=== PATIENT | male | born 1950 | race Caucasian/White ===

== ENCOUNTER → 2019-12-10 11:57 | Outpatient (CLI) | payer MEDICARE, SELFPAY ==
[2019-12-13 14:29] LABS: COVID19 Sendout Not Detected (Not Detected)
== END ==
PROVIDERS: Visit Provider Physician Assistant
DX: R05 Cough (principal)
CPT/HCPCS: 87635

== ENCOUNTER 2020-01-23 18:37 | Emergency (ER) | payer OTHER, MEDICARE, SELFPAY ==
[2020-01-23 19:00] VITALS: BP 135/66; PULSE 70; RESP 14; TEMP 36.8; O2SAT 97; BMI 27.9
--- NOTE | 2020-01-23 19:36 | ED.ANIMALBIT ---
HPI - Animal Bite <Morelia Martinez PA-C - Last Filed: 01/24/20 00:13> General Chief Complaint: Animal Bite Stated Complaint: Dog Bite Time Seen by Provider: 01/23/20 19:32 Source: patient Mode of arrival: Ambulatory Limitations: no limitations History of Present Illness HPI narrative: This is a 69-year-old gentleman with an extensive medical history who presents to the emergency department complaining of a dog bite sustained to his left forearm on Monday of this week, 4 days ago. He states that it was the neighbor's dog that was a [place] Quiles that he knows it was in an enclosure and he was visiting with the other dog that lives with the [place] when the [place] bit him on the arm. The dentist/owner of the dog saw this happen and called him off by spraying water on him. The patient reports he did not initially report this to the police, however he did file a report earlier today as he had not heard anything back from the owners of the dog specifically regarding their vaccinations status. The patient also notes that he recently finished a course of amoxicillin which he was taking because he was bitten by his own dog 2 weeks ago which he then had to put down. He presents to the emergency department today with a slight feeling of stiffness in his left hand and perceived color change in his left than hand with some increasing redness of the skin. He denies any systemic symptoms including fever, nausea, chills, vomiting, diarrhea, shortness of breath or any other symptoms. MD complaint: animal bite Onset (ago): day(s) (4) Animal: dog (cypriot quiles) Description of animal: household pet (belongs to neighbor) Mechanism: bite Location - Extremities: Left: forearm Pain description: intermittent Severity scale (1-10): 1 Context: unprovoked and playing with animal (interacting with dog in the same enclosure) Associated symptoms: erythema and other (joint stiffness in left hand) Treatments prior to arrival: irrigation and antibiotic ointment Related Data Patient tetanus UTD: Yes Previous Rx's Medication Instructions Recorded amoxicillin-pot clavulanate 1 tab PO BID #14 tab 01/23/20 [Augmentin] Allergies Allergy/AdvReac Type Severity Reaction Status Date / Time No Known Drug Allergies Allergy Verified 01/23/20 19:17 Review of Systems <Morelia Martinez PA-C - Last Filed: 01/24/20 00:13> Review of Systems Narrative: GENERAL: Denies chills, fatigue, malaise, fever, sweats. HEENT: Denies sinus pain, ear pain, sore throat, difficulty swallowing, dizziness. RESPIRATORY: Denies dyspnea, cough, wheezing, hemoptysis, sputum. CARDIOVASCULAR: Denies chest pain, palpitations, orthopnea, edema, GASTROINTESTINAL: Denies nausea, vomiting, abdominal pain, diarrhea, constipation, melena. : Denies dysuria, frequency, incontinence, hematuria, urinary retention. MUSCULOSKELETAL: For slight stiffness with making a fist on his left hand, denies weakness, joint pain, or bony pain SKIN: Positive for slight pink color change left and and forearm, Denies rash, skin lesions, or other NEUROLOGIC: Denies weakness, headache, numbness, change in speech, confusion, seizures, incoordination. PSYCHIATRIC: No concerning psychosocial issues. 12 point review of systems is negative except for those stated above Patient History <Morelia Martinez PA-C - Last Filed: 01/24/20 00:13> Social History Smoking Status: Unknown if ever smoked Smoking Status: Unknown if ever smoked alcohol intake frequency: 0-2 drinks per day Substance Use Type: does not use Exam <Morelia Martinez PA-C - Last Filed: 01/24/20 00:13> Narrative Exam Narrative: GENERAL: 69 year old patient appears stated age. Well-nourished, well-developed patient, in mild distress. HEAD: Atraumatic. Normocephalic. EYES: Pupils equal round and reactive. Extraocular motions intact. No scleral icterus. No injection or drainage. ENT: Nose without bleeding, purulent drainage. Throat without erythema, tonsillar hypertrophy or exudate. Airway patent. NECK: Trachea midline. Non tender CARDIOVASCULAR: Regular rate and rhythm without murmurs, gallops, or rubs. RESPIRATORY: Clear to auscultation. Breath sounds equal bilaterally. No wheezes, rales, or rhonchi. GASTROINTESTINAL: Abdomen soft, non-tender, nondistended. EXTREMITIES: The left forearm has multiple superficial bruises well-healing abrasions and 1 small superficial puncture wound, there is no appreciable erythema on the left as compared to the right, there is no appreciable swelling of the left hand or forearm as compared to the right. Range of motion and strength are intact. No edema or joint tenderness. The unaffected left lower extremity has historic deformity and evidence of multiple surgeries. BACK: Nontender without deformity or crepitance. No flank tenderness. NEURO: AOx3. SKIN: No rash or erythema of visible areas Initial Vital Signs Initial Vital Signs: Vital Signs Temperature 98.3 F 01/23/20 19:00 Pulse Rate 70 01/23/20 19:00 Respiratory Rate 14 01/23/20 19:00 Blood Pressure 135/66 01/23/20 19:00 Pulse Oximetry 97 01/23/20 19:00 <Lillian Carlisle DO - Last Filed: 01/28/20 08:15> Initial Vital Signs Initial Vital Signs: Vital Signs Temperature 98.3 F 01/23/20 19:00 Pulse Rate 70 01/23/20 19:00 Respiratory Rate 14 01/23/20 19:00 Blood Pressure 135/66 01/23/20 19:00 Pulse Oximetry 97 01/23/20 19:00 Scores <Morelia Martinez PA-C - Last Filed: 01/24/20 00:13> GCS Hilbert coma scale eye opening: Spontaneous Hilbert coma scale verbal response: Orientated Oh coma scale motor response: Obey commands Hilbert coma scale total score: 15 Course <ANDREA Bruce Last Filed: 01/24/20 00:13> Vital Signs Vital signs: Vital Signs - 8 hr 01/23/20 19:00 Temperature 98.3 F Pulse Rate 70 Respiratory Rate 14 Blood Pressure 135/66 Pulse Oximetry 97 <DO Binh Alejo Last Filed: 01/28/20 08:15> Vital Signs Vital signs: Vital Signs - 8 hr 01/23/20 19:00 Temperature 98.3 F Pulse Rate 70 Respiratory Rate 14 Blood Pressure 135/66 Pulse Oximetry 97 [facility] - Animal Bite <ANDREA Bruce Last Filed: 01/24/20 00:13> Differential Diagnosis Differential diagnosis: Likely bite by animal and dog bite Medical Records Attestation: I reviewed the patient's medical records. [facility] Narrative Medical decision making narrative: This is a well-appearing 69-year-old presents to the emergency department with complaint of a dog bite from his known neighbor's dog sustained 4 days ago from the neighbor's dog, police report filed today. He is concerned for a possible need for antibiotics, has no other complaints or concerns. Differential diagnoses considered include dog bite, tendon sheath infection, need for prophylactic antibiotics, cellulitis, muscle injury Signs of active infection are not appreciated on exam, patient has no systemic symptoms, he did recently finish a course of amoxicillin, and given that he had a 2nd bite sustained this week 4 days ago, prophylaxis against infection is advisable, he is prescribed a course of Augmentin, advised to have PCP follow-up closely, provided with emergency return precautions, all questions answered. Discharge Plan Departure Patient Disposition: Home Clinical Impression: Bite by animal Dog bite Qualifiers: Encounter type: initial encounter Qualified Code(s): W54.0XXA - Bitten by dog, initial encounter Discharge Date/Time: 01/23/20 20:13 Instructions: DI for Animal Bites, DI for Dog Bite Activity Restrictions/Additional Instructions: Thank you for letting us to be part of your care in the emergency department today. There is no evidence of an emergent or life threatening illness at this time, but follow up with your doctor in 1-2 days is recommended nonetheless to continue to rule out serious underlying causes of your symptoms. Please call the office for an appointment. Please return to the Emergency Department for any worsening or persistent symptoms. Please take medications as directed. I have prescribed antibiotics for you as a prophylaxis against infection from your dog bite. I recommend that you have a follow-up appointment with your primary care physician as needed please take the antibiotics as prescribed. If you have any worsening or changes of your symptoms please do not hesitate to seek medical care. If you do not have a PCP I have included a referral to [facility], they can help you to set up a primary care physician and a follow-up appointment as needed. Prescriptions: New amoxicillin-pot clavulanate [Augmentin] 875-125 mg tablet 1 tab PO BID Qty: 14 RF: 0 Referrals: [facility] [Outside] <Lillian Carlisle DO - Last Filed: 01/28/20 08:15> Cosign ED Attending Antioneature Attestation: I was immediately available in the department for consultation. Documentation has been reviewed. I agree with assessment and plan.
== END 2020-01-23 20:13 | disposition home or self-care (01) ==
PROVIDERS: Emergency Provider Student in an Organized Health Care Education/Training Program
DX: S51.852A Open bite of left forearm, initial encounter (principal); W54.0XXA Bitten by dog, initial encounter
CPT/HCPCS: 99281

== ENCOUNTER 2020-10-13 14:17 | Emergency (ER) | payer OTHER, MEDICARE, SELFPAY ==
[2020-10-13 14:28] VITALS: BP 183/119; PULSE 87; RESP 18; TEMP 36.8; O2SAT 97; BMI 28.4
--- NOTE | 2020-10-13 15:20 | DI.CT.S_ITS ---
PROCEDURE: CT HEAD/BRAIN WO CON INDICATIONS: falls multiple TECHNIQUE: Noncontrast 4.5 mm thick angled axial sections acquired from the foramen magnum to the vertex, with coronal and sagittal reformats. For radiation dose reduction, the following was used: automated exposure control, adjustment of mA and/or kV according to patient size. COMPARISON: None. FINDINGS: Image quality: Excellent. CSF spaces: Basal cisterns are patent. No extra-axial fluid collections. The ventricles are symmetric in size and shape. Brain: No intracranial bleeds or masses. There is cerebral volume loss for age, with resultant ventricular and sulcal prominence. There are periventricular and deep white matter chronic small vessel ischemic changes. There is intracranial internal carotid artery atherosclerosis. Skull and face: Calvarium and visualized facial bones appear intact, without suspicious lesions. Sinuses: Visualized sinuses and mastoids are clear. IMPRESSION: 1. No acute intracranial process. 2. Moderate atrophy and chronic microvascular ischemic changes. Dictated by: Janice Pedraza M.D. on 10/13/2020 at 15:43 Approved by: Janice Pedraza M.D. on 10/13/2020 at 16:01
--- NOTE | 2020-10-13 15:20 | DI.RAD.S_ITS ---
PROCEDURE: XR CHEST 1V INDICATIONS: falls multiple TECHNIQUE: One view of the chest was acquired. COMPARISON: None. FINDINGS: Surgical changes and devices: None. Lungs and pleura: Lungs are clear. No pleural effusions or pneumothorax. Mediastinum: Mediastinal contours appear normal. Heart size is normal. Bones and chest wall: No suspicious bony lesions. Overlying soft tissues appear unremarkable. IMPRESSION: No acute cardiopulmonary disease process. Dictated by: Hafsa Cunningham MD, PhD on 10/13/2020 at 15:43 Approved by: Hafsa Cunningham MD, PhD on 10/13/2020 at 15:46
--- NOTE | 2020-10-13 15:32 | ED_ITS ---
HPI - Head Injury <Lillian Carlisle DO - Last Filed: 10/19/20 07:47> General Chief complaint: Head Injury Stated complaint: had a fall Monday, nauseated Time Seen by Provider: 10/13/20 14:38 Source: patient Mode of arrival: Ambulatory Limitations: no limitations History of Present Illness HPI Narrative: Patient is a 70-year-old male who presents after ground level fall 4 days ago, he fell on left side rate near his eye he does have contusion over his periorbital area is. Since then he has been dizzy and off balance. No chest pain or palpitations. He thinks he stumbled and tripped initially causing him to fall. He actually says that his balance has not been great for about 6 weeks. 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 He thinks he is on a blood thinner but he is not sure what it is or why he is taking it. He has had multiple surgeries on his legs and other areas of his body and really does not like hospitals. Related Data Previous Rx's Medication Instructions Recorded amoxicillin-pot clavulanate 1 tab PO BID #14 tab 01/23/20 [Augmentin] Allergies Allergy/AdvReac Type Severity Reaction Status Date / Time No Known Drug Allergies Allergy Verified 10/13/20 14:28 Review of Systems <Lillian Carlisle DO - Last Filed: 10/19/20 07:47> Review of Systems ROS Unobtainable: All systems reviewed & are unremarkable except as noted in HPI and below Constitutional Constitutional: Denies chills, Denies fever(s), Reports frequent falls, Reports headache(s), Denies lethargy and Reports weakness Eyes Eyes: Denies change in vision, Denies eye discharge, Denies irritation and Denies loss of vision ENT Ears, Nose, Mouth, and Throat: Reports headache(s) Cardiovascular Cardiovascular: Denies chest pain, Denies syncope, Denies rapid heart rate, Denies irregular heart rhythm, Denies leg edema, Reports lightheadedness, Denies palpitations, Denies dyspnea, Denies dyspnea on exertion and Denies orthopnea Respiratory Respiratory: Denies cough, Denies dyspnea, Denies dyspnea on exertion and Denies wheezing Gastrointestinal Gastrointestinal: Denies abdominal pain, Denies change in bowel habits, Denies diarrhea, Denies nausea and Denies vomiting Musculoskeletal Musculoskeletal: Denies back pain Integumentary/Breasts Skin/Breast: Denies pruritus, Denies erythema, Denies rash and Denies wounds Neurologic Neurologic: Reports frequent falls, Reports headache(s), Denies loss of vision and Reports weakness Endocrine Endocrine: Denies palpitations Allergic/Immunologic Allergic/Immunologic: Denies wheezing Patient History <Lillian Carlisle DO - Last Filed: 10/19/20 07:47> Medical History (Updated 10/13/20 @ 19:05 by iLllian Carlisle DO) Cerebral aneurysm Social History Smoking Status: Never smoker Smoking Status: Never smoker alcohol intake frequency: 0-2 drinks per day Alcohol type: hard liquor Substance Use Type: does not use Exam <Lillian Carlisle DO - Last Filed: 10/19/20 07:47> Initial Vital Signs Initial Vital Signs: Vital Signs Temperature 98.3 F 10/13/20 14:28 Pulse Rate 87 10/13/20 14:28 Respiratory Rate 18 10/13/20 14:28 Blood Pressure 183/119 H 10/13/20 14:28 Pulse Oximetry 97 10/13/20 14:28 GENERAL: Alert pleasant 70-year-old male and in no acute distress. HEENT: Head atraumatic,EOMI, pupils reactive, face symmetric, moist mucous membranes CARDIOVASCULAR: Regular rate and rhythm without murmurs, rubs or gallops. RESPIRATORY: Breath sounds equal bilaterally, no wheezes rales or rhonchi. ABDOMEN: Soft, nontender. Normoactive bowel sounds all 4 quadrants. No guarding or rebound. EXTREMITIES: Normal range of motion, no clubbing or edema. Neurovascularly intact NEUROLOGICAL: Alert and oriented x4.Normal gait and speech. Cranial nerves II through XII grossly intact. Good oxuwzo-wv-fzca, good bmgd-wb-mzyd, strength equal bilaterally, no dysarthria or aphasia, sensation in tact to soft touch patrizia aterally, no visual changes, no facial droop SKIN: Warm, dry, no laceration, no petechiae, no rashes or lesions. <Amarjit Bucio DO - Last Filed: 10/13/20 22:48> Initial Vital Signs Initial Vital Signs: Vital Signs Temperature 98.3 F 10/13/20 14:28 Pulse Rate 87 10/13/20 14:28 Respiratory Rate 18 10/13/20 14:28 Blood Pressure 183/119 H 10/13/20 14:28 Pulse Oximetry 97 10/13/20 14:28 Scores <Lillian Carlisle DO - Last Filed: 10/19/20 07:47> NIH Stroke Scale Level of Conciousness: Alert, keenly responsive Ask month/age: Answers both questions correctly. Open/close eyes, close hand: Performs both tasks correctly Best gaze horizontal: Normal Visual marquis: No visual loss Facial palsy: Normal symetrical movement Left arm drift: No drift for full 10 sec Right arm drift: No drift for full 10 sec Left leg drift: No drift for full 5 sec Right leg drift: No drift for full 5 sec Limb ataxia: Absent Sensory on face/arms/legs: Normal, no sensory loss Best language: No aphasia, normal Dysarthria: Normal Extinction or inattention: No abnormality Total NIH Stroke scale score: 0 Course <Lillian Carlisle DO - Last Filed: 10/19/20 07:47> Orders Ordered: Discontinued Medications Acetaminophen (Acetaminophen 325 Mg Tablet) 650 mg PO NOW ONE Stop: 10/13/20 20:11 Last Admin: 10/13/20 20:16 Dose: 650 mg Documented by: AMIE Hydromorphone HCl (Hydromorphone 1 Mg Inj) 1 mg IV NOW ONE Stop: 10/13/20 16:01 Last Admin: 10/13/20 16:12 Dose: 1 mg Documented by: FORD Vital Signs Vital signs: Vital Signs - 8 hr 10/13/20 16:14 10/13/20 16:15 10/13/20 16:30 Temperature Pulse Rate 74 74 68 Respiratory Rate Blood Pressure 159/74 H 158/76 H Pulse Oximetry 95 96 96 10/13/20 17:00 10/13/20 21:07 Temperature 97.7 F Pulse Rate 76 72 Respiratory Rate 20 Blood Pressure 172/80 H Pulse Oximetry 97 99 <Amarjit Bucio DO - Last Filed: 10/13/20 22:48> Orders Ordered: Discontinued Medications Acetaminophen (Acetaminophen 325 Mg Tablet) 650 mg PO NOW ONE Stop: 10/13/20 20:11 Last Admin: 10/13/20 20:16 Dose: 650 mg Documented by: KBROTEM Hydromorphone HCl (Hydromorphone 1 Mg Inj) 1 mg IV NOW ONE Stop: 10/13/20 16:01 Last Admin: 10/13/20 16:12 Dose: 1 mg Documented by: FORD Vital Signs Vital signs: Vital Signs - 8 hr 10/13/20 16:14 10/13/20 16:15 10/13/20 16:30 Temperature Pulse Rate 74 74 68 Respiratory Rate Blood Pressure 159/74 H 158/76 H Pulse Oximetry 95 96 96 10/13/20 17:00 10/13/20 21:07 Temperature 97.7 F Pulse Rate 76 72 Respiratory Rate 20 Blood Pressure 172/80 H Pulse Oximetry 97 99 MDM - Head Injury <Lillian Carlisle DO - Last Filed: 10/19/20 07:47> Lab Data Attestation: I reviewed the patient's lab results. Result diagrams: 10/13/20 16:10 10/13/20 16:10 Labs: Lab Results 10/13/20 10/13/20 10/13/20 Range/Units 16:10 16:10 16:10 WBC 7.2 (4.5-11.0) X10^3/uL RBC 4.58 (4.5-5.9) X10^6/uL Hgb 15.8 (13.5-17.5) g/dL Hct 45.3 (41-53) % MCV 98.9 (80-100) fL MCH 34.6 H (26-34) PG MCHC 35.0 (30-36) % RDW 12.6 (11.6-14.8) % Plt Count 166 (150-400) X10^3/uL Neut % (Auto) 73.6 (50-75) % Lymph % (Auto) 14.4 L (25-40) % Posey % (Auto) 9.5 (3-14) % Eos % (Auto) 2.2 (2-4) % Baso % (Auto) 0.3 (0-2) % Neut # (Auto) 5300 (7218-0556) /uL Lymph # (Auto) 1000 L (2180-8151) /uL Posey # (Auto) 700 (0-900) /uL Eos # (Auto) 200 (0-450) /uL Baso # (Auto) 0 (0-100) /uL PT 12.0 (10.1-12.7) SECONDS INR 1.1 (0.9-1.3) APTT 33 (26.4-36.2) SECONDS Sodium 132 L (137-145) mmol/L Potassium 3.7 (3.4-5.1) mmol/L Chloride 96 L (98-107) mmol/L Carbon Dioxide 31 (22-32) mmol/L BUN 8 L (9-20) mg/dL Creatinine 0.59 L (0.66-1.25) mg/dL Estimated GFR > 60.0 (>60) mL/min BUN/Creatinine Ratio 13.6 (6-22) Glucose 118 H (80-110) mg/dL Calcium 9.4 (8.4-10.2) mg/dL Total Bilirubin 0.6 (0.2-1.3) mg/dL AST 31 (17-59) IU/L ALT 27 (<50) IU/L Alkaline Phosphatase 63 (38-126) U/L Total Creatine Kinase 39 L (55-170) U/L CK-MB (CK-2) TNP CK-MB (CK-2) Rel Index TNP Troponin I < 0.012 (0.01-0.034) ng/mL NT-Pro-B Natriuret Pep 140 H (<125) pg/mL Total Protein 6.8 (6.3-8.2) g/dL Albumin 4.1 (3.5-5.0) g/dL Globulin 2.7 (1.7-4.1) g/dL Albumin/Globulin Ratio 1.5 (1.0-2.8) Lipase 214 (23-300) U/L Imaging Data CT scan - head: Radiologist's Impression: PROCEDURE: CT HEAD/BRAIN WO CON INDICATIONS: falls multiple TECHNIQUE: Noncontrast 4.5 mm thick angled axial sections acquired from the foramen magnum to the vertex, with coronal and sagittal reformats. For radiation dose reduction, the following was used: automated exposure control, adjustment of mA and/or kV according to patient size. COMPARISON: None. FINDINGS: Image quality: Excellent. CSF spaces: Basal cisterns are patent. No extra-axial fluid collections. The ventricles are symmetric in size and shape. Brain: No intracranial bleeds or masses. There is cerebral volume loss for age, with resultant ventricular and sulcal prominence. There are periventricular and deep white matter chronic small vessel ischemic changes. There is intracranial internal carotid artery atherosclerosis. Skull and face: Calvarium and visualized facial bones appear intact, without s uspicious lesions. Sinuses: Visualized sinuses and mastoids are clear. IMPRESSION: 1. No acute intracranial process. 2. Moderate atrophy and chronic microvascular ischemic changes. Dictated by: Janice Pedraza M.D. on 10/13/2020 at 15:43 Chest x-ray: Radiologist's Impression: PROCEDURE: XR CHEST 1V INDICATIONS: falls multiple TECHNIQUE: One view of the chest was acquired. COMPARISON: None. FINDINGS: Surgical changes and devices: None. Lungs and pleura: Lungs are clear. No pleural effusions or pneumothorax. Mediastinum: Mediastinal contours appear normal. Heart size is normal. Bones and chest wall: No suspicious bony lesions. Overlying soft tissues appear unremarkable. IMPRESSION: No acute cardiopulmonary disease process. Dictated by: Hafsa Cunningham MD, PhD on 10/13/2020 at 15:43 CTA - brain/neck: Radiologist's Impression: PROCEDURE: CT ANGIO HEAD AND NECK INDICATIONS: headache falls hx of coils TECHNIQUE: Noncontrast images were performed earlier in the day and not repeated. After the administration of intravenous contrast, 1 mm thick sections acquired from the aortic arch through the [place] of Bhardwaj. Post-contrast 4.5 mm thick sections then re- acquired from the foramen magnum to the vertex. 3-dimensional ghuuczd-fonfukzxy-xliopdkftx (MIP) and/or volume rendering reformats were acquired of the central intracranial vasculature and neck separately. COMPARISON: [facility], CT, CT HEAD/BRAIN WO CON, 10/13/2020, 15:27. FINDINGS: Image quality: Excellent. BRAIN: CSF spaces: Ventricles demonstrates symmetric prominence. Basal cisterns are patent. No extra-axial fluid collections. Brain: No midline shift. No intracranial bleeds or masses. Mortensen-white matter interface appears intact. Brain parenchymal volume loss and chronic small vessel ischemic changes are seen. Skull and face: Calvarium and facial bones appear intact, without suspicious lesions. Orbits appear normal. Sinuses: Sinuses and mastoids are clear. HEAD CT ANGIOGRAPHY: Anterior circulation: Intracranial internal carotid arteries demonstrate generalized atherosclerotic calcification and irregularity. There is approximately 60% narrowing seen on each side. The flow within the paired anterior cerebral arteries is normal and symmetric. The flow within the middle cerebral arteries is normal and symmetric. The anterior communicating artery is seen. No aneurysms are seen. Posterior circulation: Vascular coils are seen along the course of the right V4 segment. There is poor flow seen within the right V4 segment. The distal left vertebral artery is unremarkable. There is a normal appearing basilar artery. Bilateral type origins of the posterior cerebral arteries can be seen. Flow within the posterior cerebral arteries is normal and symmetric. No aneurysms are seen. NECK CT ANGIOGRAPHY: Carotid system: The great vessels demonstrate a conventional anatomy as they arise from the aortic arch. The origins of the common carotid arteries appear patent. The common carotid arteries demonstrate normal caliber and courses. The bifurcation regions demonstrate atherosclerotic calcification and irregularity. There is approximately 30% narrowing seen involving the right proximal internal carotid artery and approximately 50% narrowing involving the left proximal internal carotid artery. Posterior circulation: The origins of the vertebral arteries both appear widely patent. The more superior extracranial portions of both vertebral arteries also demonstrate normal courses and calibers. They join to form a normal appearing basilar artery. Soft tissues: Visualized neck soft tissues demonstrate no suspicious abnormali ties. Bones: No suspicious bony lesions. Visualized cervical spine appears normally aligned. At least moderate cervical spine degenerative changes are seen. Moderate degenerative change can be seen the cervical spine. IMPRESSION: Coils are seen involving the right V4 segment, with poor flow seen within the right V4 segment. The flow that is seen within the distal right V4 segment is believed to be retrograde flow from the left. Generalized atherosclerotic irregularity of the intracranial internal carotid arteries, with approximately 60% narrowing on each side. Atherosclerotic calcification and irregularity seen involving the carotid bifurcations, with approximately 30% narrowing seen on right and approximately 50% narrowing seen on the left. Incidental note is made of: Bilateral type origins of the posterior cerebral arteries Moderate cervical spine degenerative change Any quantitative measurements of stenosis were performed using NASCET criteria. Dictated by: Neri Mars M.D. on 10/13/2020 at 16:10 Approved by: Neri Mars M.D. on 10/13/2020 at 16:17 ECG Data Attestation: I personally reviewed and interpreted this ECG as follows: Prior ECG tracings: not available for review Interpretation: Sinus rhythm rate 77 p.r. interval [address] changes no priors to compare MDM Narrative Medical decision making narrative: Patient has no focal deficit, feeling much better after he received Dilaudid. CT angio does show coils in place but there is some retrograde and decreased flow during the V4 segment where the coil is wrist. The images are placed to her review waiting neurosurgery consult. Patient signed out to Dr. Bucio for further management <Amarjit Bucio, - Last Filed: 10/13/20 22:48> Lab Data Labs: Lab Results 10/13/20 10/13/20 10/13/20 Range/Units 16:10 16:10 16:10 WBC 7.2 (4.5-11.0) X10^3/uL RBC 4.58 (4.5-5.9) X10^6/uL Hgb 15.8 (13.5-17.5) g/dL Hct 45.3 (41-53) % MCV 98.9 (80-100) fL MCH 34.6 H (26-34) PG MCHC 35.0 (30-36) % RDW 12.6 (11.6-14.8) % Plt Count 166 (150-400) X10^3/uL Neut % (Auto) 73.6 (50-75) % Lymph % (Auto) 14.4 L (25-40) % Posey % (Auto) 9.5 (3-14) % Eos % (Auto) 2.2 (2-4) % Baso % (Auto) 0.3 (0-2) % Neut # (Auto) 5300 (8341-0348) /uL Lymph # (Auto) 1000 L (9637-0470) /uL Posey # (Auto) 700 (0-900) /uL Eos # (Auto) 200 (0-450) /uL Baso # (Auto) 0 (0-100) /uL PT 12.0 (10.1-12.7) SECONDS INR 1.1 (0.9-1.3) APTT 33 (26.4-36.2) SECONDS Sodium 132 L (137-145) mmol/L Potassium 3.7 (3.4-5.1) mmol/L Chloride 96 L (98-107) mmol/L Carbon Dioxide 31 (22-32) mmol/L BUN 8 L (9-20) mg/dL Creatinine 0.59 L (0.66-1.25) mg/dL Estimated GFR > 60.0 (>60) mL/min BUN/Creatinine Ratio 13.6 (6-22) Glucose 118 H (80-110) mg/dL Calcium 9.4 (8.4-10.2) mg/dL Total Bilirubin 0.6 (0.2-1.3) mg/dL AST 31 (17-59) IU/L ALT 27 (<50) IU/L Alkaline Phosphatase 63 (38-126) U/L Total Creatine Kinase 39 L (55-170) U/L CK-MB (CK-2) TNP CK-MB (CK-2) Rel Index TNP Troponin I < 0.012 (0.01-0.034) ng/mL NT-Pro-B Natriuret Pep 140 H (<125) pg/mL Total Protein 6.8 (6.3-8.2) g/dL Albumin 4.1 (3.5-5.0) g/dL Globulin 2.7 (1.7-4.1) g/dL Albumin/Globulin Ratio 1.5 (1.0-2.8) Lipase 214 (23-300) U/L MDM Narrative Medical decision making narrative: Dr Bucio: Received turned over from Dr Carlisle. I did discuss the case with Neurosurgery at [facility] who stated that there did not appear to be any emergent condition however he did state that the findings on the CTA today could potentially be causing his unsteadiness. He recommended the patient follow-up with his neurosurgeon to discuss further workup. He did recommend that this should happen within the next couple days/weeks and not weeks/months. I did discuss this with the patient. He received his initial treatment down at [facility] and he will contact them tomorrow. He was given return precautions and follow-up instructions. He expressed understanding and agreement. Discharge Plan Departure Patient Disposition: Home Clinical Impression: Dizziness Closed head injury Qualifiers: Encounter type: initial encounter Qualified Code(s): S09.90XA - Unspecified injury of head, initial encounter Instructions: DI for Closed Head Injury Activity Restrictions/Additional Instructions: *You have been diagnosed with dizziness, closed head injury *What to do: At this time CT scans are overall reassuring. Coils seem to be intact and working *Continue to take medications as directed *Follow up with your primary care provider in 2-3 days *Return to ER if you should have [or] any new, worsening or concerning symptoms It was recommended by Neurosurgery that tomorrow you contact the Neurosurgery Department at [facility] for a follow-up. Also contact your primary provider for a follow-up. Prescriptions: No Action amoxicillin-pot clavulanate [Augmentin] 875-125 mg tablet 1 tab PO BID Qty: 14 RF: 0
[2020-10-13] MEDS: HYDROMORPHONE 1 MG INJ IV (16:12)
[2020-10-13 16:14] VITALS: PULSE 74; O2SAT 95
[2020-10-13 16:15] VITALS: BP 159/74; PULSE 74; O2SAT 96
[2020-10-13 16:17] LABS: Add Manual Diff / Slide Review NO; Basophils Absolute Auto 0 /uL (0-100); Basophils Percent Auto 0.3 % (0-2); Eosinophils Absolute Auto 200 /uL (0-450); Eosinophils Percent Auto 2.2 % (2-4); Hematocrit 45.3 % (41-53); Hemoglobin 15.8 g/dL (13.5-17.5); Lymphocytes Absolute Auto 1000 /uL (1100-4500); Lymphocytes Percent Auto 14.4 % (25-40); Mean Corpuscular Hemoglobin 34.6 PG (26-34); Mean Corpuscular Volume 98.9 fL (80-100); Monocytes Absolute Auto 700 /uL (0-900); Monocytes Percent Auto 9.5 % (3-14); Neutrophils Absolute Auto 5300 /uL (1500-7000); Neutrophils Percent Auto 73.6 % (50-75); Platelet Count 166 X10^3/uL (150-400); Red Blood Cell Count 4.58 X10^6/uL (4.5-5.9); Red Cell Distribution Width 12.6 % (11.6-14.8); White Blood Cell Count 7.2 X10^3/uL (4.5-11.0)
--- NOTE | 2020-10-13 16:23 | DI.CT.S_ITS ---
PROCEDURE: CT ANGIO HEAD AND NECK INDICATIONS: headache falls hx of coils TECHNIQUE: Noncontrast images were performed earlier in the day and not repeated. After the administration of intravenous contrast, 1 mm thick sections acquired from the aortic arch through the [place] of Bhardwaj. Post-contrast 4.5 mm thick sections then re-acquired from the foramen magnum to the vertex. 3-dimensional ndxqemc-ftgnhtyum-kdkihglmgv (MIP) and/or volume rendering reformats were acquired of the central intracranial vasculature and neck separately. COMPARISON: [facility], CT, CT HEAD/BRAIN WO CON, 10/13/2020, 15:27. FINDINGS: Image quality: Excellent. BRAIN: CSF spaces: Ventricles demonstrates symmetric prominence. Basal cisterns are patent. No extra-axial fluid collections. Brain: No midline shift. No intracranial bleeds or masses. Mortensen-white matter interface appears intact. Brain parenchymal volume loss and chronic small vessel ischemic changes are seen. Skull and face: Calvarium and facial bones appear intact, without suspicious lesions. Orbits appear normal. Sinuses: Sinuses and mastoids are clear. HEAD CT ANGIOGRAPHY: Anterior circulation: Intracranial internal carotid arteries demonstrate generalized atherosclerotic calcification and irregularity. There is approximately 60% narrowing seen on each side. The flow within the paired anterior cerebral arteries is normal and symmetric. The flow within the middle cerebral arteries is normal and symmetric. The anterior communicating artery is seen. No aneurysms are seen. Posterior circulation: Vascular coils are seen along the course of the right V4 segment. There is poor flow seen within the right V4 segment. The distal left vertebral artery is unremarkable. There is a normal appearing basilar artery. Bilateral type origins of the posterior cerebral arteries can be seen. Flow within the posterior cerebral arteries is normal and symmetric. No aneurysms are seen. NECK CT ANGIOGRAPHY: Carotid system: The great vessels demonstrate a conventional anatomy as they arise from the aortic arch. The origins of the common carotid arteries appear patent. The common carotid arteries demonstrate normal caliber and courses. The bifurcation regions demonstrate atherosclerotic calcification and irregularity. There is approximately 30% narrowing seen involving the right proximal internal carotid artery and approximately 50% narrowing involving the left proximal internal carotid artery. Posterior circulation: The origins of the vertebral arteries both appear widely patent. The more superior extracranial portions of both vertebral arteries also demonstrate normal courses and calibers. They join to form a normal appearing basilar artery. Soft tissues: Visualized neck soft tissues demonstrate no suspicious abnormalities. Bones: No suspicious bony lesions. Visualized cervical spine appears normally aligned. At least moderate cervical spine degenerative changes are seen. Moderate degenerative change can be seen the cervical spine. IMPRESSION: Coils are seen involving the right V4 segment, with poor flow seen within the right V4 segment. The flow that is seen within the distal right V4 segment is believed to be retrograde flow from the left. Generalized atherosclerotic irregularity of the intracranial internal carotid arteries, with approximately 60% narrowing on each side. Atherosclerotic calcification and irregularity seen involving the carotid bifurcations, with approximately 30% narrowing seen on right and approximately 50% narrowing seen on the left. Incidental note is made of: Bilateral type origins of the posterior cerebral arteries Moderate cervical spine degenerative change Any quantitative measurements of stenosis were performed using NASCET criteria. Dictated by: Neri Mars M.D. on 10/13/2020 at 16:10 Approved by: Neri Mars M.D. on 10/13/2020 at 16:17
[2020-10-13 16:25] LABS: INR 1.1 (0.9-1.3)
[2020-10-13 16:27] LABS: PTT Partial Thromboplastin Tim 33 SECONDS (26.4-36.2)
[2020-10-13 16:28] LABS: Alanine Aminotransferase 27 IU/L (<50); Albumin 4.1 g/dL (3.5-5.0); Albumin Globulin Ratio 1.5 (1.0-2.8); Alkaline Phosphatase 63 U/L (38-126); Aspartate Aminotransferase 31 IU/L (17-59); BUN Creatinine Ratio 13.6 (6-22); Bilirubin Total 0.6 mg/dL (0.2-1.3); Blood Urea Nitrogen 8 mg/dL (9-20); Calcium 9.4 mg/dL (8.4-10.2); Carbon Dioxide 31 mmol/L (22-32); Chloride 96 mmol/L (98-107); Creatine Kinase 39 U/L (55-170); Estimated Glomerular Filt Rate > 60.0 mL/min (>60); Globulin 2.7 g/dL (1.7-4.1); Glucose 118 mg/dL (80-110); HEMOLYSIS 18 (0-50); Lipase 214 U/L (23-300); Potassium 3.7 mmol/L (3.4-5.1); Sodium 132 mmol/L (137-145); Total Protein 6.8 g/dL (6.3-8.2)
[2020-10-13 16:30] VITALS: BP 158/76; PULSE 68; O2SAT 96
[2020-10-13 16:41] LABS: NT-proBNP (BNP-Adult 18+) 140 pg/mL (<125); Troponin I < 0.012 ng/mL (0.01-0.034)
[2020-10-13 17:00] VITALS: PULSE 76; O2SAT 97
[2020-10-13] MEDS: ACETAMINOPHEN 325 MG TABLET 650 MG PO (20:16)
[2020-10-13 21:07] VITALS: BP 172/80; PULSE 72; RESP 20; TEMP 36.5; O2SAT 99
== END 2020-10-13 21:31 | disposition home or self-care (01) ==
PROVIDERS: Emergency Medicine; Emergency Provider Emergency Medicine
DX: S09.90XA Unspecified injury of head, initial encounter (principal); R42 Dizziness and giddiness; W01.0XXA Fall on same level from slipping, tripping and stumbling without subsequent striking against object, initial encounter
CPT/HCPCS: 36415; 70450; 70496; 70498; 71045; 80053; 82550; 83690; 83880; 84484; 85025; 85610; 85730; 93005; 93010; 96374; 99284; J1170; Q9967

== ENCOUNTER → 2020-10-23 14:24 | Outpatient (CLI) | payer MEDICARE, SELFPAY ==
[2020-10-23] MEDS: COVID-19 VACC #1, MRNA(MOD) 100 MCG/0.5 ML VIAL IM (14:33)
== END ==
PROVIDERS: Visit Provider Internal Medicine
DX: Z23 Encounter for immunization (principal)
CPT/HCPCS: 0011A; 91301

== ENCOUNTER → 2020-11-20 14:22 | Outpatient (CLI) | payer MEDICARE, SELFPAY ==
[2020-11-20] MEDS: COVID-19 VACC #2, MRNA(MOD) 100 MCG/0.5 ML VIAL IM (14:27)
== END ==
PROVIDERS: Visit Provider Internal Medicine
DX: Z23 Encounter for immunization (principal)
CPT/HCPCS: 0012A; 91301

== ENCOUNTER 2021-04-04 18:29 | Emergency (ER) | payer OTHER, MEDICARE, SELFPAY ==
[2021-04-04] VITALS (9 sets, daily range): BP systolic 138–161; BP diastolic 71–79; PULSE 69–75; RESP 19–30; TEMP 37.7–37.9; O2SAT 97–100; BMI 27.2
--- NOTE | 2021-04-04 18:51 | DI.RAD.S_ITS ---
PROCEDURE: XR CHEST 1V INDICATIONS: short of breath TECHNIQUE: One view of the chest was acquired. COMPARISON: [facility], CR, XR CHEST 1V, 10/13/2020, 15:26. FINDINGS: Surgical changes and devices: None. Lungs and pleura: Lungs are clear. No pleural effusions or pneumothorax. Mediastinum: Mediastinal contours appear normal. Heart size is normal. Bones and chest wall: No suspicious bony lesions. Overlying soft tissues appear unremarkable. IMPRESSION: No acute process. Dictated by: Christiana Kidd M.D. on 04/04/2021 at 19:26 Approved by: Christiana Kidd M.D. on 04/04/2021 at 19:26
--- NOTE | 2021-04-04 18:58 | ED_ITS ---
HPI - SOB/Dyspnea General Chief Complaint: Upper Respiratory Symptoms Stated Complaint: BODY ACHES/COUGHING/TROUBLE BREATHING/NOT SLEEPING Time Seen by Provider: 04/04/21 18:44 Source: patient Mode of arrival: Ambulatory Limitations: no limitations History of Present Illness HPI Narrative: Patient is a 70-year-old male who has no past medical history stenting with increasing shortness of breath and body aches ongoing for the last 7-8 days. He is fully COVID vaccinated and was vaccinated in December. He is tachypneic but speaking in full sentences. He feels like he has a cough that he can not get up. He has difficulty sleeping because of breathing. He is a former smoker but quit many years ago. He has no chest pain. He he has low- grade fever here in the ER. He has not traveled anywhere. They have been staying at home for most of the time. He denies any nausea vomiting or abdominal pain Related Data Previous Rx's Medication Instructions Recorded amoxicillin 875 mg-potassium 1 tab PO BID #14 tab 01/23/20 clavulanate 125 mg tablet (Augmentin) Allergies Allergy/AdvReac Type Severity Reaction Status Date / Time No Known Drug Allergies Allergy Verified 10/13/20 14:28 Review of Systems Review of Systems ROS Unobtainable: All systems reviewed & are unremarkable except as noted in HPI and below Constitutional Constitutional: Reports body ache(s), Reports chills and Reports poor appetite ENT Ears, Nose, Mouth, and Throat: Denies vertigo and Denies dizziness Cardiovascular Cardiovascular: Denies chest pain, Reports dyspnea and Reports dyspnea on exertion Respiratory Respiratory: Reports cough, Reports dyspnea and Reports dyspnea on exertion Gastrointestinal Gastrointestinal: Denies abdominal pain, Denies nausea and Denies vomiting Genitourinary Genitourinary: Denies urinary frequency and Denies urinary hesitancy Musculoskeletal Musculoskeletal: Denies back pain and Reports myalgias Integumentary/Breasts Skin/Breast: Denies rash Neurologic Neurologic: Denies vertigo and Denies dizziness Patient History Medical History (Updated 04/04/21 @ 21:04 by Lillian Carlisle DO) Cerebral aneurysm Social History Smoking Status: Never smoker Smoking Status: Never smoker alcohol intake frequency: 0-2 drinks per day Alcohol type: hard liquor Substance Use Type: does not use Exam Initial Vital Signs Initial Vital Signs: Vital Signs Temperature 100.2 F H 04/04/21 18:47 Pulse Rate 72 04/04/21 18:47 Respiratory Rate 20 04/04/21 18:47 Blood Pressure 157/77 H 04/04/21 18:47 Pulse Oximetry 97 04/04/21 18:47 GENERAL: 70-year-old male in mild respiratory distress HEENT: Head atraumatic,EOMI, pupils reactive, face symmetric, moist mucous membranes CARDIOVASCULAR: Regular rate and rhythm without murmurs, rubs or gallops. RESPIRATORY: Tachypneic but no wheezing rales or rhonchi speaks in full sentences ABDOMEN: Soft, nontender. Normoactive bowel sounds all 4 quadrants. No guarding or rebound. : No CVA tenderness EXTREMITIES: Normal range of motion, no clubbing or edema. Neurovascularly intact NEUROLOGICAL: Alert and oriented x4.Normal gait and speech. Cranial nerves II through XII grossly intact. SKIN: Warm, dry, no laceration, no petechiae, no rashes or lesions. Scores PERC Score Age greater than or equal to 50 years: Yes Heart rate greater than or equal to 100 bpm: No Room Air O2 Sat less than 95%: No Unilateral leg swelling: No Recent trauma or surgery: No Hemoptysis: No Prior PE or DVT: No Hormone Use: No Total PERC Score: 1 Course Orders Ordered: ED Orders 04/04/21 20:40 Blood Culture Stat Discontinued Medications Acetaminophen (Acetaminophen 325 Mg Tablet) 650 mg PO NOW ONE Stop: 04/04/21 19:10 Last Admin: 04/04/21 19:21 Dose: 650 mg Documented by: JOSIE Albuterol (Albuterol Hfa Prepack) 1 box [facility] ONE Stop: 04/04/21 21:02 Last Admin: 04/04/21 21:12 Dose: 1 box Documented by: MIKAELA Albuterol/Ipratropium (Albuterol/Ipratropium 3 Ml Ampul) 3 ml INH NOW ONE Stop: 04/04/21 20:18 Last Admin: 04/04/21 20:40 Dose: 3 ml Documented by: MIKAELA Sodium Chloride (Normal Saline 0.9%) 1,000 mls @ 1,000 mls/hr IV BOLUS ONE Stop: 04/04/21 19:52 Last Infusion: 04/04/21 20:33 Dose: 0 mls/hr Documented by: Admin: 04/04/21 19:22 Dose: 1,000 mls/hr Documented by: JOSIE Vital Signs Vital signs: Vital Signs - 8 hr 04/04/21 21:12 Pulse Rate 71 Respiratory Rate 20 Pulse Oximetry 97 MDM - SOB/Dyspnea Lab Data Result diagrams: 04/04/21 19:02 04/04/21 19:02 Labs: Lab Results 04/04/21 04/04/21 04/04/21 Range/Units 18:45 19:02 19:02 WBC 7.0 (4.5-11.0) X10^3/uL RBC 4.62 (4.5-5.9) X10^6/uL Hgb 16.0 (13.5-17.5) g/dL Hct 45.3 (41-53) % MCV 98.2 (80-100) fL MCH 34.6 H (26-34) PG MCHC 35.3 (30-36) % RDW 12.1 (11.6-14.8) % Plt Count 141 L (150-400) X10^3/uL Neut % (Auto) 84.8 H (50-75) % Lymph % (Auto) 3.8 L (25-40) % Waldo % (Auto) 11.3 (3-14) % Eos % (Auto) 0.0 L (2-4) % Baso % (Auto) 0.1 (0-2) % Neut # (Auto) 6000 (7258-1558) /uL Lymph # (Auto) 300 L (2044-9058) /uL Waldo # (Auto) 800 (0-900) /uL Eos # (Auto) 0 (0-450) /uL Baso # (Auto) 0 (0-100) /uL D-Dimer (<230) ng/mL Sodium 124 L (137-145) mmol/L Potassium 3.7 (3.4-5.1) mmol/L Chloride 92 L (98-107) mmol/L Carbon Dioxide 25 (22-32) mmol/L BUN 8 L (9-20) mg/dL Creatinine 0.64 L (0.66-1.25) mg/dL Estimated GFR > 60.0 (>60) mL/min BUN/Creatinine Ratio 12.5 (6-22) Glucose 109 (80-110) mg/dL Lactate (0.7-2.1) mmol/L Calcium 9.4 (8.4-10.2) mg/dL Total Bilirubin 0.9 (0.2-1.3) mg/dL AST 33 (17-59) IU/L ALT 39 (<50) IU/L Alkaline Phosphatase 78 (38-126) U/L Total Creatine Kinase 36 L (55-170) U/L CK-MB (CK-2) TNP CK-MB (CK-2) Rel Index TNP Troponin I < 0.012 (0.01-0.034) ng/mL NT-Pro-B Natriuret Pep 215 H (<125) pg/mL Total Protein 7.0 (6.3-8.2) g/dL Albumin 4.3 (3.5-5.0) g/dL Globulin 2.7 (1.7-4.1) g/dL Albumin/Globulin Ratio 1.6 (1.0-2.8) Procalcitonin (<0.5) ng/mL SARS-CoV-2 (PCR) Negative (Negative) 04/04/21 04/04/21 04/04/21 Range/Units 19:02 19:02 19:02 WBC (4.5-11.0) X10^3/uL RBC (4.5-5.9) X10^6/uL Hgb (13.5-17.5) g/dL Hct (41-53) % MCV (80-100) fL MCH (26-34) PG MCHC (30-36) % RDW (11.6-14.8) % Plt Count (150-400) X10^3/uL Neut % (Auto) (50-75) % Lymph % (Auto) (25-40) % Waldo % (Auto) (3-14) % Eos % (Auto) (2-4) % Baso % (Auto) (0-2) % Neut # (Auto) (7834-0533) /uL Lymph # (Auto) (7836-3385) /uL Waldo # (Auto) (0-900) /uL Eos # (Auto) (0-450) /uL Baso # (Auto) (0-100) /uL D-Dimer < 200 (<230) ng/mL Sodium (137-145) mmol/L Potassium (3.4-5.1) mmol/L Chloride (98-107) mmol/L Carbon Dioxide (22-32) mmol/L BUN (9-20) mg/dL Creatinine (0.66-1.25) mg/dL Estimated GFR (>60) mL/min BUN/Creatinine Ratio (6-22) Glucose (80-110) mg/dL Lactate 1.5 (0.7-2.1) mmol/L Calcium (8.4-10.2) mg/dL Total Bilirubin (0.2-1.3) mg/dL AST (17-59) IU/L ALT (<50) IU/L Alkaline Phosphatase (38-126) U/L Total Creatine Kinase (55-170) U/L CK-MB (CK-2) CK-MB (CK-2) Rel Index Troponin I (0.01-0.034) ng/mL NT-Pro-B Natriuret Pep (<125) pg/mL Total Protein (6.3-8.2) g/dL Albumin (3.5-5.0) g/dL Globulin (1.7-4.1) g/dL Albumin/Globulin Ratio (1.0-2.8) Procalcitonin 0.09 (<0.5) ng/mL SARS-CoV-2 (PCR) (Negative) Imaging Data Chest x-ray: Radiologist's Impression: PROCEDURE:? XR CHEST 1V ? INDICATIONS:? short of breath ? TECHNIQUE:? One view of the chest was acquired.? ? COMPARISON:? [facility], , XR CHEST 1V, 10/13/2020, 15:26. ? FINDINGS:? ? Surgical changes and devices:? None.? ? Lungs and pleura:? Lungs are clear.? No pleural effusions or pneumothorax.? ? Mediastinum:? Mediastinal contours appear normal.? Heart size is normal.? ? Bones and chest wall:? No suspicious bony lesions.? Overlying soft tissues appear unremarkable.? ? IMPRESSION:? No acute process. ? ? Dictated by: Christiana Kidd M.D. on 04/04/2021 at 19:26 ? ? Approved by: Christiana Kidd M.D. on 04/04/2021 at 19:26 ECG Data Interpretation: Normal sinus rhythm rate 71 PA interval 200 QRS 90 QTC 441 1st degree AV block noted no ischemic changes MDM Narrative Medical decision making narrative: Patient is tachypneic. He is COVID negative blood work is overall reassuring. He is not hypoxic approved D-dimer is negative low risk for pulmonary embolism. No evidence of congestive heart failure. He is given albuterol treatment which does seem to help some. He is taught how to use albuterol inhaler and spacer by respiratory. He has low-grade fever and body aches ongoing for last 7 to 8 days suggestive more of infectious process. However at this time is is feeling better after albuterol no need for antibiotics. Possibly other virus besides COVID. Discussed with him conservative management and when to return to emergency department. Discharge Plan Departure Patient Disposition: Home Clinical Impression: Acute hyponatremia Upper respiratory infection Qualifiers: URI type: unspecified viral URI Qualified Code(s): J06.9 - Acute upper respiratory infection, unspecified Instructions: DI for Viral Upper Respiratory Infection -- Adult Activity Restrictions/Additional Instructions: *You have been diagnosed with upper respiratory infection *What to do: At this time blood work and x-ray were overall reassuring. No need for antibiotic. your COVID test is negative. Recommend fever control, increase fluids. Your sodium is noted to be slightly low this needs to be rechecked this week. Recommend drinking Gatorade or Gatorade like product. *Continue to take medications as directed Albuterol inhaler 1-2 puffs every 4 hours if needed for shortness of breath *Follow up with your primary care provider in 2-3 days *Return to ER if you should have increasing shortness of breath, chest pain, confusion or weakness or any new, worsening or concerning symptoms Prescriptions: No Action amoxicillin-pot clavulanate [Augmentin] 875-125 mg tablet 1 tab PO BID Qty: 14 RF: 0
[2021-04-04 19:09] LABS: COVID19 -Nasal RAPID Negative (Negative)
[2021-04-04 19:11] LABS: Add Manual Diff / Slide Review NO; Basophils Absolute Auto 0 /uL (0-100); Basophils Percent Auto 0.1 % (0-2); Eosinophils Absolute Auto 0 /uL (0-450); Hematocrit 45.3 % (41-53); Lymphocytes Absolute Auto 300 /uL (1100-4500); Lymphocytes Percent Auto 3.8 % (25-40); Mean Corpuscular HGB Conc 35.3 % (30-36); Mean Corpuscular Hemoglobin 34.6 PG (26-34); Mean Corpuscular Volume 98.2 fL (80-100); Monocytes Absolute Auto 800 /uL (0-900); Monocytes Percent Auto 11.3 % (3-14); Neutrophils Absolute Auto 6000 /uL (1500-7000); Neutrophils Percent Auto 84.8 % (50-75); Platelet Count 141 X10^3/uL (150-400); Red Blood Cell Count 4.62 X10^6/uL (4.5-5.9); Red Cell Distribution Width 12.1 % (11.6-14.8)
[2021-04-04] MEDS: ACETAMINOPHEN 325 MG TABLET 650 MG PO (19:21)
[2021-04-04] MEDS: SODIUM CHLORIDE 0.9% 1,000 ML 1000 ML IV (19:22)
[2021-04-04 19:26] LABS: Alanine Aminotransferase 39 IU/L (<50); Albumin 4.3 g/dL (3.5-5.0); Albumin Globulin Ratio 1.6 (1.0-2.8); Alkaline Phosphatase 78 U/L (38-126); Aspartate Aminotransferase 33 IU/L (17-59); BUN Creatinine Ratio 12.5 (6-22); Bilirubin Total 0.9 mg/dL (0.2-1.3); Blood Urea Nitrogen 8 mg/dL (9-20); Calcium 9.4 mg/dL (8.4-10.2); Carbon Dioxide 25 mmol/L (22-32); Chloride 92 mmol/L (98-107); Creatine Kinase 36 U/L (55-170); Estimated Glomerular Filt Rate > 60.0 mL/min (>60); Globulin 2.7 g/dL (1.7-4.1); Glucose 109 mg/dL (80-110); HEMOLYSIS < 15 (0-50); Lactate (Lactic Acid) 1.5 mmol/L (0.7-2.1); Potassium 3.7 mmol/L (3.4-5.1); Sodium 124 mmol/L (137-145)
[2021-04-04 19:38] LABS: NT-proBNP (BNP-Adult 18+) 215 pg/mL (<125); Troponin I < 0.012 ng/mL (0.01-0.034)
[2021-04-04 19:43] LABS: Procalcitonin 0.09 ng/mL (<0.5)
[2021-04-04 20:35] LABS: D Dimer < 200 ng/mL (<230)
[2021-04-04] MEDS: ALBUTEROL/IPRATROPIUM 3 ML AMPUL INH (20:40)
[2021-04-04] MEDS: ALBUTEROL HFA PREPACK 1 BOX MISC (21:12)
== END 2021-04-04 21:19 | disposition home or self-care (01) ==
PROVIDERS: Emergency Provider Emergency Medicine
DX: E87.1 Hypo-osmolality and hyponatremia (principal); J06.9 Acute upper respiratory infection, unspecified; R06.02 Shortness of breath; Z20.822 Contact with and (suspected) exposure to COVID-19
CPT/HCPCS: 36415; 71045; 80053; 82550; 83605; 83880; 84145; 84484; 85025; 85379; 87040; 87635; 93005; 93010; 94640; 96365; 99284; 99285; C9803

== ENCOUNTER 2021-06-17 02:32 | Emergency (ER) | payer OTHER, MEDICARE, SELFPAY ==
[2021-06-17] VITALS (36 sets, daily range): BP systolic 121–217; BP diastolic 56–136; PULSE 74–115; RESP 12–34; TEMP 36.6–37; O2SAT 85–98
--- NOTE | 2021-06-17 02:46 | ED_ITS ---
HPI - Overdose <Lillian Carlisle DO - Last Filed: 06/17/21 23:57> General Chief Complaint: Toxicology Problem Stated Complaint: OD Time Seen by Provider: 06/17/21 02:41 Source: patient and EMS Mode of arrival: EMS Limitations: no limitations History of Present Illness HPI Narrative: Patient is a 70-year-old male history of chronic pain taking morphine is and oxycodone history of cerebral aneurysm with coil presenting today is overdose and suicide attempt. He takes morphine 60 mg extended release up to 3 times daily he says he tries not to take it sometimes he patient to he also is taking oxycodone 5 mg, but says he did not take any extra of that. Around midnight he took possibly 20 tablets of morphine 60 mg. He was reaching out to crisis Line who reached out to 911. He is awake alert and oriented in the emergency department. The does not want to talk much about the stressors in his life but states that his whole life is not worth living. He is cooperative involuntary at this time. Related Data Home Medications Medication Instructions Recorded Confirmed aspirin 325 mg tablet 325 mg PO DAILY 06/17/21 06/17/21 atorvastatin 80 mg tablet 80 mg PO BEDTIME 06/17/21 06/17/21 hydrochlorothiazide 12.5 mg capsule 12.5 mg PO QAM 06/17/21 06/17/21 lisinopril 10 mg tablet 10 mg PO DAILY 06/17/21 06/17/21 morphine 60 mg tablet,extended 60 mg PO Q8H 06/17/21 06/17/21 release nortriptyline 10 mg capsule 10 mg PO BEDTIME 06/17/21 06/17/21 oxycodone 5 mg capsule 5 mg PO QID PRN 06/17/21 06/17/21 sertraline 100 mg tablet 100 mg PO QAM 06/17/21 06/17/21 trazodone 150 mg tablet 150 mg PO BEDTIME 06/17/21 06/17/21 Allergies Allergy/AdvReac Type Severity Reaction Status Date / Time No Known Drug Allergies Allergy Verified 06/17/21 16:03 Review of Systems <DO Binh Alejo Last Filed: 06/17/21 23:57> Review of Systems Narrative: GENERAL: Denies chills, fatigue, malaise, fever, sweats, travel HEENT: Denies sinus pain, ear pain, sore throat, difficulty swallowing, neck pain RESPIRATORY: Denies dyspnea, cough, wheezing, hemoptysis, sputum. CARDIOVASCULAR: Denies chest pain, palpitations, orthopnea, edema GASTROINTESTINAL: Denies nausea, vomiting, abdominal pain, diarrhea, constipation, melena. : Denies dysuria, frequency, incontinence, hematuria, urinary retention, flank pain. MUSCULOSKELETAL: Denies weakness, joint pain, or bony pain SKIN: No rash, no erythema, no pruritus NEUROLOGIC: Denies weakness, dizziness, headache, numbness, change in speech, confusion PSYCHIATRIC: See HPI 12 point review of systems is negative except for those stated above and HPI Patient History <Lillian Carlisle DO - Last Filed: 06/17/21 23:57> Medical History (Updated 06/19/21 @ 12:08 by Amarjit Bucio DO) Alcohol use disorder Cerebral aneurysm Chronic pain Depression Hepatitis C Hypertension Opioid dependence Osteomyelitis Social History Smoking Status: Never smoker Smoking Status: Never smoker alcohol intake frequency: 0-2 drinks per day Alcohol type: hard liquor Substance Use Type: does not use Exam <Lillian Carlisle DO - Last Filed: 06/17/21 23:57> Initial Vital Signs Initial Vital Signs: Vital Signs Temperature 97.9 F 06/17/21 02:33 Pulse Rate 91 H 06/17/21 02:33 Respiratory Rate 20 06/17/21 02:33 Blood Pressure 146/107 H 06/17/21 02:33 Pulse Oximetry 96 06/17/21 02:33 GENERAL: Alert 70-year-old maleand in no acute distress. HEENT: Head atraumatic,EOMI, pupils reactive, face symmetric, moist mucous membranes CARDIOVASCULAR: Regular rate and rhythm without murmurs, rubs or gallops. RESPIRATORY: Breath sounds equal bilaterally, no wheezes rales or rhonchi. EXTREMITIES: Normal range of motion, no clubbing or edema. Neurovascularly intact NEUROLOGICAL: Alert and oriented x4. SKIN: Warm, dry, no laceration, no petechiae, no rashes or lesions. <Medina Zamora MD - Last Filed: 06/27/21 18:35> Initial Vital Signs Initial Vital Signs: Vital Signs Temperature 97.9 F 06/17/21 02:33 Pulse Rate 91 H 06/17/21 02:33 Respiratory Rate 20 06/17/21 02:33 Blood Pressure 146/107 H 06/17/21 02:33 Pulse Oximetry 96 06/17/21 02:33 <Amarjit Bucio DO - Last Filed: 06/19/21 12:08> Initial Vital Signs Initial Vital Signs: Vital Signs Temperature 97.9 F 06/17/21 02:33 Pulse Rate 91 H 06/17/21 02:33 Respiratory Rate 20 06/17/21 02:33 Blood Pressure 146/107 H 06/17/21 02:33 Pulse Oximetry 96 06/17/21 02:33 Course <Lillian Carlisle, DO - Last Filed: 06/17/21 23:57> Orders Ordered: Discontinued Medications Al Hydrox/Mg Hydrox/Simethicone (Mag Hydrox/Alum/Simeth 30 Ml Udc) 30 ml PO NOW ONE Stop: 06/17/21 11:52 Last Admin: 06/17/21 11:58 Dose: 30 ml Documented by: MARLO Chlordiazepoxide HCl (Chlordiazepoxide 25 Mg Capsule) 25 mg PO NOW ONE Stop: 06/18/21 12:34 Last Admin: 06/18/21 12:45 Dose: 25 mg Documented by: JOSIE Thiamine HCl 200 mg/ Sodium (Chloride) 102 mls @ 408 mls/hr IV NOW ONE Stop: 06/18/21 18:53 Last Admin: 06/18/21 20:07 Dose: Not Given Documented by: CHELA Thiamine HCl 200 mg/ Sodium (Chloride) 102 mls @ 408 mls/hr IV NOW ONE Stop: 06/18/21 20:06 Last Infusion: 06/18/21 20:33 Dose: 0 mls/hr Documented by: Admin: 06/18/21 20:15 Dose: 408 mls/hr Documented by: CHELA Lisinopril (Lisinopril 10 Mg Tablet) 10 mg PO NOW ONE Stop: 06/17/21 16:05 Last Admin: 06/17/21 17:34 Dose: 10 mg Documented by: JASON Lorazepam (Lorazepam 0.5 Mg Tablet) 2 mg PO NOW ONE Stop: 06/17/21 13:00 Last Admin: 06/17/21 13:07 Dose: 2 mg Documented by: JASON Lorazepam (Lorazepam 0.5 Mg Tablet) 2 mg PO NOW ONE Stop: 06/17/21 13:19 Last Admin: 06/17/21 13:35 Dose: 2 mg Documented by: JASON Lorazepam (Lorazepam 0.5 Mg Tablet) 1 mg PO NOW ONE Stop: 06/18/21 11:17 Last Admin: 06/18/21 11:31 Dose: 1 mg Documented by: JOSIE Lorazepam (Lorazepam 2 Mg/Ml Inj) 1 mg IV Q4HR PRN PRN Reason: Anxiety Lorazepam (Lorazepam 0.5 Mg Tablet) 1 mg PO Q4HR PRN PRN Reason: Anxiety Last Admin: 06/18/21 16:28 Dose: 1 mg Documented by: JOSIE Magnesium Citrate (Magnesium Citrate 300 Ml Solution) 300 ml PO NOW ONE Stop: 06/19/21 12:06 Last Admin: 06/19/21 12:31 Dose: 300 ml Documented by: PARKER Ondansetron HCl (Ondansetron 4 Mg Odt) 4 mg SL NOW ONE Stop: 06/17/21 13:19 Last Admin: 06/17/21 13:21 Dose: 4 mg Documented by: JASON Ondansetron HCl (Ondansetron 4 Mg Odt) 4 mg SL NOW ONE Stop: 06/18/21 11:27 Last Admin: 06/18/21 11:31 Dose: 4 mg Documented by: JOSIE Vital Signs Vital signs: Vital Signs - 8 hr 06/19/21 04:30 06/19/21 05:00 06/19/21 05:01 Pulse Rate 77 76 78 Respiratory Rate Blood Pressure 147/65 H 127/62 Pulse Oximetry 100 100 100 06/19/21 05:30 06/19/21 05:31 06/19/21 06:00 Pulse Rate 72 72 82 Respiratory Rate Blood Pressure 151/66 H Pulse Oximetry 100 100 100 06/19/21 06:01 06/19/21 06:30 06/19/21 06:31 Pulse Rate 80 77 77 Respiratory Rate Blood Pressure 170/97 H 172/89 H Pulse Oximetry 100 100 100 06/19/21 07:00 06/19/21 07:30 06/19/21 07:31 Pulse Rate 70 71 72 Respiratory Rate 17 Blood Pressure 175/81 H 134/70 Pulse Oximetry 100 100 100 06/19/21 08:00 06/19/21 08:30 06/19/21 09:00 Pulse Rate 72 73 73 Respiratory Rate 18 Blood Pressure 142/64 H Pulse Oximetry 100 100 100 06/19/21 09:01 Pulse Rate 73 Respiratory Rate 18 Blood Pressure 177/88 H Pulse Oximetry 100 <Medina Zamora MD - Last Filed: 06/27/21 18:35> Orders Ordered: Discontinued Medications Al Hydrox/Mg Hydrox/Simethicone (Mag Hydrox/Alum/Simeth 30 Ml Udc) 30 ml PO NOW ONE Stop: 06/17/21 11:52 Last Admin: 06/17/21 11:58 Dose: 30 ml Documented by: MARLO Chlordiazepoxide HCl (Chlordiazepoxide 25 Mg Capsule) 25 mg PO NOW ONE Stop: 06/18/21 12:34 Last Admin: 06/18/21 12:45 Dose: 25 mg Documented by: JOSIE Thiamine HCl 200 mg/ Sodium (Chloride) 102 mls @ 408 mls/hr IV NOW ONE Stop: 06/18/21 18:53 Last Admin: 06/18/21 20:07 Dose: Not Given Documented by: CHELA Thiamine HCl 200 mg/ Sodium (Chloride) 102 mls @ 408 mls/hr IV NOW ONE Stop: 06/18/21 20:06 Last Infusion: 06/18/21 20:33 Dose: 0 mls/hr Documented by: Admin: 06/18/21 20:15 Dose: 408 mls/hr Documented by: CHELA Lisinopril (Lisinopril 10 Mg Tablet) 10 mg PO NOW ONE Stop: 06/17/21 16:05 Last Admin: 06/17/21 17:34 Dose: 10 mg Documented by: JASON Lorazepam (Lorazepam 0.5 Mg Tablet) 2 mg PO NOW ONE Stop: 06/17/21 13:00 Last Admin: 06/17/21 13:07 Dose: 2 mg Documented by: JASON Lorazepam (Lorazepam 0.5 Mg Tablet) 2 mg PO NOW ONE Stop: 06/17/21 13:19 Last Admin: 06/17/21 13:35 Dose: 2 mg Documented by: JASON Lorazepam (Lorazepam 0.5 Mg Tablet) 1 mg PO NOW ONE Stop: 06/18/21 11:17 Last Admin: 06/18/21 11:31 Dose: 1 mg Documented by: JOSIE Lorazepam (Lorazepam 2 Mg/Ml Inj) 1 mg IV Q4HR PRN PRN Reason: Anxiety Lorazepam (Lorazepam 0.5 Mg Tablet) 1 mg PO Q4HR PRN PRN Reason: Anxiety Last Admin: 06/18/21 16:28 Dose: 1 mg Documented by: JOSIE Magnesium Citrate (Magnesium Citrate 300 Ml Solution) 300 ml PO NOW ONE Stop: 06/19/21 12:06 Last Admin: 06/19/21 12:31 Dose: 300 ml Documented by: PARKER Ondansetron HCl (Ondansetron 4 Mg Odt) 4 mg SL NOW ONE Stop: 06/17/21 13:19 Last Admin: 06/17/21 13:21 Dose: 4 mg Documented by: JASON Ondansetron HCl (Ondansetron 4 Mg Odt) 4 mg SL NOW ONE Stop: 06/18/21 11:27 Last Admin: 06/18/21 11:31 Dose: 4 mg Documented by: JOSIE Vital Signs Vital signs: Vital Signs - 8 hr 06/19/21 04:30 06/19/21 05:00 06/19/21 05:01 Pulse Rate 77 76 78 Respiratory Rate Blood Pressure 147/65 H 127/62 Pulse Oximetry 100 100 100 06/19/21 05:30 06/19/21 05:31 06/19/21 06:00 Pulse Rate 72 72 82 Respiratory Rate Blood Pressure 151/66 H Pulse Oximetry 100 100 100 06/19/21 06:01 06/19/21 06:30 06/19/21 06:31 Pulse Rate 80 77 77 Respiratory Rate Blood Pressure 170/97 H 172/89 H Pulse Oximetry 100 100 100 06/19/21 07:00 06/19/21 07:30 06/19/21 07:31 Pulse Rate 70 71 72 Respiratory Rate 17 Blood Pressure 175/81 H 134/70 Pulse Oximetry 100 100 100 06/19/21 08:00 06/19/21 08:30 06/19/21 09:00 Pulse Rate 72 73 73 Respiratory Rate 18 Blood Pressure 142/64 H Pulse Oximetry 100 100 100 06/19/21 09:01 Pulse Rate 73 Respiratory Rate 18 Blood Pressure 177/88 H Pulse Oximetry 100 <Amarjit Bucio, DO - Last Filed: 06/19/21 12:08> Orders Ordered: Discontinued Medications Al Hydrox/Mg Hydrox/Simethicone (Mag Hydrox/Alum/Simeth 30 Ml Udc) 30 ml PO NOW ONE Stop: 06/17/21 11:52 Last Admin: 06/17/21 11:58 Dose: 30 ml Documented by: MARLO Chlordiazepoxide HCl (Chlordiazepoxide 25 Mg Capsule) 25 mg PO NOW ONE Stop: 06/18/21 12:34 Last Admin: 06/18/21 12:45 Dose: 25 mg Documented by: JOSIE Thiamine HCl 200 mg/ Sodium (Chloride) 102 mls @ 408 mls/hr IV NOW ONE Stop: 06/18/21 18:53 Last Admin: 06/18/21 20:07 Dose: Not Given Documented by: CHELA Thiamine HCl 200 mg/ Sodium (Chloride) 102 mls @ 408 mls/hr IV NOW ONE Stop: 06/18/21 20:06 Last Infusion: 06/18/21 20:33 Dose: 0 mls/hr Documented by: Admin: 06/18/21 20:15 Dose: 408 mls/hr Documented by: CHELA Lisinopril (Lisinopril 10 Mg Tablet) 10 mg PO NOW ONE Stop: 06/17/21 16:05 Last Admin: 06/17/21 17:34 Dose: 10 mg Documented by: JASON Lorazepam (Lorazepam 0.5 Mg Tablet) 2 mg PO NOW ONE Stop: 06/17/21 13:00 Last Admin: 06/17/21 13:07 Dose: 2 mg Documented by: JASON Lorazepam (Lorazepam 0.5 Mg Tablet) 2 mg PO NOW ONE Stop: 06/17/21 13:19 Last Admin: 06/17/21 13:35 Dose: 2 mg Documented by: JASON Lorazepam (Lorazepam 0.5 Mg Tablet) 1 mg PO NOW ONE Stop: 06/18/21 11:17 Last Admin: 06/18/21 11:31 Dose: 1 mg Documented by: JOSIE Lorazepam (Lorazepam 2 Mg/Ml Inj) 1 mg IV Q4HR PRN PRN Reason: Anxiety Lorazepam (Lorazepam 0.5 Mg Tablet) 1 mg PO Q4HR PRN PRN Reason: Anxiety Last Admin: 06/18/21 16:28 Dose: 1 mg Documented by: JOSIE Magnesium Citrate (Magnesium Citrate 300 Ml Solution) 300 ml PO NOW ONE Stop: 06/19/21 12:06 Last Admin: 06/19/21 12:31 Dose: 300 ml Documented by: PARKER Ondansetron HCl (Ondansetron 4 Mg Odt) 4 mg SL NOW ONE Stop: 06/17/21 13:19 Last Admin: 06/17/21 13:21 Dose: 4 mg Documented by: JASON Ondansetron HCl (Ondansetron 4 Mg Odt) 4 mg SL NOW ONE Stop: 06/18/21 11:27 Last Admin: 06/18/21 11:31 Dose: 4 mg Documented by: JOSIE Vital Signs Vital signs: Vital Signs - 8 hr 06/19/21 04:30 06/19/21 05:00 06/19/21 05:01 Pulse Rate 77 76 78 Respiratory Rate Blood Pressure 147/65 H 127/62 Pulse Oximetry 100 100 100 06/19/21 05:30 06/19/21 05:31 06/19/21 06:00 Pulse Rate 72 72 82 Respiratory Rate Blood Pressure 151/66 H Pulse Oximetry 100 100 100 06/19/21 06:01 06/19/21 06:30 06/19/21 06:31 Pulse Rate 80 77 77 Respiratory Rate Blood Pressure 170/97 H 172/89 H Pulse Oximetry 100 100 100 06/19/21 07:00 06/19/21 07:30 06/19/21 07:31 Pulse Rate 70 71 72 Respiratory Rate 17 Blood Pressure 175/81 H 134/70 Pulse Oximetry 100 100 100 06/19/21 08:00 06/19/21 08:30 06/19/21 09:00 Pulse Rate 72 73 73 Respiratory Rate 18 Blood Pressure 142/64 H Pulse Oximetry 100 100 100 06/19/21 09:01 Pulse Rate 73 Respiratory Rate 18 Blood Pressure 177/88 H Pulse Oximetry 100 MDM - Overdose <Lillian Carlisle DO - Last Filed: 06/17/21 23:57> Lab Data Result diagrams: 06/17/21 03:15 11/25/21 03:15 Labs: Lab Results 06/17/21 06/17/21 06/17/21 Range/Units 03:15 03:15 03:15 WBC 5.9 (4.5-11.0) X10^3/uL RBC 4.40 L (4.5-5.9) X10^6/uL Hgb 15.3 (13.5-17.5) g/dL Hct 43.2 (41-53) % MCV 98.1 (80-100) fL MCH 34.7 H (26-34) PG MCHC 35.3 (30-36) % RDW 13.4 (11.6-14.8) % Plt Count 177 (150-400) X10^3/uL Neut % (Auto) 60.6 (50-75) % Lymph % (Auto) 28.6 (25-40) % [place] % (Auto) 8.4 (3-14) % Eos % (Auto) 1.8 L (2-4) % Baso % (Auto) 0.6 (0-2) % Neut # (Auto) 3600 (6398-4313) /uL Lymph # (Auto) 1700 (1261-9067) /uL [place] # (Auto) 500 (0-900) /uL Eos # (Auto) 100 (0-450) /uL Baso # (Auto) 0 (0-100) /uL Sodium 139 (137-145) mmol/L Potassium 4.1 (3.4-5.1) mmol/L Chloride 100 (98-107) mmol/L Carbon Dioxide 27 (22-32) mmol/L BUN 16 (9-20) mg/dL Creatinine 0.81 (0.66-1.25) mg/dL Estimated GFR > 60.0 (>60) mL/min BUN/Creatinine Ratio 19.8 (6-22) Glucose 111 H (80-110) mg/dL Lactate 1.5 (0.7-2.1) mmol/L Calcium 9.4 (8.4-10.2) mg/dL Total Bilirubin 0.5 (0.2-1.3) mg/dL AST 87 H (17-59) IU/L ALT 160 H (<50) IU/L Alkaline Phosphatase 71 (38-126) U/L Total Protein 7.5 (6.3-8.2) g/dL Albumin 4.5 (3.5-5.0) g/dL Globulin 3.0 (1.7-4.1) g/dL Albumin/Globulin Ratio 1.5 (1.0-2.8) Salicylates < 1.0 (<20) mg/dL U Opiates 300ng/mL cut (Negative) Ur Oxycodone Screen (Negative) Urine Methadone Screen (Negative) Acetaminophen < 10 L (10-30) ug/mL Ur Barbiturates Screen (Negative) U Tricyclic Antidepress (Negative) Ur Phencyclidine Scrn (Negative) Ur Amphetamines Screen (Negative) U Methamphetamines Scrn (Negative) Ur MDMA Scrn (Ecstasy) (Negative) U Benzodiazepines Scrn (Negative) Urine Cocaine Screen (Negative) U Marijuana (THC) Screen (Negative) Ethyl Alcohol 185 H ( - 10) mg/dL SARS-CoV-2 (PCR) (Negative) 06/17/21 06/17/21 06/18/21 Range/Units 04:36 11:49 07:38 WBC (4.5-11.0) X10^3/uL RBC (4.5-5.9) X10^6/uL Hgb (13.5-17.5) g/dL Hct (41-53) % MCV (80-100) fL MCH (26-34) PG MCHC (30-36) % RDW (11.6-14.8) % Plt Count (150-400) X10^3/uL Neut % (Auto) (50-75) % Lymph % (Auto) (25-40) % [place] % (Auto) (3-14) % Eos % (Auto) (2-4) % Baso % (Auto) (0-2) % Neut # (Auto) (8524-0824) /uL Lymph # (Auto) (3121-2373) /uL [place] # (Auto) (0-900) /uL Eos # (Auto) (0-450) /uL Baso # (Auto) (0-100) /uL Sodium (137-145) mmol/L Potassium (3.4-5.1) mmol/L Chloride (98-107) mmol/L Carbon Dioxide (22-32) mmol/L BUN (9-20) mg/dL Creatinine (0.66-1.25) mg/dL Estimated GFR (>60) mL/min BUN/Creatinine Ratio (6-22) Glucose (80-110) mg/dL Lactate (0.7-2.1) mmol/L Calcium (8.4-10.2) mg/dL Total Bilirubin (0.2-1.3) mg/dL AST (17-59) IU/L ALT (<50) IU/L Alkaline Phosphatase (38-126) U/L Total Protein (6.3-8.2) g/dL Albumin (3.5-5.0) g/dL Globulin (1.7-4.1) g/dL Albumin/Globulin Ratio (1.0-2.8) Salicylates (<20) mg/dL U Opiates 300ng/mL cut Positive H (Negative) Ur Oxycodone Screen Positive H (Negative) Urine Methadone Screen Negative (Negative) Acetaminophen (10-30) ug/mL Ur Barbiturates Screen Negative (Negative) U Tricyclic Antidepress Positive H (Negative) Ur Phencyclidine Scrn Negative (Negative) Ur Amphetamines Screen Negative (Negative) U Methamphetamines Scrn Negative (Negative) Ur MDMA Scrn (Ecstasy) Negative (Negative) U Benzodiazepines Scrn Negative (Negative) Urine Cocaine Screen Negative (Negative) U Marijuana (THC) Screen Negative (Negative) Ethyl Alcohol < 10 ( - 10) mg/dL SARS-CoV-2 (PCR) Negative (Negative) 06/18/21 Range/Units 12:02 WBC (4.5-11.0) X10^3/uL RBC (4.5-5.9) X10^6/uL Hgb (13.5-17.5) g/dL Hct (41-53) % MCV (80-100) fL MCH (26-34) PG MCHC (30-36) % RDW (11.6-14.8) % Plt Count (150-400) X10^3/uL Neut % (Auto) (50-75) % Lymph % (Auto) (25-40) % [place] % (Auto) (3-14) % Eos % (Auto) (2-4) % Baso % (Auto) (0-2) % Neut # (Auto) (6884-5955) /uL Lymph # (Auto) (6210-4094) /uL [place] # (Auto) (0-900) /uL Eos # (Auto) (0-450) /uL Baso # (Auto) (0-100) /uL Sodium (137-145) mmol/L Potassium (3.4-5.1) mmol/L Chloride (98-107) mmol/L Carbon Dioxide (22-32) mmol/L BUN (9-20) mg/dL Creatinine (0.66-1.25) mg/dL Estimated GFR (>60) mL/min BUN/Creatinine Ratio (6-22) Glucose (80-110) mg/dL Lactate (0.7-2.1) mmol/L Calcium (8.4-10.2) mg/dL Total Bilirubin (0.2-1.3) mg/dL AST (17-59) IU/L ALT (<50) IU/L Alkaline Phosphatase (38-126) U/L Total Protein (6.3-8.2) g/dL Albumin (3.5-5.0) g/dL Globulin (1.7-4.1) g/dL Albumin/Globulin Ratio (1.0-2.8) Salicylates (<20) mg/dL U Opiates 300ng/mL cut Positive H (Negative) Ur Oxycodone Screen Positive H (Negative) Urine Methadone Screen Negative (Negative) Acetaminophen (10-30) ug/mL Ur Barbiturates Screen Negative (Negative) U Tricyclic Antidepress Positive H (Negative) Ur Phencyclidine Scrn Negative (Negative) Ur Amphetamines Screen Negative (Negative) U Methamphetamines Scrn Negative (Negative) Ur MDMA Scrn (Ecstasy) Negative (Negative) U Benzodiazepines Scrn Positive H (Negative) Urine Cocaine Screen Negative (Negative) U Marijuana (THC) Screen Negative (Negative) Ethyl Alcohol ( - 10) mg/dL SARS-CoV-2 (PCR) (Negative) ECG Data Interpretation: Normal sinus rhythm rate 82 GA interval 186 QRS [address] changes or T- wave inversions MDM Narrative Medical decision making narrative: Patient is awake alert talking he was not given any Narcan. Questionable how many tablets he actually took. I called to discuss with poison Control they state monitoring him for at least 12-16 hours. Patient remains weak in no somnolent. It is doubtful that he took any pills he said he did. Signed out to Dr. Zamora <Medina Zamora MD - Last Filed: 06/27/21 18:35> Lab Data Labs: Lab Results 06/17/21 06/17/21 06/17/21 Range/Units 03:15 03:15 03:15 WBC 5.9 (4.5-11.0) X10^3/uL RBC 4.40 L (4.5-5.9) X10^6/uL Hgb 15.3 (13.5-17.5) g/dL Hct 43.2 (41-53) % MCV 98.1 (80-100) fL MCH 34.7 H (26-34) PG MCHC 35.3 (30-36) % RDW 13.4 (11.6-14.8) % Plt Count 177 (150-400) X10^3/uL Neut % (Auto) 60.6 (50-75) % Lymph % (Auto) 28.6 (25-40) % [place] % (Auto) 8.4 (3-14) % Eos % (Auto) 1.8 L (2-4) % Baso % (Auto) 0.6 (0-2) % Neut # (Auto) 3600 (6172-5013) /uL Lymph # (Auto) 1700 (9073-3461) /uL [place] # (Auto) 500 (0-900) /uL Eos # (Auto) 100 (0-450) /uL Baso # (Auto) 0 (0-100) /uL Sodium 139 (137-145) mmol/L Potassium 4.1 (3.4-5.1) mmol/L Chloride 100 (98-107) mmol/L Carbon Dioxide 27 (22-32) mmol/L BUN 16 (9-20) mg/dL Creatinine 0.81 (0.66-1.25) mg/dL Estimated GFR > 60.0 (>60) mL/min BUN/Creatinine Ratio 19.8 (6-22) Glucose 111 H (80-110) mg/dL Lactate 1.5 (0.7-2.1) mmol/L Calcium 9.4 (8.4-10.2) mg/dL Total Bilirubin 0.5 (0.2-1.3) mg/dL AST 87 H (17-59) IU/L ALT 160 H (<50) IU/L Alkaline Phosphatase 71 (38-126) U/L Total Protein 7.5 (6.3-8.2) g/dL Albumin 4.5 (3.5-5.0) g/dL Globulin 3.0 (1.7-4.1) g/dL Albumin/Globulin Ratio 1.5 (1.0-2.8) Salicylates < 1.0 (<20) mg/dL U Opiates 300ng/mL cut (Negative) Ur Oxycodone Screen (Negative) Urine Methadone Screen (Negative) Acetaminophen < 10 L (10-30) ug/mL Ur Barbiturates Screen (Negative) U Tricyclic Antidepress (Negative) Ur Phencyclidine Scrn (Negative) Ur Amphetamines Screen (Negative) U Methamphetamines Scrn (Negative) Ur MDMA Scrn (Ecstasy) (Negative) U Benzodiazepines Scrn (Negative) Urine Cocaine Screen (Negative) U Marijuana (THC) Screen (Negative) Ethyl Alcohol 185 H ( - 10) mg/dL SARS-CoV-2 (PCR) (Negative) 06/17/21 06/17/21 06/18/21 Range/Units 04:36 11:49 07:38 WBC (4.5-11.0) X10^3/uL RBC (4.5-5.9) X10^6/uL Hgb (13.5-17.5) g/dL Hct (41-53) % MCV (80-100) fL MCH (26-34) PG MCHC (30-36) % RDW (11.6-14.8) % Plt Count (150-400) X10^3/uL Neut % (Auto) (50-75) % Lymph % (Auto) (25-40) % [place] % (Auto) (3-14) % Eos % (Auto) (2-4) % Baso % (Auto) (0-2) % Neut # (Auto) (5640-0606) /uL Lymph # (Auto) (8102-5674) /uL [place] # (Auto) (0-900) /uL Eos # (Auto) (0-450) /uL Baso # (Auto) (0-100) /uL Sodium (137-145) mmol/L Potassium (3.4-5.1) mmol/L Chloride (98-107) mmol/L Carbon Dioxide (22-32) mmol/L BUN (9-20) mg/dL Creatinine (0.66-1.25) mg/dL Estimated GFR (>60) mL/min BUN/Creatinine Ratio (6-22) Glucose (80-110) mg/dL Lactate (0.7-2.1) mmol/L Calcium (8.4-10.2) mg/dL Total Bilirubin (0.2-1.3) mg/dL AST (17-59) IU/L ALT (<50) IU/L Alkaline Phosphatase (38-126) U/L Total Protein (6.3-8.2) g/dL Albumin (3.5-5.0) g/dL Globulin (1.7-4.1) g/dL Albumin/Globulin Ratio (1.0-2.8) Salicylates (<20) mg/dL U Opiates 300ng/mL cut Positive H (Negative) Ur Oxycodone Screen Positive H (Negative) Urine Methadone Screen Negative (Negative) Acetaminophen (10-30) ug/mL Ur Barbiturates Screen Negative (Negative) U Tricyclic Antidepress Positive H (Negative) Ur Phencyclidine Scrn Negative (Negative) Ur Amphetamines Screen Negative (Negative) U Methamphetamines Scrn Negative (Negative) Ur MDMA Scrn (Ecstasy) Negative (Negative) U Benzodiazepines Scrn Negative (Negative) Urine Cocaine Screen Negative (Negative) U Marijuana (THC) Screen Negative (Negative) Ethyl Alcohol < 10 ( - 10) mg/dL SARS-CoV-2 (PCR) Negative (Negative) 06/18/21 Range/Units 12:02 WBC (4.5-11.0) X10^3/uL RBC (4.5-5.9) X10^6/uL Hgb (13.5-17.5) g/dL Hct (41-53) % MCV (80-100) fL MCH (26-34) PG MCHC (30-36) % RDW (11.6-14.8) % Plt Count (150-400) X10^3/uL Neut % (Auto) (50-75) % Lymph % (Auto) (25-40) % [place] % (Auto) (3-14) % Eos % (Auto) (2-4) % Baso % (Auto) (0-2) % Neut # (Auto) (2728-0056) /uL Lymph # (Auto) (9755-9231) /uL [place] # (Auto) (0-900) /uL Eos # (Auto) (0-450) /uL Baso # (Auto) (0-100) /uL Sodium (137-145) mmol/L Potassium (3.4-5.1) mmol/L Chloride (98-107) mmol/L Carbon Dioxide (22-32) mmol/L BUN (9-20) mg/dL Creatinine (0.66-1.25) mg/dL Estimated GFR (>60) mL/min BUN/Creatinine Ratio (6-22) Glucose (80-110) mg/dL Lactate (0.7-2.1) mmol/L Calcium (8.4-10.2) mg/dL Total Bilirubin (0.2-1.3) mg/dL AST (17-59) IU/L ALT (<50) IU/L Alkaline Phosphatase (38-126) U/L Total Protein (6.3-8.2) g/dL Albumin (3.5-5.0) g/dL Globulin (1.7-4.1) g/dL Albumin/Globulin Ratio (1.0-2.8) Salicylates (<20) mg/dL U Opiates 300ng/mL cut Positive H (Negative) Ur Oxycodone Screen Positive H (Negative) Urine Methadone Screen Negative (Negative) Acetaminophen (10-30) ug/mL Ur Barbiturates Screen Negative (Negative) U Tricyclic Antidepress Positive H (Negative) Ur Phencyclidine Scrn Negative (Negative) Ur Amphetamines Screen Negative (Negative) U Methamphetamines Scrn Negative (Negative) Ur MDMA Scrn (Ecstasy) Negative (Negative) U Benzodiazepines Scrn Positive H (Negative) Urine Cocaine Screen Negative (Negative) U Marijuana (THC) Screen Negative (Negative) Ethyl Alcohol ( - 10) mg/dL SARS-CoV-2 (PCR) (Negative) MDM Narrative Medical decision making narrative: Patient is awake alert talking he was not given any Narcan. Questionable how many tablets he actually took. I called to discuss with poison Control they state monitoring him for at least 12-16 hours. Patient remains weak in no somnolent. It is doubtful that he took any pills he said he did. Signed out to Dr. Zamora Care is assumed. 1pm Patient is currently increasingly agitated with a CIWA score in the 9 range she is not currently showing significant signs of narcotic withdrawal. He is given 2 mg of Ativan. Soak with the social media campaign manager who had requested COVID testing. COVID testing has been completed and is negative. At this point this gentleman is medically cleared from his self-reported opioid overdose. Gets his narcotic medications from the [facility] and when asked if he has gone through narcotic withdrawal previously his answer is ?all the time?. Apparently once the ?KADY got involved it was difficult refilling his prescriptions?. He states ?it's not a big deal?. When asked about his increasing agitation now that certainly does appear like it is alcohol withdrawal he states ?0h, I am always like this?. He was living with his girlfriend and believes that she will not be home and will not be coming back once he gets home after his current hospitalization. He states that he has ?already and does not hurt I am not afraid of dying. He says that he is in chronic pain and has been so since the age of 24 and that is worse than dying. He cannot contract for safety. He does not have an active plan. His affect is flat, he has poor eye contact, he continues to apologize for ?being annoying?. When asked if he would be interested in staying in the hospital to help with his mood he stated that ?0h, [facility] not [facility]. When pressed further on this he does indicate that he would be interested in staying in the hospital. When asked about help with his alcohol use disorder he also indicated that he would appreciate help with that. At this point, I am still concerned that he has a significant suicide risk with significant medical as well psychosocial factors contributing. Waiting for social media campaign manager evaluation but I believe he may be a good candidate for voluntary inpatient treatment and may need a dual diagnosis treatment bed for that. 2:50 seen and evaluated by social media campaign manager. [place] to be unsafe and poor good iglesia voluntary admission. DCR will be contacted. Concern is continued suicidal ideation with depression. 4:55 MICHEAL Hedrick called. Briefly discussed care. Needs all notes faxed to him and he will call back after reviewing. <Amarjit BucioDO - Last Filed: 06/19/21 12:08> Lab Data Labs: Lab Results 06/17/21 06/17/21 06/17/21 Range/Units 03:15 03:15 03:15 WBC 5.9 (4.5-11.0) X10^3/uL RBC 4.40 L (4.5-5.9) X10^6/uL Hgb 15.3 (13.5-17.5) g/dL Hct 43.2 (41-53) % MCV 98.1 (80-100) fL MCH 34.7 H (26-34) PG MCHC 35.3 (30-36) % RDW 13.4 (11.6-14.8) % Plt Count 177 (150-400) X10^3/uL Neut % (Auto) 60.6 (50-75) % Lymph % (Auto) 28.6 (25-40) % [place] % (Auto) 8.4 (3-14) % Eos % (Auto) 1.8 L (2-4) % Baso % (Auto) 0.6 (0-2) % Neut # (Auto) 3600 (2480-3710) /uL Lymph # (Auto) 1700 (6990-1916) /uL [place] # (Auto) 500 (0-900) /uL Eos # (Auto) 100 (0-450) /uL Baso # (Auto) 0 (0-100) /uL Sodium 139 (137-145) mmol/L Potassium 4.1 (3.4-5.1) mmol/L Chloride 100 (98-107) mmol/L Carbon Dioxide 27 (22-32) mmol/L BUN 16 (9-20) mg/dL Creatinine 0.81 (0.66-1.25) mg/dL Estimated GFR > 60.0 (>60) mL/min BUN/Creatinine Ratio 19.8 (6-22) Glucose 111 H (80-110) mg/dL Lactate 1.5 (0.7-2.1) mmol/L Calcium 9.4 (8.4-10.2) mg/dL Total Bilirubin 0.5 (0.2-1.3) mg/dL AST 87 H (17-59) IU/L ALT 160 H (<50) IU/L Alkaline Phosphatase 71 (38-126) U/L Total Protein 7.5 (6.3-8.2) g/dL Albumin 4.5 (3.5-5.0) g/dL Globulin 3.0 (1.7-4.1) g/dL Albumin/Globulin Ratio 1.5 (1.0-2.8) Salicylates < 1.0 (<20) mg/dL U Opiates 300ng/mL cut (Negative) Ur Oxycodone Screen (Negative) Urine Methadone Screen (Negative) Acetaminophen < 10 L (10-30) ug/mL Ur Barbiturates Screen (Negative) U Tricyclic Antidepress (Negative) Ur Phencyclidine Scrn (Negative) Ur Amphetamines Screen (Negative) U Methamphetamines Scrn (Negative) Ur MDMA Scrn (Ecstasy) (Negative) U Benzodiazepines Scrn (Negative) Urine Cocaine Screen (Negative) U Marijuana (THC) Screen (Negative) Ethyl Alcohol 185 H ( - 10) mg/dL SARS-CoV-2 (PCR) (Negative) 06/17/21 06/17/21 06/18/21 Range/Units 04:36 11:49 07:38 WBC (4.5-11.0) X10^3/uL RBC (4.5-5.9) X10^6/uL Hgb (13.5-17.5) g/dL Hct (41-53) % MCV (80-100) fL MCH (26-34) PG MCHC (30-36) % RDW (11.6-14.8) % Plt Count (150-400) X10^3/uL Neut % (Auto) (50-75) % Lymph % (Auto) (25-40) % [place] % (Auto) (3-14) % Eos % (Auto) (2-4) % Baso % (Auto) (0-2) % Neut # (Auto) (4075-9335) /uL Lymph # (Auto) (0296-5534) /uL [place] # (Auto) (0-900) /uL Eos # (Auto) (0-450) /uL Baso # (Auto) (0-100) /uL Sodium (137-145) mmol/L Potassium (3.4-5.1) mmol/L Chloride (98-107) mmol/L Carbon Dioxide (22-32) mmol/L BUN (9-20) mg/dL Creatinine (0.66-1.25) mg/dL Estimated GFR (>60) mL/min BUN/Creatinine Ratio (6-22) Glucose (80-110) mg/dL Lactate (0.7-2.1) mmol/L Calcium (8.4-10.2) mg/dL Total Bilirubin (0.2-1.3) mg/dL AST (17-59) IU/L ALT (<50) IU/L Alkaline Phosphatase (38-126) U/L Total Protein (6.3-8.2) g/dL Albumin (3.5-5.0) g/dL Globulin (1.7-4.1) g/dL Albumin/Globulin Ratio (1.0-2.8) Salicylates (<20) mg/dL U Opiates 300ng/mL cut Positive H (Negative) Ur Oxycodone Screen Positive H (Negative) Urine Methadone Screen Negative (Negative) Acetaminophen (10-30) ug/mL Ur Barbiturates Screen Negative (Negative) U Tricyclic Antidepress Positive H (Negative) Ur Phencyclidine Scrn Negative (Negative) Ur Amphetamines Screen Negative (Negative) U Methamphetamines Scrn Negative (Negative) Ur MDMA Scrn (Ecstasy) Negative (Negative) U Benzodiazepines Scrn Negative (Negative) Urine Cocaine Screen Negative (Negative) U Marijuana (THC) Screen Negative (Negative) Ethyl Alcohol < 10 ( - 10) mg/dL SARS-CoV-2 (PCR) Negative (Negative) 06/18/21 Range/Units 12:02 WBC (4.5-11.0) X10^3/uL RBC (4.5-5.9) X10^6/uL Hgb (13.5-17.5) g/dL Hct (41-53) % MCV (80-100) fL MCH (26-34) PG MCHC (30-36) % RDW (11.6-14.8) % Plt Count (150-400) X10^3/uL Neut % (Auto) (50-75) % Lymph % (Auto) (25-40) % [place] % (Auto) (3-14) % Eos % (Auto) (2-4) % Baso % (Auto) (0-2) % Neut # (Auto) (1332-8564) /uL Lymph # (Auto) (5149-4141) /uL [place] # (Auto) (0-900) /uL Eos # (Auto) (0-450) /uL Baso # (Auto) (0-100) /uL Sodium (137-145) mmol/L Potassium (3.4-5.1) mmol/L Chloride (98-107) mmol/L Carbon Dioxide (22-32) mmol/L BUN (9-20) mg/dL Creatinine (0.66-1.25) mg/dL Estimated GFR (>60) mL/min BUN/Creatinine Ratio (6-22) Glucose (80-110) mg/dL Lactate (0.7-2.1) mmol/L Calcium (8.4-10.2) mg/dL Total Bilirubin (0.2-1.3) mg/dL AST (17-59) IU/L ALT (<50) IU/L Alkaline Phosphatase (38-126) U/L Total Protein (6.3-8.2) g/dL Albumin (3.5-5.0) g/dL Globulin (1.7-4.1) g/dL Albumin/Globulin Ratio (1.0-2.8) Salicylates (<20) mg/dL U Opiates 300ng/mL cut Positive H (Negative) Ur Oxycodone Screen Positive H (Negative) Urine Methadone Screen Negative (Negative) Acetaminophen (10-30) ug/mL Ur Barbiturates Screen Negative (Negative) U Tricyclic Antidepress Positive H (Negative) Ur Phencyclidine Scrn Negative (Negative) Ur Amphetamines Screen Negative (Negative) U Methamphetamines Scrn Negative (Negative) Ur MDMA Scrn (Ecstasy) Negative (Negative) U Benzodiazepines Scrn Positive H (Negative) Urine Cocaine Screen Negative (Negative) U Marijuana (THC) Screen Negative (Negative) Ethyl Alcohol ( - 10) mg/dL SARS-CoV-2 (PCR) (Negative) MDM Narrative Medical decision making narrative: Patient is awake alert talking he was not given any Narcan. Questionable how many tablets he actually took. I called to discuss with poison Control they state monitoring him for at least 12-16 hours. Patient remains weak in no somnolent. It is doubtful that he took any pills he said he did. Signed out to Dr. Zamora Care is assumed. 1pm Patient is currently increasingly agitated with a CIWA score in the 9 range she is not currently showing significant signs of narcotic withdrawal. He is given 2 mg of Ativan. Soak with the social media campaign manager who had requested COVID testing. COVID testing has been completed and is negative. At this point this gentleman is medically cleared from his self-reported opioid overdose. Gets his narcotic medications from the [facility] and when asked if he has gone through narcotic withdrawal previously his answer is ?all the time?. Apparently once the ?KADY got involved it was difficult refilling his prescriptions?. He states ?it's not a big deal?. When asked about his increasing agitation now that certainly does appear like it is alcohol withdrawal he states ?0h, I am always like this?. He was living with his girlfriend and believes that she will not be home and will not be coming back once he gets home after his current hospitalization. He states that he has ?already and does not hurt I am not afraid of dying. He says that he is in chronic pain and has been so since the age of 24 and that is worse than dying. He cannot contract for safety. He does not have an active plan. His affect is flat, he has poor eye contact, he continues to apologize for ?being annoying?. When asked if he would be interested in staying in the hospital to help with his mood he stated that ?0h, [facility] not think [facility]. When pressed further on this he does indicate that he would be inter ested in staying in the hospital. When asked about help with his alcohol use disorder he also indicated that he would appreciate help with that. At this point, I am still concerned that he has a significant suicide risk with significant medical as well psychosocial factors contributing. Waiting for social media campaign manager evaluation but I believe he may be a good candidate for voluntary inpatient treatment and may need a dual diagnosis treatment bed for that. 2:50 seen and evaluated by social media campaign manager. [place] to be unsafe and poor good iglesia voluntary admission. DCR will be contacted. Concern is continued suicidal ideation with depression. 4:55 MICHEAL Hedrick called. Briefly discussed care. Needs all notes faxed to him and he will call back after reviewing. Dr bucio: On 06/18/21 I received turned over from Dr. Carlisle. Reviewed patient's history and physical exam. The DCR was a walkway due to lack of facility is willing to take the patient. Throughout the day patient did exhibit signs of alcohol withdrawal. He was confused. He did not know where he was. Did not know the year. Patient was not safe to go home and I did not feel that he had capacity to make decisions. Was given Librium and aliquots of Ativan. There was no seizure-like activity. Patient was seen by social work. I did discuss the case with hospitalist. The concern with admitting to the hospital was that there was no inpatient psychiatric consultation available at this facility. Care was turned over to Dr. Ames for continued evaluation Dr bucio 06/19/21 0800: Received turned over from Dr. Ames. Patient is been stable overnight. Evaluated the patient again this morning. He is much more coherent than yesterday. He is alert oriented x3. He states that he is here in the emergency department because ?I did something stupid ?he stated that he did take the pills in order to kill himself. When we discussed yesterday's events he stated that he did remember talking with me yesterday but did not realize how confused he was. He has tolerated oral intake. He continues to not want to be admitted to the hospital. Will contact DCR to re-evaluate. Dr bucio 1207: Patient has been seen by DCR. Patient is alert oriented this morning. Has a GCS of 15. My opinion does have capacity to make decisions. He is no longer suicidal. The DCR spent an extensive amount of time with the patient. Plan will be is to discharge home. Will have the crisis team contact the patient this evening. Patient is very apologetic and stated that he would return to the emergency department before he took any further medications to hurt himself. Discharge Plan Departure Patient Disposition: Home Clinical Impression: Alcoholic intoxication, Drug overdose, Suicidal ideation Instructions: DI for Alcohol Use Disorder Activity Restrictions/Additional Instructions: Take all of your medications as directed. I do recommend you contact your primary doctor for follow-up. Use the crisis line that you were given as needed. You should be receiving a call from the [facility] crisis team this evening. Like we discussed please return to the emergency department if you have thoughts of hurting yourself or others. Prescriptions: No Action atorvastatin 80 mg Tablet 80 mg PO BEDTIME 0RF aspirin 325 mg Tablet 325 mg PO DAILY 0RF sertraline 100 mg Tablet 100 mg PO QAM 0RF morphine 60 mg Tablet Extended Release 60 mg PO Q8H 0RF nortriptyline 10 mg Capsule 10 mg PO BEDTIME 0RF trazodone 150 mg Tablet 150 mg PO BEDTIME 0RF lisinopril 10 mg Tablet 10 mg PO DAILY 0RF Label Comments: pt unsure of frequency oxycodone 5 mg Capsule 5 mg PO QID PRN (Reason: Breakthrough Pain) 0RF hydrochlorothiazide 12.5 mg Capsule 12.5 mg PO QAM 0RF
[2021-06-17 03:27] LABS: Add Manual Diff / Slide Review NO; Basophils Absolute Auto 0 /uL (0-100); Basophils Percent Auto 0.6 % (0-2); Eosinophils Absolute Auto 100 /uL (0-450); Eosinophils Percent Auto 1.8 % (2-4); Hematocrit 43.2 % (41-53); Hemoglobin 15.3 g/dL (13.5-17.5); Lymphocytes Absolute Auto 1700 /uL (1100-4500); Lymphocytes Percent Auto 28.6 % (25-40); Mean Corpuscular HGB Conc 35.3 % (30-36); Mean Corpuscular Hemoglobin 34.7 PG (26-34); Mean Corpuscular Volume 98.1 fL (80-100); Monocytes Absolute Auto 500 /uL (0-900); Monocytes Percent Auto 8.4 % (3-14); Neutrophils Absolute Auto 3600 /uL (1500-7000); Neutrophils Percent Auto 60.6 % (50-75); Platelet Count 177 X10^3/uL (150-400); Red Cell Distribution Width 13.4 % (11.6-14.8); White Blood Cell Count 5.9 X10^3/uL (4.5-11.0)
[2021-06-17 03:50] LABS: Lactate (Lactic Acid) 1.5 mmol/L (0.7-2.1)
[2021-06-17 03:52] LABS: Acetaminophen < 10 ug/mL (10-30); Alanine Aminotransferase 160 IU/L (<50); Albumin 4.5 g/dL (3.5-5.0); Albumin Globulin Ratio 1.5 (1.0-2.8); Alkaline Phosphatase 71 U/L (38-126); Aspartate Aminotransferase 87 IU/L (17-59); BUN Creatinine Ratio 19.8 (6-22); Bilirubin Total 0.5 mg/dL (0.2-1.3); Blood Urea Nitrogen 16 mg/dL (9-20); Calcium 9.4 mg/dL (8.4-10.2); Carbon Dioxide 27 mmol/L (22-32); Chloride 100 mmol/L (98-107); Estimated Glomerular Filt Rate > 60.0 mL/min (>60); Ethanol (ETOH) 185 mg/dL; Glucose 111 mg/dL (80-110); HEMOLYSIS < 15 (0-50); Potassium 4.1 mmol/L (3.4-5.1); Salicylate < 1.0 mg/dL (<20); Sodium 139 mmol/L (137-145); Total Protein 7.5 g/dL (6.3-8.2)
[2021-06-17 04:56] LABS: UR Morphine/Opiate cutoff 300 Positive (Negative); Ur Creatinine 20 (Normal); Ur Specific Gravity 1.015 (Normal); Urine Amphetamines Negative (Negative); Urine Barbiturates Negative (Negative); Urine Benzodiazepines Negative (Negative); Urine Cocaine Negative (Negative); Urine MDMA Negative (Negative); Urine Methadone Negative (Negative); Urine Methamphetamines Negative (Negative); Urine Oxycodone Positive (Negative); Urine Phencyclidine Negative (Negative); Urine Tetrahydrocannabinol Negative (Negative); Urine Tricyclic Antidepressant Positive (Negative); Urine pH 7 (Normal)
--- NOTE | 2021-06-17 07:45 | PC.NURSE ---
starting watch. patient seems calm and relaxed. I have given patient something to drink, he also has asked someone to come visit him - waiting on the nurse to give the ok.
--- NOTE | 2021-06-17 07:57 | PC.NURSE ---
patient has been given breakfast and is very polite and pleasant to be around.
--- NOTE | 2021-06-17 09:30 | PC.NURSE ---
patient is very thankful for us being so nice to him.
--- NOTE | 2021-06-17 09:51 | PC.NURSE ---
Pt up walking around room, eating and drinking. Pt requesting a shower and will be provided one when additional staff is available. Poison control called for update and pt case will be closed out on their side.
--- NOTE | 2021-06-17 09:56 | PC.NURSE ---
RN has done vitals. Patient has warm blanket, juice, ice, water!
--- NOTE | 2021-06-17 11:43 | PC.NURSE ---
Patient is calm and understanding. Patient has used the bathroom and continued to drink juice and water.
[2021-06-17] MEDS: MAG HYDROX/ALUM/SIMETH 30 ML UDC PO (11:58)
--- NOTE | 2021-06-17 12:09 | PC.NURSE ---
Pt eating lunch. Given Malox for heart burn.
--- NOTE | 2021-06-17 12:15 | PC.NURSE ---
Patient is in a calm, peaceful mood. thankful for food. not super hungry. has been drinking lots of water and ice.
[2021-06-17 12:18] LABS: COVID19 -Nasal RAPID Negative (Negative)
--- NOTE | 2021-06-17 12:29 | PC.NURSE ---
Pt walking laps around ER with sitter. Pt is calm, cooperative and amiable.
--- NOTE | 2021-06-17 12:33 | PC.NURSE ---
patient and myself walked around the ER and did about 3-4 laps.
--- NOTE | 2021-06-17 12:58 | PC.NURSE ---
patient was given lunch but only took 2-3 bites out of the sandwich. and has through the rest of his food away. he has abmitted that the patient is getting anxious and would like to go home but doesn't want to go home. the patient has asked if he is a typical SI patient.
[2021-06-17] MEDS: LORazepam 0.5 MG TABLET 2 MG PO ×2 (13:07→13:35)
--- NOTE | 2021-06-17 13:16 | PC.NURSE ---
Pt vomited in restroom right after given the PO Ativan. notified.
--- NOTE | 2021-06-17 13:19 | PC.NURSE ---
patient got sick from meds. RN coming to check back in on patient
[2021-06-17] MEDS: ONDANSETRON 4 MG ODT SL (13:21)
--- NOTE | 2021-06-17 13:31 | PC.NURSE ---
patient is talking with his friend Lucio and admitting that he needs help and hes a mess. patient is worried about his stereo system but Lucio is saying to not worry about it and get the help he needs help first. Also the conversation, between Lucio and the patient, brought up a lady friend Vera. it sounds like Vera left. not sure the reason why. RN is giving patient meds.
--- NOTE | 2021-06-17 13:48 | PC.NURSE ---
patient and myself did a lap around the ER again to make him feel better. I did suggest that he should try to lay down for a bit, take a nap and relax. and I would wake him up when dinner came, and then we could go for another walk.
--- NOTE | 2021-06-17 13:59 | PC.NURSE ---
hot mill worker has shown up. Patient is calm, and drinking water.
--- NOTE | 2021-06-17 14:04 | PC.NURSE ---
PHYSIOLOGIST at bedside.
--- NOTE | 2021-06-17 14:30 | PC.NURSE ---
licensed clinical social worker just finished up with patient.
--- NOTE | 2021-06-17 16:04 | PC.NURSE ---
Medication reconciliation completed w/ Dr. Zamora. Will need to confirm w/ [facility] when open.
--- NOTE | 2021-06-17 16:26 | PC.NURSE ---
Pt has been sleeping. Will wait to given pt's BP medication until he wakes up
[2021-06-17] MEDS: lisinopriL 10 MG TABLET PO (17:34)
--- NOTE | 2021-06-17 17:38 | PC.NURSE ---
RN and myself woke the patient up to be able to get him some dinner. patient is very groggy.
--- NOTE | 2021-06-17 17:51 | PC.NURSE ---
EKG faxed to [facility]
--- NOTE | 2021-06-17 18:30 | PC.NURSE ---
patient is still very groggy. Every 15 minutes I was waking him up but now at this point he is waking himself up every few minutes to every five minutes. patient has snacks and water at [facility].
--- NOTE | 2021-06-17 19:55 | PC.NURSE ---
Pt placed on nasal canula when sleeping
--- NOTE | 2021-06-17 21:52 | PC.NURSE ---
resting with eyes closed.
--- NOTE | 2021-06-17 22:48 | PC.NURSE ---
Recieved call from MICHEAL Hedrick. Unable to find a bed at this time. States patient definitely needs placement and feels once he is off ciwa protocol, they may have better luck finding a place.
[2021-06-18] VITALS (56 sets, daily range): BP systolic 122–189; BP diastolic 54–99; PULSE 71–116; RESP 18–20; TEMP 36.6; O2SAT 81–100
--- NOTE | 2021-06-18 06:35 | PC.NURSE ---
pt has been trying to urinate for a few hours in the urinal/toilet he was unsuccessful. he began crying because of his situation, he feels like he is a burden to us. I reassured him and set him up for a shower to calm down. pt is all cleaned up and laying back in bed with many fluids at bedside I encouraged him to drink.
--- NOTE | 2021-06-18 07:16 | PC.NURSE ---
starting watch, checked in with patient. I did let him know if he was not wake and up right by 9am i would come and make sure he has breakfast. lab is in with the lab.
--- NOTE | 2021-06-18 07:37 | PC.NURSE ---
RN talking with patient about the plan for today.
--- NOTE | 2021-06-18 07:45 | PC.NURSE ---
Patient said he is seeing a shadow, unclear if its the light and people walking past his room or him seeing something.
[2021-06-18 07:51] LABS: Ethanol (ETOH) < 10 mg/dL
--- NOTE | 2021-06-18 08:34 | PC.NURSE ---
patient isn't making complete sense when talking.
--- NOTE | 2021-06-18 10:02 | PC.NURSE ---
patient is getting more anxious
--- NOTE | 2021-06-18 10:42 | PC.NURSE ---
patient is having a hard time following instruction. he also urinated on the floor and himself, unclean if that was because of use of urinal or patient.
--- NOTE | 2021-06-18 11:15 | PC.NURSE ---
SARIAH has gone into the room to change out the bed sheets for the patient. Also to clean him up. Also patient did ask for a nausea medication.
[2021-06-18] MEDS: LORazepam 0.5 MG TABLET 1 MG PO ×2 (11:31→16:28)
[2021-06-18] MEDS: ONDANSETRON 4 MG ODT SL (11:31)
--- NOTE | 2021-06-18 11:31 | PC.NURSE ---
RN is coming to give patient medication to help him relax. bring in water and crackers too. patient is becoming more needy since yesterday.
[2021-06-18 12:24] LABS: UR Morphine/Opiate cutoff 300 Positive (Negative); Ur Creatinine Normal (Normal); Ur Specific Gravity Normal (Normal); Urine Amphetamines Negative (Negative); Urine Barbiturates Negative (Negative); Urine Benzodiazepines Positive (Negative); Urine Cocaine Negative (Negative); Urine MDMA Negative (Negative); Urine Methadone Negative (Negative); Urine Methamphetamines Negative (Negative); Urine Oxycodone Positive (Negative); Urine Phencyclidine Negative (Negative); Urine Tetrahydrocannabinol Negative (Negative); Urine Tricyclic Antidepressant Positive (Negative); Urine pH Normal (Normal)
--- NOTE | 2021-06-18 12:31 | PC.NURSE ---
Patient is having a harder time making sure he gets urine into the urine jug. He is also having a harder time not spilling food on himself while in bed. His anxiety is also getting worse, more shaky.
[2021-06-18] MEDS: chlordiazePOXIDE 25 MG CAPSULE PO (12:45)
--- NOTE | 2021-06-18 12:49 | PC.NURSE ---
RN is speaking with the patient on how to help him get more relaxed and comfortable.
--- NOTE | 2021-06-18 12:57 | CM.SWNOTE ---
GEOSPATIAL IMAGERY INTELLIGENCE ANALYST Assessment Note GEOSPATIAL IMAGERY INTELLIGENCE ANALYST enters room to meet with patient. Patient was assessment by GEOSPATIAL IMAGERY INTELLIGENCE ANALYST and DCR yesterday. It was determined that patient is appropriate for DCR detainment due to concern for danger to self. DCR Ryley was unable to place patient for THELMA bed and patient is currently in need of THELMA placement. Patient presents as anxious, patient states he is tired and bored. Patient is slow to respond to questions. Patient endorses that he presents to the ED after taking 25-30 tablets of 80 mg morphine. Patient endorses that he took the medications with intent to kill self. Patient endorses that this is his first suicide attempt. Patient endorses that his girlfriend informed him that she is leaving him and that was a triggering incident for patient. Patient states his regrets with his relationship with his girlfriend and fixates on what he has done wrong in the relationship. Patient endorses he resides in an and [facility] every few weeks. Patient endorses that he has a history of depression and he sees Psychiatrist Dr. Rickie Hayes (Ph. # [phone]) Patient endorses that he wants to go home and does not agree to go to inpatient voluntarily at this time. Patient denies any hx of going to inpatient hospitals. Patient endorses visual hallucinations and states that he has saw a spider while in the ED. It is the opinion of this GEOSPATIAL IMAGERY INTELLIGENCE ANALYST that patient is not safe to d/c to home and in need of THELMA inpatient hospitalization for medication management, safety and crisis management. GEOSPATIAL IMAGERY INTELLIGENCE ANALYST receives call from patient's PCP Dr. Khan with [facility]. It is reported that patient called the [place] crisis line yesterday and paramedics were dispatched to patient for medical attention. It is reported that patient has regular telehealth visits with PCP and and Psychiatrist. It is reported, at baseline patient has had long standing depression and chnic passive SI with no previous attempts or plans to attempt suicide. It is reported that patient missed recent PCP appt and PCP is concerned for patient's current state. Dr. Khan recommends hospitalization for patient at this time. GEOSPATIAL IMAGERY INTELLIGENCE ANALYST receives call from a Psychiatrist at [facility] who is also in support of patient seeking inpatient hospitalization. If patient was voluntary the [facility] could review patient but at this time, patient is not voluntary. GEOSPATIAL IMAGERY INTELLIGENCE ANALYST to continue to seek THLEMA bed for patient. Hamida Mckenna MSW
--- NOTE | 2021-06-18 13:19 | PC.NURSE ---
patient needed to use the rest room, seemed very stressed around it. All his railings are up for his safety along with the knees up for his comfort. he is also hooked up to air, pulse ox, bp, which he has been on all morning. yet he is forgetting this and keeps sliding long sherman down the bed and tangling the cords. I went to get the patient sitting up in bed and help him and he seemed scared. I went to get the nurse for the patients safety.
--- NOTE | 2021-06-18 14:05 | PC.NURSE ---
patient is being depressed and tearing up.
--- NOTE | 2021-06-18 15:45 | PC.NURSE ---
Addendum entered by Theodora Cohen 06/18/21 15:49: nurse from a office called the patient. and was informed to call the patient sometime next week to try to reschedule a phone call. when the patient got off the phone with the office, patient felt sad that he couldn't make a informed decision on what is going on with himself right now. Original Note: nurse from a office called the patient. and was informed to call the patient sometime next week to try to reschedule a phone call. when the patient got off the phone with the office, patient felt sad that he couldnt make a
--- NOTE | 2021-06-18 16:46 | PC.NURSE ---
going in to talk with patient about the plan. Dinner also arrived.
--- NOTE | 2021-06-18 17:06 | CM.SWNOTE ---
Addendum entered by Hamida Mckenna 06/18/21 17:19: PATTERN SHOP SUPERVISOR calls [facility] for THELMA bed and it is reported that patient is declined due to his insurance and reports concern that patient may not be accepted anywhere but the [facility] due to his insurance. YOCASTA [facility]de Original Note: PATTERN SHOP SUPERVISOR Assessment Note PATTERN SHOP SUPERVISOR reviews hospitals that reviewed patient on 06/17 and patient was denied by hospitals due to various reasons such as: patient's first detainment, no affidavits, no beds or due to patient's current CIWA score and need to detox. PATTERN SHOP SUPERVISOR calls [facility], it is reported that patient was declined due to his medications and age. PATTERN SHOP SUPERVISOR calls [facility] for bed census today and calls the following hospitals for THELMA beds. It is reported that [facility] is at capacity. PATTERN SHOP SUPERVISOR calls [facility], it is reported that they are at capacity. PATTERN SHOP SUPERVISOR calls [facility], it is reported that they only accept THELMA patients that reside in [place] or [facility]. PATTERN SHOP SUPERVISOR calls [facility] and leaves requesting return call. PATTERN SHOP SUPERVISOR calls [facility] [place] and leaves requesting return call. PATTERN SHOP SUPERVISOR calls [facility] [place] and it is reported that they do not have beds. PATTERN SHOP SUPERVISOR calls [facility], it is reported that they do not have beds. PATTERN SHOP SUPERVISOR calls [facility] intake, it is reported that they are at capacity. PATTERN SHOP SUPERVISOR meets with patient to discuss voluntary inpatient as an option and patient is not A/Ox4 and states that he stayed in a tree last night and you were in the campo helping me. PATTERN SHOP SUPERVISOR reviews the above with ED provider. ED provider informs PATTERN SHOP SUPERVISOR that patient will be admitted due to his level of detox and altered mental state. PATTERN SHOP SUPERVISOR provides information to manager staffing supervisor feed mill PATTERN SHOP SUPERVISOR. Plan: patient to be admitted to acute care, DCP to f/u with POC, potential transfer to [facility] for voluntary inpatient if patient is voluntary when A/O YOCASTA Verde
--- NOTE | 2021-06-18 17:12 | PC.NURSE ---
Pt appears to be talking to something in the room that is not present. Pt alert to self and place but not oriented to situation. Stating he needs a pocket knife for carving, then switching thoughts to needing to record information. Attempted to reorient.
--- NOTE | 2021-06-18 17:31 | PC.NURSE ---
patient is sweating, brought ice pack
--- NOTE | 2021-06-18 18:46 | PC.NURSE ---
patient is having a very hard time trying to fall asleep. He would like to walk around the department, unfortunately we have alot of traffic coming and going through the ER. along with covid patients. and for the safety of the patient and also his balance we have tried to re direct the patient that maybe he can walk later tonight.
[2021-06-18] MEDS: THIAMINE 200 MG in SODIUM CHLORIDE 0.9% 100 ML 408 ML IV (20:15)
[2021-06-19] VITALS (30 sets, daily range): BP systolic 120–180; BP diastolic 57–97; PULSE 70–86; RESP 17–18; O2SAT 93–100
--- NOTE | 2021-06-19 00:30 | PC.NURSE ---
Pt lying on gurney, Eyes closed, Chest rising and falling
--- NOTE | 2021-06-19 06:39 | PC.NURSE ---
This OTHER SALES SUPPORT WORKER spent some time having conversations with Pt. Pt states I feel stupid about how I have been behaving and I feel really sad about ruining my relationship with my girlfriend. Pt is tearful but willing to share feelings with encouragement.
--- NOTE | 2021-06-19 09:27 | PC.NURSE ---
DCR here for evaluation, spoke with md and rn, dcr reviewing paperwork and to assess/eval patient
[2021-06-19] MEDS: MAGNESIUM CITRATE 300 ML SOLUTION PO (12:31)
== END 2021-06-19 12:41 | disposition home or self-care (01) ==
PROVIDERS: Emergency Medicine; Emergency Provider Emergency Medicine
DX: T40.2X2A Poisoning by other opioids, intentional self-harm, initial encounter (principal); F10.129 Alcohol abuse with intoxication, unspecified; Y90.6 Blood alcohol level of 120-199 mg/100 ml; Z20.822 Contact with and (suspected) exposure to COVID-19
CPT/HCPCS: 36415; 80053; 80305; 80320; 80329; 83605; 85025; 87635; 93005; 96365; 99284; 99285; C9803; G0480

== ENCOUNTER 2021-09-15 01:51 | Inpatient (IN) | payer OTHER, MEDICARE, SELFPAY ==
[2021-09-15] VITALS (19 sets, daily range): BP systolic 150–196; BP diastolic 64–91; PULSE 74–102; RESP 16–26; TEMP 36.3–37.1; O2SAT 95–99; BMI 27.2; BMI 29.7
--- NOTE | 2021-09-15 02:01 | DI.CT.S_ITS ---
PROCEDURE: CT ANGIO HEAD AND NECK INDICATIONS: stroke, dizzy, prior aneurysm TECHNIQUE: After the administration of intravenous contrast, 1 mm thick sections acquired from the aortic arch through the Marshall of Bhardwaj. Post-contrast 4.5 mm thick sections then re-acquired from the foramen magnum to the vertex. 3-dimensional bztajzg-[id number] (MIP) and/or volume rendering reformats were acquired of the central intracranial vasculature and neck separately. COMPARISON: [facility], CT, CT ANGIO HEAD AND NECK, 10/13/2020, 16:46. FINDINGS: Image quality: Excellent. BRAIN: CSF spaces: Ventricles are dilated but symmetrical in size and shape. Basal cisterns are patent. No extra-axial fluid collections. Brain: No midline shift. No intracranial bleeds or masses. Mortensen-white matter interface appears intact. Skull and face: Calvarium and facial bones appear intact, without suspicious lesions. Orbits appear normal. Sinuses: Sinuses and mastoids are clear. HEAD CT ANGIOGRAPHY: Anterior circulation: Intracranial internal carotid arteries are patent. Density calcified plaques at the cavernous segment of the internal carotid arteries bilaterally with approximately 50% stenosis. The flow within the paired anterior cerebral arteries is normal and symmetric. The flow within the middle cerebral arteries is normal and symmetric. The anterior communicating artery is seen. No aneurysms are seen. Posterior circulation: There are corpus in the distal right vertebral artery at the skull base. The left vertebral artery is patent. The basilar artery is patent. Flow within the posterior cerebral arteries is normal and symmetric. No aneurysms are seen. NECK CT ANGIOGRAPHY: Carotid system: The great vessels demonstrate a conventional anatomy as they arise from the aortic arch. The origins of the common carotid arteries appear patent. The common carotid arteries demonstrate normal caliber and courses. There are calcified plaques at the carotid bifurcations. There is moderate stenosis in the proximal internal carotid arteries bilaterally (approximately 40%). Posterior circulation: The origins of the vertebral arteries both appear widely patent. The more superior extracranial portions of both vertebral arteries also demonstrate normal courses and calibers. They join to form a normal appearing basilar artery. Soft tissues: Visualized neck soft tissues demonstrate no suspicious abnormalities. Bones: No suspicious bony lesions. Visualized cervical spine appears normally aligned. IMPRESSION: 1. No acute intracranial abnormalities. 2. Approximately 50% stenosis of the cavernous segment of the internal carotid arteries bilaterally. 3. Approximately 40% stenosis in proximal internal carotid arteries arteries bilaterally. 4. Coils in the distal right vertebral artery. Any quantitative measurements of stenosis were performed using NASCET criteria. No significant discrepancy with the warehouse shift supervisor radiology preliminary report. Dictated by: Mana Gleason M.D. on 09/15/2021 at 7:11 Approved by: Maan Gleason M.D. on 09/15/2021 at 8:43
--- NOTE | 2021-09-15 02:02 | DI.CT.S_ITS ---
PROCEDURE: CT HEAD/BRAIN WO CON INDICATIONS: dizzy, prior hemorrhagic stroke TECHNIQUE: Noncontrast 4.5 mm thick angled axial sections acquired from the foramen magnum to the vertex, with coronal and sagittal reformats. For radiation dose reduction, the following was used: automated exposure control, adjustment of mA and/or kV according to patient size. COMPARISON: [facility], CT, CT HEAD/BRAIN WO CON, 10/13/2020, 15:27. FINDINGS: Image quality: Excellent. CSF spaces: Basal cisterns are patent. No extra-axial fluid collections. The ventricles are symmetric in size and shape. Brain: No intracranial bleeds or masses. There is moderate cerebral volume loss for age, with resultant ventricular and sulcal prominence. There are periventricular and deep white matter chronic small vessel ischemic changes. There is intracranial internal carotid artery atherosclerosis. Skull and face: Calvarium and visualized facial bones appear intact, without suspicious lesions. Sinuses: Visualized sinuses and mastoids are clear. IMPRESSION: 1. No acute intracranial abnormalities. 2. Cerebral volume loss and chronic microvascular ischemic changes. No significant discrepancy with the production supervisor off shift radiology preliminary report. Dictated by: Mana Gleason M.D. on 09/15/2021 at 7:09 Approved by: Mana Gleason M.D. on 09/15/2021 at 7:10
[2021-09-15 02:26] LABS: Add Manual Diff / Slide Review NO; Basophils Absolute Auto 0 /uL (0-100); Basophils Percent Auto 0.4 % (0-2); Eosinophils Absolute Auto 100 /uL (0-450); Eosinophils Percent Auto 1.8 % (2-4); Hematocrit 42.1 % (41-53); Hemoglobin 14.2 g/dL (13.5-17.5); Lymphocytes Absolute Auto 1200 /uL (1100-4500); Mean Corpuscular HGB Conc 33.8 % (30-36); Mean Corpuscular Hemoglobin 34.9 PG (26-34); Mean Corpuscular Volume 103.2 fL (80-100); Monocytes Absolute Auto 700 /uL (0-900); Monocytes Percent Auto 11.5 % (3-14); Neutrophils Absolute Auto 4400 /uL (1500-7000); Neutrophils Percent Auto 67.3 % (50-75); Platelet Count 152 X10^3/uL (150-400); Prothrombin Time 11.2 SECONDS (10.1-12.7); Red Blood Cell Count 4.08 X10^6/uL (4.5-5.9); Red Cell Distribution Width 14.1 % (11.6-14.8); White Blood Cell Count 6.5 X10^3/uL (4.5-11.0)
[2021-09-15 02:32] LABS: Creatine Kinase 69 U/L (55-170); Magnesium 1.9 mg/dL (1.6-2.3)
[2021-09-15 02:34] LABS: Alanine Aminotransferase 40 IU/L (<50); Albumin 4.5 g/dL (3.5-5.0); Albumin Globulin Ratio 1.4 (1.0-2.8); Alkaline Phosphatase 88 U/L (38-126); Aspartate Aminotransferase 54 IU/L (17-59); BUN Creatinine Ratio 22.4 (6-22); Bilirubin Total 0.7 mg/dL (0.2-1.3); Blood Urea Nitrogen 17 mg/dL (9-20); Calcium 9.1 mg/dL (8.4-10.2); Carbon Dioxide 34 mmol/L (22-32); Chloride 96 mmol/L (98-107); Estimated Glomerular Filt Rate > 60.0 mL/min (>60); Ethanol (ETOH) < 10 mg/dL; Globulin 3.2 g/dL (1.7-4.1); Glucose 95 mg/dL (80-110); Sodium 135 mmol/L (137-145); Total Protein 7.7 g/dL (6.3-8.2)
[2021-09-15] MEDS: SODIUM CHLORIDE 0.9% 1,000 ML 1000 ML IV (02:38)
[2021-09-15 02:39] LABS: HEMOLYSIS 62 (0-50); Potassium 3.7 mmol/L (3.4-5.1)
[2021-09-15] MEDS: THIAMINE 500 MG in SODIUM CHLORIDE 0.9% 100 ML 420 ML IV (02:41)
--- NOTE | 2021-09-15 02:41 | ED.NECK ---
HPI - Neck Pain/Injury General Chief Complaint: Neuro Symptoms/Deficit Stated Complaint: LOSING BALANCE Time Seen by Provider: 09/15/21 02:00 Mode of arrival: Ambulatory History of Present Illness HPI Narrative: 71-year-old male nonsmoker with medical history significant for hypertension, hyperlipidemia, prior ruptured cerebral aneurysm with multiple coils and extensive daily alcohol abuse presents with family and the chief complaint of significant dizziness, multiple falls and trouble with ambulation over the past few days. He admits that he has been having some trouble over the past month if not longer but things have been significantly worse over the past few days and he has had multiple falls. Prior to a few days ago he could walk without any assistance such as cane or walker, now he is unsteady and falls frequently and can no longer ambulate safely. Additionally, he states that if he turns his head quickly 1 way or the other has body will collapse. He denies any fever or chills and states that he thinks he takes a blood thinner but is unsure. He denies any chest pain or shortness of breath. He has been slightly nauseated but denies any vomiting. He has no fever or chills. He denies any obvious change in medications or diet. He has no ringing in his ears, blurred vision or trouble with speech. Related Data Home Medications Medication Instructions Recorded Confirmed aspirin 325 mg tablet 325 mg PO DAILY 06/17/21 06/17/21 atorvastatin 80 mg tablet 80 mg PO BEDTIME 06/17/21 06/17/21 hydrochlorothiazide 12.5 mg capsule 12.5 mg PO QAM 06/17/21 06/17/21 lisinopril 10 mg tablet 10 mg PO DAILY 06/17/21 06/17/21 morphine 60 mg tablet,extended 60 mg PO Q8H 06/17/21 06/17/21 release nortriptyline 10 mg capsule 10 mg PO BEDTIME 06/17/21 06/17/21 oxycodone 5 mg capsule 5 mg PO QID PRN 06/17/21 06/17/21 sertraline 100 mg tablet 100 mg PO QAM 06/17/21 06/17/21 trazodone 150 mg tablet 150 mg PO BEDTIME 06/17/21 06/17/21 Allergies Allergy/AdvReac Type Severity Reaction Status Date / Time No Known Drug Allergies Allergy Verified 06/17/21 16:03 Review of Systems Review of Systems Narrative: GENERAL: Denies chills, fatigue, malaise, fever, sweats. HEENT: Denies sinus pain, ear pain, sore throat, difficulty swallowing, dizziness. RESPIRATORY: Denies dyspnea, cough, wheezing, hemoptysis, sputum. CARDIOVASCULAR: Denies chest pain, palpitations, orthopnea, edema, GASTROINTESTINAL: Denies nausea, vomiting, abdominal pain, diarrhea, constipation, melena. : Denies dysuria, frequency, incontinence, hematuria, urinary retention. MUSCULOSKELETAL: denies weakness, joint pain, or bony pain SKIN: Denies rash, skin lesions, or other NEUROLOGIC: See HPI PSYCHIATRIC: No concerning psychosocial issues. 12 point review of systems is negative except for those stated above Patient History Medical History Alcohol use disorder Cerebral aneurysm Chronic pain Depression Hepatitis C Hypertension Opioid dependence Osteomyelitis Social History Smoking Status: Never smoker Smoking Status: Never smoker alcohol intake frequency: 0-2 drinks per day Alcohol type: hard liquor Substance Use Type: does not use Exam Narrative Exam Narrative: GENERAL: [71] year old patient appears stated age. Well-developed patient, in mild distress. HEAD: Atraumatic. Normocephalic. EYES: Pupils equal round and reactive. Extraocular motions intact. No scleral icterus. No injection or drainage. ENT: Nose without bleeding, purulent drainage. Throat without erythema, tonsillar hypertrophy or exudate. Airway patent. NECK: Trachea midline. Non tender CARDIOVASCULAR: Regular rate and rhythm without murmurs, gallops, or rubs. RESPIRATORY: Clear to auscultation. Breath sounds equal bilaterally. No wheezes, rales, or rhonchi. GASTROINTESTINAL: Abdomen soft, non-tender, nondistended. EXTREMITIES: No edema or joint tenderness. BACK: Nontender without deformity or crepitance. No flank tenderness. NEURO: AOx3. SKIN: No rash or erythema of visible areas NIH Stroke Scale 1a. LOC: Patient is alert and keenly responsive (0) 1b. LOC Questions: Patient answers both LOC questions accurately (0) 1c. LOC Commands: Patient performs both tasks correctly (0) 2. Best Gaze: Normal (0) 3. Visual: No visual loss (0) 4. Facial palsy: Normal symmetrical movements (0) 5. Motor arm: No drift (0) 6. Motor leg: No drift (0) 7. Limb ataxia: Absent (0) 8. Sensory: Normal (0) 9. Best language: No aphasia; normal (0) 10. Dysarthria: Normal (0) 11. Extinction and inattention: No abnormality (0) NIHSS: 0 Initial Vital Signs Initial Vital Signs: Vital Signs Pulse Rate 95 H 09/15/21 01:59 Respiratory Rate 20 09/15/21 01:59 Blood Pressure 196/91 H 09/15/21 01:59 Course Orders Ordered: ED Orders 09/15/21 02:01 CT angio head and neck Stat Urine Drug Screen, Rapid Stat 09/15/21 02:02 CT head/brain wo con Stat 09/15/21 02:12 Complete Blood Count AUTO DIFF Stat Comprehensive Metabolic Panel Stat Ethanol (ETOH) Stat Magnesium Stat NT-proBNP (BNP-Adult 18+) Stat Prothrombin Time INR Stat Troponin & CK Cardiac Panel Stat 09/15/21 03:29 COVID19 -Nasal swab/Pre-Proc Stat Discontinued Medications Sodium Chloride (Normal Saline 0.9%) 1,000 mls @ 1,000 mls/hr IV BOLUS ONE Stop: 09/15/21 03:00 Last Admin: 09/15/21 02:38 Dose: 1,000 mls/hr Documented by: Thiamine HCl 500 mg/ Sodium (Chloride) 105 mls @ 420 mls/hr IV NOW ONE Stop: 09/15/21 02:22 Last Infusion: 09/15/21 03:17 Dose: Infused Documented by: Vital Signs Vital signs: Vital Signs - 8 hr 09/15/21 01:59 09/15/21 02:04 Pulse Rate 95 H 90 Respiratory Rate 20 Blood Pressure 196/91 H Pulse Oximetry 98 MDM - Neck Pain/Injury Lab Data Result diagrams: 09/15/21 02:12 09/15/21 02:12 Labs: Lab Results 09/15/21 09/15/21 09/15/21 Range/Units 02:12 02:12 02:12 WBC 6.5 (4.5-11.0) X10^3/uL RBC 4.08 L (4.5-5.9) X10^6/uL Hgb 14.2 (13.5-17.5) g/dL Hct 42.1 (41-53) % MCV 103.2 H (80-100) fL MCH 34.9 H (26-34) PG MCHC 33.8 (30-36) % RDW 14.1 (11.6-14.8) % Plt Count 152 (150-400) X10^3/uL Neut % (Auto) 67.3 (50-75) % Lymph % (Auto) 19.0 L (25-40) % [place] % (Auto) 11.5 (3-14) % Eos % (Auto) 1.8 L (2-4) % Baso % (Auto) 0.4 (0-2) % Neut # (Auto) 4400 (1986-0057) /uL Lymph # (Auto) 1200 (5472-4585) /uL [place] # (Auto) 700 (0-900) /uL Eos # (Auto) 100 (0-450) /uL Baso # (Auto) 0 (0-100) /uL PT 11.2 (10.1-12.7) SECONDS INR 1.0 (0.9-1.3) Sodium 135 L (137-145) mmol/L Potassium 3.7 (3.4-5.1) mmol/L Chloride 96 L (98-107) mmol/L Carbon Dioxide 34 H (22-32) mmol/L BUN 17 (9-20) mg/dL Creatinine 0.76 (0.66-1.25) mg/dL Estimated GFR > 60.0 (>60) mL/min BUN/Creatinine Ratio 22.4 H (6-22) Glucose 95 (80-110) mg/dL Calcium 9.1 (8.4-10.2) mg/dL Magnesium (1.6-2.3) mg/dL Total Bilirubin 0.7 (0.2-1.3) mg/dL AST 54 (17-59) IU/L ALT 40 (<50) IU/L Alkaline Phosphatase 88 (38-126) U/L Total Creatine Kinase (55-170) U/L CK-MB (CK-2) CK-MB (CK-2) Rel Index Troponin I (0.01-0.034) ng/mL NT-Pro-B Natriuret Pep (<125) pg/mL Total Protein 7.7 (6.3-8.2) g/dL Albumin 4.5 (3.5-5.0) g/dL Globulin 3.2 (1.7-4.1) g/dL Albumin/Globulin Ratio 1.4 (1.0-2.8) Ethyl Alcohol < 10 ( - 10) mg/dL 09/15/21 Range/Units 02:12 WBC (4.5-11.0) X10^3/uL RBC (4.5-5.9) X10^6/uL Hgb (13.5-17.5) g/dL Hct (41-53) % MCV (80-100) fL MCH (26-34) PG MCHC (30-36) % RDW (11.6-14.8) % Plt Count (150-400) X10^3/uL Neut % (Auto) (50-75) % Lymph % (Auto) (25-40) % [place] % (Auto) (3-14) % Eos % (Auto) (2-4) % Baso % (Auto) (0-2) % Neut # (Auto) (1978-7492) /uL Lymph # (Auto) (6916-1985) /uL [place] # (Auto) (0-900) /uL Eos # (Auto) (0-450) /uL Baso # (Auto) (0-100) /uL PT (10.1-12.7) SECONDS INR (0.9-1.3) Sodium (137-145) mmol/L Potassium (3.4-5.1) mmol/L Chloride (98-107) mmol/L Carbon Dioxide (22-32) mmol/L BUN (9-20) mg/dL Creatinine (0.66-1.25) mg/dL Estimated GFR (>60) mL/min BUN/Creatinine Ratio (6-22) Glucose (80-110) mg/dL Calcium (8.4-10.2) mg/dL Magnesium 1.9 (1.6-2.3) mg/dL Total Bilirubin (0.2-1.3) mg/dL AST (17-59) IU/L ALT (<50) IU/L Alkaline Phosphatase (38-126) U/L Total Creatine Kinase 69 (55-170) U/L CK-MB (CK-2) TNP CK-MB (CK-2) Rel Index TNP Troponin I 0.019 (0.01-0.034) ng/mL NT-Pro-B Natriuret Pep 219 H (<125) pg/mL Total Protein (6.3-8.2) g/dL Albumin (3.5-5.0) g/dL Globulin (1.7-4.1) g/dL Albumin/Globulin Ratio (1.0-2.8) Ethyl Alcohol ( - 10) mg/dL Imaging Data CT scan - head: Radiologist's Impression: NAP CTA Head/Neck: Radiologist's Impression: Patent CT of head MDM Narrative Medical decision making narrative: Patient requires hospitalization for further characterization, evaluation and potential treatment of an underlying diagnosis which is preventing his ability to safely ambulate over the past few days. He has had a rapid change in those past few days and there certainly question regarding post circulation stroke versus early, atypical alcohol withdrawal, versus work he has encephalopathy which has thus far been resistant to thiamine versus other. Discharge Plan Departure Patient Disposition: Admitted as Observation Clinical Impression: Ataxia, Weakness Admit Date/Time: 09/15/21 03:36 Admit Provider: Stacy Padilla
[2021-09-15 02:45] LABS: NT-proBNP (BNP-Adult 18+) 219 pg/mL (<125); Troponin I 0.019 ng/mL (0.01-0.034)
[2021-09-15 03:47] LABS: COVID19 -Nasal RAPID Negative (Negative)
--- NOTE | 2021-09-15 04:02 | DI.MRI.S_ITS ---
PROCEDURE: MR HEAD/BRAIN WO CON INDICATIONS: Hx aneurysm s/p coils RV4 seg, balance/falls TECHNIQUE: The patient terminated the examination before it could be completed. The patient was pre-medicated, yet could not complete the exam. Program Proposals Coordinator images were obtained as well as axial diffusion-weighted images with associated ADC maps. COMPARISON: [facility], CT, CT ANGIO HEAD AND NECK, 09/15/2021, 2:16. [facility], CT, CT HEAD/BRAIN WO CON, 09/15/2021, 2:16. [facility], CT, CT ANGIO HEAD AND NECK, 10/13/2020, 16:46. FINDINGS: Image quality: Limited by early termination by the patient. On these images, no findings of abnormal diffusion-weighted abnormality can be seen. Generalized brain parenchymal volume loss can be seen. Prominent ventricles are seen, which are more prominent than would be expected for the degree of sulcal atrophy. IMPRESSION: Highly limited examination, which was terminated early by the patient. No findings of acute or subacute infarction can be seen. Abnormally enlarged lateral ventricles. Please consider normal pressure hydrocephalus. Dictated by: Neri Mars M.D. on 09/15/2021 at 8:54 Approved by: Neri Mars M.D. on 09/15/2021 at 8:58
[2021-09-15 04:32] LABS: Hemoglobin A1C% w Est Avg Glu 4.6 % (4.0-6.0)
--- NOTE | 2021-09-15 04:35 | P.HP_ITS ---
History of Present Illness History of Present Illness Date Patient Seen: 09/15/21 Time Patient Seen: 04:08 Chief complaint: LOSING BALANCE Narrative: Ayan Ball is a 71-year-old male with a medical history of ETOH abuse, cerebral aneurysm S/P coils ([id number]), essential tremor, chronic pain, depression, hep C, opiate dependence, osteomyelitis, prior Suicide overdose with oral morphine, hypertension, and hyperlipidemia who presents to the ED today with a chief complaint of significant dizziness, multiple falls and trouble with ambulation over the past few days.? Patient is a very poor historian. He admits that he has been having some trouble over the past month if not longer but things have been significantly worse over the past few days and he has had multiple falls.? Patient reports feeling jittery, frequent loss of balance, shaky, and increased nausea. Prior to a few days ago the patient reports that he ambulated without assistive devices. He now reports that he is unsteady and falls frequently and can no longer ambulate safely. Patient reports that approximately 3 days ago he had a ground level fall on carpeting and hit his head on the oil heater in his home, no loss of consciousness, no bruising or injury to his head. He reports that if he turns his head quickly 1 way or the other has body will?collapse, as he feels like he is spinning.? Patient denies chest pain, shortness of breath, abdominal pain, vomiting, fever, body aches, chills, diarrhea, no other recent illness injury or trauma. He is unasure if he takes a blood thinner. He complains of slight nausea, chronic gross diaphoresis. He denies any obvious change in medications or diet.? He has no ringing in his ears, recent ear aches, URI, travel to altitude, flying, changes in vision, SLATER, trouble with speech, swallowing. He reports an ongoing progressive loss of me chan. The patient endorses drinking regularly daily vodka, orange juice, monster drinks and perhaps 1-2 shots (1-2oz). ED Visit 10/13/2020 Per /Dr. Carlisle:Patient is a 70-year-old male who presents after ground level fall 4 days ago, he fell on left side rate near his eye he does have contusion over his periorbital area is.? Since then he has been dizzy and off balance. He thinks he stumbled and tripped initially causing him to fall.? He actually says that his balance has not been great for about 6 weeks. ED Visit 05/[address] Carlisle:Hx of chronic pain taking morphine is and oxycodone, presenting today is overdose and suicide attempt.? He takes morphine 60 mg extended release up to 3 times daily he says he tries not to take it sometimes he patient to he also is taking oxycodone 5 mg, but says he did not take any extra of that.? Around midnight he took possibly 20 tablets of morphine 60 mg. The does not want to talk much about the stressors in his life but states that his whole life is not worth living.? Today on admit patient presents with noticeable shaking, upper extremity tremor, poor historian, anxious, extremities appear taunt, flexed, almost spastic he st ates he states with hypertensive urgency BP 196/91, HR 90, R 20, O2 saturation 98% on room air. Patient's CBC is normal, CMP is sodium 135, chloride 96, bicarb 34, BNP is 219, ETOH <10. Patient's head CT, and head neck CTA, reported per ED as unremarkable. NIH:0, Troponin 0.019 WNL. No EKG done in ED. Patient's previous imaging noted retrograde decreased flow in the RV4 segment where the coils were placed, intracranial internal carotid artery 60% bilateral narrowing, atherosclerotic calcification and irregularity seen in the carotid bifurcation 30% on the right 50% on the left. Patient admitted for neurological deficit, ataxia, falls, hypertensive urgency, and possible alcholol withdrawl. Patient History Medical History (Updated 09/15/21 @ 05:25 by CAREY Lowery-HUSSEIN) Alcohol abuse Alcohol use disorder Cerebral aneurysm Chronic pain Depression Essential tremor Hepatitis C Hyperlipidemia Hypertension Opioid dependence Osteomyelitis Suicide attempt by drug overdose Surgical History (Updated 09/15/21 @ 05:25 by ANNMARIE Lowery) History of surgery for cerebral aneurysm History of surgery on extremity Family & Social History Family History Father Alcoholism Mother Alcoholism Social History: household members significant other Prior Living Arrangements Mobile home Safety & Behavioral: Feels Safe in Current No Environment Been Physically Hurt or No Threatened By a Person Suicidal Ideation Description None Suicide Plan Description No Plan Tobacco & Substance use: Tobacco type cigarettes Smoking Status Former smoker alcohol intake current alcohol intake frequency 0-2 drinks per day Substance Use Type does not use Meds Home Medications and Allergies Home Medications Medication Instructions Recorded Confirmed Type atorvastatin 80 mg tablet 80 mg PO BEDTIME 06/17/21 09/15/21 History hydrochlorothiazide 12.5 mg capsule 12.5 mg PO QAM 06/17/21 09/15/21 History lisinopril 10 mg tablet 10 mg PO DAILY 06/17/21 09/15/21 History nortriptyline 10 mg capsule 10 mg PO BEDTIME 06/17/21 09/15/21 History sertraline 100 mg tablet 100 mg PO QAM 06/17/21 09/15/21 History trazodone 150 mg tablet 450 mg PO BEDTIME 06/17/21 09/15/21 History Adult One Daily Multivitamin 1 tab PO BID 09/15/21 09/15/21 History buprenorphine 2 mg-naloxone 0.5 mg 0.5 tab SUBLINGUAL DAILY 09/15/21 09/15/21 History sublingual tablet cholecalciferol (vitamin D3) 50 50 mcg PO DAILY 09/15/21 09/15/21 History mcg (2,000 unit) capsule Allergies Allergy/AdvReac Type Severity Reaction Status Date / Time No Known Drug Allergies Allergy Verified 06/17/21 16:03 Review of Systems Review of Systems Narrative: All 12 point systems reviewed with the patient and are negative except otherwise documented. Please note that ROS and HPI including family history may not be accurate due to patient's impaired cognitive function due-unknown etiology. Exam Vital Signs (past 8 hours): - 09/15/21 01:59 09/15/21 02:04 09/15/21 02:23 Pulse Rate 95 H 90 100 H Respiratory Rate 20 26 H Blood Pressure 196/91 H 180/79 H Pulse Oximetry 98 97 09/15/21 02:30 09/15/21 03:00 09/15/21 03:30 Pulse Rate 96 H 100 H 100 H Respiratory Rate 24 20 Blood Pressure Pulse Oximetry 97 97 98 09/15/21 04:00 09/15/21 04:05 Pulse Rate 97 H Respiratory Rate Blood Pressure Pulse Oximetry 98 99 Oxygen Delivery Method Room Air Oxygen Flow Rate 0 Narrative Exam Narrative: GENERAL: Patient is a pleasant elderly male, appears stated age. Well-developed patient, in no distress at this time. HEAD: Atraumatic. Normocephalic. EYES: Pupils equal round and reactive. Extraocular motions intact. No scleral icterus. No injection or drainage. No ocular motor dysfunction. ENT: Nose without bleeding, purulent drainage. Throat without erythema, tonsillar hypertrophy or exudate. Airway patent. NECK: Trachea midline. Non tender CARDIOVASCULAR: Regular rate and rhythm without murmurs, gallops, or rubs. RESPIRATORY: Lung sounds in all lobes were decreased coarse, poor air exchange, moderate expiratory wheezing but equal. GASTROINTESTINAL: Abdomen soft, non-tender, nondistended. EXTREMITIES: No edema or joint tenderness. Observable generalized shaking, upper extremity tremor, extremities have a flexed/ spastic type movement to them. BACK: Nontender without deformity or crepitance. No flank tenderness. NEURO: AOx3. SKIN: No rash or erythema of visible areas Objective Labs Result Diagrams: 09/15/21 02:12 09/15/21 02:12 Labs: Laboratory Results - last 24 hr 09/15/21 09/15/21 09/15/21 02:12 02:12 02:12 WBC 6.5 RBC 4.08 L Hgb 14.2 Hct 42.1 MCV 103.2 H MCH 34.9 H MCHC 33.8 RDW 14.1 Plt Count 152 Neut % (Auto) 67.3 Lymph % (Auto) 19.0 L [place] % (Auto) 11.5 Eos % (Auto) 1.8 L Baso % (Auto) 0.4 Neut # (Auto) 4400 Lymph # (Auto) 1200 [place] # (Auto) 700 Eos # (Auto) 100 Baso # (Auto) 0 PT 11.2 INR 1.0 Sodium 135 L Potassium 3.7 Chloride 96 L Carbon Dioxide 34 H BUN 17 Creatinine 0.76 Estimated GFR > 60.0 BUN/Creatinine Ratio 22.4 H Glucose 95 Hemoglobin A1c Calcium 9.1 Magnesium Total Bilirubin 0.7 AST 54 ALT 40 Alkaline Phosphatase 88 Total Creatine Kinase CK-MB (CK-2) CK-MB (CK-2) Rel Index Troponin I NT-Pro-B Natriuret Pep Total Protein 7.7 Albumin 4.5 Globulin 3.2 Albumin/Globulin Ratio 1.4 Ethyl Alcohol < 10 SARS-CoV-2 (PCR) 09/15/21 09/15/21 09/15/21 02:12 02:12 03:29 WBC RBC Hgb Hct MCV MCH MCHC RDW Plt Count Neut % (Auto) Lymph % (Auto) [place] % (Auto) Eos % (Auto) Baso % (Auto) Neut # (Auto) Lymph # (Auto) [place] # (Auto) Eos # (Auto) Baso # (Auto) PT INR Sodium Potassium Chloride Carbon Dioxide BUN Creatinine Estimated GFR BUN/Creatinine Ratio Glucose Hemoglobin A1c 4.6 Calcium Magnesium 1.9 Total Bilirubin AST ALT Alkaline Phosphatase Total Creatine Kinase 69 CK-MB (CK-2) TNP CK-MB (CK-2) Rel Index TNP Troponin I 0.019 NT-Pro-B Natriuret Pep 219 H Total Protein Albumin Globulin Albumin/Globulin Ratio Ethyl Alcohol SARS-CoV-2 (PCR) Negative Assessment & Plan Assessment & Plan narrative: Ayan Ball is a 71-year-old male with a medical history of ETOH abuse, cerebral aneurysm S/P coils ([id number]), essential tremor, chronic pain, depression, hep C, opiate dependence, osteomyelitis, prior Suicide overdose with oral morphine, hypertension, and hyperlipidemia who presents to the ED today with a chief complaint of significant dizziness, multiple falls and trouble with ambulation over the past few days.?As revied the patients chart I found that he had been seen in 09/2020 for the very same complaints. Patient admitted for neurological deficit, ataxia, falls, hypertensive urgency, and possible alcholol withdrawl. 1. Neurological deficit (gait ataxia, Falls, tremors), acute on chronic, likely secondary to chronic alcohol abuse, acute on chronic, present on admission -patient is at high risk for Wernicke-Korsakoff syndrome, TIA, CVA, intracranial bleed, hemorrhage -I suspect that these are not new changes but part of a gradual progression over years, although it should be noted patient is at high risk for falls, head injury, CVA, and bleeds. -Rule out benign proximal positional vertigo, vestibular neuritis, vertebral migraine,TIA, Cerebellar infarction and hemorrhage, central vestibular abnormality, -monitor for Wernicke encephalopathy/Wernicke-Korsakoff syndrome -patient admitted under stroke protocol and alcohol withdrawal protocol -bedside swallow performed, aspiration precautions, seizure precautions all ongoing -patient placed on CIWA scale -MR ordered for today-patient is extremely anxious regarding MR have ordered Ativan p.o. to be given prior to MRI scan. -DISTRICT ADMINISTRATOR consult regarding alcohol use, patient education provided regarding risks of alcohol withdrawal. Please provide patient with patient education handout. -if MRI is negative have ordered PT for evaluation with [place] Hallpike maneuvers/ and mobility safety. -ammonia ordered, trend troponins, lipid panel, TSH, A1c, mag -NS at 60 cc HR -Lipitor, ASA-Holding Plavix still bleed can be rule out. -consider outpatient referral for physical therapy and strengthening on discharge 2. Hypertensive urgency in the setting of essential hypertension, acute on chronic, with a history of cerebral aneurysm, chronic, present on admission -patient's blood pressure is 196/91, 180/71, 187/87-patient is asymptomatic and stable allowing for mild permissive hypertension until stroke or hemorrhage can not be ruled out. Continue lisinopril-likely need to increase dosage, continue HCTZ. 3. Hyperlipidemia, chronic, present on admission -continue Lipitor 4. Depression, chronic, present on admission -continue nortriptyline, sertraline, trazodone 5. Chronic pain syndrome, chronic, present on admission -continue Suboxone, patient to use home medication, as we do not carry his dosage in our pharmacy. 6. Overweight as evidence by BMI of 29.8, acute on chronic, present on admission -dietary consult ordered Code status:DNR-per patient Surrogate decision maker: Vera Wiley -partner COVID PCR:Negative COVID vaccination: Unknown DVT/VTE prophylaxis:Lovenox & SCD's Disposition: Patient admitted for observation, expected length of stay less than 2 midnights. I have utilized all available immediate resources to obtain, update, or review the patient's current medications. I confirmed that the patient's advanced care plan is present, Code status is documented and/or surrogate decision maker is listed in the patient's medical record. Time Spent With Patient Critical Care time: I spent a total of [] minutes of critical care time on this patient's care today; this time is exclusive of procedural time.
[2021-09-15 05:03] LABS: Thyroid Stimulating Hormone 2.22 uIU/mL (0.47-4.68)
[2021-09-15] MEDS: SODIUM CHLORIDE 0.9% 1,000 ML 60 ML IV ×2 (05:07→21:34)
[2021-09-15 05:38] LABS: Cholesterol 137 mg/dL (140-199); HDL Cholesterol 63 mg/dL (40-60); LDL Cholesterol Calculated 62 mg/dL (<100); Triglycerides 61 mg/dL (35-150)
[2021-09-15 05:45] LABS: Ammonia (NH3) < 9 umol/L (9-30)
[2021-09-15 05:51] LABS: Troponin I 0.018 ng/mL (0.01-0.034)
--- NOTE | 2021-09-15 06:21 | PC.ADMIT ---
Admitted to room 218 from ER at 0405. Patient is alert and oriented except did not know day of month. NIH = 1 due to numbness/tingling of left extremities which he states is normal. Is particularly sensitive to touch on left foot. CIWA is 6 for tremors and headache but states I'm not going through withdrawal. States he has 1 2oz vodka drink every night and last had one last evening around 2300. Breath sounds CTA with RA sat of 99%. HRR but tachy at 102. BP elevated at 187/87. Admitted related to dizziness when making sudden movements with head and feeling as though he was going to fall out of his chair but denies any dizziness upon admission. conveyor monitor on and telemetry reading was SR w/BBB. Denies nausea. BT present and abdomen is soft. Has not yet been able to void; provided urinal. Is able to move himself in bed. Gait not assessed at this time but reports he does not use an assistive device at home but has been falling frequently. Seizure pads placed on bed. Bilateral calf SCD's applied. Complained of headache, back and left leg pain but states Tylenol does not help and only takes Suboxone for pain control. Swallow eval done and passed. Oriented to bed controls and call light. Fall risk score is high and bed alarm is activated. [address] Admission Note: The patient,Luis Ball,71 y/o, was given written information regarding hospital policies, unit procedures and contact persons. Patient's smoking status: Former smoker. Vital Signs - 8 hr 09/15/21 01:59 09/15/21 02:04 09/15/21 02:23 Temperature Pulse Rate 95 H 90 100 H Respiratory Rate 20 26 H Blood Pressure 196/91 H 180/79 H Pulse Oximetry 98 97 09/15/21 02:30 09/15/21 03:00 09/15/21 03:30 Temperature Pulse Rate 96 H 100 H 100 H Respiratory Rate 24 20 Blood Pressure Pulse Oximetry 97 97 98 09/15/21 04:00 09/15/21 04:05 Temperature 98.8 F Pulse Rate 97 H 102 H Respiratory Rate 18 Blood Pressure 187/87 H Pulse Oximetry 98 99
[2021-09-15 06:34] LABS: UR Morphine/Opiate cutoff 300 Negative (Negative); Ur Creatinine Normal (Normal); Ur Specific Gravity Normal (Normal); Urine Amphetamines Negative (Negative); Urine Barbiturates Negative (Negative); Urine Benzodiazepines Negative (Negative); Urine Cocaine Negative (Negative); Urine MDMA Negative (Negative); Urine Methadone Negative (Negative); Urine Methamphetamines Negative (Negative); Urine Oxycodone Negative (Negative); Urine Phencyclidine Negative (Negative); Urine Tetrahydrocannabinol Negative (Negative); Urine Tricyclic Antidepressant Positive (Negative); Urine pH Normal (Normal)
[2021-09-15] MEDS: LORazepam 1 MG TABLET PO (09:25)
[2021-09-15] MEDS: BUPRENORPHINE NALOXONE 0.5 EACH SL (09:25)
--- NOTE | 2021-09-15 09:27 | PC.NURSE ---
Gave Pt ativan per order for MRI, Pt off unit @ 0983 will give morning meds when he comes back.
[2021-09-15] MEDS: ASPIRIN EC 81 MG TABLET PO (09:59)
[2021-09-15] MEDS: SERTRALINE 50 MG TABLET 100 MG PO (09:59)
[2021-09-15] MEDS: ENOXAPARIN 40 MG/0.4 ML SYRINGE SUBCUT (09:59)
[2021-09-15] MEDS: hydroCHLOROthiazide 25 MG TABLET 12.5 MG PO (09:59)
[2021-09-15] MEDS: MULTIVITAMIN 1 TABLET 1 TAB PO (10:00)
[2021-09-15] MEDS: lisinopriL 10 MG TABLET PO (10:00)
[2021-09-15] MEDS: THIAMINE 100 MG TABLET PO (10:00)
[2021-09-15] MEDS: FOLIC ACID 1 MG TABLET PO (10:00)
--- NOTE | 2021-09-15 10:16 | PT.IIE ---
Medical History (Last Updated 09/15/21 @ 05:25 by Stacy Padilla [facility]) Alcohol abuse Alcohol use disorder Cerebral aneurysm Chronic pain Depression Essential tremor Hepatitis C Hyperlipidemia Hypertension Opioid dependence Osteomyelitis Suicide attempt by drug overdose Physical Therapy Inpatient Evaluation/Re-Eval M1 PT/OT-IP Prior Functional Status Start: 09/15/21 12:42 Freq: NEEDED Status: Active Protocol: Document 09/15/21 10:16 AB (Rec: 09/15/21 13:02 AB [id number]) Medical Review Prior Functional Status Medical History Reviewed Yes Communication able to make needs known Mobility and Gait pt stated that he is modified independent with all mobilities and ambulation without AD; has h/o falls Social History Household Members significant other Living Arrangements RV Number of Floors (Floors) One Floor Number of Stairs To Enter/Railing? 3 steps R rail to enter + 2 steps L rail from the inside to get to the living area Home Environment Standard Height Toilet,Walk in Shower Home Equipment Four Wheel Walker,Shower Seat with Backrest,Hand Held Shower Additional Social History Comment Walker will not fit in the house M2 PT-IP Current Condition Start: 09/15/21 12:42 Freq: NEEDED Status: Active Protocol: Document 09/15/21 10:16 AB (Rec: 09/15/21 13:02 AB [email or web address]) Physical Therapy Current Condition Current Condition Evaluation Date 09/15/21 Treatment Diagnosis weakness; ETOH abuse; difficulty in walking Onset Date 09/15/21 M3 PT-IP Subjective Start: 09/15/21 12:42 Freq: NEEDED Status: Active Protocol: Document 09/15/21 10:16 AB (Rec: 09/15/21 13:02 AB [email or web address]) Subjective Physical Therapy Visit Type Type Initial Evaluation Visit Start Time 10:16 Visit Stop Time 10:51 Total Visit Minutes 35 Notes PT eval orders received. One doctor's order indicated [place]- Halpike maneauver for pt if MRI is negative. PT eval completed and pt has c/o frontal aread headache but not vertigo and no change with head position and not nystagmus noted. therefore, triston-halpike is not indicated at this time. Number of RETAIL SALES SPECIALIST Visits 0 Physical Therapy Visit Comments Patient Comments agreed to do PT Therapy Pain Assessment Pain When Pain Assessed At Rest Pain Present Pain Present Pain Reported Location Head Intensity 7 Scale Used frontal head area headache M4 PT-IP Mobility and Gait Start: 09/15/21 12:42 Freq: NEEDED Status: Active Protocol: Document 09/15/21 10:16 AB (Rec: 09/15/21 13:02 AB [id number]) PT-Bed Mobility Assessment Supine to Sit Supine to Sit Standby Assistance PT-Transfer Assessment Sit to and From Stand Sit to and from Stand Minimal Assistance,1 Person Assistance,Use of Upper Extremities Equipment Transfer Assistive Device Gait Belt,Front Wheeled Walker Orthotic/Prosthetic Devices or Brace: No Comments Mobility Comments pt supine in bed and does not c/o dizzines/spinning sensation. stated that he has a frontal area headache. not worse with change in head position and no nystagmus. MD order triston-halpike manuever if MRI is negative but manuever is not indicated for pt since pt is not experiencing BPPV. pt completed supine to sit SBA . able to sit on EOB SBA. BP : 179/78. no c/o worsening of symptoms. completed sit to stand min A and ambulated in room using FWW ~ 45 ft min A and cues to slow down and for safety. pt went back to bed. positioned in bed. call light and table placed within reach. Seizure pad positioned . Gait Assessment Gait Gait Assistance Required: Minimum Assistance Distance (Feet) 45 Able to Maintain Weight Bearing Status Yes During Gait Assistive Devices Assistive Device Gait Belt,Front Wheeled Walker Orthotic/Prosthetic Devices or Brace: No Gait Deviations General Gait Pattern Decreased Stride Length, Decreased Feet Clearance Factors Limiting Gait Function Factors Limiting Gait Function Decreased Activity Tolerance, Decreased Strength,Pain,Poor Balance,Poor Safety Awareness PT-Balance Assessment Sitting Balance and Reactions Static Sitting Balance Ability Good Dynamic Sitting Balance Ability Good Standing Balance and Reactions Static Standing Balance Ability Fair Dynamic Standing Balance Ability Fair Device Used FWW M5 PT-IP Objective Assessments Start: 09/15/21 12:42 Freq: NEEDED Status: Active Protocol: Document 09/15/21 10:16 AB (Rec: 09/15/21 13:02 AB [id number]) Orientation Orientation/Cognition Level of Alertness Alert Orientation Name,Place,Situation Language Function Ability No Deficits Noted Safety Awareness Decreased Safety Awareness Gross Range of Motion Lower Extremity ROM Assessment Within Functional Limits Strength Lower Extremity Strength Assessment Left Impaired Hip 4-/5 Knee 4-/5 Muscle Tone Muscle Tone WNL Yes M6 PT-IP Treatment Start: 09/15/21 12:42 Freq: NEEDED Status: Active Protocol: Document 09/15/21 10:16 AB (Rec: 09/15/21 13:02 AB [email or web address]) Physical Therapy Treatment Education Education Provided Safety M7 PT-IP Assessment and Plan Start: 09/15/21 12:42 Freq: NEEDED Status: Active Protocol: Document 09/15/21 10:16 AB (Rec: 09/15/21 13:02 AB [email or web address]) PT Summary Assessment and Plan Potential Rehabilitation Potential Fair Status of Condition at Evaluation Evolving Summary Impairments Pain,ROM,Strength,Balance, Coordination,Sensation,Tone, Cognition,Bed Mobility, Transfers,Gait,Activity Tolerance Assessment Summary pt requiring min A with mobility. presents with unsteady gait using FWW. pt stated that FWW will not fit inside the house. will continue PT to improve functional mobility independence. pt stated that spouse will be able to assist him. will continue to assess progress. will conduct caregiver training and stair climbing training when appropriate. Goals Bed Mobility Goal Independent Transfer Goal Independent,Front Wheeled Walker,Four Wheeled Walker Gait Goal Independent,Front Wheel Walker ,Four Wheel Walker Gait Distance 200 Other Goals improve ambulation using SPC SBA 250 ft up/down 3 steps R rail + 2 steps L rail SBA Days to Meet Goals 10 Frequency of Treatment Frequency Of Treatment Once a Day Treatment Plan Physical Therapy Treatment Plan Bed Mobility Training,Transfer Training,Gait Training, Therapeutic Exercise,Balance Retraining,Discharge Planning, Hot or Cold Pack,Neuromuscular Re-ed,Coordination Retraining Precautions Other Precautions falls, seizure pads Recommendations To Nursing Amount of Assist Needed 1 Person Assist Discharge Recommendations PT Discharge Recommendations Home with 13/02 Assist Available,Home Health,SNF Rehab,Home vs SNF Equipment Needed for Home Before FWW if not safe with 4WW Discharge Transportation Needs at Discharge Private Vehicle,Wheelchair/ Cabulance
[2021-09-15] MEDS: ACETAMINOPHEN 325 MG TABLET 650 MG PO ×2 (11:56→18:41)
--- NOTE | 2021-09-15 13:32 | CM.IDA ---
Initial DCP Assessment Note Pt is a 71 yo male, currently his RV is parked at [facility] in [place], arrives w/weakness and unstable gait, admitted observation H+P: Patient admitted for neurological deficit, ataxia, falls, hypertensive urgency, and possible alcholol withdrawl. PMH significant for: Intentional OD in May 2021, DC home after COLLECTION CORRESPONDENT consult and DCR eval/Walk away. ETOH use w/ hx of cerebral aneurysm COLLECTION CORRESPONDENT consult requested to discuss alcohol use. PCP: None listed Payer: [facility] MCR Reviewed chart; met w/patient briefly this morning, introduced role. Patient lives w/partner Vera in their RV and patient states they have been looking for alt. housing for a few years. Patient plans on going back home to RV w/spouse to assist, states Vera is catching up on sleep and she should be visiting this afternoon. Patient is pleasant, tends to wander off topic often. Will plan to review DCP w/patient and partner Vera. Will review alcohol use at that time, patient does not appear to be a good historian. Unsure of patient's outpatient supports. PT eval indicates patient is requiring Min assist today, also that a FWW will not fit into patient's RV. Plan: likely return home w/assist from partner, unsure if HH PT would be of benefit (?) Will plan to offer outpatient ROXY supports if patient interested YOCASTA Kirby Discharge Planning/Care Management CM Discharge Assessment Start: 09/15/21 13:28 Freq: Status: Active Protocol: Document 09/15/21 13:28 ALEJANDRA (Rec: 09/15/21 13:32 [email or web address] [id number]) Discharge Planning Assessment Assigned Bacteriologist Pharmaceutical YOCASTA Alvarez DPOA/Assigned Designee Name Vera Tejeda, partner Contact Information [phone] Advance Directives? Yes: DNR Advance Directives on File No History Provided By Patient Prior Living Arrangements RV Household Members significant other Type of transportation used prior to Relies on Others admit Independent with ADL's No Is patient alert and oriented? No: Waxes and wanes Needs Assistance With Bathing,Grooming,Meal Prep, Managing Medications,Home Chores / Shopping Patient/Family Preference Home with Home Health Discharge Plan Home Transportation Arrangement Partner Additional Comment Likely will need HH, will review w/patient and partner Vera
--- NOTE | 2021-09-15 14:22 | ST.IPIE ---
Visit Care Team Role Provider Type Aron Ames DO Emergency Provider Physician Specialty: Emergency Medicine Address: [address] [place] [address], [id number] Email: [email or web address] Admit Provider Physician Attending Provider Specialty: Hospitalist Internal Medicine Address: [address] [place] [address], [id number] Email: Past Medical History (Last Updated 09/15/21 @ 05:25 by CAREY LoweryHUSSEIN) Alcohol abuse (Medical) Alcohol use disorder (Medical) Cerebral aneurysm (Medical) Chronic pain (Medical) Depression (Medical) With suicidal ideation Essential tremor (Medical) Hepatitis C (Medical) History of surgery for cerebral aneurysm (Medical) History of surgery on extremity (Medical) Hyperlipidemia (Medical) Hypertension (Medical) Opioid dependence (Medical) Osteomyelitis (Medical) 2018, left lower extremity, multiple surgeries Suicide attempt by drug overdose (Medical) ST IP Initial Evaluation Report TRANSPORTATION ENGINEERING TECHNICIAN Adult Cognitive Linguistic Eval Start: 09/15/21 12:58 Freq: Status: Active Protocol: Document 09/15/21 12:59 LNK (Rec: 09/15/21 13:31 LNK [id number]) Adult Cognitive Linguistic Evaluation Session Time Visit Start Time 09:45 Visit Stop Time 10:15 Total Visit Minutes 30 Setting Assessment Location Acute Care Visit Type Note Type Initial evaluation Patient Information Identification Type Name,Wristband Medical History Ayan Ball is a 71-year-old male with a medical history of ETOH abuse, cerebral aneurysm S/P coils ([id number] ), essential tremor, chronic pain, depression, hep C, opiate dependence, osteomyelitis, prior Suicide overdose with oral morphine, hypertension, and hyperlipidemia who presents to the ED today with a chief complaint of significant dizziness, multiple falls and trouble with ambulation over the past few days.?As review the patients chart I found that he had been seen in 2020 for the very same complaints. Patient admitted for neurological deficit, ataxia, falls, hypertensive urgency, and possible alcohol withdrawal. Hearing Auditory History slightly [place] Subjective Patient Report Pt was in bed resting. Introduced self and purpose. Pt was agreeable to proceed. Assessment Oral Motor Examination Completed No: Inform al observation indicated oral structures and ROM was WNL. Formal Assessment Standardized Test/Screener Type [facility] Mental Status ([facility]) Administration Complete Results Pt scored 15/30 on the SLUMS indicating moderate cognitive dysfunction. Pt was able to state the day, year and state as [place] correctly. He was able to remember 4/5 words after ~1 -2 minutes. His ability to list names of animals was impaired with 6 listed in 1 minute. He correctly answered 2 of 4 questions following a short story. His clock was accurate for the time, but the numbers were poorly spaced. Finally,he could not transverse digits (as in 24 -> 42) or compute addition and subtraction tasks, indicating difficulty with mental math. The pt was very talkative. He was inconsistent in how he came to the hospital and some of his personal and medical histories. Findings/Results Cognitive Function Mild-moderately impaired Cognitive Communication Deficits Self-awareness of Cognitive- Limited awareness (minimal Communication Deficits appreciation without specificity) Concomitant Factors Comment History of ETOH and opiate abuse Impact on Functioning Activity Limits/Particip.Rest. Sev: General Tasks and Demands Household Tasks Interpersonal Interactions Employment Community Safety Risks Sev: Being Left Alone at Home Reacting to Emergency Managing Medication Traveling Alone in Community Other (comment) Prognosis Prognosis Fair Based on Cognitive status,Comorbidities Plan of Care Speech-Language Treatment Yes Duration while inpatient Patient/Caregiver Education Patient expressed understanding of evaluation, Patient expressed agreement with goals and treatment plans Short Term Goals Short term memory strategies will able to list strategies to improve pt's recall of ADLs at 70%. Discharge Recommendations [facility] facility,care home care facility
[2021-09-15] MEDS: LORazepam 2 MG/ML INJ IV (14:38)
--- NOTE | 2021-09-15 15:02 | OT.IP.EVAL ---
Past Medical History (Last Updated 09/15/21 @ 05:25 by Stacy Padilla [facility]) Alcohol abuse Alcohol use disorder Cerebral aneurysm Chronic pain Depression Essential tremor Hepatitis C History of surgery for cerebral aneurysm History of surgery on extremity Hyperlipidemia Hypertension Opioid dependence Osteomyelitis Suicide attempt by drug overdose Surgical History (Last Updated 09/15/21 @ 05:25 [facility] History of surgery for cerebral aneurysm History of surgery on extremity Occupational Therapy Inpatient Evaluation/Re-Eval M1 PT/OT-IP Prior Functional Status Start: 09/15/21 12:42 Freq: NEEDED Status: Active Protocol: Document 09/15/21 14:30 [facility] (Rec: 09/15/21 15:51 [facility] [id number]) Medical Review Prior Functional Status Medical History Reviewed Yes Communication able to make needs known Mobility and Gait pt stated that he is modified independent with all mobilities and ambulation without AD; has h/o falls Pt states furniture cruised in the RV mostly due to his bad shoulders. Activities of Daily Living and IADL's Pt states was able to do most of his ADL needs however her significant other assist him with his left sock. Pt assist with dishes at home. Social History Household Members significant other Living Arrangements RV Number of Floors (Floors) One Floor Number of Stairs To Enter/Railing? 3 steps R rail to enter + 2 steps L rail from the inside to get to the living area Home Environment Standard Height Toilet,Walk in Shower Home Equipment Four Wheel Walker,Shower Seat with Backrest,Hand Held Shower Additional Social History Comment Pt states has a built in shower seat at home that he can sit on if needed. M2 OT-IP Current Condition Start: 09/15/21 15:29 Freq: Status: Active Protocol: Document 09/15/21 14:30 [facility] (Rec: 09/15/21 15:51 [facility] [id number]) Occupational Therapy Current Condition Current Condition Evaluation Date 09/15/21 Treatment Diagnosis Weakness, ETOH abuse, decreased mobility Diagnosis Onset Date 09/15/21 M3 OT- IP Subjective and Pain Start: 09/15/21 15:29 Freq: Status: Active Protocol: Document 09/15/21 14:30 [facility] (Rec: 09/15/21 15:51 [facility] [id number]) OT- Subjective Occupational Therapy Visit Type Type Initial Evaluation Visit Start Time 14:30 Visit Stop Time 15:02 Total Visit Minutes 32 Occupational Therapy Visit Comments Patient Comments Pt willing to get up to brush his teeth at the sink. Patient/Caregiver Goals Pt states will do whatever is best for him. OT Pain Assessment Pain When Pain Assessed At Rest Pain Present Pain Present Denied Pain M4 OT- IP ADL's Start: 09/15/21 15:29 Freq: Status: Active Protocol: Document 09/15/21 14:30 [facility] (Rec: 09/15/21 15:51 [facility] [id number]) OT [id number] Comments OT Self-Feeding Comments NOt at meal time. OT ADL-Grooming General Evaluation Grooming Ability Standby Assistance Areas Needing Assistance Retrieving/Set-up of Grooming Items Comments OT Grooming Comments Set-up while standing at the sink with FWW. OT ADL-Oral Care General Eval Oral Care Ability Standby Assistance Areas of Assistance Retrieving/Set-Up of Items Comments Oral Care Comments Assist for set-up. OT ADL-Dressing General Eval Lower Body Dressing Ability Maximum Assistance Comments OT Dressing Comments Pt needing assist to elda/doff his left sock and assist to elda right sock at this time due to decreased dynamic balance. Pt insists his significant other assist with his socks. OT ADL-Toileting Comments OT Toileting Comments Pt not having to go at this time. OT ADL-Bathing Comments OT Bathing Comments Not performed. M5 OT- IP IADL's Start: 09/15/21 15:29 Freq: Status: Active Protocol: Document 09/15/21 14:30 [facility] (Rec: 09/15/21 15:51 [facility] [id number]) OT-Instrumental Activities of Daily Living Home Safety Awareness Home Safety Comments Pt a bit groggy from just having Ativan and would be best to have assist for needs at this time from his significant other if going home. M6 OT- IP Functional Cognition Start: 09/15/21 15:29 Freq: Status: Active Protocol: Document 09/15/21 14:30 [facility] (Rec: 09/15/21 15:51 [facility] [id number]) Cognitive Factors Limiting Selfcare Function Cognitive Ability Level of Alertness Alert,Drowsy Patient Orientation Name,Place,Situation Attention Span Ability Capable of Focused Attention, Unable to Sustain Attention Ability to Follow Commands Able to Follow One Step Commands with Increased Time, Able to Follow One Step Commands with Repetition Cognitive Comments Cognitive Assessment Comments Initially pt able to follow commands well and then getting groggy and not thinking well as nursing just gave pt Ativan. To continue to assess pt's cognitive needs tomorrow when pt more appropriate. OT- Vision and Hearing OT- Hearing Assessment OT- Hearing Assessment WFL M7 OT- IP Mobility and Balance Start: 09/15/21 15:29 Freq: Status: Active Protocol: Document 09/15/21 14:30 [facility] (Rec: 09/15/21 15:51 [facility] [id number]) OT- Bed Mobility Assessment Rolling Type of Rolling Roll to Right Level of Assistance Moderate Assistance Supine to Sit Supine to Sit Assist Moderate Assistance Sit to Supine Sit to Supine Assist Minimal Assistance OT-Transfer Assessment Sit to and From Stand Sit to and from Stand Minimal Assistance,Moderate Assistance Transfers Transfer Ability Minimal Assistance,Moderate Assistance Technique Transfer Destination Bed Transfer Technique Stand Step Pivot Devices Transfer Assistive Devices Gait Belt,Front Wheeled Walker Comments Mobility Comments MODA to get pt's trunk upright and JANEEN to help get his legs back into bed. Pt unsteady on his feet and needing MODA for his balance and leaning to the left. Pt also needing assist to help guide the FWW. OT- Balance Assessment Sitting Balance and Reactions Static Sitting Balance Ability Good Dynamic Sitting Balance Ability Fair Standing Balance and Reactions Static Standing Balance Ability Poor Dynamic Standing Balance Ability Poor M8 OT- IP Objective Assessments Start: 09/15/21 15:29 Freq: Status: Active Protocol: Document 09/15/21 14:30 [facility] (Rec: 09/15/21 15:51 [facility] [id number]) OT Gross Range of Motion Upper Extremity Range of Motion Assessment Bilaterally Impaired OT Strength Comments Strength Comments BUE from elbow to distal 4/5 OT- Coordination Assessment Comments Coordination Comments Pt needing assist to help open items for oral care needs. M9 OT- IP Assessment and Plan Start: 09/15/21 15:29 Freq: Status: Active Protocol: Document 09/15/21 14:30 [facility] (Rec: 09/15/21 15:51 [facility] [id number]) OT Summary Assessment and Plan Potential Rehabilitation Potential Good Analytic Complexity at Evaluation Moderate Summary OT Impairments Range of Motion,Strength, Balance,Functional Cognition, Functional Mobility,Self- Feeding,Grooming,Dressing, Toileting,Bathing,Toilet Transfers,Shower Transfers, Activity Tolerance Progress Towards Goals Slow Progress due to Medical Issues,Slow Progress due to Activity Tolerance,Slow Progress due to Cognition Assessment Summary Pt MOD complexity and now needing more assist for all ADl and mobility needs as prior pt was LEEANNA except from his socks at home per pt. Pt would benefit from SNF versus home with 24/7 available assist and home health pending how pt progresses and whether his significant other is able to assist pt enough at home. Goals Self-Feeding Goal Independent Grooming Goal Independent Dressing Goal Minimal Assistance Toileting Goal Independent Bathing Goal Independent Toilet Transfer Goal Independent Shower Transfer Goal Independent Patient/Caregiver Education Goal Caregiver Independent Assisting Patient Days to Meet Goals 20 Frequency of Treatment Frequency Of Treatment Once a Day Treatment Plan OT Treatment Plan ADL Training,Functional Cognition Training,Functional Mobility,Patient/Family Education,Discharge Planning Discharge Recommendations OT Discharge Recommendations Home with 24/7 Assist Available,Home Health,SNF Rehab,Home vs SNF Transportation Needs at Discharge Private Vehicle,Wheelchair/ Cabulance
[2021-09-15] MEDS: ATORVASTATIN 20 MG TABLET 80 MG PO (21:19)
[2021-09-15] MEDS: NORTRIPTYLINE 10 MG CAPSULE PO (21:19)
[2021-09-15] MEDS: TRAZODONE 50 MG TABLET 450 MG PO (21:20)
--- NOTE | 2021-09-15 22:32 | PC.NURSE ---
Patient is alert and oriented. Breath sounds CTA with RA sat of 98%. HRR w/telemetry reading of SR w/1st degree AVB. BP elevated at 163/87. Denies nausea. BT present and is passing flatus. Denies dysuria, frequency or urgency with urination. Is able to move himself in bed but out of bed with 1 assist + walker and is unsteady. CIWA score is 3 for mild headache and anxiety. Does have bilateral UE tremors. Chronic numbness/tingling in left extremities; LE > UE. Refusing SCD's so reminded to ankle wave when awake. Seizure pads in place on bed. Fall risk score is high and bed alarm is activated.
[2021-09-16] VITALS (11 sets, daily range): BP systolic 150–175; BP diastolic 69–82; PULSE 73–92; RESP 16–20; TEMP 36.7–37.7; O2SAT 95–99
[2021-09-16 05:37] LABS: Alanine Aminotransferase 30 IU/L (<50); Albumin 3.6 g/dL (3.5-5.0); Albumin Globulin Ratio 1.4 (1.0-2.8); Alkaline Phosphatase 63 U/L (38-126); Aspartate Aminotransferase 35 IU/L (17-59); BUN Creatinine Ratio 15.6 (6-22); Bilirubin Total 0.7 mg/dL (0.2-1.3); Blood Urea Nitrogen 10 mg/dL (9-20); Calcium 8.6 mg/dL (8.4-10.2); Carbon Dioxide 31 mmol/L (22-32); Chloride 102 mmol/L (98-107); Estimated Glomerular Filt Rate > 60.0 mL/min (>60); Globulin 2.6 g/dL (1.7-4.1); Glucose 100 mg/dL (80-110); HEMOLYSIS < 15 (0-50); Potassium 3.3 mmol/L (3.4-5.1); Sodium 136 mmol/L (137-145); Total Protein 6.2 g/dL (6.3-8.2)
[2021-09-16] MEDS: POTASSIUM CHLORIDE 20 MEQ TAB 40 MEQ PO (09:42)
[2021-09-16] MEDS: FOLIC ACID 1 MG TABLET PO (09:43)
[2021-09-16] MEDS: MULTIVITAMIN 1 TABLET 1 TAB PO (09:43)
[2021-09-16] MEDS: hydroCHLOROthiazide 25 MG TABLET 12.5 MG PO (09:43)
[2021-09-16] MEDS: THIAMINE 100 MG TABLET PO (09:43)
[2021-09-16] MEDS: ASPIRIN EC 81 MG TABLET PO (09:43)
[2021-09-16] MEDS: ENOXAPARIN 40 MG/0.4 ML SYRINGE SUBCUT (09:43)
[2021-09-16] MEDS: SERTRALINE 50 MG TABLET 100 MG PO (09:44)
[2021-09-16] MEDS: ACETAMINOPHEN 325 MG TABLET 650 MG PO ×2 (09:44→21:20)
[2021-09-16] MEDS: lisinopriL 10 MG TABLET PO (09:44)
--- NOTE | 2021-09-16 11:06 | PT.IPTN ---
Physical Therapy Treatment Note M2 PT-IP Current Condition Start: 09/15/21 12:42 Freq: NEEDED Status: Active Protocol: Document 09/15/21 10:16 AB (Rec: 09/15/21 13:02 AB [id number]) Physical Therapy Current Condition Current Condition Evaluation Date 09/15/21 Treatment Diagnosis weakness; ETOH abuse; difficulty in walking Onset Date 09/15/21 M3 PT-IP Subjective Start: 09/15/21 12:42 Freq: NEEDED Status: Active Protocol: Document 09/16/21 10:43 KS (Rec: 09/16/21 12:29 KS [id number]) Subjective Physical Therapy Visit Type Type Treatment Note Visit Start Time 10:43 Visit Stop Time 11:06 Total Visit Minutes 23 Number of MOBILE PET GROOMER Visits 1 Physical Therapy Visit Comments Patient Comments agreed to do PT Therapy Pain Assessment Pain When Pain Assessed At Rest Pain Present Pain Present Pain Reported M4 PT-IP Mobility and Gait Start: 09/15/21 12:42 Freq: NEEDED Status: Active Protocol: Document 09/16/21 10:43 KS (Rec: 09/16/21 12:29 [place] [id number]) PT-Bed Mobility Assessment Supine to Sit Supine to Sit Standby Assistance Sit to Supine Sit to Supine Standby Assistance Scooting Scooting to Edge of Bed Standby Assistance Scooting Up and Down in Bed Standby Assistance PT-Transfer Assessment Sit to and From Stand Sit to and from Stand Contact Guard Assistance,1 Person Assistance,Use of Upper Extremities Equipment Transfer Assistive Device Gait Belt,Front Wheeled Walker Orthotic/Prosthetic Devices or Brace: No Transfers Transfer Destination Bed Transfer Technique Pt ambulated w/ FWW Transfer Ability Level of Assist Contact Guard Assistance,1 Person Assistance,Use of Upper Extremities Comments Mobility Comments Pt in bed upon arrival and eager to ambulate. SBA for sup <>sit and scooting EOB. CGA for sit<>stand w/ FWW. Pt denied lightheadedness but continues to report headache. Pt ambulated ~40 ft w/ FWW and after ~20 ft requested to turn around due to feeling off. Pt did require 1x standing rest break w/ wall rail support for ~10 seconds. Pt returned to room and bed and was able to reposition himself SBA. BP: 159/80. Pt left in bed w/ all needs in reach. Gait Assessment Gait Gait Assistance Required: Minimum Assistance Distance (Feet) 40 Able to Maintain Weight Bearing Status Yes During Gait Assistive Devices Assistive Device Gait Belt,Front Wheeled Walker Orthotic/Prosthetic Devices or Brace: No Gait Deviations General Gait Pattern Decreased Stride Length, Decreased Feet Clearance Factors Limiting Gait Function Factors Limiting Gait Function Decreased Activity Tolerance, Decreased Strength,Pain,Poor Balance,Poor Safety Awareness Comments Gait Comments Please refer to mobility section for details. PT-Balance Assessment Sitting Balance and Reactions Static Sitting Balance Ability Good Dynamic Sitting Balance Ability Good Standing Balance and Reactions Static Standing Balance Ability Fair Dynamic Standing Balance Ability Fair Device Used FWW M5 PT-IP Objective Assessments Start: 09/15/21 12:42 Freq: NEEDED Status: Active Protocol: Document 09/15/21 10:16 AB (Rec: 09/15/21 13:02 AB [id number]) Orientation Orientation/Cognition Level of Alertness Alert Orientation Name,Place,Situation Language Function Ability No Deficits Noted Safety Awareness Decreased Safety Awareness Gross Range of Motion Lower Extremity ROM Assessment Within Functional Limits Strength Lower Extremity Strength Assessment Left Impaired Hip 4-/5 Knee 4-/5 Muscle Tone Muscle Tone WNL Yes M6 PT-IP Treatment Start: 09/15/21 12:42 Freq: NEEDED Status: Active Protocol: Document 09/16/21 10:43 [place] (Rec: 09/16/21 12:29 [facility] [id number]) Physical Therapy Treatment Exercises Exercises Ankle Pumps,Gluteal Sets Education Education Provided Safety M7 PT-IP Assessment and Plan Start: 09/15/21 12:42 Freq: NEEDED Status: Active Protocol: Document 09/16/21 10:43 KS (Rec: 09/16/21 12:29 KS [id number]) PT Summary Assessment and Plan Potential Rehabilitation Potential Fair Status of Condition at Evaluation Evolving Summary Impairments Pain,ROM,Strength,Balance, Coordination,Sensation,Tone, Cognition,Bed Mobility, Transfers,Gait,Activity Tolerance Assessment Summary Pt SBA for bed mobility, CGA for sit<>Stand and Min A for ambulation w/ FWW. Pt feeling off during ambulation and only able to tolerate ~40 ft w / FWW w/ 1x standing rest break against wall but not able to describe what feeling he was having. Will continue to progress as appropriate and tolerated. If going home, pt will need to complete stair training and caregiver training. Goals Bed Mobility Goal Independent Transfer Goal Independent,Front Wheeled Walker,Four Wheeled Walker Gait Goal Independent,Front Wheel Walker ,Four Wheel Walker Gait Distance 200 Other Goals improve ambulation using SPC SBA 250 ft up/down 3 steps R rail + 2 steps L rail SBA Days to Meet Goals 10 Frequency of Treatment Frequency Of Treatment Once a Day Treatment Plan Physical Therapy Treatment Plan Bed Mobility Training,Transfer Training,Gait Training, Therapeutic Exercise,Balance Retraining,Discharge Planning, Hot or Cold Pack,Neuromuscular Re-ed,Coordination Retraining Precautions Other Precautions falls, seizure pads Recommendations To Nursing Amount of Assist Needed 1 Person Assist Discharge Recommendations PT Discharge Recommendations Home with 13/02 Assist Available,Home Health,SNF Rehab,Home vs SNF Equipment Needed for Home Before FWW if not safe with 4WW Discharge Transportation Needs at Discharge Private Vehicle,Wheelchair/ Cabulance
[2021-09-16] MEDS: TRAMADOL 50 MG TABLET PO (11:34)
--- NOTE | 2021-09-16 12:30 | ST.IPIE ---
Visit Care Team Role Provider Type Aron Ames DO Emergency Provider Physician Specialty: Emergency Medicine Address: [address] [place] [address], [id number] Email: [email or web address] Admit Provider Physician Attending Provider Specialty: Hospitalist Internal Medicine Address: [address] [place] [address], [id number] Email: Past Medical History (Last Updated 09/15/21 @ 05:25 by CAREY LoweryHUSSEIN) Alcohol abuse (Medical) Alcohol use disorder (Medical) Cerebral aneurysm (Medical) Chronic pain (Medical) Depression (Medical) With suicidal ideation Essential tremor (Medical) Hepatitis C (Medical) History of surgery for cerebral aneurysm (Medical) History of surgery on extremity (Medical) Hyperlipidemia (Medical) Hypertension (Medical) Opioid dependence (Medical) Osteomyelitis (Medical) 2018, left lower extremity, multiple surgeries Suicide attempt by drug overdose (Medical) ST IP 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 Start: 09/15/21 12:58 Freq: Status: Active Protocol: Document 09/16/21 12:13 LNK (Rec: 09/16/21 12:29 LNK [id number]) Adult Cognitive Linguistic Evaluation Session Time Visit Start Time 09:00 Visit Stop Time 09:35 Total Visit Minutes 35 Setting Assessment Location Acute Care Visit Type Note Type Re-evaluation Patient Information Identification Type Name,Wristband Medical History Ayan Ball is a 71-year-old male with a medical history of ETOH abuse, cerebral aneurysm S/P coils ([id number] ), essential tremor, chronic pain, depression, hep C, opiate dependence, osteomyelitis, prior Suicide overdose with oral morphine, hypertension, and hyperlipidemia who presents to the ED today with a chief complaint of significant dizziness, multiple falls and trouble with ambulation over the past few days.?As revied the patients chart I found that he had been seen in 2020 for the very same complaints. Patient admitted for neurological deficit, ataxia, falls, hypertensive urgency, and possible alcohol withdrawl. Subjective Patient Report Pt reported that he was doing better. His significant other was in the room with him. Formal Assessment Standardized Test/Screener Type [facility] Mental Status ([facility]) Administration Complete Results Cognition reassessment with the [facility] was completed. Pt's responses were quicker and more accurate than those yesterday. Pt scored 25/30 today compared with yesterday' s score of 15/30. Pt demonstrated improvement with mental math, divergent naming, and memory for single words( 4/5) and details of a short paragraph (4/4). His overall responding was noticeably quicker, less vague and he was more conversant, improved from yesterday. Pt appears to be functioning WFL. ST not needed, Will discharge from services. Findings/Results Cognitive Function Within functional limits Cognitive Communication Deficits Self-awareness of Cognitive- Predictive awareness (able to Communication Deficits predict problem; impact of impairments) Impact on Functioning Activity Limits/Particip.Rest. Mild: General Tasks and Demands Household Tasks Interpersonal Interactions Safety Risks Mild: Being Left Alone at Home Reacting to Emergency Mod: Managing Medication Traveling Alone in Community Prognosis Prognosis Good Based on Cognitive status,Duration of symptoms/severity,Time since onset Plan of Care Speech-Language Treatment No Patient/Caregiver Education Described results of evaluation,Patient expressed agreement with goals and treatment plans Discharge Recommendations Home,Home with Home Health
--- NOTE | 2021-09-16 13:21 | OT.IP.TRT ---
Occupational Therapy Treatment Note M2 OT-IP Current Condition Start: 09/15/21 15:29 Freq: Status: Active Protocol: Document 09/15/21 14:30 [facility] (Rec: 09/15/21 15:51 [facility] [id number]) Occupational Therapy Current Condition Current Condition Evaluation Date 09/15/21 Treatment Diagnosis Weakness, ETOH abuse, decreased mobility Diagnosis Onset Date 09/15/21 M3 OT- IP Subjective and Pain Start: 09/15/21 15:29 Freq: Status: Active Protocol: Document 09/16/21 13:34 [facility] (Rec: 09/16/21 13:45 [facility] [id number]) OT- Subjective Occupational Therapy Visit Type Type Treatment Note Visit Start Time 13:00 Visit Stop Time 13:32 Total Visit Minutes 32 Occupational Therapy Visit Comments Patient Comments Pt agreed to shower. Patient/Caregiver Goals Pt wanting to go home as not wanting to go to skilled rehab due to his PTSD, but states would be open to trying home health. OT Pain Assessment Pain When Pain Assessed At Rest Pain Present Pain Present Denied Pain M4 OT- IP ADL's Start: 09/15/21 15:29 Freq: Status: Active Protocol: Document 09/16/21 13:34 [facility] (Rec: 09/16/21 13:45 [facility] [id number]) OT ADL-Dressing General Eval Lower Body Dressing Ability Moderate Assistance Comments OT Dressing Comments Assist for socks as his feet were a bit wet but able to elda brief over his feet and up over his hips. OT ADL-Toileting Comments OT Toileting Comments Pt not having to go at this time. OT ADL-Bathing Bathing Type Bathing Type Shower General Evaluation Bathing Ability Minimal Assistance Comments OT Bathing Comments Assist for his back and cga for balance and heavy use of grab bar for balance while standing at times during his shower. Pt agrees that he will sit at home for showers and that his significant other can assist him for his shower as needed. M6 OT- IP Functional Cognition Start: 09/15/21 15:29 Freq: Status: Active Protocol: Document 09/16/21 13:34 [facility] (Rec: 09/16/21 13:45 [facility] [id number]) Cognitive Factors Limiting Selfcare Function Cognitive Ability Level of Alertness Alert Patient Orientation Name,Place,Situation Attention Span Ability Capable of Focused Attention, Capable of Sustained Attention Ability to Follow Commands Able to Follow One Step Commands Cognitive Comments Cognitive Assessment Comments Pt thinking better today and able to follow commands however still needing vc for completeness for safety with FWW, and sequence throughout the task at hand. M7 OT- IP Mobility and Balance Start: 09/15/21 15:29 Freq: Status: Active Protocol: Document 09/16/21 13:34 [facility] (Rec: 09/16/21 13:45 [facility] [id number]) OT- Bed Mobility Assessment Supine to Sit Supine to Sit Assist Standby Assistance Sit to Supine Sit to Supine Assist Standby Assistance OT-Transfer Assessment Sit to and From Stand Sit to and from Stand Minimal Assistance Transfers Transfer Ability Contact Guard Assistance, Minimal Assistance,Moderate Assistance Technique Transfer Destination Bed,Shower Stall Transfer Technique Stand Step Pivot Devices Transfer Assistive Devices Gait Belt,Front Wheeled Walker Comments Mobility Comments Pt various from CGA with FWW to MODA to step over threshold of surfaces and as tiring needing more assist. OT- Balance Assessment Sitting Balance and Reactions Static Sitting Balance Ability Good Dynamic Sitting Balance Ability Fair Standing Balance and Reactions Static Standing Balance Ability Poor Dynamic Standing Balance Ability Poor Comments Other Balance Tests/Deviations/Treatment Pt able to international account representative the shower : from and having to use grab bar for assist. Pt having loss of balance and needing therapist to help guide him to sit down to the shower chair. M8 OT- IP Objective Assessments Start: 09/15/21 15:29 Freq: Status: Active Protocol: Document 09/15/21 14:30 [facility] (Rec: 09/15/21 15:51 [facility] [id number]) OT Gross Range of Motion Upper Extremity Range of Motion Assessment Bilaterally Impaired OT Strength Comments Strength Comments BUE from elbow to distal 4/5 OT- Coordination Assessment Comments Coordination Comments Pt needing assist to help open items for oral care needs. M9 OT- IP Assessment and Plan Start: 09/15/21 15:29 Freq: Status: Active Protocol: Document 09/16/21 13:34 [facility] (Rec: 09/16/21 13:45 [facility] [id number]) OT Summary Assessment and Plan Potential Rehabilitation Potential Good Analytic Complexity at Evaluation Moderate Summary OT Impairments Range of Motion,Strength, Balance,Functional Cognition, Functional Mobility,Self- Feeding,Grooming,Dressing, Toileting,Bathing,Toilet Transfers,Shower Transfers, Activity Tolerance Progress Towards Goals Slow Progress due to Medical Issues,Slow Progress due to Activity Tolerance,Slow Progress due to Cognition Assessment Summary Pt able to tolerate showering and getting dressing. Pt is a high fall risk as unsteady on his feet but not wanting to go to skilled rehab due to his PTSD and more open to going home with home health. Goals Self-Feeding Goal Independent Grooming Goal Independent Dressing Goal Minimal Assistance Toileting Goal Independent Bathing Goal Standby Assistance Toilet Transfer Goal Independent Shower Transfer Goal Independent Patient/Caregiver Education Goal Caregiver Independent Assisting Patient Days to Meet Goals 19 Frequency of Treatment Frequency Of Treatment Once a Day Treatment Plan OT Treatment Plan ADL Training,Functional Cognition Training,Functional Mobility,Patient/Family Education,Discharge Planning Other Treatment Recommendations and Next caregiver training Treatment Focus Discharge Recommendations OT Discharge Recommendations Home with 13/02 Assist Available,Home Health,SNF Rehab,Home vs SNF Transportation Needs at Discharge Private Vehicle,Wheelchair/ Cabulance
--- NOTE | 2021-09-16 17:20 | P.PN_ITS ---
Subjective Subjective Date Patient Seen: 09/16/21 Time Patient Seen: 17:20 Interval history: Feels much improved today, minimal shaking and withdrawal symptoms. Has more chronic pain today after holding suboxone. However balance and steadiness he reported much improvement. No fever, chills, nausea, vomiting, or chest pain. Exam Vital Signs (past 8 hours): - 09/16/21 09:44 09/16/21 10:00 09/16/21 14:00 Pulse Rate 92 H Blood Pressure 150/69 H Pulse Oximetry 95 99 Oxygen Delivery Method Room Air Oxygen Flow Rate 0 Narrative Exam Narrative: GENERAL:? Patient is a pleasant elderly male, appears stated age. Well-developed patient, in no distress at this time. HEAD: Atraumatic. Normocephalic. EYES: Pupils equal round and reactive. Extraocular motions intact. No scleral icterus. No injection or drainage. No ocular motor dysfunction. ENT: Nose without bleeding, purulent drainage. Throat without erythema, tonsillar hypertrophy or exudate. Airway patent. NECK: Trachea midline. Non tender CARDIOVASCULAR: Regular rate and rhythm without murmurs, gallops, or rubs. RESPIRATORY:?CTA b/l no wheezes rhonchi or rales. GASTROINTESTINAL: Abdomen soft, non-tender, nondistended. EXTREMITIES: No edema or joint tenderness. BACK: Nontender without deformity or crepitance. No flank tenderness. NEURO: AOx3. strength is +5/5 and equal in all extremities. No focal deficits to light touch. SKIN: No rash or erythema of visible areas Objective Labs Result Diagrams: 09/15/21 02:12 09/16/21 04:35 Labs: Laboratory Results - last 24 hr 09/16/21 04:35 Sodium 136 L Potassium 3.3 L Chloride 102 Carbon Dioxide 31 BUN 10 Creatinine 0.64 L Estimated GFR > 60.0 BUN/Creatinine Ratio 15.6 Glucose 100 Calcium 8.6 Magnesium 2.0 Total Bilirubin 0.7 AST 35 ALT 30 Alkaline Phosphatase 63 Total Protein 6.2 L Albumin 3.6 Globulin 2.6 Albumin/Globulin Ratio 1.4 [facility] Medical History (Updated 09/15/21 @ 05:25 [facility] Alcohol abuse Alcohol use disorder Cerebral aneurysm Chronic pain Depression Essential tremor Hepatitis C Hyperlipidemia Hypertension Opioid dependence Osteomyelitis Suicide attempt by drug overdose Surgical History (Updated 09/15/21 @ 05:[address] [facility]) History of surgery for cerebral aneurysm History of surgery on extremity Family History Father Alcoholism Mother Alcoholism Social History household members: significant other Smoking Status: Former smoker alcohol intake: current Assessment & Plan Assessment & Plan narrative: Ayan Ball is a 71-year-old male with a medical history of ETOH abuse, cerebral aneurysm S/P coils ([id number]), essential tremor, chronic pain, depression, hep C, opiate dependence, osteomyelitis, prior Suicide overdose with oral morphine, hypertension, and hyperlipidemia who presents to the ED with a chief complaint of significant dizziness, multiple falls and trouble with ambulation over the past few days.?Possibly related to suboxone, polypharmacy, or alcohol intoxication / withdrawal. 1. Neurological deficit (gait ataxia, Falls, tremors), acute on chronic, -may be medication reaction from suboxone, will work on other ways to control his pain. He is improving today. -MRI negative for ischemic infarcts. CT/CTA without acute findings. -continue PT/OT 2. Alcohol withdrawal - patient developed confusion, CIWA score 15 yesterday improved with ativan. - continue to monitor with CIWA protocol though is improved today. 3. Hypertensive urgency in the setting of essential hypertension, acute on chronic, with a history of cerebral aneurysm, chronic, present on admission -continue home medications 4. Hyperlipidemia, chronic, present on admission -continue Lipitor 5. Depression, chronic, present on admission -continue nortriptyline, sertraline, trazodone 6. Chronic pain syndrome, chronic, present on admission -as above suspect may have reaction to suboxone, in combination with EtOH -will trial pain relief with tramadol to see if improvement. 7. Overweight as evidence by BMI of 29.8, acute on chronic, present on admission -dietary consult ordered 8. Possible cognitive impairment - may be decreased slums in setting of EtOH withdrawal, but score was 15/30. - recommend repeat evaluation as an outpatient. Code status:DNR-per patient Surrogate decision maker: Vera Wiley -partner COVID PCR:Negative DVT/VTE prophylaxis:Lovenox & SCD's Disposition:? inpatient, possible discharge hopefully home tomorrow. Time Spent With Patient Critical Care time: I spent a total of [] minutes of critical care time on this patient's care today; this time is exclusive of procedural time.
[2021-09-16] MEDS: ALBUTEROL/IPRATROPIUM 3 ML AMPUL INH (20:03)
[2021-09-16] MEDS: NORTRIPTYLINE 10 MG CAPSULE PO (21:20)
[2021-09-16] MEDS: ATORVASTATIN 20 MG TABLET 80 MG PO (21:20)
[2021-09-16] MEDS: TRAZODONE 50 MG TABLET 450 MG PO (21:21)
[2021-09-16] MEDS: LORazepam 1 MG TABLET PO (22:33)
[2021-09-17] VITALS (18 sets, daily range): BP systolic 154–163; BP diastolic 57–83; PULSE 75–80; RESP 16–20; TEMP 35.8–37.1; O2SAT 95–99
[2021-09-17 05:06] LABS: Alanine Aminotransferase 31 IU/L (<50); Albumin 3.5 g/dL (3.5-5.0); Albumin Globulin Ratio 1.3 (1.0-2.8); Alkaline Phosphatase 58 U/L (38-126); Aspartate Aminotransferase 35 IU/L (17-59); BUN Creatinine Ratio 19.7 (6-22); Bilirubin Total 0.6 mg/dL (0.2-1.3); Blood Urea Nitrogen 12 mg/dL (9-20); Calcium 8.9 mg/dL (8.4-10.2); Carbon Dioxide 29 mmol/L (22-32); Chloride 106 mmol/L (98-107); Estimated Glomerular Filt Rate > 60.0 mL/min (>60); Globulin 2.7 g/dL (1.7-4.1); Glucose 102 mg/dL (80-110); HEMOLYSIS 18 (0-50); Potassium 3.6 mmol/L (3.4-5.1); Sodium 135 mmol/L (137-145); Total Protein 6.2 g/dL (6.3-8.2)
[2021-09-17] MEDS: SERTRALINE 50 MG TABLET 100 MG PO (09:08)
[2021-09-17] MEDS: ASPIRIN EC 81 MG TABLET PO (09:09)
[2021-09-17] MEDS: FOLIC ACID 1 MG TABLET PO (09:09)
[2021-09-17] MEDS: MULTIVITAMIN 1 TABLET 1 TAB PO (09:09)
[2021-09-17] MEDS: hydroCHLOROthiazide 25 MG TABLET 12.5 MG PO (09:09)
[2021-09-17] MEDS: THIAMINE 100 MG TABLET PO (09:10)
[2021-09-17] MEDS: lisinopriL 10 MG TABLET PO (09:10)
[2021-09-17] MEDS: ENOXAPARIN 40 MG/0.4 ML SYRINGE SUBCUT (09:10)
[2021-09-17] MEDS: ALBUTEROL 2.5 MG/3 ML NEB (ADULT) INH ×3 (10:12→20:08)
--- NOTE | 2021-09-17 11:15 | PT.IPTN ---
Physical Therapy Treatment Note M2 PT-IP Current Condition Start: 09/15/21 12:42 Freq: NEEDED Status: Active Protocol: Document 09/15/21 10:16 [facility] (Rec: 09/15/21 13:02 [facility] [id number]) Physical Therapy Current Condition Current Condition Evaluation Date 09/15/21 Treatment Diagnosis weakness; ETOH abuse; difficulty in walking Onset Date 09/15/21 M3 PT-IP Subjective Start: 09/15/21 12:42 Freq: NEEDED Status: Active Protocol: Document 09/17/21 10:51 [facility] (Rec: 09/17/21 14:10 [facility] [id number]) Subjective Physical Therapy Visit Type Type Treatment Note Visit Start Time 10:51 Visit Stop Time 11:15 Total Visit Minutes 24 Number of RN HOME CARE Visits 2 Physical Therapy Visit Comments Patient Comments agreed to do PT Therapy Pain Assessment Pain When Pain Assessed At Rest Pain Present Pain Present Pain Reported M4 PT-IP Mobility and Gait Start: 09/15/21 12:42 Freq: NEEDED Status: Active Protocol: Document 09/17/21 10:51 [facility] (Rec: 09/17/21 14:10 [facility] [id number]) PT-Bed Mobility Assessment Supine to Sit Supine to Sit Standby Assistance Sit to Supine Sit to Supine Standby Assistance Scooting Scooting to Edge of Bed Standby Assistance Scooting Up and Down in Bed Standby Assistance PT-Transfer Assessment Sit to and From Stand Sit to and from Stand Contact Guard Assistance,1 Person Assistance,Use of Upper Extremities Equipment Transfer Assistive Device Gait Belt,Front Wheeled Walker Orthotic/Prosthetic Devices or Brace: No Transfers Transfer Destination Bed Transfer Technique Pt ambulated w/ 4WW Transfer Ability Level of Assist Contact Guard Assistance,1 Person Assistance,Use of Upper Extremities Comments Mobility Comments Pt in bed and again eager to participate and ambulate. Slightly impulsive getting out of bed and needing cues to wait for AD and gait belt, but SBA to CGA. Pt then ambulated ~40 ft w/ 4WW and then requested seated rest break which he used 4WW for. After two min seated rest break pt ambulated additional 40 ft back to room and bed and reported inreased fatigue. SBA for sit<>sup. Pt left in bed w/ all needs in reach. Gait Assessment Gait Gait Assistance Required: Contact Guard Assist,1 Person Assist Distance (Feet) 80 Able to Maintain Weight Bearing Status Yes During Gait Assistive Devices Assistive Device Gait Belt,4 Wheeled Walker Orthotic/Prosthetic Devices or Brace: No Gait Deviations General Gait Pattern Decreased Stride Length, Decreased Feet Clearance Factors Limiting Gait Function Factors Limiting Gait Function Decreased Activity Tolerance, Decreased Strength,Pain,Poor Balance,Poor Safety Awareness Comments Gait Comments Pt low tolerance for ambulation w/ 4WW needing seated rest break following 40 ft. Stair Climbing Assessment Comments Stair Climbing Comments Not assessed, pt will need to complete 5 steps prior to d/c. PT-Balance Assessment Sitting Balance and Reactions Static Sitting Balance Ability Good Dynamic Sitting Balance Ability Good Standing Balance and Reactions Static Standing Balance Ability Fair Dynamic Standing Balance Ability Fair Device Used FWW M5 PT-IP Objective Assessments Start: 09/15/21 12:42 Freq: NEEDED Status: Active Protocol: Document 09/15/21 10:16 [facility] (Rec: 09/15/21 13:02 [facility] [id number]) Orientation Orientation/Cognition Level of Alertness Alert Orientation Name,Place,Situation Language Function Ability No Deficits Noted Safety Awareness Decreased Safety Awareness Gross Range of Motion Lower Extremity ROM Assessment Within Functional Limits Strength Lower Extremity Strength Assessment Left Impaired Hip 4-/5 Knee 4-/5 Muscle Tone Muscle Tone WNL Yes M6 PT-IP Treatment Start: 09/15/21 12:42 Freq: NEEDED Status: Active Protocol: Document 09/17/21 10:51 [facility] (Rec: 09/17/21 14:10 [facility] [id number]) Physical Therapy Treatment Education Education Provided Safety M7 PT-IP Assessment and Plan Start: 09/15/21 12:42 Freq: NEEDED Status: Active Protocol: Document 09/17/21 10:51 [facility] (Rec: 09/17/21 14:10 [facility] [id number]) PT Summary Assessment and Plan Potential Rehabilitation Potential Fair Status of Condition at Evaluation Evolving Summary Impairments Pain,ROM,Strength,Balance, Coordination,Sensation,Tone, Cognition,Bed Mobility, Transfers,Gait,Activity Tolerance Assessment Summary Pt continues to require SBA for bed mobility and CGA for transfers and ambulation. Able to increase ambulation distance w/ 4WW today but required 2 min seated rest break due to fatigue and weakness. Will continue to progress as appropriate and tolerated. If going home, pt will need to complete stair training and caregiver training. Goals Bed Mobility Goal Independent Transfer Goal Independent,Front Wheeled Walker,Four Wheeled Walker Gait Goal Independent,Front Wheel Walker ,Four Wheel Walker Gait Distance 200 Other Goals improve ambulation using SPC SBA 250 ft up/down 3 steps R rail + 2 steps L rail SBA Days to Meet Goals 10 Frequency of Treatment Frequency Of Treatment Once a Day Treatment Plan Physical Therapy Treatment Plan Bed Mobility Training,Transfer Training,Gait Training, Therapeutic Exercise,Balance Retraining,Discharge Planning, Hot or Cold Pack,Neuromuscular Re-ed,Coordination Retraining Precautions Other Precautions falls, seizure pads Recommendations To Nursing Amount of Assist Needed 1 Person Assist Discharge Recommendations PT Discharge Recommendations Home with 24 Assist Available,Home Health,SNF Rehab,Home vs SNF Equipment Needed for Home Before FWW if not safe with 4WW Discharge Transportation Needs at Discharge Private Vehicle,Wheelchair/ Cabulance
--- NOTE | 2021-09-17 11:58 | OT.IP.TRT ---
Occupational Therapy Treatment Note M2 OT-IP Current Condition Start: 09/15/21 15:29 Freq: Status: Active Protocol: Document 09/15/21 14:30 [facility] (Rec: 09/15/21 15:51 [facility] [id number]) Occupational Therapy Current Condition Current Condition Evaluation Date 09/15/21 Treatment Diagnosis Weakness, ETOH abuse, decreased mobility Diagnosis Onset Date 09/15/21 M3 OT- IP Subjective and Pain Start: 09/15/21 15:29 Freq: Status: Active Protocol: Document 09/17/21 11:32 [facility] (Rec: 09/17/21 13:30 [facility] [id number]) OT- Subjective Occupational Therapy Visit Type Type Treatment Note Visit Start Time 11:32 Visit Stop Time 11:58 Total Visit Minutes 26 Occupational Therapy Visit Comments Patient Comments Pt wanting to get up to use the bathroom. Attempted to try caregiver training with pt' s significant other, however she uses a cane and at this time will not be able to provide any physical assist for the pt. Patient/Caregiver Goals Pt adamant of going home. OT Pain Assessment Pain When Pain Assessed At Rest Pain Present Pain Present Pain Reported M4 OT- IP ADL's Start: 09/15/21 15:29 Freq: Status: Active Protocol: Document 09/17/21 11:32 [facility] (Rec: 09/17/21 13:30 [facility] [id number]) OT [id number] Comments OT Self-Feeding Comments NOt at meal time. OT ADL-Toileting General Evaluation Toileting Ability Standby Assistance Comments OT Toileting Comments Pt able to do his brief and hygiene needs on his own after set-up. M6 OT- IP Functional Cognition Start: 09/15/21 15:29 Freq: Status: Active Protocol: Document 09/17/21 11:32 [facility] (Rec: 09/17/21 13:30 [facility] [id number]) Cognitive Factors Limiting Selfcare Function Cognitive Ability Level of Alertness Alert Patient Orientation Name,Place,Situation Attention Span Ability Capable of Focused Attention, Capable of Sustained Attention Ability to Follow Commands Able to Follow One Step Commands Cognitive Comments Cognitive Assessment Comments Pt insistent on not going to rehab and would rather go home , but also not wanting to go home too soon if he is not medically stable. Pt still feeling unsteady on his feet, BP and O2 no issues when checked. Pt needing safety cues to keep the 4ww close to himself especially when backing up. M7 OT- IP Mobility and Balance Start: 09/15/21 15:29 Freq: Status: Active Protocol: Document 09/17/21 11:32 [facility] (Rec: 09/17/21 13:30 [facility] [id number]) OT- Bed Mobility Assessment Supine to Sit Supine to Sit Assist Standby Assistance,Bedrails Sit to Supine Sit to Supine Assist Standby Assistance OT-Transfer Assessment Sit to and From Stand Sit to and from Stand Standby Assistance,Contact Guard Assistance Transfers Transfer Ability Contact Guard Assistance Technique Transfer Destination Bed,Toilet Transfer Technique Stand Step Pivot Devices Transfer Assistive Devices Gait Belt,Front Wheeled Walker Comments Mobility Comments CGA with FWW as pt at times unsteady and shakey on his feet and needing CGA for safety. OT- Balance Assessment Sitting Balance and Reactions Static Sitting Balance Ability Normal Dynamic Sitting Balance Ability Good Standing Balance and Reactions Static Standing Balance Ability Fair M8 OT- IP Objective Assessments Start: 09/15/21 15:29 Freq: Status: Active Protocol: Document 09/15/21 14:30 [facility] (Rec: 09/15/21 15:51 [facility] [id number]) OT Gross Range of Motion Upper Extremity Range of Motion Assessment Bilaterally Impaired OT Strength Comments Strength Comments BUE from elbow to distal 4/5 OT- Coordination Assessment Comments Coordination Comments Pt needing assist to help open items for oral care needs. M9 OT- IP Assessment and Plan Start: 09/15/21 15:29 Freq: Status: Active Protocol: Document 09/17/21 11:32 [facility] (Rec: 09/17/21 13:30 [facility] [id number]) OT Summary Assessment and Plan Potential Rehabilitation Potential Good Analytic Complexity at Evaluation Moderate Summary OT Impairments Range of Motion,Strength, Balance,Functional Cognition, Functional Mobility,Self- Feeding,Grooming,Dressing, Toileting,Bathing,Toilet Transfers,Shower Transfers, Activity Tolerance Progress Towards Goals Progressing Toward Goals Assessment Summary Pt still at times unsteady on his feet and feeling shaky. Pt insistent on going home and that his significant other will not be able to provide him any physical assist as she uses a cane. Pt refusing SNF but open to home with home health. Goals Self-Feeding Goal Independent Grooming Goal Independent Dressing Goal Independent Toileting Goal Independent Bathing Goal Standby Assistance Toilet Transfer Goal Independent Shower Transfer Goal Independent Days to Meet Goals 15 Frequency of Treatment Frequency Of Treatment Once a Day Treatment Plan OT Treatment Plan ADL Training,Functional Cognition Training,Functional Mobility,Patient/Family Education,Discharge Planning Discharge Recommendations OT Discharge Recommendations Home with Assistance,Home with 24/7 Assist Available,Home Health,SNF Rehab,Home vs SNF Transportation Needs at Discharge Private Vehicle,Wheelchair/ Cabulance
[2021-09-17] MEDS: LORazepam 1 MG TABLET PO ×2 (12:15→18:51)
--- NOTE | 2021-09-17 14:58 | PM.PN.1 ---
Subjective Subjective Date Patient Seen: 09/17/21 Time Patient Seen: 13:50 Interval history: Feels much improved today, minimal shaking and withdrawal symptoms. Has more chronic pain today after holding suboxone. However balance and steadiness he reported much improvement. No fever, chills, nausea, vomiting, or chest pain. Therapy still states he is quite weak, want to do stairs with him tomorrow. Exam Vital Signs (past 8 hours): - 09/17/21 09:10 09/17/21 09:20 09/17/21 10:12 Temperature Pulse Rate 79 78 Respiratory Rate 16 Blood Pressure 155/79 H Pulse Oximetry 99 99 09/17/21 12:51 09/17/21 13:03 09/17/21 13:06 Temperature 98.7 F Pulse Rate 77 77 Respiratory Rate 19 18 Blood Pressure 161/72 H 154/83 H Pulse Oximetry 95 95 09/17/21 13:56 09/17/21 14:00 Temperature Pulse Rate 78 Respiratory Rate 16 Blood Pressure Pulse Oximetry 96 98 Oxygen Delivery Method Room Air Oxygen Flow Rate 0 Narrative Exam Narrative: General:? Patient is well developed and well nourished, in no distress at this time. HEENT:? Normocephalic, atraumatic, extraocular muscles intact, oral pharynx is clear and mucous membranes are moist. Neck: supple and symmetric, trachea is midline, no cervical adenopathy. Negative for JVD Chest:? Normal AP diameter and contour without kyphoscoliosis, no tachypnea, equal chest rise bilaterally. Lungs:? CTA b/l no wheezing rhonchi or rales. Cardio:?RRR no m/r/g. Abdomen: S NT ND. No CVA tenderness. Musculoskeletal:? Muscle strength and tone are equal within normal limits, no deformity. Extremities: No edema or joint effusions. No cyanosis or clubbing. Skin:? Pale,? Warm to touch,dry and intact without rashes, ulcerations or petechiae.? Neuro:? Alert and orientated x3,? sensation to touch intact in all extremities, no gross deficits noted of cranial nerves. Mild tremor Psych:? Patient has a well-kept appearance, appropriate affect, mental status attitude thought context and judgment are appropriate for age. Objective Labs Result Diagrams: 09/15/21 02:12 09/17/21 04:34 Labs: Laboratory Results - last 24 hr 09/17/21 04:34 Sodium 135 L Potassium 3.6 Chloride 106 Carbon Dioxide 29 BUN 12 Creatinine 0.61 L Estimated GFR > 60.0 BUN/Creatinine Ratio 19.7 Glucose 102 Calcium 8.9 Magnesium 2.0 Total Bilirubin 0.6 AST 35 ALT 31 Alkaline Phosphatase 58 Total Protein 6.2 L Albumin 3.5 Globulin 2.7 Albumin/Globulin Ratio 1.3 PFS Medical History (Updated 09/15/21 @ 05:25 by ANNMARIE Lowery) Alcohol abuse Alcohol use disorder Cerebral aneurysm Chronic pain Depression Essential tremor Hepatitis C Hyperlipidemia Hypertension Opioid dependence Osteomyelitis Suicide attempt by drug overdose Surgical History (Updated 09/15/21 @ 05:25 by ANNMARIE Lowery) History of surgery for cerebral aneurysm History of surgery on extremity Family History Father Alcoholism Mother Alcoholism Social History household members: significant other Smoking Status: Former smoker alcohol intake: current Assessment & Plan Assessment & Plan narrative: Ayan Ball is a 71-year-old male with a medical history of ETOH abuse, cerebral aneurysm S/P coils ([id number]), essential tremor, chronic pain, depression, hep C, opiate dependence, osteomyelitis, prior Suicide overdose with oral morphine, hypertension, and hyperlipidemia who presents to the ED with a chief complaint of significant dizziness, multiple falls and trouble with ambulation over the past few days.?Possibly related to suboxone, polypharmacy, or alcohol intoxication / withdrawal. 1. Neurological deficit (gait ataxia, Falls, tremors), acute on chronic, probably due to polypharmacy -may be medication reaction from suboxone, will work on other ways to control his pain. He continues to slowly improve. -MRI negative for ischemic infarcts with a limited study. CT/CTA without acute findings. -continue PT/OT, plan for stairs tomorrow. 2. Alcohol withdrawal ?- patient developed confusion, CIWA score 15 on HD#1 improved with ativan. ?- continue to monitor with CIWA protocol though is improved today. 3. Hypertensive urgency in the setting of essential hypertension, acute on chronic, with a history of cerebral aneurysm, chronic, present on admission -continue home medications, will increase home lisinopril to 20 mg tomorrow. 4. Hyperlipidemia, chronic, present on admission -continue Lipitor 5. Depression, chronic, present on admission -continue nortriptyline, sertraline, trazodone 6. Chronic pain syndrome, chronic, present on admission -as above suspect may have reaction to suboxone, in combination with EtOH -continue pain relief with tramadol, patient not interested in opiate therapy. 7. Overweight as evidence by BMI of 29.8, acute on chronic, present on admission -dietary consult ordered 8. Possible cognitive impairment ?- may be decreased slums in setting of EtOH withdrawal, but score was 15/30. ?- recommend repeat evaluation as an outpatient. Code status:DNR-per patient Surrogate decision maker: Vera Wiley -partner COVID PCR:Negative DVT/VTE prophylaxis:Lovenox & SCD's Disposition:? inpatient, possible discharge home hopefully tomorrow pending progress with PT/OT. Time Spent With Patient Critical Care time: I spent a total of [] minutes of critical care time on this patient's care today; this time is exclusive of procedural time.
--- NOTE | 2021-09-17 17:16 | DIET.CONS ---
Dietary Consultation Note Admission Date: 09/15/2021 03:36 Assessment: Attempted visit today to discuss sobriety mnt prn. Pt was asleep. Will try again. OP mnt for bmi recommended. Ht: 179.07 cm Wt: 95.5 kg BMI: 29.7 UBW: Last BM: 09/17/21 (09/17/21 12:51) MNA: 14 Frederic Score: 20 Diet: 09/15/21 Breakfast Heart Healthy Diet Diet Modifications: Sodium Level: 2 gm Sodium Nutrition Percent Meal Consumed 100% 09/17/21 14:29 Percent Meal Consumed 75% 09/17/21 09:28 Percent Meal Consumed 75% 09/17/21 09:24 Electronically Signed by: Pretty Mcclendon 09/17/21 17:16 Clinical Dietitian [address] [id number]
[2021-09-17] MEDS: LORazepam 2 MG/ML INJ IV (19:51)
[2021-09-17] MEDS: NORTRIPTYLINE 10 MG CAPSULE PO (20:24)
[2021-09-17] MEDS: ATORVASTATIN 20 MG TABLET 80 MG PO (20:24)
[2021-09-17] MEDS: TRAZODONE 50 MG TABLET 450 MG PO (20:26)
[2021-09-18] VITALS (7 sets, daily range): BP systolic 119–160; BP diastolic 55–77; PULSE 74–98; RESP 16–17; TEMP 36–36.2; O2SAT 95–99
--- NOTE | 2021-09-18 06:43 | PC.NURSE ---
Addendum entered by Nellie Sanchez 09/18/21 06:51: 0645 Pt reports feeling dizzy when he sits at the bedside and mildly nauseous. Pt is A&Ox4. He denies SLATER and CP. Pt helped back into bed and requests to rest for a bit. Original Note: At beginning of this shift pt reported a SLATER with tremors felt in fingers. He scored a CIWA 8 and given 1mg ativan by this RN. For the rest of the shift pt slept and occasionally stood at the bedside to use the urinal.
--- NOTE | 2021-09-18 07:36 | P.DS_ITS ---
History of Present Illness History of Present Illness Date Patient Seen: 09/18/21 Chief complaint: LOSING BALANCE Narrative: Ayan Ball is a 71-year-old male with a medical history of ETOH abuse, cerebral aneurysm S/P coils ([id number]), essential tremor, chronic pain, depression, hep C, opiate dependence, osteomyelitis, prior Suicide overdose with oral morphine, hypertension, and hyperlipidemia who presents to the ED today with a chief complaint of significant dizziness, multiple falls and trouble with ambulation over the past few days.? Patient is a very poor historian.? He admits that he has been having some trouble over the past month if not longer but things have been significantly worse over the past few days and he has had multiple falls.? Patient reports feeling jittery, frequent loss of balance, shaky, and increased nausea.? Prior to a few days ago the patient reports that he ambulated without assistive devices.? He now reports that he is unsteady and falls frequently and can no longer ambulate safely.? Patient reports that approximately 3 days ago he had a ground level fall on carpeting and hit his head on the oil heater in his home, no loss of consciousness, no bruising or injury to his head.? He reports that if he turns his head quickly 1 way or the other has body will?collapse, as he feels like he is spinning.? Patient denies chest pain, shortness of breath, abdominal pain, vomiting, fever, body aches, chills, diarrhea, no other recent illness injury or trauma. He is unasure if he takes a blood thinner. He complains of slight nausea, chronic gross diaphoresis. He denies any obvious change in medications or diet.? He has no ringing in his ears, recent ear aches, URI, travel to altitude, flying, changes in vision, SLATER, trouble with speech, swallowing.? He reports an ongoing progressive loss of memory. The patient endorses drinking regularly daily vodka, orange juice, monster drinks and perhaps 1-2 shots (1-2oz). ED Visit 10/13/2020 Per /Dr. Carlisle:Patient is a 70-year-old male who presents after ground level fall 4 days ago, he fell on left side rate near his eye he does have contusion over his periorbital area is.? Since then he has been dizzy and off balance. He thinks he stumbled and tripped initially causing him to fall.? He actually says that his balance has not been great for about 6 weeks.? ED Visit 05/[address] Carlisle:Hx of chronic pain taking morphine is and oxycodone, presenting today is overdose and suicide attempt.? He takes morphine 60 mg extended release up to 3 times daily he says he tries not to take it sometimes he patient to he also is taking oxycodone 5 mg, but says he did not take any extra of that.? Around midnight he took possibly 20 tablets of morphine 60 mg. The does not want to talk much about the stressors in his life but states that his whole life is not worth living.? Today on admit patient presents with noticeable shaking, upper extremity tremor, poor historian, anxious, extremities appear taunt, flexed, almost spastic? he states he states with hypertensive urgency BP 196/91, HR 90, R 20, O2 saturation 98% on room air.? Patient's CBC is normal, CMP is sodium 135, chloride 96, bicarb 34, BNP is 219, ETOH <10.? Patient's head CT, and head neck CTA, reported per ED as unremarkable.? NIH:0, Troponin 0.019 WNL. No EKG done in ED. Patient's previous imaging noted retrograde decreased flow in the RV4 segment where the coils were placed, intracranial internal carotid artery 60% bilateral narrowing, atherosclerotic calcification and irregularity seen in the carotid bifurcation 30% on the right 50% on the left.? Patient admitted for neurological deficit, ataxia, falls, hypertensive urgency, and possible alcholol withdrawl. Discharge Providers Provider Date of admission: 09/15/21 03:36 Discharge Date: 09/18/21 Consults: 09/15/21 03:54 Consult to Dietitian, Adult Routine Comment: Reason For Exam: ETOH abuse, BMI 27.3 09/15/21 04:01 Consult to Occupational Therapy Evaluate & Treat Comment: frequent falls Physician Instructions: Evaluate and treat Consult to Physical Therapy Evaluate & Treat Comment: frequent Falls Physician Instructions: Evaluate and Treat 09/15/21 04:02 Consult to Discharge Planning Routine Comment: Consult to Speech Therapy Evaluate & Treat Comment: Physician Instructions: Evaluate and treat 09/15/21 05:14 Consult to HYDROELECTRIC MACHINERY MECHANIC HELPER - Groundskeeper Porter Routine Comment: Hx SI-overdose, ETOH abuse, Fall HYDROELECTRIC MACHINERY MECHANIC HELPER Consult needed for:: Behavioral Health Assess Substance Abuse Assess 09/15/21 05:16 Consult to Physical Therapy Evaluate & Treat Comment: If MRI Neg, Stas adames Physician Instructions: Evaluate and Treat Discharge provider: Tracy Myers MD Summary Hospital Course Hospital Course: Ayan Ball is a 71-year-old male with a medical history of ETOH abuse, cerebral aneurysm S/P coils ([id number]), essential tremor, chronic pain, de pression, hep C, opiate dependence, osteomyelitis, prior Suicide overdose with oral morphine, hypertension, and hyperlipidemia who presents to the ED with a chief complaint of significant dizziness, multiple falls and trouble with ambulation over the past few days.?Possibly related to suboxone, polypharmacy, or alcohol intoxication / withdrawal. 1. Neurological deficit (gait ataxia, Falls, tremors), acute on chronic, due to combination of Alcohol and Suboxone -MRI negative for ischemic infarcts with a limited study. CT/CTA without acute findings. -PT confirmed that he could safely handle stairs so he will be going home today. He lives in an with his . 2. Alcohol withdrawal ?- patient developed confusion, CIWA score 15 on HD#1 improved with ativan. ?-resolved. Advised to stop drinking alcohol. 3. Hypertensive urgency in the setting of essential hypertension, acute on chronic, with a history of cerebral aneurysm, chronic, present on admission -continue home medications 4. Hyperlipidemia, chronic, present on admission -continue Lipitor 5. Depression, chronic, present on admission -continue nortriptyline, sertraline, trazodone 6. Chronic pain syndrome, chronic, present on admission -advised to stop using Suboxone. -continue pain relief with tramadol, patient not interested in opiate therapy. 7. Overweight as evidence by BMI of 29.8, acute on chronic, present on admission -dietary consult ordered 8. Possible cognitive impairment ?- may be decreased slums in setting of EtOH withdrawal, but score was 15/30. ?- recommend repeat evaluation as an outpatient. Code status:DNR-per patient Surrogate decision maker: Vera Wiley -partner Status at Discharge Cognitive/behavioral status at discharge: oriented Functional status at discharge: uses cane/walker Overall status at discharge: patient is progressing back to baseline Time Spent with Patient Time spent: Greater than 30 minutes Exam Vital Signs (past 8 hours): - 09/17/21 23:38 09/18/21 02:00 09/18/21 04:10 Temperature 96.8 F L Pulse Rate 74 Respiratory Rate 17 Blood Pressure 119/55 L Pulse Oximetry 99 99 98 Oxygen Delivery Method Room Air Oxygen Flow Rate 0 Narrative Exam Narrative: He is alert and oriented x3. He is in no apparent distress. Heart is regular rate and rhythm without murmur Lungs are clear to auscultation bilaterally Extremities have no ankle edema There are seizure pads on his bed rails. He tells me that he lives in a motor home at [facility]. Physical therapy worked with him today and confirmed that he could safely manage stairs. Objective Labs Result Diagrams: 09/15/21 02:12 09/17/21 04:34 [facility] Medical History (Updated 09/15/21 @ 05:25 by ANNMARIE Lowery) Alcohol abuse Alcohol use disorder Cerebral aneurysm Chronic pain Depression Essential tremor Hepatitis C Hyperlipidemia Hypertension Opioid dependence Osteomyelitis Suicide attempt by drug overdose Surgical History (Updated 09/15/21 @ 05:25 by CAREY Lowery-HUSSEIN) History of surgery for cerebral aneurysm History of surgery on extremity Family History Father Alcoholism Mother Alcoholism Social History household members: significant other Smoking Status: Former smoker alcohol intake: current Discharge Plan Discharge Plan Patient Disposition: Home Provider Discharge Comment: Follow-up with Dr. Hawthorne at [facility] in the next 1-2 weeks. Discharge orders & Medications Prescriptions: New tramadol 50 mg Tablet 100 mg PO QID PRN (Reason: Pain, Moderate (4-6)) Qty: 30 0RF multivitamin with folic acid [Tab-A-Essie] 400 mcg Tablet 1 tab PO DAILY Qty: 100 0RF Continued atorvastatin 80 mg Tablet 80 mg PO BEDTIME 0RF sertraline 100 mg Tablet 100 mg PO QAM 0RF nortriptyline 10 mg Capsule 10 mg PO BEDTIME 0RF trazodone 150 mg Tablet 450 mg PO BEDTIME 0RF lisinopril 10 mg Tablet 10 mg PO DAILY 0RF Label Comments: pt unsure of frequency hydrochlorothiazide 12.5 mg Capsule 12.5 mg PO QAM 0RF cholecalciferol (vitamin D3) 50 mcg (2,000 unit) Capsule 50 mcg PO DAILY 0RF Adult One Daily Multivitamin 1 tab PO BID 0RF carvedilol 6.25 mg Tablet 6.25 mg PO BID 0RF Rx Instructions: must administer with a meal/food buspirone 15 mg Tablet 15 mg PO BID 0RF Discontinued buprenorphine-naloxone 2-0.5 mg Tablet, Sublingual 0.5 tab SUBLINGUAL DAILY 0RF Diet/Activity/Treatments Diet: Diet as Tolerated Diet comment: Stop drinking Alcohol
[2021-09-18] MEDS: ENOXAPARIN 40 MG/0.4 ML SYRINGE SUBCUT (08:37)
[2021-09-18] MEDS: ASPIRIN EC 81 MG TABLET PO (08:38)
[2021-09-18] MEDS: THIAMINE 100 MG TABLET PO (08:38)
[2021-09-18] MEDS: lisinopriL 10 MG TABLET 20 MG PO (08:38)
[2021-09-18] MEDS: FOLIC ACID 1 MG TABLET PO (08:38)
[2021-09-18] MEDS: hydroCHLOROthiazide 25 MG TABLET 12.5 MG PO (08:38)
[2021-09-18] MEDS: MULTIVITAMIN 1 TABLET 1 TAB PO (08:38)
[2021-09-18] MEDS: SERTRALINE 50 MG TABLET 100 MG PO (08:38)
[2021-09-18] MEDS: SODIUM CHLORIDE 0.9% FLUSH 10 ML IV (08:39)
[2021-09-18] MEDS: ALBUTEROL 2.5 MG/3 ML NEB (ADULT) INH ×2 (08:49→13:36)
--- NOTE | 2021-09-18 10:53 | OT.IPNOTE ---
Pt states going home today and has no further needs for OT. Pt agrees and realizes that he has to take it slow at home and to be careful. Pt states also would rather focus his energy on doing the step with PT later.
--- NOTE | 2021-09-18 11:33 | PT.IPTN ---
Current Diagnoses Alcohol abuse with withdrawal, unspecified (09/15/21) Physical Therapy Treatment Note M2 PT-IP Current Condition Start: 09/15/21 12:42 Freq: NEEDED Status: Active Protocol: Document 09/15/21 10:16 AB (Rec: 09/15/21 13:02 AB [id number]) Physical Therapy Current Condition Current Condition Evaluation Date 09/15/21 Treatment Diagnosis weakness; ETOH abuse; difficulty in walking Onset Date 09/15/21 M3 PT-IP Subjective Start: 09/15/21 12:42 Freq: NEEDED Status: Active Protocol: Document 09/18/21 11:09 KS (Rec: 09/18/21 12:53 KS [id number]) Subjective Physical Therapy Visit Type Type Treatment Note Visit Start Time 11:09 Visit Stop Time 11:33 Total Visit Minutes 24 Notes Partner present Number of RIPENING ROOM ATTENDANT Visits 3 Physical Therapy Visit Comments Patient Comments agreed to do PT Therapy Pain Assessment Pain When Pain Assessed At Rest Pain Present Pain Present Pain Reported M4 PT-IP Mobility and Gait Start: 09/15/21 12:42 Freq: NEEDED Status: Active Protocol: Document 09/18/21 11:09 KS (Rec: 09/18/21 12:53 KS [id number]) PT-Bed Mobility Assessment Supine to Sit Supine to Sit Standby Assistance Sit to Supine Sit to Supine Standby Assistance Scooting Scooting to Edge of Bed Standby Assistance Scooting Up and Down in Bed Standby Assistance PT-Transfer Assessment Sit to and From Stand Sit to and from Stand Standby Assistance,1 Person Assistance,Use of Upper Extremities Equipment Transfer Assistive Device Gait Belt,Front Wheeled Walker Orthotic/Prosthetic Devices or Brace: No Transfers Transfer Destination Bed,Wheelchair Transfer Technique Pt ambulated w/ FWW Transfer Ability Level of Assist Contact Guard Assistance,1 Person Assistance,Use of Upper Extremities Comments Mobility Comments Pt in bed upon arrival and agreeable to complete stair training. SBA for sup<>Sit and sit<>Stand and 20 ft ambulation to w/c w/ FWW. Pt transported to stairs in w/c for energy conservation. Pt ascended/descended 3 steps x2 w/ bilateral hand rails and step over step ascending and step to pattern descending w/ SBA to CGA. Pt states he has bilateral hand rails at home, pt and pts partner state they feel pt will be able to complete 5 steps to enter home . Pt fatigued and slightly SOB following stairs and w/c back to room but ambulated last 20 ft to bed and left in bed w/ DIESEL POWERPLANT MECHANIC HELPER in room. Pt and partner state they have no other questions. Pts partner confirms she can acquire 4WW and they have a chair set up next to door for pt to rest after completing stairs. Pt would like HHPT. Gait Assessment Gait Gait Assistance Required: Contact Guard Assist,1 Person Assist Distance (Feet) 40 Able to Maintain Weight Bearing Status Yes During Gait Assistive Devices Assistive Device Gait Belt,Front Wheeled Walker Orthotic/Prosthetic Devices or Brace: No Gait Deviations General Gait Pattern Decreased Stride Length, Decreased Feet Clearance Stair Climbing Assessment Evaluation Level of Assist On Stairs Standby Assistance,Contact Guard Assistance,1 Person Assistance Devices Stair Climbing Assistive Devices Left Railing,Right Railing Technique/Endurance Stair Climbing Direction Ascend and Descend Stair Climbing Technique Step Over Step,Step to Step Number of Steps Climbed 3 Stair Climbing Set # Repetitions (reps) 2 Comments Stair Climbing Comments Pt ascended/descended 6 total steps w/ bilateral hand rails and step over step ascending, step to pattern descending w/ SBA to CGA. No LOB or tom needed. PT-Balance Assessment Sitting Balance and Reactions Static Sitting Balance Ability Good Dynamic Sitting Balance Ability Good Standing Balance and Reactions Static Standing Balance Ability Fair Dynamic Standing Balance Ability Fair Device Used FWW M5 PT-IP Objective Assessments Start: 09/15/21 12:42 Freq: NEEDED Status: Active Protocol: Document 09/15/21 10:16 AB (Rec: 09/15/21 13:02 AB [id number]) Orientation Orientation/Cognition Level of Alertness Alert Orientation Name,Place,Situation Language Function Ability No Deficits Noted Safety Awareness Decreased Safety Awareness Gross Range of Motion Lower Extremity ROM Assessment Within Functional Limits Strength Lower Extremity Strength Assessment Left Impaired Hip 4-/5 Knee 4-/5 Muscle Tone Muscle Tone WNL Yes M6 PT-IP Treatment Start: 09/15/21 12:42 Freq: NEEDED Status: Active Protocol: Document 09/18/21 11:09 KS (Rec: 09/18/21 12:53 KS [id number]) Physical Therapy Treatment Education Education Provided Safety M7 PT-IP Assessment and Plan Start: 09/15/21 12:42 Freq: NEEDED Status: Active Protocol: Document 09/18/21 11:09 KS (Rec: 09/18/21 12:53 KS [id number]) PT Summary Assessment and Plan Potential Rehabilitation Potential Fair Status of Condition at Evaluation Evolving Summary Impairments Pain,ROM,Strength,Balance, Coordination,Sensation,Tone, Cognition,Bed Mobility, Transfers,Gait,Activity Tolerance Assessment Summary Pt SBA to CGA throughout treatment. Able to complete 6 total steps w/ bilateral hand rail w/o LOB and no cues needed. Pt w/ low activity tolerance and quick approahc to fatigue and would benefit from either HHPt or outpatient rehab. States he feels ready to go home but slightly apprehensive due to pain. Pts partner confirms she will acquire 4WW for pt and they do not want FWW dispensed. Goals Bed Mobility Goal Independent Transfer Goal Independent,Front Wheeled Walker,Four Wheeled Walker Gait Goal Independent,Front Wheel Walker ,Four Wheel Walker Gait Distance 200 Other Goals improve ambulation using SPC SBA 250 ft up/down 3 steps R rail + 2 steps L rail SBA Days to Meet Goals 10 Frequency of Treatment Frequency Of Treatment Once a Day Treatment Plan Physical Therapy Treatment Plan Bed Mobility Training,Transfer Training,Gait Training, Therapeutic Exercise,Balance Retraining,Discharge Planning, Hot or Cold Pack,Neuromuscular Re-ed,Coordination Retraining Precautions Other Precautions falls, seizure pads Recommendations To Nursing Amount of Assist Needed 1 Person Assist Discharge Recommendations PT Discharge Recommendations Home with 13/02 Assist Available,Home Health,SNF Rehab,Home vs SNF Equipment Needed for Home Before FWW if not safe with 4WW Discharge Transportation Needs at Discharge Private Vehicle,Wheelchair/ Cabulance
[2021-09-18] MEDS: TRAMADOL 50 MG TABLET 100 MG PO (11:39)
--- NOTE | 2021-09-18 13:56 | CM.DPNOTE ---
DC Note Home w/partner Vera today; cleared by therapies for return to RV w/partner. No needs indicated from this PERSONNEL SUPERVISOR, patient denies needs or treatment resources at this time JW
--- NOTE | 2021-09-18 14:10 | PC.NURSE ---
Went over dc instructions and medications with patient, questions answered. Patient given back his own Buprenorphine-naloxone that was stored in the pharmacy and patient verbalized understanding that MD discontinued this medication. Patient taken via wc to vehicle driven by spouse, patient had all belongings.
== END 2021-09-18 14:12 | disposition home or self-care (01) | DRG 897 ==
LOC: ED 02:41 → AC 03:42
PROVIDERS: Admitting Provider Nurse Practitioner Family; Emergency Provider Emergency Medicine; Visit Provider Nurse Practitioner Family
DX: F10.139 Alcohol abuse with withdrawal, unspecified (principal); F11.20 Opioid dependence, uncomplicated; G89.4 Chronic pain syndrome; I16.0 Hypertensive urgency; G31.84 Mild cognitive impairment of uncertain or unknown etiology; R27.0 Ataxia, unspecified; R25.1 Tremor, unspecified; I10 Essential (primary) hypertension; E78.5 Hyperlipidemia, unspecified; F32.A Depression, unspecified; Y90.0 Blood alcohol level of less than 20 mg/100 ml; Z66 Do not resuscitate; Z87.891 Personal history of nicotine dependence; Z91.81 History of falling; Z20.822 Contact with and (suspected) exposure to COVID-19
CPT/HCPCS: 36415; 70450; 70496; 70498; 70551; 80053; 80061; 80305; 80320; 82140; 82550; 83036; 83735; 83880; 84443; 84484; 85025; 85610; 87635; 92523; 94640; 94760; 96365; 97116; 97162; 97166; 97530; 97535; 99284; C9803; J1650; J2060; J7613; Q9967

== ENCOUNTER 2022-02-27 18:52 | Inpatient (IN) | payer OTHER, MEDICARE, SELFPAY ==
[2021-09-15 04:05] VITALS: BMI 29.7
--- NOTE | 2022-02-27 18:57 | DI.RAD.S_ITS ---
PROCEDURE: XR ANKLE RT MIN 3V INDICATIONS: r/o fx TECHNIQUE: 3 views of the ankle were acquired. COMPARISON: None. FINDINGS: Bones: Transverse fracture of the medial malleolus is seen with medial displacement by up to 1.1 cm. There is associated lateral subluxation of the talus. No oblique fracture is seen involving the distal fibula with mild lateral displacement. No definite posterior malleolar fracture is seen. Soft tissues: Soft tissue edema is seen surrounding the ankle. IMPRESSION: Displaced bimalleolar fracture of the distal tibia and fibula with lateral talar subluxation. Dictated by: Hans Estrada M.D. on 02/27/2022 at 19:43 Approved by: Hans Estrada M.D. on 02/27/2022 at 19:44
--- NOTE | 2022-02-27 18:58 | DI.RAD.S_ITS ---
PROCEDURE: XR TIBIA FUBULA RT 2V INDICATIONS: r/o fx TECHNIQUE: 2 views of the tibia and fibula were acquired. COMPARISON: None. FINDINGS: Bones: Medial and lateral malleolar fractures are partially imaged. No proximal fibular or proximal tibial fracture. Medial femorotibial compartment joint space narrowing is noted. Soft tissues: No suspicious soft tissue calcifications or masses. Soft tissue edema is seen in the ankle and lower leg. Atherosclerotic calcifications are present. IMPRESSION: Displaced bimalleolar fracture of the distal tibia and fibula is seen with lateral subluxation of the talus. Dictated by: Hans Estrada M.D. on 02/27/2022 at 19:45 Approved by: Hans Estrada M.D. on 02/27/2022 at 19:47
--- NOTE | 2022-02-27 18:59 | DI.RAD.S_ITS ---
PROCEDURE: XR FOOT RT MIN 3V INDICATIONS: r/o fx TECHNIQUE: 3 views of the foot were acquired. COMPARISON: None. FINDINGS: Bones: Bimalleolar ankle fracture is partially imaged. No acute osseous fracture is seen in the forefoot. Soft tissues: Soft tissue edema is seen in the ankle extending into the dorsum of the foot. IMPRESSION: Displaced bimalleolar fracture of the distal tibia and fibula. Dictated by: Hans Estrada M.D. on 02/27/2022 at 19:44 Approved by: Hans Estrada M.D. on 02/27/2022 at 19:45
[2022-02-27 19:00] VITALS: BP 208/99; PULSE 101; RESP 18; TEMP 36.6; O2SAT 98; BMI 30.1
[2022-02-27] MEDS: HYDROMORPHONE 1 MG INJ IV ×2 (19:59→21:08)
[2022-02-27 20:10] VITALS: BP 207/98; PULSE 92; RESP 21; O2SAT 96
--- NOTE | 2022-02-27 20:38 | ED_ITS ---
HPI - Extremity Injury (Lower) General Chief Complaint: Extremity Injury, Lower Stated Complaint: Ankle PX Time Seen by Provider: 02/27/22 19:48 Source: patient Mode of arrival: EMS History of Present Illness HPI Narrative: Patient is a 71 year year old male history of hypertension hyperlipidemia alcohol abuse and withdrawal cerebral aneurysm s/p coil tremor chronic pain depression opiate dependence, presents today with right ankle pain. He says he rolled his ankle unable to bear weight. He did not hit his head or lose consciousness. He denies any other injury. He has no numbness. Related Data Home Medications Medication Instructions Recorded Confirmed atorvastatin 80 mg tablet 80 mg PO BEDTIME 06/17/21 02/28/22 hydrochlorothiazide 12.5 mg capsule 12.5 mg PO QAM 06/17/21 02/28/22 lisinopril 10 mg tablet 10 mg PO DAILY 06/17/21 02/28/22 nortriptyline 10 mg capsule 10 mg PO BEDTIME 06/17/21 02/28/22 sertraline 100 mg tablet 100 mg PO QAM 06/17/21 02/28/22 trazodone 150 mg tablet 300 mg PO BEDTIME 06/17/21 02/28/22 Adult One Daily Multivitamin 1 tab PO BID 09/15/21 02/28/22 buspirone 15 mg tablet 15 mg PO BID 09/15/21 02/28/22 carvedilol 6.25 mg tablet 6.25 mg PO BID 09/15/21 02/28/22 cholecalciferol (vitamin D3) 50 50 mcg PO DAILY 09/15/21 02/28/22 mcg (2,000 unit) capsule Previous Rx's Medication Instructions Recorded multivitamin with folic acid 400 1 tab PO DAILY #100 tabs 09/18/21 mcg tablet (Tab-A-Essie) Allergies Allergy/AdvReac Type Severity Reaction Status Date / Time No Known Drug Allergies Allergy Verified 06/17/21 16:03 Review of Systems Review of Systems Narrative: GENERAL: Denies chills, fatigue, malaise, fever, sweats, travel HEENT: Denies sinus pain, ear pain, sore throat, difficulty swallowing, neck pain RESPIRATORY: Denies dyspnea, cough, wheezing, hemoptysis, sputum. CARDIOVASCULAR: Denies chest pain, palpitations, orthopnea, edema GASTROINTESTINAL: Denies nausea, vomiting, abdominal pain, diarrhea, constipation, melena. : Denies dysuria, frequency, incontinence, hematuria, urinary retention, flank pain. MUSCULOSKELETAL: See HPI SKIN: No rash, no erythema, no pruritus NEUROLOGIC: Denies weakness, dizziness, headache, numbness, change in speech, confusion PSYCHIATRIC: No concerning psychosocial issues. 12 point review of systems is negative except for those stated above and HPI Patient History Medical History Alcohol abuse Alcohol use disorder Cerebral aneurysm Chronic pain Depression Essential tremor Hepatitis C Hyperlipidemia Hypertension Opioid dependence Osteomyelitis Suicide attempt by drug overdose Surgical History History of surgery for cerebral aneurysm History of surgery on extremity Family History Father Alcoholism Mother Alcoholism Social History household members: significant other Smoking Status: Former smoker alcohol intake: current Smoking Status: Former smoker alcohol intake frequency: 0-2 drinks per day Alcohol type: hard liquor Substance Use Type: does not use Exam Initial Vital Signs Initial Vital Signs: Vital Signs Temperature 97.9 F 02/27/22 19:00 Pulse Rate 101 H 02/27/22 19:00 Respiratory Rate 18 02/27/22 19:00 Blood Pressure 208/99 H 02/27/22 19:00 Pulse Oximetry 98 02/27/22 19:00 Oxygen Delivery Method 02/27/22 19:00 GENERAL: Alert 71-year-old male, shaking uncomfortable HEENT: Head atraumatic,EOMI, pupils reactive, face symmetric, [moist] mucous membranes CARDIOVASCULAR: Regular rate and rhythm without murmurs, rubs or gallops. RESPIRATORY: Breath sounds equal bilaterally, no wheezes rales or rhonchi. ABDOMEN: Soft, nontender. Normoactive bowel sounds all 4 quadrants. No guarding or rebound. EXTREMITIES: Normal range of motion, no clubbing or edema. Neurovascularly intact Right lower extremity significant contusion medially. His he does have a p alpable distal pedal pulse. No knee pain. Left lower extremity significant muscle atrophy scars but at baseline per pain NEUROLOGICAL: Alert and oriented x4. SKIN: Warm, dry, no laceration, no petechiae, no rashes or lesions. Procedures Orthopedic Splinting/Casting Injury #1: Lower Extremity Injury Location: ankle Lower Extremity Immobilizer: posterior splint and stirrup splint Post splinting neuro exam: intact Post splinting vascular exam: intact (doppler pulse is strong, intially faint palpable pulse) Placed by: Provider Course Orders Ordered: ED Orders 02/27/22 21:46 COVID19 -Nasal RAPID/Pre-Proc Stat Atorvastatin Calcium (Atorvastatin 20 Mg Tablet) 80 mg PO BEDTIME [facility] Last Admin: 02/27/22 23:55 Dose: 80 mg Documented By: Buspirone HCl (Buspirone 5 Mg Tablet) 15 mg PO BID [facility] Calcium Carbonate (Calcium Carbonate 500 Mg Tab) 500 mg PO Q4HR PRN PRN Reason: Dyspepsia Last Admin: 02/28/22 01:12 Dose: 500 mg Documented By: MADAN Carvedilol (Carvedilol 3.125 Mg Tablet) 6.25 mg PO BID [facility] Last Admin: 02/27/22 23:55 Dose: 6.25 mg Documented By: Docusate Sodium (Docusate 100 Mg Capsule) 100 mg PO BID [facility] Hydralazine HCl (Hydralazine 20 Mg/Ml Vial) 10 mg IV Q6HR PRN PRN Reason: Hypertension SBP >180 Hydrochlorothiazide (Hydrochlorothiazide 25 Mg Tablet) 12.5 mg PO DAILY [facility] Last Admin: 02/27/22 23:56 Dose: 12.5 mg Documented By: MADAN Hydromorphone HCl (Hydromorphone 2 Mg Inj) 1 mg IV Q2H PRN PRN Reason: Pain, Severe (7-10) Last Admin: 02/28/22 03:56 Dose: 1 mg Documented By: Labetalol HCl (Labetalol 20 Mg/4 Ml Syringe) 10 mg IV Q4HR PRN PRN Reason: Heart Rate- High Last Admin: 02/27/22 23:54 Dose: 10 mg Documented By: Lisinopril (Lisinopril 10 Mg Tablet) 10 mg PO DAILY [facility] Morphine Sulfate (Morphine 4 Mg/Ml Inj) 4 mg IV Q4HR PRN PRN Reason: Pain, Severe (7-10) Last Admin: 02/28/22 03:09 Dose: 4 mg Documented By: Nortriptyline HCl (Nortriptyline 10 Mg Capsule) 10 mg PO BEDTIME [facility] Last Admin: 02/27/22 23:55 Dose: 10 mg Documented By: MADAN Ondansetron HCl (Ondansetron 4 Mg Odt) 4 mg PO Q8HR PRN PRN Reason: Nausea And Vomiting Ondansetron HCl (Ondansetron 4 Mg/2 Ml Inj) 4 mg IV Q8HR PRN PRN Reason: Nausea And Vomiting Last Admin: 02/27/22 23:54 Dose: 4 mg Documented By: MADAN Oxycodone HCl (Oxycodone Ir 5 Mg Tablet) 5 mg PO Q4HR PRN PRN Reason: Pain, Moderate (4-6) Last Admin: 02/27/22 23:56 Dose: 5 mg Documented By: MADAN Sertraline HCl (Sertraline 50 Mg Tablet) 100 mg PO DAILY [facility] Last Admin: 02/27/22 23:56 Dose: 100 mg Documented By: MADAN Trazodone HCl (Trazodone 50 Mg Tablet) 300 mg PO BEDTIME [facility] Last Admin: 02/27/22 23:55 Dose: 300 mg Documented By: MADAN Discontinued Medications Calcium Carbonate (Calcium Carbonate 500 Mg Tab) 500 mg PO Q4HR [facility] Diazepam (Diazepam 10 Mg/2 Ml Syringe) 2 mg IV NOW ONE Stop: 02/27/22 21:12 Last Admin: 02/27/22 21:15 Dose: 2 mg Documented By: ALYSE Diphenhydramine HCl (Diphenhydramine 50 Mg/Ml Vial) 25 mg IV NOW ONE Stop: 02/27/22 21:42 Last Admin: 02/27/22 21:44 Dose: 25 mg Documented By: ALYSE Hydromorphone HCl (Hydromorphone 1 Mg Inj) 1 mg IV NOW ONE Stop: 02/27/22 19:49 Last Admin: 02/27/22 19:59 Dose: 1 mg Documented By: TORI Hydromorphone HCl (Hydromorphone 1 Mg Inj) 1 mg IV NOW ONE Stop: 02/27/22 20:45 Last Admin: 02/27/22 21:08 Dose: 1 mg Documented By: ALYSE Hydromorphone HCl (Hydromorphone 0.5 Mg Inj) 0.5 mg IV Q4H PRN PRN Reason: Breakthrough pain only (8-10) Last Admin: 02/28/22 01:42 Dose: 0.5 mg Documented By: MADAN Morphine Sulfate (Morphine 2 Mg/Ml Inj) 2 mg IV Q4H PRN PRN Reason: Breakthrough pain only (8-10) Phenobarbital Sodium (Phenobarbital 130 Mg/Ml Vial) 130 mg IV NOW ONE Stop: 02/27/22 22:39 Last Admin: 02/27/22 23:54 Dose: 130 mg Documented By: MADAN Vital Signs Vital signs: Vital Signs - 8 hr 02/27/22 20:10 Pulse Rate 92 H Respiratory Rate 21 Blood Pressure 207/98 H Pulse Oximetry 96 Oxygen Delivery Method Room Air MDM - Extremity Injury (Lower) Lab Data Labs: Lab Results 02/27/22 Range/Units 21:46 SARS-CoV-2 (PCR) Negative (Negative) Imaging Data Extremity x-ray #1: Radiologist's Impression: XRay Report Signed Patient: Luis Ball MR#: [id number] : 1950 Acct:[id number] Age/Sex: 71 / M Date of Service: 02/27/22 Loc: ED Accession Number: [id number] ?? Procedure: XR ankle RT min 3V Ordering Provider: Lillian Carlisle D.O. PROCEDURE:? XR ANKLE RT MIN 3V ? INDICATIONS:? r/o fx ? TECHNIQUE:? 3 views of the ankle were acquired.? ? COMPARISON:? None. ? FINDINGS:? ? Bones:? Transverse fracture of the medial malleolus is seen with medial displacement by up to 1.1 cm.? There is associated lateral subluxation of the talus.? No oblique fracture is seen involving the distal fibula with mild lateral displacement.? No definite posterior malleolar fracture is seen. ? Soft tissues:? Soft tissue edema is seen surrounding the ankle. ? ? IMPRESSION:? Displaced bimalleolar fracture of the distal tibia and fibula with lateral talar subluxation. ? ? ? Dictated by: Hans Estrada M.D. on 02/27/2022 at 19:43 ? ? Approved by: Hans Estrada M.D. on 02/27/2022 at 19:44 ? Extremity x-ray #2: Radiologist's Impression: [address] [address] XRay Report Signed Patient: Luis Ball MR#: [id number] : 1950 Acct:[id number] Age/Sex: 71 / M Date of Service: 02/27/22 Loc: ED Accession Number: [id number] ?? Procedure: XR tibia fibula RT 2V Ordering Provider: Lillian Carlisle D.O. PROCEDURE:? XR TIBIA FUBULA RT 2V ? INDICATIONS:? r/o fx ? TECHNIQUE:? 2 views of the tibia and fibula were acquired.? ? COMPARISON:? None. ? FINDINGS:? ? Bones:? Medial and lateral malleolar fractures are partially imaged.? No proximal fibular or proximal tibial fracture.? Medial femorotibial compartment joint space narrowing is noted. ? Soft tissues:? No suspicious soft tissue calcifications or masses.? Soft tissue edema is seen in the ankle and lower leg.? Atherosclerotic calcifications are present. ? IMPRESSION:? Displaced bimalleolar fracture of the distal tibia and fibula is seen with lateral subluxation of the talus. ? ? Dictated by: Hans Estrada M.D. on 02/27/2022 at 19:45 ? ? Approved by: Hans Estrada M.D. on 02/27/2022 at 19:47 ? Extremity x-ray #3: Radiologist's Impression: XRay Report Signed Patient: Luis Ball MR#: [id number] : 1950 Acct:[id number] Age/Sex: 71 / M Date of Service: 02/27/22 Loc: ED Accession Number: [id number] ?? Procedure: XR foot RT min 3V Ordering Provider: Lillian Carlisle D.O. PROCEDURE:? XR FOOT RT MIN 3V ? INDICATIONS:? r/o fx ? TECHNIQUE:? 3 views of the foot were acquired.? ? COMPARISON:? None. ? FINDINGS:? ? Bones:? Bimalleolar ankle fracture is partially imaged.? No acute osseous fracture is seen in the forefoot. ? Soft tissues:? Soft tissue edema is seen in the ankle extending into the dorsum of the foot. ? ? IMPRESSION:? Displaced bimalleolar fracture of the distal tibia and fibula. ? ? Dictated by: Hans Estrada M.D. on 02/27/2022 at 19:44 ? ? Approved by: Hans Estrada M.D. on 02/27/2022 at 19:45 ? MDM Narrative Medical decision making narrative: Patient is found to have a by malleolar fracture. He is neurovascularly intact. Discussion with Orthopedics Dr. Freitas who states that she will likely be able to take him to the OR tomorrow to fix it. Initially we thought patient could go home however patient lives in an RV. His good leg is his right leg which is now broken. He is unable to fully bear weight on his left leg is so crutches are not an option. They live in an RV walker is extremely difficult. At this time the patient cannot be safely discharged home. His patient will need to be admitted for OR and possibly rehab afterwards. Dr. Bowden accepts patient. Fortino aware of admission Discharge Plan Departure Patient Disposition: Admitted as Observation Clinical Impression: Ankle fracture Admit Date/Time: 02/27/22 21:57 Admit Provider: David Bowden
[2022-02-27] MEDS: diazePAM 10 MG/2 ML SYRINGE 2 MG IV (21:15)
[2022-02-27] MEDS: diphenhydrAMINE 50 MG/ML VIAL 25 MG IV (21:44)
--- NOTE | 2022-02-27 22:04 | PM.HP.1 ---
History of Present Illness History of Present Illness Date Patient Seen: 02/27/22 Time Patient Seen: 22:05 Date of Onset of Symptoms: 02/27/22 Chief complaint: Ankle PX Narrative: PT fell and rolled R ankle and broke it per imaging. Doesn't think he hit his head but he is generally a mediocre historian consistent with previous presentations. Living in - where he fell - has hx of multiple surgeries on L arm and leg 2/2 bad crush injury. His mobility is impaired at baseline - Dr. Win Freitas plans to address the ankle surgically in the morning. Takes 1.5 suboxone strips SL tid at baseline but did not have any today. Reports pain in R ankle is currently at 7.9 out of 10 he is shaky and sweaty. Endorses drinking 1-2 shots of liquor but no beer. Patient History Medical History Alcohol abuse Alcohol use disorder Cerebral aneurysm Chronic pain Depression Essential tremor Hepatitis C Hyperlipidemia Hypertension Opioid dependence Osteomyelitis Suicide attempt by drug overdose Surgical History History of surgery for cerebral aneurysm History of surgery on extremity Family & Social History Family History Father Alcoholism Mother Alcoholism Social History: household members significant other Safety & Behavioral: Feels Safe in Current Yes Environment Been Physically Hurt or No Threatened By a Person Tobacco & Substance use: Tobacco type cigarettes Smoking Status Former smoker alcohol intake current alcohol intake frequency 0-2 drinks per day Substance Use Type does not use Meds Home Medications and Allergies Home Medications Medication Instructions Recorded Confirmed Type atorvastatin 80 mg tablet 80 mg PO BEDTIME 06/17/21 09/15/21 History hydrochlorothiazide 12.5 mg capsule 12.5 mg PO QAM 06/17/21 09/15/21 History lisinopril 10 mg tablet 10 mg PO DAILY 06/17/21 09/15/21 History nortriptyline 10 mg capsule 10 mg PO BEDTIME 06/17/21 09/15/21 History sertraline 100 mg tablet 100 mg PO QAM 06/17/21 09/15/21 History trazodone 150 mg tablet 450 mg PO BEDTIME 06/17/21 09/15/21 History Adult One Daily Multivitamin 1 tab PO BID 09/15/21 09/15/21 History buspirone 15 mg tablet 15 mg PO BID 09/15/21 09/15/21 History carvedilol 6.25 mg tablet 6.25 mg PO BID 09/15/21 09/15/21 History cholecalciferol (vitamin D3) 50 50 mcg PO DAILY 09/15/21 09/15/21 History mcg (2,000 unit) capsule multivitamin with folic acid 400 1 tab PO DAILY #100 tabs 09/18/21 Rx mcg tablet (Tab-A-Essie) tramadol 50 mg tablet 100 mg PO QID PRN Pain, Moderate 09/18/21 Rx (4-6) #30 tabs Allergies Allergy/AdvReac Type Severity Reaction Status Date / Time No Known Drug Allergies Allergy Verified 06/17/21 16:03 Review of Systems Review of Systems Narrative: all systems reviewed and negative except as otherwise documented in HPI Exam Vital Signs (past 8 hours): - 02/27/22 19:00 02/27/22 20:10 Temperature 97.9 F Pulse Rate 101 H 92 H Respiratory Rate 18 21 Blood Pressure 208/99 H 207/98 H Pulse Oximetry 98 96 Oxygen Delivery Method Room Air Room Air Oxygen Delivery Method Room Air Narrative Exam Narrative: laying on ED gurney with R leg in splint HENTX Head: normal to inspection, normocephalic and atraumatic Eyes General: appearance normal, both eyes and all related structures Resp Auscultation: clear to auscultation bilaterally Cardio Rate: tachycardic GI Palpation: soft Auscultation: hypoactive bowel sounds Skin Other: some bruising on R ankle, extensive scarring on L leg and arm, no lesions on head Neuro General: patient alert and patient awake Other: tremulous and hyperactive Extrem General: other (extensive scarring and healed injury of L arm and leg. R ankle in splint.) Right lower extremity: normal capillary refill (good DP pulse by doppler and palpation) Psych Appearance: grossly normal Speech and Movement: agitated Assessment & Plan Assessment & Plan narrative: #R distal tibia/fibula bimalleolar fracture NPO after midnight Dr. Freitas planning surgery in AM #chronic opiate dependence pt has not taken any suboxone today endorses one or two liquor shots per day very shaky and anxious on exam this evening prn dilaudid morphine got phenytoin in ED will need to resume home regimen after surgery #htn continue home meds prn hydralazine #hld continue home lipitor 80 #insomnia continue home amitriptyline and trazodone 300 #hx of prior cerebral aneurysm s/p multiple coils stable some mild cognitive processing issues noted Dispo : Admit to hospitalist service, orthopedics consulted DVT ppx: SCDs then lovenox postop code: DNR MDM: Vera [phone] Time Spent With Patient Critical Care time: I spent a total of [] minutes of critical care time on this patient's care today; this time is exclusive of procedural time.
[2022-02-27 22:08] LABS: COVID19 -Nasal RAPID Negative (Negative)
[2022-02-27 23:03] VITALS: TEMP 37.1
[2022-02-27 23:04] VITALS: BP 185/93; PULSE 120; RESP 26; O2SAT 96
[2022-02-27 23:18] VITALS: BMI 30.1
[2022-02-27 23:54] VITALS: BP 187/84; PULSE 117
[2022-02-27] MEDS: LABETALOL 20 MG/4 ML SYRINGE 10 MG IV (23:54)
[2022-02-27] MEDS: PHENobarbital 130 MG/ML VIAL IV (23:54)
[2022-02-27] MEDS: ONDANSETRON 4 MG/2 ML INJ IV (23:54)
[2022-02-27 23:55] VITALS: BP 187/84; PULSE 117
[2022-02-27] MEDS: carvediloL 3.125 MG TABLET 6.25 MG PO (23:55)
[2022-02-27] MEDS: ATORVASTATIN 20 MG TABLET 80 MG PO (23:55)
[2022-02-27] MEDS: NORTRIPTYLINE 10 MG CAPSULE PO (23:55)
[2022-02-27] MEDS: TRAZODONE 50 MG TABLET 300 MG PO (23:55)
[2022-02-27] MEDS: hydroCHLOROthiazide 25 MG TABLET 12.5 MG PO (23:56)
[2022-02-27] MEDS: SERTRALINE 50 MG TABLET 100 MG PO (23:56)
[2022-02-27] MEDS: OXYCODONE IR 5 MG TABLET PO (23:56)
[2022-02-28] VITALS (17 sets, daily range): BP systolic 135–180; BP diastolic 58–89; PULSE 75–98; RESP 16–20; TEMP 36.4–37.6; O2SAT 92–100; BMI 30.1
[2022-02-28] MEDS: CALCIUM CARBONATE 500 MG TAB PO (01:12)
--- NOTE | 2022-02-28 01:29 | PC.NURSE ---
Addendum entered by Lisa Delgadillo R.N. 02/28/22 02:03: Patient reassessed after labetolol administration, BP 166/75, HR 91. Patient reports he stopped sweating about an hour ago. Original Note: Patient admitted to from ED at 2300, transferred via slideboard. A/O x 4, able to make needs known. Patient sweating profusely upon arrival, also presenting with tremors. Hypertensive 187/84, tachycardic 117. Patient on CIWA precautions. NPO @ midnight. Medications reviewed with patient upon admit. Patient on tele, ICU nurse notified. Labetolol administered per order. Bed in low position, breaks locked and call light within reach.
[2022-02-28] MEDS: HYDROMORPHONE 0.5 MG INJ IV (01:42)
[2022-02-28] MEDS: MORPHINE 4 MG/ML INJ IV ×3 (03:09→12:37)
[2022-02-28] MEDS: HYDROMORPHONE 2 MG INJ 1 MG IV ×2 (03:56→11:36)
[2022-02-28 06:31] LABS: Add Manual Diff / Slide Review NO; Basophils Absolute Auto 0 /uL (0-100); Basophils Percent Auto 0.1 % (0-2); Eosinophils Absolute Auto 0 /uL (0-450); Eosinophils Percent Auto 0.3 % (2-4); Hematocrit 41.2 % (41-53); Hemoglobin 14.5 g/dL (13.5-17.5); Lymphocytes Absolute Auto 800 /uL (1100-4500); Mean Corpuscular HGB Conc 35.1 % (30-36); Mean Corpuscular Hemoglobin 35.5 PG (26-34); Mean Corpuscular Volume 101.1 fL (80-100); Monocytes Absolute Auto 1100 /uL (0-900); Monocytes Percent Auto 12.1 % (3-14); Neutrophils Absolute Auto 7200 /uL (1500-7000); Neutrophils Percent Auto 78.5 % (50-75); Platelet Count 143 X10^3/uL (150-400); Red Blood Cell Count 4.07 X10^6/uL (4.5-5.9); Red Cell Distribution Width 15.1 % (11.6-14.8); White Blood Cell Count 9.2 X10^3/uL (4.5-11.0)
[2022-02-28 06:46] LABS: BUN Creatinine Ratio 16.3 (6-22); Blood Urea Nitrogen 13 mg/dL (9-20); Calcium 9.1 mg/dL (8.4-10.2); Carbon Dioxide 37 mmol/L (22-32); Chloride 90 mmol/L (98-107); Estimated Glomerular Filt Rate > 60 mL/min (>60); Glucose 125 mg/dL (80-110); HEMOLYSIS < 15 (0-50); Potassium 3.6 mmol/L (3.4-5.1); Sodium 131 mmol/L (137-145)
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
[2022-02-28] MEDS: lisinopriL 10 MG TABLET PO (08:23)
[2022-02-28] MEDS: carvediloL 3.125 MG TABLET 6.25 MG PO ×2 (08:23→21:09)
[2022-02-28] MEDS: DOCUSATE 100 MG CAPSULE PO ×3 (08:23→21:09)
[2022-02-28] MEDS: hydroCHLOROthiazide 25 MG TABLET 12.5 MG PO (08:23)
[2022-02-28] MEDS: BUSPIRONE 5 MG TABLET 15 MG PO ×2 (08:23→21:09)
[2022-02-28] MEDS: SERTRALINE 50 MG TABLET 100 MG PO (08:24)
--- NOTE | 2022-02-28 11:18 | CM.DANOTE ---
[facility] Assessment: Payor: AK Haile PCP: Provider @ [facility] Pt is a 71 y.o. M who presented to the ED via ambulance with right ankle pain. Pt stated to the ED MD that pt rolled his ankle and unable to bear any weight. Pt has a PMH of hypertenstion, hyperlipidemia, and alcohol abuse and withdrawal. It was found on X-ray that pt has a fracture. MD discussed with ortho and Dr. Freitas would be able to take him to OR on 02/28. Pt was sent to the floor for further management and evaluation of diagnosis. DCP met bedside this morning with pt and pt significant other. Pt laying in bed watching TV. DCP introduced herself and role. Pt states that he lives with his significant other, Vera, in a Motor home in [place]. Pt states that it is getting more and more difficult to move around in the motor home. Pt states that he is fairly independent at baseline but has been unsteady for some time. Pt states that he does not use any DME's and Vera is primary source of transportation. Vera states that she has been looking for more affordable housing but cannot find any that is within their budget. They stated that they are aware they need to find a better home. Pt states that he was previously in the hospital around the beginning of the year and they sent him home with Home Health. Vera states that it might have been [facility] but could not be for sure. Vera states that she would be able to transport pt back home upon discharge. Pt states that he has 5 steps to get into his motor home and if he gets up them and into the mobile home following surgery, that he would most likely not come out for any outpatient rehab. Pt states that he has used crutches before and he does not feel like he will be in too bad of shape when he is ready for discharge. Pt does not want to go to rehab but after discussing with pt, he is open to it. DCP updated the white board and instructed to call. Pt and Vera thankful for the information. DCP to continue to follow to determine post surgical needs. DCP went back into the pt room around 1125 and dropped off some resources for pt and Vera to help with assistance in finding more affordable housing. Vera had already left but left the brochure in pt room. Pt thankful. P: Pt to have surgery today on his R ankle fracture with Dr. Freitas. Karla Kerns RN/MEJIAP Discharge Planning/Care Management CM Discharge Assessment Start: 02/28/22 11:12 Freq: Status: Active Protocol: Document 02/28/22 11:12 SIVA (Rec: 02/28/22 11:17 SIVA [id number]) Discharge Planning Assessment Assigned Aligner Karla Kerns RN/ADARSH Advance Directives? Yes: DNR Advance Directives on File No History Provided By Patient,Family Member Prior Living Arrangements Mobile home Household Members significant other Type of transporation used prior to Relies on Others admit Comment Spouse POV Independent with ADL's Yes Is patient alert and oriented? Yes Caregiver for Another No Patient/Family Preference Home with Home Health Barriers to Discharge No Discharge Plan Home Transportation Arrangement Spouse POV Referrals Initiated None needed,Home Health Additional Comment At this time. Might need Home Health depending on recovery from surgery. Whiteboard Updated in Patient Room with Yes name and ext. # of Aligner Comment Instructed to call Review Status In Process Please Provide Date Initial DC 02/28/22 Assessment Was Performed Next Review Type Continued Stay Review
--- NOTE | 2022-02-28 12:10 | P.PN_ITS ---
Subjective Subjective Date Patient Seen: 02/28/22 Interval history: Ayan Ball is a 71-year-old male with a medical history of ETOH abuse, cerebral aneurysm S/P coils ([id number]), essential tremor, chronic pain, depression, hep C, opiate dependence, osteomyelitis, prior Suicide overdose with oral morphine, hypertension, and hyperlipidemia admitted with a R ankle fracture pending surgical interventions. He is in quite a bit of pain today, some relief with opiates. He denies shakiness or diaphoresis today. Exam Vital Signs (past 8 hours): - 02/28/22 04:45 02/28/22 07:54 02/28/22 08:23 Temperature 98.6 F 99.7 F H Pulse Rate 88 88 88 Respiratory Rate 18 16 Blood Pressure 142/60 H 154/65 H 154/65 H Pulse Oximetry 97 92 Oxygen Flow Rate 0 02/28/22 08:23 02/28/22 11:00 Temperature 99.6 F Pulse Rate 88 82 Respiratory Rate 16 Blood Pressure 154/75 H 156/79 H Pulse Oximetry 93 Oxygen Flow Rate Oxygen Delivery Method Room Air Oxygen Flow Rate 0 Narrative Exam Narrative: General:? Patient is well developed and well nourished, uncomfortable due to pain. HEENT:? Normocephalic, atraumatic, extraocular muscles intact, oral pharynx is clear and mucous membranes are moist. Neck: supple and symmetric, trachea is midline, no cervical adenopathy. Negative for JVD Chest:? Normal AP diameter and contour without kyphoscoliosis, no tachypnea, equal chest rise bilaterally. Lungs:? CTA b/l no wheezing rhonchi or rales. Cardio:?RRR no m/r/g. Abdomen: S NT ND. No CVA tenderness. Musculoskeletal:? Muscle strength and tone are equal within normal limits, no deformity. Extremities: No edema or joint effusions. No cyanosis or clubbing. Skin:? Pale,? Warm to touch,dry and intact without rashes, ulcerations or petechiae.? Neuro:? Alert and orientated x3,? sensation to touch intact in all extremities Psych:? Patient has a well-kept appearance, appropriate affect, mental status attitude thought context and judgment are appropriate for age. Objective Labs Result Diagrams: 02/28/22 05:53 02/28/22 05:53 Labs: Laboratory Results - last 24 hr 02/27/22 02/28/22 02/28/22 21:46 05:53 05:53 WBC 9.2 RBC 4.07 L Hgb 14.5 Hct 41.2 MCV 101.1 H MCH 35.5 H MCHC 35.1 RDW 15.1 H Plt Count 143 L Neut % (Auto) 78.5 H Lymph % (Auto) 9.0 L [place] % (Auto) 12.1 Eos % (Auto) 0.3 L Baso % (Auto) 0.1 Neut # (Auto) 7200 H Lymph # (Auto) 800 L [place] # (Auto) 1100 H Eos # (Auto) 0 Baso # (Auto) 0 Sodium 131 L Potassium 3.6 Chloride 90 L Carbon Dioxide 37 H BUN 13 Creatinine 0.80 Estimated GFR > 60 BUN/Creatinine Ratio 16.3 Glucose 125 H Calcium 9.1 SARS-CoV-2 (PCR) Negative [facility] Medical History Alcohol abuse Alcohol use disorder Cerebral aneurysm Chronic pain Depression Essential tremor Hepatitis C Hyperlipidemia Hypertension Opioid dependence Osteomyelitis Suicide attempt by drug overdose Surgical History History of surgery for cerebral aneurysm History of surgery on extremity Family History Father Alcoholism Mother Alcoholism Social History household members: significant other Smoking Status: Former smoker alcohol intake: current Assessment & Plan Assessment & Plan narrative: #R distal tibia/fibula bimalleolar fracture plan for orthopedic interventions today. PT/OT after surgery continue pain control for now restart suboxone after surgery #chronic opiate dependence, alcohol abuse - history of withdrawal admissions here, no signs of withdrawal at this time - resume suboxone after surgery - pain control with opiates for now #htn continue home meds prn hydralazine #hld continue home lipitor 80 #insomnia continue home amitriptyline and trazodone 300 #hx of prior cerebral aneurysm s/p multiple coils stable some mild cognitive processing issues noted in the past but may have been in setting of EtOH withdrawal. Dispo : Admitted to hospitalist service, orthopedics consulted DVT ppx: SCDs code: DNR MDM: Vera [phone] Time Spent With Patient Critical Care time: I spent a total of [] minutes of critical care time on this patient's care today; this time is exclusive of procedural time. Quality VTE Deep Vein Thrombosis/Pulmonary Embolism Present on Admission: No
[2022-02-28 13:00] LABS: Alanine Aminotransferase 93 IU/L (<50); Albumin Globulin Ratio 1.6 (1.0-2.8); Alkaline Phosphatase 64 U/L (38-126); Aspartate Aminotransferase 60 IU/L (17-59); Bilirubin Total 1.2 mg/dL (0.2-1.3); Globulin 2.5 g/dL (1.7-4.1); HEMOLYSIS < 15 (0-50); Total Protein 6.5 g/dL (6.3-8.2)
[2022-02-28] MEDS: HYDROMORPHONE 2 MG INJ IV (13:28)
[2022-02-28 13:35] LABS: INR 1.1 (0.9-1.3); Prothrombin Time 12.1 SECONDS (10.1-12.7)
[2022-02-28 13:38] LABS: PTT Partial Thromboplastin Tim 31 SECONDS (26.4-36.2)
[2022-02-28] MEDS: diazePAM 10 MG/2 ML SYRINGE 5 MG IV (14:05)
[2022-02-28] MEDS: LACTATED RINGERS 1,000 ML 42 ML IV (15:28)
[2022-02-28] MEDS: CEFAZOLIN 2 GM IN 0.9 % NACL 100 ML IV (16:35)
[2022-02-28] MEDS: BUPIVACAINE 0.5% (PF) VIAL 30 ML INJ (16:42)
--- NOTE | 2022-02-28 16:49 | SUR.OPER ---
Supine on padded OR bed, head on pillow, arms secured on padded arm boards at <90 degrees abduction, legs uncrossed, safety belt at thigh, tape over blanket over lower legs. POSITION APPROVED BY ANESTHESIA AND SURGEON
--- NOTE | 2022-02-28 18:22 | SUR.PHASEI ---
Block start time [1821] . Monitoring initiated and maintained throughout procedure. Oxygen and medications given per anesthesiologist instructions. Patient remained stable throughout procedure, no adverse reactions noted. Block end [id number] ].
--- NOTE | 2022-02-28 18:33 | SUR.PHASEI ---
Report given to Sherry KHAN.
--- NOTE | 2022-02-28 18:38 | PM.PROC.1 ---
Procedures Date/Time Date of procedure: 02/28/22 Time of procedure: 18:10 General Procedure description: Ultrasound guided popliteal sciatic and adductor canal nerve blocks for post op pain control after right bimalleolar ankle ORIF by Dr. Freitas. Risk and benefits of procedure discussed with patient pre-op. ASA monitoring applied to patient. Oxygen given via nasal cannula. Procedure was performed post-op in PACU with moderate anesthesia still wearing off. Skin site was prepped with chlorhexidine and allowed to fully dry. Sterile gloves, mask, hat and probe cover were used to maintain sterility. 2% lidocaine and 30ga needle was used to make a small skin wheal at needle insertion site. Under ultrasound guidance, a 21ga 100mm Pajunk needle was directed near the division of the sciatic nerve into tibial and peroneal nerve in the popliteal fossa (lateral approach). Patient reported no parasthesias. After negative aspiration, 20 mL 0.5% ropivicaine and 5mg dexamethasone were injected around sciatic nerve. Patient tolerated procedure well. In similar sterile fashion, The adductor canal was anesthetized using same 100mm Pajunk under US guidance. 20ml ropivacaine with 5mg dexamethasone injected without parasthesia and negative prior aspiration. Tolerated well.
--- NOTE | 2022-02-28 18:41 | P.OP_ITS ---
Operative Date/Time/Diagnoses Date of procedure: 02/28/22 Time of procedure: 16:00 Pre-op diagnosis: Right ankle bimalleolar fracture Post-op diagnosis: same Procedure & Clinicians Procedure: ORIF right ankle bimalleolar fracture Same procedure as scheduled: Yes Indications: This is a 71-year-old who fell and sustained a displaced right of bimalleolar ankle fracture. He is brought the operating room for open reduction internal fixation. He also sustained a contusion to his right knee. He notes ongoing significant right ankle pain. He was admitted as he was unable to ambulate or weight bear. He has somewhat complicated past medical history. Surgeon: Jimena Freitas Electric Meter Inspector: Nick Metcalf Anesthesia Type: General and Peripheral nerve block Operative Notes Findings: Comminuted right ankle fracture, acceptable alignment, stable fixation Closure Type: primary Specimen(s): none sent Prosthetic devices, grafts, tissues, transplants, or devices: Freitas and nephew lateral plate and 2 medial screws Estimated Blood Loss (mL): 50 Tourniquet time (min): 75 Procedure in detail: Patient is brought to the operating room. He underwent induction of a general anesthesia. His right lower extremity was prepped draped standard sterile fashion. A time-out was performed. He was give IV antibiotics Ancef 2 g. High-thigh tourniquet was applied. Was elevated to 250 mmHg for about 75 minutes. His leg was exsanguinated. Lateral skin incision was made dissection was carried out through skin and subcutaneous tissues. Had a comminuted and displaced lateral malleolus fracture. It was meticulously reduced and held with 2 reduction clamps and then fixed with a lag screw and a lateral fibular plate. Multiple distal locking screws were placed and several screws were placed in the shaft. Good anatomic reduction of the fibula was achieved. X-ray confirmed anatomic reduction of the fibula. The screws were checked tightened and noted to be appropriately positioned. The mortise was noted to be reduced. Next a medial incision was made dissection was carried out through skin and subcutaneous tissues. A gelpi retractor was placed. Skin incision was made dissection was carried out through skin and subcutaneous tissues. The joint was meticulously irrigated with normal saline. The medial malleolus was meticulously reduced. It was held with 2 bone reduction clamps. Two screws were placed in the medial malleolus. Anatomic reduction and stable fixation was achieved. X-rays confirmed reduction of the mortise medial malleolus lateral malleolus and acceptable screw and plate position. The wound was meticulously irrigated with normal saline. Marcaine was carefully injected. The wound was closed with interrupted Vicryl and skin trisha. The wound was dressed sterilely. The patient is placed in a bulky Jacome dressing. Postoperative plan return to clinic in 10 days x-rays out of splint AP lateral mortise of the ankle. Complications: none Post-operative Condition: stable Disposition: Acute Care Plan for aftercare: Elevate right ankle on multiple pillows. Okay to be partial weight-bearing on the right lower extremity for transfers. May need rehab due to multiple medical problems and prior history of severe left lower extremity injury. Follow-up with me or PA in 10-14 days.
--- NOTE | 2022-02-28 18:53 | SUR.PHASEI ---
Late entry: 183: This RN to assume care of pt. Block complete, pt tolerated well. Denies any distress. 184: Pt A&Ox4, VSS, dressing C/D\I, pt denies pain, able to move toes on right foot, but reporting notice some numbness, denies metallic taste, cap refill <2. Report called to receiving RN using SBAR with time allowed for questions. Pt transported to room, personal belongings remain in room, bedside handoff to receiving RN, left pt in room 209 in stable condition and in the care of receiving RN.
[2022-02-28] MEDS: LACTATED RINGERS 1,000 ML 125 ML IV (19:44)
[2022-02-28] MEDS: NORTRIPTYLINE 10 MG CAPSULE PO (21:09)
[2022-02-28] MEDS: ASPIRIN EC 81 MG TABLET PO (21:09)
[2022-02-28] MEDS: TRAZODONE 50 MG TABLET 300 MG PO (21:09)
[2022-02-28] MEDS: ATORVASTATIN 20 MG TABLET 80 MG PO (21:10)
[2022-03-01] VITALS (7 sets, daily range): BP systolic 123–165; BP diastolic 43–77; PULSE 71–93; RESP 16–18; TEMP 36.9–37.2; O2SAT 95–100
[2022-03-01] MEDS: CEFAZOLIN 2 GM IN 0.9 % NACL 100 ML IV ×2 (00:38→09:32)
[2022-03-01 07:01] LABS: Add Manual Diff / Slide Review NO; Basophils Absolute Auto 100 /uL (0-100); Basophils Percent Auto 0.6 % (0-2); Eosinophils Absolute Auto 0 /uL (0-450); Eosinophils Percent Auto 0.1 % (2-4); Hematocrit 38.5 % (41-53); Hemoglobin 13.7 g/dL (13.5-17.5); Lymphocytes Absolute Auto 500 /uL (1100-4500); Lymphocytes Percent Auto 5.6 % (25-40); Mean Corpuscular HGB Conc 35.6 % (30-36); Mean Corpuscular Hemoglobin 36.2 PG (26-34); Mean Corpuscular Volume 101.8 fL (80-100); Monocytes Absolute Auto 1000 /uL (0-900); Monocytes Percent Auto 10.9 % (3-14); Neutrophils Absolute Auto 7900 /uL (1500-7000); Neutrophils Percent Auto 82.8 % (50-75); Platelet Count 116 X10^3/uL (150-400); Red Blood Cell Count 3.79 X10^6/uL (4.5-5.9); Red Cell Distribution Width 14.8 % (11.6-14.8); White Blood Cell Count 9.6 X10^3/uL (4.5-11.0)
[2022-03-01 07:17] LABS: BUN Creatinine Ratio 19.8 (6-22); Blood Urea Nitrogen 16 mg/dL (9-20); Calcium 8.5 mg/dL (8.4-10.2); Carbon Dioxide 35 mmol/L (22-32); Chloride 97 mmol/L (98-107); Estimated Glomerular Filt Rate > 60 mL/min (>60); Glucose 202 mg/dL (80-110); HEMOLYSIS 24 (0-50); Potassium 3.8 mmol/L (3.4-5.1); Sodium 133 mmol/L (137-145)
--- NOTE | 2022-03-01 07:28 | P.PN_ITS ---
Subjective Subjective Date Patient Seen: 03/01/22 Time Patient Seen: 07:28 Interval history: Right foot and ankle pain is mild. Denies fever or chills. No nausea vomiting. States his right foot still feels a little numb. Exam Vital Signs (past 8 hours): - 03/01/22 04:37 Temperature 98.5 F Pulse Rate 82 Respiratory Rate 18 Blood Pressure 123/57 L Pulse Oximetry 98 Oxygen Flow Rate 2 Oxygen Delivery Method Nasal Cannula Oxygen Flow Rate 2 Narrative Exam Narrative: 71-year-old male resting comfortably in bed in no apparent distress. Splint is in place. Sensation grossly intact to light touch right lower extremity. Patient unable to wiggle his toes on the right. Good capillary refill. Toes are warm and dry. Const General: cooperative and comfortable Orientation: alert Objective Labs Result Diagrams: 03/01/22 06:40 03/01/22 06:40 Labs: Laboratory Results - last 24 hr 02/28/22 02/28/22 03/01/22 05:53 12:55 06:40 WBC 9.6 RBC 3.79 L Hgb 13.7 Hct 38.5 L MCV 101.8 H MCH 36.2 H MCHC 35.6 RDW 14.8 Plt Count 116 L Neut % (Auto) 82.8 H Lymph % (Auto) 5.6 L [place] % (Auto) 10.9 Eos % (Auto) 0.1 L Baso % (Auto) 0.6 Neut # (Auto) 7900 H Lymph # (Auto) 500 L [place] # (Auto) 1000 H Eos # (Auto) 0 Baso # (Auto) 100 PT 12.1 INR 1.1 APTT 31 Sodium Potassium Chloride Carbon Dioxide BUN Creatinine Estimated GFR BUN/Creatinine Ratio Glucose Calcium Total Bilirubin 1.2 Conjugated Bilirubin 0.0 Unconjugated Bilirubin 1.0 AST 60 H ALT 93 H Alkaline Phosphatase 64 Total Protein 6.5 Albumin 4.0 Globulin 2.5 Albumin/Globulin Ratio 1.6 03/01/22 06:40 WBC RBC Hgb Hct MCV MCH MCHC RDW Plt Count Neut % (Auto) Lymph % (Auto) [place] % (Auto) Eos % (Auto) Baso % (Auto) Neut # (Auto) Lymph # (Auto) [place] # (Auto) Eos # (Auto) Baso # (Auto) PT INR APTT Sodium 133 L Potassium 3.8 Chloride 97 L Carbon Dioxide 35 H BUN 16 Creatinine 0.81 Estimated GFR > 60 BUN/Creatinine Ratio 19.8 Glucose 202 H Calcium 8.5 Total Bilirubin Conjugated Bilirubin Unconjugated Bilirubin AST ALT Alkaline Phosphatase Total Protein Albumin Globulin Albumin/Globulin Ratio [facility] Medical History Alcohol abuse Alcohol use disorder Cerebral aneurysm Chronic pain Depression Essential tremor Hepatitis C Hyperlipidemia Hypertension Opioid dependence Osteomyelitis Suicide attempt by drug overdose Surgical History History of surgery for cerebral aneurysm History of surgery on extremity Family History Father Alcoholism Mother Alcoholism Social History household members: significant other Smoking Status: Former smoker alcohol intake: current Assessment & Plan Post-op Postoperative Procedures: Procedures Operation Date: 02/28/22 14:45 Actual Procedure Side Surgeon p ORIF Ankle Fracture Right Jimena Freitas MD Postoperative day: 1 Postoperative status: doing well Postoperative status narrative: Status post open reduction internal fixation right ankle bimalleolar fracture Postoperative plan narrative: Mobilize with physical therapy, partial weight-bearing on right lower extremity for transfers Elevate right ankle on multiple pillows Multimodal pain management Disposition to be determined due to multiple medical problems and prior history of severe left lower extremity injury Quality VTE Deep Vein Thrombosis/Pulmonary Embolism Present on Admission: No
--- NOTE | 2022-03-01 08:04 | DI.RAD.S_ITS ---
PROCEDURE: XR KNEE RT 1TO2V INDICATIONS: knee effusion TECHNIQUE: 3 views of the knee were acquired. COMPARISON: None. FINDINGS: Bones: No fractures or dislocations. Severe joint space narrowing at the medial compartment. Small osteophytes. No suspicious bony lesions. Soft tissues: Large suprapatellar joint effusion. No lipohemarthrosis appreciated. Chondrocalcinosis. No suspicious soft tissue calcifications. Arterial vascular calcifications. IMPRESSION: Large suprapatellar joint effusion. 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 Chondrocalcinosis. Dictated by: Lorenzo Nuñez M.D. on 03/01/2022 at 8:56 Approved by: Lorenzo Nuñez M.D. on 03/01/2022 at 8:58
[2022-03-01] MEDS: polyethylene glycoL 3350 17 GM POWD.PACK PO (09:26)
[2022-03-01] MEDS: hydroCHLOROthiazide 25 MG TABLET 12.5 MG PO (09:27)
[2022-03-01] MEDS: SERTRALINE 50 MG TABLET 100 MG PO (09:27)
[2022-03-01] MEDS: CHOLECALCIFEROL (VITAMIN D3) 1,000 UNIT TABLET 2000 UNIT PO (09:29)
[2022-03-01] MEDS: BUSPIRONE 5 MG TABLET 15 MG PO ×2 (09:29→22:06)
[2022-03-01] MEDS: ASPIRIN EC 81 MG TABLET PO ×2 (09:31→22:07)
[2022-03-01] MEDS: DOCUSATE 100 MG CAPSULE PO ×3 (09:31→22:08)
[2022-03-01] MEDS: carvediloL 3.125 MG TABLET 6.25 MG PO ×2 (09:31→22:08)
[2022-03-01] MEDS: MULTIVITAMIN 1 TABLET 1 TAB PO (09:31)
[2022-03-01] MEDS: lisinopriL 10 MG TABLET PO (09:31)
--- NOTE | 2022-03-01 10:09 | PT.IIE ---
Current Diagnoses Unspecified viral hepatitis C without hepatic coma (02/27/22) Alcohol abuse, uncomplicated (02/27/22) Opioid dependence, uncomplicated (02/27/22) Other chronic pain (02/27/22) Essential (primary) hypertension (02/27/22) Ataxia, unspecified (02/27/22) Other fracture of unspecified lower leg, initial encounter for closed fracture (02/27/22) Surgery Performed Operation Date: 02/28/22 14:45 Actual Procedures p ORIF Ankle Fracture(Right) - Jimena Freitas MD Surgical History (Last Reviewed 03/01/22 @ 07:30 by Nick Metcalf PA-C) History of surgery for cerebral aneurysm History of surgery on extremity Medical History (Last Reviewed 03/01/22 @ 07:30 by Nick Metcalf PA-C) Alcohol abuse Alcohol use disorder Cerebral aneurysm Chronic pain Depression Essential tremor Hepatitis C Hyperlipidemia Hypertension Opioid dependence Osteomyelitis Suicide attempt by drug overdose Physical Therapy Inpatient Evaluation/Re-Eval M1 PT/OT-IP Prior Functional Status Start: 03/01/22 12:39 Freq: NEEDED Status: Active Protocol: Document 03/01/22 10:09 AB (Rec: 03/01/22 13:18 AB [id number]) Medical Review Prior Functional Status Medical History Reviewed Yes Communication able to make needs known Mobility and Gait pt stated that he is modified independent with all mobilities and ambulation without AD indoors but uses SPC for outdoor mobility but occasionally without AD Social History Household Members significant other Living Arrangements Mobile home Number of Stairs To Enter/Railing? lives on an RV with 3 steps to enter R rail to enter; has 2 steps L rail to get to living area Home Environment Standard Height Toilet,Walk in Shower,Built-In Shower Seat Home Equipment Four Wheel Walker,Straight Cane,Hand Held Shower Additional Social History Comment pt stated that a walke will not fit inside the RV M2 PT-IP Current Condition Start: 03/01/22 12:39 Freq: NEEDED Status: Active Protocol: Document 03/01/22 10:09 AB (Rec: 03/01/22 13:18 AB [id number]) Physical Therapy Current Condition Current Condition Evaluation Date 03/01/22 Treatment Diagnosis L ankle fx; difficulty in walking Onset Date 02/27/22 M3 PT-IP Subjective Start: 03/01/22 12:39 Freq: NEEDED Status: Active Protocol: Document 03/01/22 10:09 AB (Rec: 03/01/22 13:18 AB [id number]) Subjective Physical Therapy Visit Type Type Initial Evaluation Visit Start Time 10:09 Visit Stop Time 10:59 Total Visit Minutes 50 Number of LAST REMODELER REPAIRER Visits 0 Physical Therapy Visit Comments Patient Comments agreeable to do PT M4 PT-IP Mobility and Gait Start: 03/01/22 12:39 Freq: NEEDED Status: Active Protocol: Document 03/01/22 10:09 AB (Rec: 03/01/22 13:18 AB [id number]) PT-Bed Mobility Assessment Supine to Sit Supine to Sit Minimal Assistance PT-Transfer Assessment Sit to and From Stand Sit to and from Stand Maximum Assistance,Total Assistance,2 Person Assistance ,Use of Upper Extremities Equipment Transfer Assistive Device Gait Belt,Front Wheeled Walker Orthotic/Prosthetic Devices or Brace: Yes Transfers Transfer Destination Chair Transfer Technique Stand Step Pivot Transfer Ability Level of Assist Maximum Assistance,2 Person Assistance,Use of Upper Extremities Comments Mobility Comments pt educated on weight bearing restriction on RLE. Talked with Dr. Freitas and clarified weight bearing on R ankle to be 10# max. pt completed supine to sit min A and max cues. able to sit on EOB SBA. completed sit to stand max A x 2 and max cues. required assist to maintain weight bearing restriction. unable to transfer. pt sat back on EOB. attempted to transfer again. sit to stand x 2 attempts max A x 2 and max cues. stand pivot transfer max A x 2 and max cues. pt reached for chair midway with transfer and let go of FWW and requiring total A x 2 for safety to complete transfer. pt agreed to sit up on the chair and positioned. call light and table placed within reach. Gait Assessment Comments Gait Comments unable PT-Balance Assessment Sitting Balance and Reactions Static Sitting Balance Ability Good Dynamic Sitting Balance Ability Fair Standing Balance and Reactions Static Standing Balance Ability Poor Dynamic Standing Balance Ability Poor Device Used FWW M5 PT-IP Objective Assessments Start: 03/01/22 12:39 Freq: NEEDED Status: Active Protocol: Document 03/01/22 10:09 AB (Rec: 03/01/22 13:18 AB [id number]) Orientation Orientation/Cognition Level of Alertness Alert Orientation Name,Place,Situation Language Function Ability No Deficits Noted Safety Awareness Decreased Safety Awareness Memory Description Short Term Impaired Gross Range of Motion Lower Extremity ROM Impairments R ankle on soft cast: NT Strength Lower Extremity Strength Assessment Bilaterally Impaired Comments Strength Comments LLE: 3+/5 RLE: 3+/5 Coordination Assessment Gross Coordination Gross Coordination WNL Sensation Assessment Sensation Gross Sensation Right LE Impaired Sensation Description Numbness Comments Sensation Comments R foot numbness Muscle Tone Muscle Tone WNL Yes M6 PT-IP Treatment Start: 03/01/22 12:39 Freq: NEEDED Status: Active Protocol: Document 03/01/22 10:09 AB (Rec: 03/01/22 13:18 AB [id number]) Physical Therapy Treatment Education Education Provided Weight Bearing Status,Safety M7 PT-IP Assessment and Plan Start: 03/01/22 12:39 Freq: NEEDED Status: Active Protocol: Document 03/01/22 10:09 AB (Rec: 03/01/22 13:18 AB [id number]) PT Summary Assessment and Plan Potential Rehabilitation Potential Fair Status of Condition at Evaluation Evolving Summary Impairments Pain,ROM,Strength,Balance, Coordination,Sensation,Tone, Cognition,Bed Mobility, Transfers,Gait,Activity Tolerance Assessment Summary pt requiring max A x 2 to total A x 2 with transfers using FWW and unable to ambulate. pt will require SNF rehab to improve mobility independence. Goals Bed Mobility Goal Standby Assistance Transfer Goal Standby Assistance Gait Goal Minimal Assistance Gait Distance 25 Days to Meet Goals 10 Frequency of Treatment Frequency Of Treatment Twice a Day Treatment Plan Physical Therapy Treatment Plan Bed Mobility Training,Transfer Training,Gait Training, Therapeutic Exercise,Balance Retraining,Post Op Education, Discharge Planning,Hot or Cold Pack,Neuromuscular Re-ed, Coordination Retraining,Manual Therapy Weight Bearing Status Weight Bearing Status Touch Down Weight Bearing Allowed Weight Bearing Amount (enter % RLE: per Dr. Freitas: 10# PWB or #) (%) RLE Recommendations To Nursing Amount of Assist Needed Mechanical Lift Discharge Recommendations PT Discharge Recommendations SNF Rehab Transportation Needs at Discharge Wheelchair/Cabulance
--- NOTE | 2022-03-01 13:10 | P.PN_ITS ---
Subjective Subjective Date Patient Seen: 03/01/22 Interval history: Ayan Ball is a 71-year-old male with a medical history of ETOH abuse, cerebral aneurysm S/P coils ([id number]), essential tremor, chronic pain, depression, hep C, opiate dependence, osteomyelitis, prior Suicide overdose with oral morphine, hypertension, and hyperlipidemia admitted with a R ankle fracture now s/p surgical intervention. Pain is mild today, feels well without chest pain, nausea, vomiting. Exam Vital Signs (past 8 hours): - 03/01/22 08:00 03/01/22 10:47 03/01/22 11:53 Temperature 98.4 F 99.0 F Pulse Rate 93 H 85 Respiratory Rate 18 16 Blood Pressure 165/77 H Pulse Oximetry 100 97 98 Oxygen Delivery Method Room Air Oxygen Flow Rate 2 Oxygen Delivery Method Room Air Oxygen Flow Rate 2 Narrative Exam Narrative: General:? Patient is well developed and well nourished, uncomfortable due to pain. HEENT:? Normocephalic, atraumatic, extraocular muscles intact, oral pharynx is clear and mucous membranes are moist. Neck: supple and symmetric, trachea is midline, no cervical adenopathy. Negative for JVD Chest:? Normal AP diameter and contour without kyphoscoliosis, no tachypnea, equal chest rise bilaterally. Lungs:? CTA b/l no wheezing rhonchi or rales. Cardio:?RRR no m/r/g. Abdomen: S NT ND. No CVA tenderness. Musculoskeletal:? Muscle strength and tone are equal within normal limits, no deformity. Extremities: No edema or joint effusions. No cyanosis or clubbing. Skin:? Pale,? Warm to touch,dry and intact without rashes, ulcerations or petechiae.? Neuro:? Alert and orientated x3,? sensation to touch intact in all extremities Psych:? Patient has a well-kept appearance, appropriate affect, mental status attitude thought context and judgment are appropriate for age. Objective Labs Result Diagrams: 03/01/22 06:40 03/01/22 06:40 Labs: Laboratory Results - last 24 hr 02/28/22 03/01/22 03/01/22 12:55 06:40 06:40 WBC 9.6 RBC 3.79 L Hgb 13.7 Hct 38.5 L MCV 101.8 H MCH 36.2 H MCHC 35.6 RDW 14.8 Plt Count 116 L Neut % (Auto) 82.8 H Lymph % (Auto) 5.6 L [place] % (Auto) 10.9 Eos % (Auto) 0.1 L Baso % (Auto) 0.6 Neut # (Auto) 7900 H Lymph # (Auto) 500 L [place] # (Auto) 1000 H Eos # (Auto) 0 Baso # (Auto) 100 PT 12.1 INR 1.1 APTT 31 Sodium 133 L Potassium 3.8 Chloride 97 L Carbon Dioxide 35 H BUN 16 Creatinine 0.81 Estimated GFR > 60 BUN/Creatinine Ratio 19.8 Glucose 202 H Calcium 8.5 PFSH Medical History Alcohol abuse Alcohol use disorder Cerebral aneurysm Chronic pain Depression Essential tremor Hepatitis C Hyperlipidemia Hypertension Opioid dependence Osteomyelitis Suicide attempt by drug overdose Surgical History History of surgery for cerebral aneurysm History of surgery on extremity Family History Father Alcoholism Mother Alcoholism Social History household members: significant other Smoking Status: Former smoker alcohol intake: current Assessment & Plan Assessment & Plan narrative: #R distal tibia/fibula bimalleolar fracture POD#1 open reduction internal fixation right ankle bimalleolar fracture continue PT/OT continue pain control for now restart suboxone #chronic opiate dependence, alcohol abuse - history of withdrawal admissions here, no signs of withdrawal at this time - pain control with opiates for now - resume suboxone once off opiates. #htn continue home meds prn hydralazine #hld continue home lipitor 80 #insomnia continue home amitriptyline and trazodone 300 #hx of prior cerebral aneurysm s/p multiple coils stable, some mild cognitive processing issues noted in the past but may have been in setting of EtOH withdrawal. Dispo : Admitted to hospitalist service, orthopedics consulted DVT ppx: SCDs code: DNR MDM: Vera [phone] Time Spent With Patient Critical Care time: I spent a total of [] minutes of critical care time on this patient's care today; this time is exclusive of procedural time. Quality VTE Deep Vein Thrombosis/Pulmonary Embolism Present on Admission: No
--- NOTE | 2022-03-01 14:32 | PT.IPTN ---
Current Diagnoses Unspecified viral hepatitis C without hepatic coma (02/27/22) Alcohol abuse, uncomplicated (02/27/22) Opioid dependence, uncomplicated (02/27/22) Other chronic pain (02/27/22) Essential (primary) hypertension (02/27/22) Ataxia, unspecified (02/27/22) Other fracture of unspecified lower leg, initial encounter for closed fracture (02/27/22) Surgery Performed Operation Date: 02/28/22 14:45 Actual Procedures p ORIF Ankle Fracture(Right) - Jimena Freitas MD Physical Therapy Treatment Note M2 PT-IP Current Condition Start: 03/01/22 12:39 Freq: NEEDED Status: Active Protocol: Document 03/01/22 10:09 AB (Rec: 03/01/22 13:18 AB [id number]) Physical Therapy Current Condition Current Condition Evaluation Date 03/01/22 Treatment Diagnosis L ankle fx; difficulty in walking Onset Date 02/27/22 M3 PT-IP Subjective Start: 03/01/22 12:39 Freq: NEEDED Status: Active Protocol: Document 03/01/22 14:09 KS (Rec: 03/01/22 15:17 KS [id number]) Subjective Physical Therapy Visit Type Type Treatment Note Visit Start Time 14:09 Visit Stop Time 14:32 Total Visit Minutes 23 Number of BOTTLE ASSEMBLER Visits 1 Physical Therapy Visit Comments Patient Comments agreeable to do PT, wants to get back into bed. M4 PT-IP Mobility and Gait Start: 03/01/22 12:39 Freq: NEEDED Status: Active Protocol: Document 03/01/22 14:09 KS (Rec: 03/01/22 15:17 KS [id number]) PT-Bed Mobility Assessment Sit to Supine Sit to Supine Maximum Assistance,1 Person Assistance PT-Transfer Assessment Sit to and From Stand Sit to and from Stand Maximum Assistance,Total Assistance,2 Person Assistance ,Use of Upper Extremities Equipment Transfer Assistive Device Gait Belt,Front Wheeled Walker Orthotic/Prosthetic Devices or Brace: Yes Transfers Transfer Destination Bed Transfer Technique Stand Step Pivot Transfer Ability Level of Assist Maximum Assistance,2 Person Assistance,Use of Upper Extremities Comments Mobility Comments Pt in chair upon arrival and wanting to get back to bed. Aware of WB restrictions. Pt able to complete sit<>stand w/ Max A and FWW w/ my foot behind his heel to prevent WB, however became very tremulous and could not maintain standing balance. Attempted second time and pt unable to transfer RUE from arm rest of chair to FWW and pt sat back down. RN arrived for assistance, pt able to sit<> Stand w/ FWW Max A x2 and perform stand step pivot from chair to bed w/ FWW max A x2 w / max cues and FWW management. Pt mostly maintained NWB until end of transfer when sitting. Max Afor LE elevation into bed. Pt verbalized fatigue and left in bed w/ all needs in reach. Due to WB status, high level of assist, and high fall risk pt will need tristan lift w/ nursing staff. Gait Assessment Comments Gait Comments unable PT-Balance Assessment Sitting Balance and Reactions Static Sitting Balance Ability Good Dynamic Sitting Balance Ability Fair Standing Balance and Reactions Static Standing Balance Ability Poor Dynamic Standing Balance Ability Poor Device Used FWW M5 PT-IP Objective Assessments Start: 03/01/22 12:39 Freq: NEEDED Status: Active Protocol: Document 03/01/22 10:09 AB (Rec: 03/01/22 13:18 AB [id number]) Orientation Orientation/Cognition Level of Alertness Alert Orientation Name,Place,Situation Language Function Ability No Deficits Noted Safety Awareness Decreased Safety Awareness Memory Description Short Term Impaired Gross Range of Motion Lower Extremity ROM Impairments R ankle on soft cast: NT Strength Lower Extremity Strength Assessment Bilaterally Impaired Comments Strength Comments LLE: 3+/5 RLE: 3+/5 Coordination Assessment Gross Coordination Gross Coordination WNL Sensation Assessment Sensation Gross Sensation Right LE Impaired Sensation Description Numbness Comments Sensation Comments R foot numbness Muscle Tone Muscle Tone WNL Yes M6 PT-IP Treatment Start: 03/01/22 12:39 Freq: NEEDED Status: Active Protocol: Document 03/01/22 14:09 KS (Rec: 03/01/22 15:17 KS [id number]) Physical Therapy Treatment Education Education Provided Weight Bearing Status,Safety M7 PT-IP Assessment and Plan Start: 03/01/22 12:39 Freq: NEEDED Status: Active Protocol: Document 03/01/22 14:09 KS (Rec: 03/01/22 15:17 KS [id number]) PT Summary Assessment and Plan Potential Rehabilitation Potential Fair Summary Impairments Pain,ROM,Strength,Balance, Coordination,Sensation,Tone, Cognition,Bed Mobility, Transfers,Gait,Activity Tolerance Progress Towards Goals Slow Progress due to Pain,Slow Progress due to Medical Issues,Slow Progress due to Activity Tolerance Assessment Summary Pt continues to require Max A x2 for sit<>stand and stand step pivot transfers w/ FWW. He is very weak in LLE and BUE and needs max A for FWW mgmt also. His RLE was stronger at baseline and now is 10# max for WB which he has difficulty maintaining. He will require SNF to improve strength and functional mobility. Goals Bed Mobility Goal Standby Assistance Transfer Goal Standby Assistance Gait Goal Minimal Assistance Gait Distance 25 Days to Meet Goals 10 Frequency of Treatment Frequency Of Treatment Twice a Day Treatment Plan Physical Therapy Treatment Plan Bed Mobility Training,Transfer Training,Gait Training, Therapeutic Exercise,Balance Retraining,Post Op Education, Discharge Planning,Hot or Cold Pack,Neuromuscular Re-ed, Coordination Retraining,Manual Therapy Weight Bearing Status Weight Bearing Status Touch Down Weight Bearing Allowed Weight Bearing Amount (enter % RLE: per Dr. Freitas: 10# PWB or #) (%) RLE Recommendations To Nursing Amount of Assist Needed Mechanical Lift Discharge Recommendations PT Discharge Recommendations SNF Rehab Transportation Needs at Discharge Wheelchair/Cabulance
--- NOTE | 2022-03-01 14:44 | CM.DPC ---
DCP SNF Planning: Per PT, recommending SNF rehab as pt 1-2 person assist and a tristan for nursing staff. SW met bedside with pt and explained role and pt confirms he worked with PT today and realizing how much assist he needs and in agreement with SNF. SW provided the SNF Choice list to review and currently preference is [facility] to stay in [place] but SW discussed that might be based on his insurance. Pt showing as [facility] but pt states he has Medicare, maybe a managed Medicare and Sig Other can bring in his insurance card tomorrow if needed. Pt acknowledges understanding and agreeable for multiple SNF referrals in [facility]. SW requested AD Counselors to confirm pt's Medicare insurance and AD Counselor kindly confirmed [facility] Medicare #[id number]. DARCI confirmed on [facility] website that pt fully COVID vaccinated with 2 boosters. DARCI called [facility] admissions and left msg requesting review of pt to determine if they can accept. DARCI also faxed new referral to [facility] and Gissell Mansfield for review. PASRR done. Plan: DARCI to follow closely for SNF reviews to determine who can accept and start on [employer] MCR auth for SNF. Tameka López, COMMUNITY EDUCATION SPECIALIST
[2022-03-01] MEDS: HYDROMORPHONE 2 MG INJ IV ×3 (18:16→22:06)
--- NOTE | 2022-03-01 19:55 | PC.NURSE ---
RLE splinted, sreedhar wrapped. elevated on pillow, ice pack on top of it. patient states he has no pain this AM, + CSM checks, agreeable to get OOB this afternoon w/ PT assistance. tolerated OOB to chair for several hours, and RN and PT assisted patient back to bed w/ mod/max assist
[2022-03-01] MEDS: TRAZODONE 50 MG TABLET 300 MG PO (22:07)
[2022-03-01] MEDS: NORTRIPTYLINE 10 MG CAPSULE PO (22:08)
[2022-03-01] MEDS: ATORVASTATIN 20 MG TABLET 80 MG PO (22:08)
[2022-03-02] VITALS: BP 139/62; PULSE 96; RESP 18; TEMP 37.5; O2SAT 94
[2022-03-02] MEDS: HYDROMORPHONE 2 MG INJ IV ×5 (00:21→19:33)
[2022-03-02] MEDS: MORPHINE 4 MG/ML INJ IV (02:24)
[2022-03-02 06:25] LABS: Add Manual Diff / Slide Review NO; Basophils Absolute Auto 0 /uL (0-100); Basophils Percent Auto 0.2 % (0-2); Eosinophils Absolute Auto 0 /uL (0-450); Eosinophils Percent Auto 0.6 % (2-4); Hematocrit 34.5 % (41-53); Hemoglobin 12.2 g/dL (13.5-17.5); Lymphocytes Absolute Auto 1100 /uL (1100-4500); Lymphocytes Percent Auto 14.7 % (25-40); Mean Corpuscular HGB Conc 35.5 % (30-36); Mean Corpuscular Hemoglobin 36.2 PG (26-34); Mean Corpuscular Volume 102.1 fL (80-100); Monocytes Absolute Auto 1200 /uL (0-900); Neutrophils Absolute Auto 5100 /uL (1500-7000); Neutrophils Percent Auto 68.5 % (50-75); Platelet Count 143 X10^3/uL (150-400); Red Blood Cell Count 3.38 X10^6/uL (4.5-5.9); Red Cell Distribution Width 14.7 % (11.6-14.8); White Blood Cell Count 7.4 X10^3/uL (4.5-11.0)
--- NOTE | 2022-03-02 07:52 | PM.PNPO.1 ---
Subjective Subjective Date Patient Seen: 03/02/22 Time Patient Seen: 07:52 Interval history: Pain is [id number]. Denies fever or chills. No nausea/ vomiting. Exam Vital Signs (past 8 hours): - 03/02/22 00:00 Temperature 99.5 F Pulse Rate 96 H Respiratory Rate 18 Blood Pressure 139/62 Pulse Oximetry 94 Oxygen Flow Rate 0 Oxygen Delivery Method Room Air Oxygen Flow Rate 0 Narrative Exam Narrative: [age] year male resting comfortably in bed in no apparent distress. Right lower extremity splint is in place. Clean dry and intact. Motor functions intact distal right lower extremity. Sensation grossly intact to light touch. Toes are warm and dry. Const General: cooperative and comfortable Orientation: alert Objective Labs Result Diagrams: 03/02/22 05:44 03/01/22 06:40 Labs: Laboratory Results - last 24 hr 03/02/22 05:44 WBC 7.4 RBC 3.38 L Hgb 12.2 L Hct 34.5 L MCV 102.1 H MCH 36.2 H MCHC 35.5 RDW 14.7 Plt Count 143 L Neut % (Auto) 68.5 Lymph % (Auto) 14.7 L [place] % (Auto) 16.0 H Eos % (Auto) 0.6 L Baso % (Auto) 0.2 Neut # (Auto) 5100 Lymph # (Auto) 1100 [place] # (Auto) 1200 H Eos # (Auto) 0 Baso # (Auto) 0 PFSH Medical History Alcohol abuse Alcohol use disorder Cerebral aneurysm Chronic pain Depression Essential tremor Hepatitis C Hyperlipidemia Hypertension Opioid dependence Osteomyelitis Suicide attempt by drug overdose Surgical History History of surgery for cerebral aneurysm History of surgery on extremity Family History Father Alcoholism Mother Alcoholism Social History household members: significant other Smoking Status: Former smoker alcohol intake: current Assessment & Plan Post-op Postoperative Procedures: Procedures Operation Date: 02/28/22 14:45 Actual Procedure Side Surgeon p ORIF Ankle Fracture Right Jimena Freitas MD Postoperative day: 2 Postoperative status narrative: Stable status post ORIF right ankle t Postoperative plan narrative: Status post open reduction internal fixation right ankle bimalleolar fracture Postoperative plan narrative: Mobilize with physical therapy, partial weight-bearing on right lower extremity for transfers Elevate right ankle on multiple pillows Multimodal pain management Disposition to be determined due to multiple medical problems and prior history of severe left lower extremity injury Quality VTE Deep Vein Thrombosis/Pulmonary Embolism Present on Admission: No
[2022-03-02] MEDS: MULTIVITAMIN 1 TABLET 1 TAB PO (07:59)
[2022-03-02] MEDS: polyethylene glycoL 3350 17 GM POWD.PACK PO (07:59)
[2022-03-02] MEDS: ASPIRIN EC 81 MG TABLET PO ×2 (07:59→20:56)
[2022-03-02] MEDS: hydroCHLOROthiazide 25 MG TABLET 12.5 MG PO (08:00)
[2022-03-02] MEDS: DOCUSATE 100 MG CAPSULE PO ×2 (08:00→20:56)
[2022-03-02] MEDS: OXYCODONE IR 5 MG TABLET PO (08:00)
[2022-03-02] MEDS: CHOLECALCIFEROL (VITAMIN D3) 1,000 UNIT TABLET 2000 UNIT PO (08:01)
[2022-03-02] MEDS: lisinopriL 10 MG TABLET PO (08:01)
[2022-03-02] MEDS: SERTRALINE 50 MG TABLET 100 MG PO (08:01)
[2022-03-02] MEDS: BUSPIRONE 5 MG TABLET 15 MG PO ×2 (08:01→20:55)
[2022-03-02] MEDS: carvediloL 3.125 MG TABLET 6.25 MG PO ×2 (08:01→20:55)
[2022-03-02 11:01] VITALS: BP 138/66; PULSE 72; RESP 14; TEMP 36.7; O2SAT 95
--- NOTE | 2022-03-02 11:26 | PT.IPTN ---
Current Diagnoses Unspecified viral hepatitis C without hepatic coma (02/27/22) Alcohol abuse, uncomplicated (02/27/22) Opioid dependence, uncomplicated (02/27/22) Other chronic pain (02/27/22) Essential (primary) hypertension (02/27/22) Ataxia, unspecified (02/27/22) Other fracture of unspecified lower leg, initial encounter for closed fracture (02/27/22) Surgery Performed Operation Date: 02/28/22 14:45 Actual Procedures p ORIF Ankle Fracture(Right) - Jimena Freitas MD Physical Therapy Treatment Note M2 PT-IP Current Condition Start: 03/01/22 12:39 Freq: NEEDED Status: Active Protocol: Document 03/01/22 10:09 AB (Rec: 03/01/22 13:18 AB [id number]) Physical Therapy Current Condition Current Condition Evaluation Date 03/01/22 Treatment Diagnosis L ankle fx; difficulty in walking Onset Date 02/27/22 M3 PT-IP Subjective Start: 03/01/22 12:39 Freq: NEEDED Status: Active Protocol: Document 03/02/22 11:02 KS (Rec: 03/02/22 12:39 KS [id number]) Subjective Physical Therapy Visit Type Type Treatment Note Visit Start Time 11:02 Visit Stop Time 11:26 Total Visit Minutes 24 Number of EDUCATION SITE MANAGER Visits 2 Physical Therapy Visit Comments Patient Comments Agreeable to transfer to chair . PT aide present for assistance. M4 PT-IP Mobility and Gait Start: 03/01/22 12:39 Freq: NEEDED Status: Active Protocol: Document 03/02/22 11:02 KS (Rec: 03/02/22 12:39 KS [id number]) PT-Bed Mobility Assessment Supine to Sit Supine to Sit Contact Guard Assistance, Minimal Assistance,1 Person Assistance,Head of Bed Elevated,Bedrails Scooting Scooting to Edge of Bed Contact Guard Assistance PT-Transfer Assessment Sit to and From Stand Sit to and from Stand Maximum Assistance,2 Person Assistance,Use of Upper Extremities Equipment Transfer Assistive Device Gait Belt,Front Wheeled Walker Orthotic/Prosthetic Devices or Brace: Yes Transfers Transfer Destination Chair Transfer Technique Stand Step Pivot Transfer Ability Level of Assist Maximum Assistance,2 Person Assistance,Use of Upper Extremities Comments Mobility Comments Pt in bed upon arrival, able to sup<>sit and scoot EOB mostly CGA but w/ increased time. PT aide provided 2nd person assist. Max A x2 and cues for sit<>Stand. Pt able to maintain standing balance w / TTWB on RLE. Pt began stand step pivot to chair and hair LOB grasping for bed rail/ letting go of FWW but was able to recover w/ Max A x2 and cues and complete transfer to chair. Pt refused further mobility and left in chair w/ all needs in reach. Gait Assessment Comments Gait Comments unable PT-Balance Assessment Sitting Balance and Reactions Static Sitting Balance Ability Good Dynamic Sitting Balance Ability Fair Standing Balance and Reactions Static Standing Balance Ability Poor Dynamic Standing Balance Ability Poor Device Used FWW M5 PT-IP Objective Assessments Start: 03/01/22 12:39 Freq: NEEDED Status: Active Protocol: Document 03/01/22 10:09 AB (Rec: 03/01/22 13:18 AB [id number]) Orientation Orientation/Cognition Level of Alertness Alert Orientation Name,Place,Situation Language Function Ability No Deficits Noted Safety Awareness Decreased Safety Awareness Memory Description Short Term Impaired Gross Range of Motion Lower Extremity ROM Impairments R ankle on soft cast: NT Strength Lower Extremity Strength Assessment Bilaterally Impaired Comments Strength Comments LLE: 3+/5 RLE: 3+/5 Coordination Assessment Gross Coordination Gross Coordination WNL Sensation Assessment Sensation Gross Sensation Right LE Impaired Sensation Description Numbness Comments Sensation Comments R foot numbness Muscle Tone Muscle Tone WNL Yes M6 PT-IP Treatment Start: 03/01/22 12:39 Freq: NEEDED Status: Active Protocol: Document 03/02/22 11:02 KS (Rec: 03/02/22 12:39 KS [id number]) Physical Therapy Treatment Exercises Exercises Straight Leg Raises Education Education Provided Weight Bearing Status,Safety M7 PT-IP Assessment and Plan Start: 03/01/22 12:39 Freq: NEEDED Status: Active Protocol: Document 03/02/22 11:02 KS (Rec: 03/02/22 12:39 KS [id number]) PT Summary Assessment and Plan Potential Rehabilitation Potential Fair Summary Impairments Pain,ROM,Strength,Balance, Coordination,Sensation,Tone, Cognition,Bed Mobility, Transfers,Gait,Activity Tolerance Progress Towards Goals Slow Progress due to Pain,Slow Progress due to Medical Issues,Slow Progress due to Activity Tolerance Assessment Summary Pt showed some improvement w/ bed mobility, but still required Max A x2 for stand step pivot to chair. He had LOB requiring Max A x2 to recover and needs FWW mgmt as well. Pt very fearful of falling and shaky w/ standing. He is high fall risk and will require SNF to improve functional mobility and strength. Goals Bed Mobility Goal Standby Assistance Transfer Goal Standby Assistance Gait Goal Minimal Assistance Gait Distance 25 Days to Meet Goals 10 Frequency of Treatment Frequency Of Treatment Twice a Day Treatment Plan Physical Therapy Treatment Plan Bed Mobility Training,Transfer Training,Gait Training, Therapeutic Exercise,Balance Retraining,Post Op Education, Discharge Planning,Hot or Cold Pack,Neuromuscular Re-ed, Coordination Retraining,Manual Therapy Weight Bearing Status Weight Bearing Status Touch Down Weight Bearing Allowed Weight Bearing Amount (enter % RLE: per Dr. Freitas: 10# PWB or #) (%) RLE Recommendations To Nursing Amount of Assist Needed Mechanical Lift Discharge Recommendations PT Discharge Recommendations SNF Rehab Transportation Needs at Discharge Wheelchair/Cabulance
[2022-03-02] MEDS: SODIUM CHLORIDE 0.9% FLUSH 10 ML IV ×3 (12:55→20:56)
--- NOTE | 2022-03-02 13:31 | CM.DPC ---
Addendum entered by YOCASTA Apodaca 03/02/22 15:41: ADD: SW called following [facility] SNF's inquiring about referral faxed: Maye: left msg [facility]- will review pt, not contracted with [employer] but would be willing to do one time auth if they accept [facility]- left msg [facility]- left msg [facility]- no beds until next 03/08/22. BF Addendum entered by YOCASTA Apodaca 03/02/22 14:51: ADD: [facility] full. [facility] may have openings on Monday but have not faxed yet. Rebeca kindly faxing referral to all [facility] SNFs today. [facility] called and left msg on admissions phone. Plan: SW to follow up with [facility] and all [place] SNF's tomorrow. BF Original Note: DCP Ongoing SNF planning: Per MD, pt is medically stable to d/c once SNF secured. SW received a call from [facility] and they decline pt at this time. Per admissions at [facility], confirmed they received the fax and will review today to determine if they can accept and start auth. SW left msg for [facility] inquiring about their review. SW called [facility] and no beds for a few days. [facility] only accepting their halfway care patients right now at SNF. SW left additional msgs with [facility] and [facility] to determine if either can accept. Plan: SW to follow closely for [facility] and [facility] return call towards hopeful SNF placement and [employer] [facility] auth. YOCASTA Apodaca
--- NOTE | 2022-03-02 13:46 | P.PN_ITS ---
Subjective Subjective Date Patient Seen: 03/02/22 Interval history: Ayan Ball is a 71-year-old male with a medical history of ETOH abuse, cerebral aneurysm S/P coils ([id number]), essential tremor, chronic pain, depression, hep C, opiate dependence, osteomyelitis, prior Suicide overdose with oral morphine, hypertension, and hyperlipidemia admitted with a R ankle fracture now s/p surgical intervention. Pain is mild today, feels well without chest pain, nausea, vomiting. He is requiring a lot of assistance after surgery, pending possible SNF. Exam Vital Signs (past 8 hours): - 03/02/22 11:01 Temperature 98.1 F Pulse Rate 72 Respiratory Rate 14 Blood Pressure 138/66 Pulse Oximetry 95 Oxygen Flow Rate 0 Oxygen Delivery Method Room Air Oxygen Flow Rate 0 Narrative Exam Narrative: General:? Patient is well developed and well nourished, uncomfortable due to pain. Lungs:? CTA b/l no wheezing rhonchi or rales. Cardio:?RRR no m/r/g. Abdomen: S NT ND. No CVA tenderness. Neuro:? Alert and orientated x3,? sensation to touch intact in all extremities Psych:? Patient has a well-kept appearance, appropriate affect, mental status attitude thought context and judgment are appropriate for age. Objective Labs Result Diagrams: 03/02/22 05:44 03/01/22 06:40 Labs: Laboratory Results - last 24 hr 03/02/22 05:44 WBC 7.4 RBC 3.38 L Hgb 12.2 L Hct 34.5 L MCV 102.1 H MCH 36.2 H MCHC 35.5 RDW 14.7 Plt Count 143 L Neut % (Auto) 68.5 Lymph % (Auto) 14.7 L [place] % (Auto) 16.0 H Eos % (Auto) 0.6 L Baso % (Auto) 0.2 Neut # (Auto) 5100 Lymph # (Auto) 1100 [place] # (Auto) 1200 H Eos # (Auto) 0 Baso # (Auto) 0 PFSH Medical History Alcohol abuse Alcohol use disorder Cerebral aneurysm Chronic pain Depression Essential tremor Hepatitis C Hyperlipidemia Hypertension Opioid dependence Osteomyelitis Suicide attempt by drug overdose Surgical History History of surgery for cerebral aneurysm History of surgery on extremity Family History Father Alcoholism Mother Alcoholism Social History household members: significant other Smoking Status: Former smoker alcohol intake: current Assessment & Plan Assessment & Plan narrative: #R distal tibia/fibula bimalleolar fracture POD#2 open reduction internal fixation right ankle bimalleolar fracture continue PT/OT continue pain control for now restart suboxone -probable SNF #chronic opiate dependence, alcohol abuse with alcohol withdrawal - history of withdrawal admissions here, no signs of withdrawal at this time but prior to going to the OR on 02/28 he had elevated CIWA scores and required benzodiazepines. The morning after the OR his symptoms had improved. - pain control with opiates for now - resume suboxone once off opiates. #htn continue home meds prn hydralazine #hld continue home lipitor 80 #insomnia continue home amitriptyline and trazodone 300 #hx of prior cerebral aneurysm s/p multiple coils stable, some mild cognitive processing issues noted in the past but may have been in setting of EtOH withdrawal. Dispo : Admitted to hospitalist service, orthopedics consulted DVT ppx: SCDs code: DNR MDM: Vera [phone] Time Spent With Patient Critical Care time: I spent a total of [] minutes of critical care time on this patient's care today; this time is exclusive of procedural time. Quality VTE Deep Vein Thrombosis/Pulmonary Embolism Present on Admission: No MIPS - Admit I confirm the patient?s Advance Care Plan is present, Code status is documented, Surrogate decision maker is in patient?s record [If Yes, STOP here]: Yes
--- NOTE | 2022-03-02 15:49 | PT.IPTN ---
Current Diagnoses Unspecified viral hepatitis C without hepatic coma (02/27/22) Alcohol abuse, uncomplicated (02/27/22) Opioid dependence, uncomplicated (02/27/22) Other chronic pain (02/27/22) Essential (primary) hypertension (02/27/22) Ataxia, unspecified (02/27/22) Other fracture of unspecified lower leg, initial encounter for closed fracture (02/27/22) Surgery Performed Operation Date: 02/28/22 14:45 Actual Procedures p ORIF Ankle Fracture(Right) - Jimena Freitas MD Physical Therapy Treatment Note M2 PT-IP Current Condition Start: 03/01/22 12:39 Freq: NEEDED Status: Active Protocol: Document 03/01/22 10:09 AB (Rec: 03/01/22 13:18 AB [id number]) Physical Therapy Current Condition Current Condition Evaluation Date 03/01/22 Treatment Diagnosis L ankle fx; difficulty in walking Onset Date 02/27/22 M3 PT-IP Subjective Start: 03/01/22 12:39 Freq: NEEDED Status: Active Protocol: Document 03/02/22 15:30 KS (Rec: 03/02/22 15:58 KS [id number]) Subjective Physical Therapy Visit Type Type Treatment Note Visit Start Time 15:30 Visit Stop Time 15:49 Total Visit Minutes 19 Number of PAPER BAGS SEWING MACHINE OPERATOR Visits 3 Physical Therapy Visit Comments Patient Comments Pt requesting to go back to bed. COMMERCIAL CENTER MANAGER present for assistance. M4 PT-IP Mobility and Gait Start: 03/01/22 12:39 Freq: NEEDED Status: Active Protocol: Document 03/02/22 15:30 KS (Rec: 03/02/22 15:58 KS [id number]) PT-Bed Mobility Assessment Sit to Supine Sit to Supine Moderate Assistance,2 Person Assistance,Bedrails Scooting Scooting to Edge of Bed Contact Guard Assistance PT-Transfer Assessment Sit to and From Stand Sit to and from Stand Maximum Assistance,2 Person Assistance,Use of Upper Extremities Equipment Transfer Assistive Device Gait Belt,Front Wheeled Walker Orthotic/Prosthetic Devices or Brace: Yes Transfers Transfer Destination Bed Transfer Technique Stand Step Pivot Transfer Ability Level of Assist Maximum Assistance,2 Person Assistance,Use of Upper Extremities Comments Mobility Comments Pt in chair upon arrival and requesting to get back into bed. COMMERCIAL CENTER MANAGER arrived for second person assist. Pt able to scoot EOC CGA. Required Max A x2 for sit<>Stand w/ FWW. Pt has difficulty maintaining balance and TTWB of RLE and needs reminder cues for upright posture, knee extension. Pt performed stand step pivot from chair to bed Max A x2 nd max cues w/ FWW mgmt. Pt continues to become very fearful when transferring and fatigues quickly. Refused further PT. Left in bed w/ alarm on and all needs in reach. Pt reports 7/10 pain following treatment, COMMERCIAL CENTER MANAGER states he will notify RN. Gait Assessment Comments Gait Comments unable PT-Balance Assessment Sitting Balance and Reactions Static Sitting Balance Ability Good Dynamic Sitting Balance Ability Fair Standing Balance and Reactions Static Standing Balance Ability Poor Dynamic Standing Balance Ability Poor Device Used FWW M5 PT-IP Objective Assessments Start: 03/01/22 12:39 Freq: NEEDED Status: Active Protocol: Document 03/01/22 10:09 AB (Rec: 03/01/22 13:18 AB [id number]) Orientation Orientation/Cognition Level of Alertness Alert Orientation Name,Place,Situation Language Function Ability No Deficits Noted Safety Awareness Decreased Safety Awareness Memory Description Short Term Impaired Gross Range of Motion Lower Extremity ROM Impairments R ankle on soft cast: NT Strength Lower Extremity Strength Assessment Bilaterally Impaired Comments Strength Comments LLE: 3+/5 RLE: 3+/5 Coordination Assessment Gross Coordination Gross Coordination WNL Sensation Assessment Sensation Gross Sensation Right LE Impaired Sensation Description Numbness Comments Sensation Comments R foot numbness Muscle Tone Muscle Tone WNL Yes M6 PT-IP Treatment Start: 03/01/22 12:39 Freq: NEEDED Status: Active Protocol: Document 03/02/22 15:30 KS (Rec: 03/02/22 15:58 KS [id number]) Physical Therapy Treatment Education Education Provided Weight Bearing Status,Safety M7 PT-IP Assessment and Plan Start: 03/01/22 12:39 Freq: NEEDED Status: Active Protocol: Document 03/02/22 15:30 KS (Rec: 03/02/22 15:58 KS [id number]) PT Summary Assessment and Plan Potential Rehabilitation Potential Fair Summary Impairments Pain,ROM,Strength,Balance, Coordination,Sensation,Tone, Cognition,Bed Mobility, Transfers,Gait,Activity Tolerance Progress Towards Goals Slow Progress due to Pain,Slow Progress due to Medical Issues,Slow Progress due to Activity Tolerance Assessment Summary Pt still only tolerated transfers and continues to require Max A x2 w/ max cues and FWW mgmt. Pt is very weak in LLE, BUE, and has trouble maintaining TTWB on RLE when transferring. He is limited by low activity tolerance, weakness, WB status, and fear. He is a high fall risk and due to high level of assist and cues will still be tristan transfer for nursing staff until more consistency/better balance is demonstrated w/ transfers. He will require SNF to improve strength, activity tolerance, and functional mobility independence. Goals Bed Mobility Goal Standby Assistance Transfer Goal Standby Assistance Gait Goal Minimal Assistance Gait Distance 25 Days to Meet Goals 10 Frequency of Treatment Frequency Of Treatment Twice a Day Treatment Plan Physical Therapy Treatment Plan Bed Mobility Training,Transfer Training,Gait Training, Therapeutic Exercise,Balance Retraining,Post Op Education, Discharge Planning,Hot or Cold Pack,Neuromuscular Re-ed, Coordination Retraining,Manual Therapy Weight Bearing Status Weight Bearing Status Touch Down Weight Bearing Allowed Weight Bearing Amount (enter % RLE: per Dr. Freitas: 10# PWB or #) (%) RLE Recommendations To Nursing Amount of Assist Needed Mechanical Lift Discharge Recommendations PT Discharge Recommendations SNF Rehab Transportation Needs at Discharge Wheelchair/Cabulance
[2022-03-02] MEDS: ATORVASTATIN 20 MG TABLET 80 MG PO (20:55)
[2022-03-02] MEDS: TRAZODONE 50 MG TABLET 300 MG PO (20:55)
[2022-03-02] MEDS: NORTRIPTYLINE 10 MG CAPSULE PO (20:56)
[2022-03-02 21:00] VITALS: BP 160/71; PULSE 80; RESP 18; TEMP 36.9; O2SAT 98
[2022-03-03] VITALS (9 sets, daily range): BP systolic 140–185; BP diastolic 64–79; PULSE 78–85; RESP 14–16; TEMP 36.3–37; O2SAT 94–97
[2022-03-03] MEDS: HYDROMORPHONE 2 MG INJ IV ×5 (01:03→16:33)
[2022-03-03] MEDS: hydroCHLOROthiazide 25 MG TABLET 12.5 MG PO (08:07)
[2022-03-03] MEDS: carvediloL 3.125 MG TABLET 6.25 MG PO ×2 (08:08→20:51)
[2022-03-03] MEDS: polyethylene glycoL 3350 17 GM POWD.PACK PO (08:09)
[2022-03-03] MEDS: SERTRALINE 50 MG TABLET 100 MG PO (08:09)
[2022-03-03] MEDS: CHOLECALCIFEROL (VITAMIN D3) 1,000 UNIT TABLET 2000 UNIT PO (08:10)
[2022-03-03] MEDS: BUSPIRONE 5 MG TABLET 15 MG PO ×2 (08:10→20:50)
[2022-03-03] MEDS: MULTIVITAMIN 1 TABLET 1 TAB PO (08:10)
[2022-03-03] MEDS: DOCUSATE 100 MG CAPSULE PO ×3 (08:10→20:53)
[2022-03-03] MEDS: lisinopriL 10 MG TABLET PO (08:10)
[2022-03-03] MEDS: ASPIRIN EC 81 MG TABLET PO ×2 (08:10→20:50)
--- NOTE | 2022-03-03 11:11 | PT.IPTN ---
Current Diagnoses Unspecified viral hepatitis C without hepatic coma (02/27/22) Alcohol abuse, uncomplicated (02/27/22) Opioid dependence, uncomplicated (02/27/22) Other chronic pain (02/27/22) Essential (primary) hypertension (02/27/22) Ataxia, unspecified (02/27/22) Other fracture of unspecified lower leg, initial encounter for closed fracture (02/27/22) Surgery Performed Operation Date: 02/28/22 14:45 Actual Procedures p ORIF Ankle Fracture(Right) - Jimena Freitas MD Physical Therapy Treatment Note M2 PT-IP Current Condition Start: 03/01/22 12:39 Freq: NEEDED Status: Active Protocol: Document 03/01/22 10:09 AB (Rec: 03/01/22 13:18 AB [id number]) Physical Therapy Current Condition Current Condition Evaluation Date 03/01/22 Treatment Diagnosis L ankle fx; difficulty in walking Onset Date 02/27/22 M3 PT-IP Subjective Start: 03/01/22 12:39 Freq: NEEDED Status: Active Protocol: Document 03/03/22 10:52 KS (Rec: 03/03/22 12:53 KS [id number]) Subjective Physical Therapy Visit Type Type Treatment Note Visit Start Time 10:52 Visit Stop Time 11:11 Total Visit Minutes 19 Number of CELL TUBER MACHINE Visits 4 Physical Therapy Visit Comments Patient Comments Pt agreeable to transfer to chair. M4 PT-IP Mobility and Gait Start: 03/01/22 12:39 Freq: NEEDED Status: Active Protocol: Document 03/03/22 10:52 KS (Rec: 03/03/22 12:53 KS [id number]) PT-Bed Mobility Assessment Supine to Sit Supine to Sit Contact Guard Assistance,1 Person Assistance,Head of Bed Elevated,Bedrails Scooting Scooting to Edge of Bed Contact Guard Assistance PT-Transfer Assessment Sit to and From Stand Sit to and from Stand Maximum Assistance,2 Person Assistance,Use of Upper Extremities Equipment Transfer Assistive Device Gait Belt,Front Wheeled Walker Orthotic/Prosthetic Devices or Brace: Yes Transfers Transfer Destination Chair Transfer Technique Stand Step Pivot Transfer Ability Level of Assist Moderate Assistance,Maximum Assistance,2 Person Assistance ,Use of Upper Extremities Comments Mobility Comments Pt in bed reporting 7/10 pain upon arrival. RN arrived and provided pain medication. Pt sup<>sit CGA w/ HOB highly inclined and CGA w/ increased time to scoot EOB. Pt reluctant to perform transfer to chair due to pain and fear of falling. EMERGENCY ROOM RN arrived for second person assist. Pt required Max A x2 and max cues for sit<>Stand w/ FWW. Once stable, pt performed stand step pivot from bed to chair w / Mod/Max Ax2. He continues to need step by step commands and FWW mgmt for transfers and fatigues very quickly. Pt continues to refuse further practice w/ sit<>Stands or transfers due to fatigue and pain. Left in chair w/ EMERGENCY ROOM RN in room. Gait Assessment Comments Gait Comments Still unable to progress gait d/t pts high level fo weakness , quick approach to fatigue, fear, and WB status. PT-Balance Assessment Sitting Balance and Reactions Static Sitting Balance Ability Good Dynamic Sitting Balance Ability Fair Standing Balance and Reactions Static Standing Balance Ability Poor Dynamic Standing Balance Ability Poor Device Used FWW M5 PT-IP Objective Assessments Start: 03/01/22 12:39 Freq: NEEDED Status: Active Protocol: Document 03/01/22 10:09 AB (Rec: 03/01/22 13:18 AB [id number]) Orientation Orientation/Cognition Level of Alertness Alert Orientation Name,Place,Situation Language Function Ability No Deficits Noted Safety Awareness Decreased Safety Awareness Memory Description Short Term Impaired Gross Range of Motion Lower Extremity ROM Impairments R ankle on soft cast: NT Strength Lower Extremity Strength Assessment Bilaterally Impaired Comments Strength Comments LLE: 3+/5 RLE: 3+/5 Coordination Assessment Gross Coordination Gross Coordination WNL Sensation Assessment Sensation Gross Sensation Right LE Impaired Sensation Description Numbness Comments Sensation Comments R foot numbness Muscle Tone Muscle Tone WNL Yes M6 PT-IP Treatment Start: 03/01/22 12:39 Freq: NEEDED Status: Active Protocol: Document 03/03/22 10:52 KS (Rec: 03/03/22 12:53 KS [id number]) Physical Therapy Treatment Education Education Provided Weight Bearing Status,Safety M7 PT-IP Assessment and Plan Start: 03/01/22 12:39 Freq: NEEDED Status: Active Protocol: Document 03/03/22 10:52 KS (Rec: 03/03/22 12:53 KS [id number]) PT Summary Assessment and Plan Potential Rehabilitation Potential Fair Summary Impairments Pain,ROM,Strength,Balance, Coordination,Sensation,Tone, Cognition,Bed Mobility, Transfers,Gait,Activity Tolerance Progress Towards Goals Slow Progress due to Pain,Slow Progress due to Medical Issues,Slow Progress due to Activity Tolerance Assessment Summary Pt showing some progress w/ bed mobility, but very little progress w/ transfers. He is very weak and w/ low tolerance for activity. He continues to require Max A x2 for sit<> stand and stand step pivot w/ FWW w/ max cues. He is far from his baseline and will require SNF to improve functional mobility independence. Goals Bed Mobility Goal Standby Assistance Transfer Goal Standby Assistance Gait Goal Minimal Assistance Gait Distance 25 Days to Meet Goals 10 Frequency of Treatment Frequency Of Treatment Twice a Day Treatment Plan Physical Therapy Treatment Plan Bed Mobility Training,Transfer Training,Gait Training, Therapeutic Exercise,Balance Retraining,Post Op Education, Discharge Planning,Hot or Cold Pack,Neuromuscular Re-ed, Coordination Retraining,Manual Therapy Weight Bearing Status Weight Bearing Status Touch Down Weight Bearing Allowed Weight Bearing Amount (enter % RLE: per Dr. Freitas: 10# PWB or #) (%) RLE Recommendations To Nursing Amount of Assist Needed Mechanical Lift Discharge Recommendations PT Discharge Recommendations SNF Rehab Transportation Needs at Discharge Wheelchair/Cabulance
--- NOTE | 2022-03-03 13:35 | PT.IPTN ---
Current Diagnoses Unspecified viral hepatitis C without hepatic coma (02/27/22) Alcohol abuse, uncomplicated (02/27/22) Opioid dependence, uncomplicated (02/27/22) Other chronic pain (02/27/22) Essential (primary) hypertension (02/27/22) Ataxia, unspecified (02/27/22) Other fracture of unspecified lower leg, initial encounter for closed fracture (02/27/22) Surgery Performed Operation Date: 02/28/22 14:45 Actual Procedures p ORIF Ankle Fracture(Right) - Jimena Freitas MD Physical Therapy Treatment Note M2 PT-IP Current Condition Start: 03/01/22 12:39 Freq: NEEDED Status: Active Protocol: Document 03/01/22 10:09 AB (Rec: 03/01/22 13:18 AB [id number]) Physical Therapy Current Condition Current Condition Evaluation Date 03/01/22 Treatment Diagnosis L ankle fx; difficulty in walking Onset Date 02/27/22 M3 PT-IP Subjective Start: 03/01/22 12:39 Freq: NEEDED Status: Active Protocol: Document 03/03/22 13:17 KS (Rec: 03/03/22 13:55 KS [id number]) Subjective Physical Therapy Visit Type Type Treatment Note Visit Start Time 13:17 Visit Stop Time 13:35 Total Visit Minutes 18 Notes ARMORED MACHINE OPERATOR present for second person assist. Number of MOTOR DRIVER Visits 5 Physical Therapy Visit Comments Patient Comments Pt requesting to get back in bed. M4 PT-IP Mobility and Gait Start: 03/01/22 12:39 Freq: NEEDED Status: Active Protocol: Document 03/03/22 13:17 KS (Rec: 03/03/22 13:55 KS [id number]) PT-Bed Mobility Assessment Sit to Supine Sit to Supine Moderate Assistance,1 Person Assistance Scooting Scooting to Edge of Bed Contact Guard Assistance PT-Transfer Assessment Sit to and From Stand Sit to and from Stand Moderate Assistance,Maximum Assistance,2 Person Assistance ,Use of Upper Extremities Equipment Transfer Assistive Device Gait Belt,Front Wheeled Walker Orthotic/Prosthetic Devices or Brace: Yes Transfers Transfer Destination Bed Transfer Technique Stand Step Pivot Transfer Ability Level of Assist Moderate Assistance,Maximum Assistance,2 Person Assistance ,Use of Upper Extremities Comments Mobility Comments Pt in chair upon arrival and requesting to get back into bed. ARMORED MACHINE OPERATOR arrived for additional assistance. Pt able to scoot EOC CGA, required Max A x2 and 2 attempts for sit<>stand w/ FWW. Pt unable to complete on first attempt. On second attempt, pt very fearful and shaky and w/ rapid breathing. Once stable, pt performed stand step pivot from chair to bed w/ FWW Mod/ Max A x2 and max step by step commands and FWW mgmt. After sitting, pt performed 2 additonal sit<>Stands w/ FWW Mod A x2 from bed. Pt reports he is unable to tolerate further treatment. Required Mod A for LE elevation back into bed. Performed 1x10 SLR and glute sets. Pt left in bed w/ alarm on and all needs in reach. Gait Assessment Comments Gait Comments Still unable to progress gait d/t pts high level of weakness , quick approach to fatigue, fear, and WB status. PT-Balance Assessment Sitting Balance and Reactions Static Sitting Balance Ability Good Dynamic Sitting Balance Ability Fair Standing Balance and Reactions Static Standing Balance Ability Poor Dynamic Standing Balance Ability Poor Device Used FWW M5 PT-IP Objective Assessments Start: 03/01/22 12:39 Freq: NEEDED Status: Active Protocol: Document 03/01/22 10:09 AB (Rec: 03/01/22 13:18 AB [id number]) Orientation Orientation/Cognition Level of Alertness Alert Orientation Name,Place,Situation Language Function Ability No Deficits Noted Safety Awareness Decreased Safety Awareness Memory Description Short Term Impaired Gross Range of Motion Lower Extremity ROM Impairments R ankle on soft cast: NT Strength Lower Extremity Strength Assessment Bilaterally Impaired Comments Strength Comments LLE: 3+/5 RLE: 3+/5 Coordination Assessment Gross Coordination Gross Coordination WNL Sensation Assessment Sensation Gross Sensation Right LE Impaired Sensation Description Numbness Comments Sensation Comments R foot numbness Muscle Tone Muscle Tone WNL Yes M6 PT-IP Treatment Start: 03/01/22 12:39 Freq: NEEDED Status: Active Protocol: Document 03/03/22 13:17 KS (Rec: 03/03/22 13:55 KS [id number]) Physical Therapy Treatment Exercises Exercises Gluteal Sets,Straight Leg Raises Education Education Provided Weight Bearing Status,Safety M7 PT-IP Assessment and Plan Start: 03/01/22 12:39 Freq: NEEDED Status: Active Protocol: Document 03/03/22 13:17 KS (Rec: 03/03/22 13:55 KS [id number]) PT Summary Assessment and Plan Potential Rehabilitation Potential Fair Summary Impairments Pain,ROM,Strength,Balance, Coordination,Sensation,Tone, Cognition,Bed Mobility, Transfers,Gait,Activity Tolerance Progress Towards Goals Slow Progress due to Pain,Slow Progress due to Medical Issues,Slow Progress due to Activity Tolerance Assessment Summary Pt continues to require 2 person assist w/ sit<>stands and transfers w/ FWW. Ranging from Mod Ax2 from bed to Max A x2 from chair. Pt limited by weakness, low activity tolerance, pain, poor balance, difficulty following instructions, and fear. He is far from his baseline and will require SNF to improve functional mobility independence. Goals Bed Mobility Goal Standby Assistance Transfer Goal Standby Assistance Gait Goal Minimal Assistance Gait Distance 25 Days to Meet Goals 10 Frequency of Treatment Frequency Of Treatment Twice a Day Treatment Plan Physical Therapy Treatment Plan Bed Mobility Training,Transfer Training,Gait Training, Therapeutic Exercise,Balance Retraining,Post Op Education, Discharge Planning,Hot or Cold Pack,Neuromuscular Re-ed, Coordination Retraining,Manual Therapy Weight Bearing Status Weight Bearing Status Touch Down Weight Bearing Allowed Weight Bearing Amount (enter % RLE: per Dr. Freitas: 10# PWB or #) (%) RLE Recommendations To Nursing Amount of Assist Needed Mechanical Lift Discharge Recommendations PT Discharge Recommendations SNF Rehab Transportation Needs at Discharge Wheelchair/Cabulance
--- NOTE | 2022-03-03 14:06 | CM.DPC ---
Addendum entered by Karla Kerns R.N. 03/03/22 14:55: Spoke with [facility], and they are unable to accept pt at this time due to no male bed availability. [facility] will keep referral and reach out if anything opens up. Original Note: DCP spoke with [facility] and they are unable to accept pt. DCP spoke with [facility] and they do not have any open beds at this time. DCP left message with [facility]. DCP spoke with [facility] and they have received the referral and are reviewing. ADARSH was instructed to call back tomorrow. Will continue to follow. Karla Kerns RN/ADAR[facility]
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
[2022-03-03] MEDS: ATORVASTATIN 20 MG TABLET 80 MG PO (20:51)
[2022-03-03] MEDS: HYDROMORPHONE 4 MG TABLET PO (20:52)
[2022-03-03] MEDS: TRAZODONE 50 MG TABLET 300 MG PO (20:53)
[2022-03-03] MEDS: NORTRIPTYLINE 10 MG CAPSULE PO (20:53)
[2022-03-03] MEDS: SODIUM CHLORIDE 0.9% FLUSH 10 ML IV (20:56)
--- NOTE | 2022-03-03 20:56 | P.PN_ITS ---
Subjective Subjective Date Patient Seen: 03/03/22 Time Patient Seen: 08:00 Interval history: His pain is well controlled, but he is receiving significant IV dilaudid due to his opiate tolerance. He feels he improves each day in terms of strength. Exam Vital Signs (past 8 hours): - 03/03/22 16:43 03/03/22 20:51 03/03/22 20:52 Temperature 97.8 F 98.2 F Pulse Rate 78 81 Respiratory Rate 16 Blood Pressure 164/70 H 182/79 H Pulse Oximetry 96 Oxygen Flow Rate 0 03/03/22 20:00 Temperature 98.1 F Pulse Rate 85 Respiratory Rate 14 Blood Pressure 185/76 H Pulse Oximetry 97 Oxygen Flow Rate 0 Oxygen Delivery Method Room Air Oxygen Flow Rate 0 Narrative Exam Narrative: General:? no acute distress Lungs:? clear bilaterally Cardio:?regular rate and rhythm EXT: right lower leg bandaged Objective Labs Result Diagrams: 03/02/22 05:44 03/01/22 06:40 [facility] Medical History Alcohol abuse Alcohol use disorder Cerebral aneurysm Chronic pain Depression Essential tremor Hepatitis C Hyperlipidemia Hypertension Opioid dependence Osteomyelitis Suicide attempt by drug overdose Surgical History History of surgery for cerebral aneurysm History of surgery on extremity Family History Father Alcoholism Mother Alcoholism Social History household members: significant other Smoking Status: Former smoker alcohol intake: current Assessment & Plan Assessment & Plan narrative: #R distal tibia/fibula bimalleolar fracture s/p open reduction internal fixation right ankle bimalleolar fracture continue PT/OT continue pain control for now, but wean down IV opiates and start oral dilaudid restart suboxone pending SNF placement #chronic opiate dependence, alcohol abuse with alcohol withdrawal that is now resolved - prior to going to the OR on 02/28 he had elevated CIWA scores and required benzodiazepines which resolved - pain control with opiates for now - resume suboxone once off opiates. #htn continue home meds #hld continue home lipitor 80 #insomnia continue home amitriptyline and trazodone 300 #hx of prior cerebral aneurysm s/p multiple coils stable Time Spent With Patient Critical Care time: I spent a total of [] minutes of critical care time on this patient's care today; this time is exclusive of procedural time. Quality VTE Deep Vein Thrombosis/Pulmonary Embolism Present on Admission: No
[2022-03-04] VITALS (8 sets, daily range): BP systolic 136–168; BP diastolic 61–86; PULSE 78–85; RESP 14–16; TEMP 36.7–37.6; O2SAT 95–100
[2022-03-04] MEDS: HYDROMORPHONE 4 MG TABLET PO ×3 (02:42→14:00)
--- NOTE | 2022-03-04 08:34 | CM.DPNOTE ---
Faxed referral to [facility] per Karla. Rebeca Mayberry CM Assist.
[2022-03-04] MEDS: SERTRALINE 50 MG TABLET 100 MG PO (08:39)
[2022-03-04] MEDS: DOCUSATE 100 MG CAPSULE PO ×2 (08:39→21:18)
[2022-03-04] MEDS: BUSPIRONE 5 MG TABLET 15 MG PO ×2 (08:39→21:14)
[2022-03-04] MEDS: polyethylene glycoL 3350 17 GM POWD.PACK PO (08:39)
[2022-03-04] MEDS: MULTIVITAMIN 1 TABLET 1 TAB PO (08:40)
[2022-03-04] MEDS: CHOLECALCIFEROL (VITAMIN D3) 1,000 UNIT TABLET 2000 UNIT PO (08:40)
[2022-03-04] MEDS: hydroCHLOROthiazide 25 MG TABLET 12.5 MG PO (08:40)
[2022-03-04] MEDS: carvediloL 3.125 MG TABLET 6.25 MG PO ×2 (08:40→21:15)
[2022-03-04] MEDS: ASPIRIN EC 81 MG TABLET PO ×2 (08:40→21:14)
[2022-03-04] MEDS: lisinopriL 10 MG TABLET PO (08:41)
[2022-03-04] MEDS: SODIUM CHLORIDE 0.9% FLUSH 10 ML IV ×2 (08:41→21:33)
--- NOTE | 2022-03-04 09:14 | P.PN_ITS ---
Subjective Subjective Date Patient Seen: 03/04/22 Interval history: 71-year-old gentleman with chronic opiate dependence on Suboxone, hypertension, remote cerebral aneurysm status post coiling, and alcohol dependence was admitted with a distal tib-fib/bimalleolar fracture status post repair 4 days ago. Patient reports she has not a bowel movement since admission. He describes his appetite as being fair. Sleeping well. He complains of some pain to that right mid-shaft jesus today. Exam Vital Signs (past 8 hours): - 03/04/22 02:30 03/04/22 06:15 03/04/22 08:40 Temperature 99.2 F 98.1 F Pulse Rate 81 80 85 Respiratory Rate 14 16 Blood Pressure 158/79 H 146/86 H 168/61 H Pulse Oximetry 95 97 Oxygen Flow Rate 0 0 03/04/22 08:41 03/04/22 08:45 Temperature 99.6 F Pulse Rate 85 85 Respiratory Rate Blood Pressure 168/61 H 168/61 H Pulse Oximetry 97 Oxygen Flow Rate 0 Oxygen Delivery Method Room Air Oxygen Flow Rate 0 Narrative Exam Narrative: GEN: Pleasant middle-aged male, Alert and oriented x 3, NAD HEENT:NC, Face symmetric CHEST: Respiratory excursions symmetric, CTAB CV: RRR, no M/R/G ABD: Soft, NT/ND, BT present in all 4 quadrants, no organomegaly or masses EXTR: warm, well perfused, orthopedic PA who came to bedside and removed his splint, right lower extremity reveals erythema, warmth, swelling both around the incision and across the dorsal aspect of the lower and mid jesus SKIN: warm and dry, no rash NEURO: Alert and oriented x 3, nonfocal Objective Labs Result Diagrams: 03/02/22 05:44 03/01/22 06:40 [facility] Medical History Alcohol abuse Alcohol use disorder Cerebral aneurysm Chronic pain Depression Essential tremor Hepatitis C Hyperlipidemia Hypertension Opioid dependence Osteomyelitis Suicide attempt by drug overdose Surgical History History of surgery for cerebral aneurysm History of surgery on extremity Family History Father Alcoholism Mother Alcoholism Social History household members: significant other Smoking Status: Former smoker alcohol intake: current Assessment & Plan Assessment & Plan narrative: 1. Right distal tib-fib by malleolar fracture, status post ORIF Patient with increased pain, redness, warmth to the lower extremity. I do have some concern about an early cellulitis. Will initiate IV Rocephin. Orthopedic surgery PA agrees with plan of care. Continue oral Dilaudid. Resume Suboxone once he is off of opiates. 2. Constipation Will add Dulcolax suppository. He has not had a bowel movement since admission. He is receiving MiraLax and Colace. 3. Chronic opiate dependence Resume Suboxone once off opiate therapy. 4. Alcohol dependence He did have alcohol withdrawal on February 28, treated with benzodiazepines. That has since resolved. 5. Hypertension Continue carvedilol, hydrochlorothiazide. 6. Hyperlipidemia Continue atorvastatin 7. Insomnia Continue amitriptyline and trazodone Code status Full Prophylaxis Receiving b.i.d. aspirin per Orthopedic surgery Disposition Awaiting rehab transfer. Time Spent With Patient Critical Care time: I spent a total of [] minutes of critical care time on this patient's care today; this time is exclusive of procedural time. Quality VTE Deep Vein Thrombosis/Pulmonary Embolism Present on Admission: No
[2022-03-04] MEDS: SENNOSIDES 8.6 MG TABLET PO ×2 (09:30→21:17)
[2022-03-04] MEDS: cefTRIAXone 2,000 MG in SODIUM CHLORIDE 0.9% 100 ML 200 MG IV (09:30)
--- NOTE | 2022-03-04 09:50 | P.PN_ITS ---
Subjective Subjective Date Patient Seen: 03/04/22 Time Patient Seen: 09:50 Interval history: Patient is complaining of moderate right ankle pain this morning. He is very tender over his jesus area. The hospitalist is requesting that we take down the splint and look at the skin for potential breakdown versus cellulitis. Patient is working with physical therapy. Exam Vital Signs (past 8 hours): - 03/04/22 02:30 03/04/22 06:15 03/04/22 08:40 Temperature 99.2 F 98.1 F Pulse Rate 81 80 85 Respiratory Rate 14 16 Blood Pressure 158/79 H 146/86 H 168/61 H Pulse Oximetry 95 97 Oxygen Flow Rate 0 0 03/04/22 08:41 03/04/22 08:45 Temperature 99.6 F Pulse Rate 85 85 Respiratory Rate Blood Pressure 168/61 H 168/61 H Pulse Oximetry 97 Oxygen Flow Rate 0 Oxygen Delivery Method Room Air Oxygen Flow Rate 0 Narrative Exam Narrative: Pleasant 71-year-old male, resting comfortably in bed, no acute distress. His is at bedside. Splint was taken down today and reveals anterior jesus erythema and warmth, slightly more than expected. There is no active bleeding or drainage from the incisions. Bilateral lower extremity: He can wiggle his toes, sensation is grossly intact to light touch, calves are soft and nontender to palpation. Objective Labs Result Diagrams: 03/02/22 05:44 03/01/22 06:40 [facility] Medical History Alcohol abuse Alcohol use disorder Cerebral aneurysm Chronic pain Depression Essential tremor Hepatitis C Hyperlipidemia Hypertension Opioid dependence Osteomyelitis Suicide attempt by drug overdose Surgical History History of surgery for cerebral aneurysm History of surgery on extremity Family History Father Alcoholism Mother Alcoholism Social History household members: significant other Smoking Status: Former smoker alcohol intake: current Assessment & Plan Post-op Postoperative Procedures: Procedures Operation Date: 02/28/22 14:45 Actual Procedure Side Surgeon p ORIF Ankle Fracture Right Jimena Freitas MD Postoperative day: 4 Postoperative status narrative: Status post open reduction internal fixation right ankle bimalleolar fracture -right lower leg possible early cellulitis versus venous insufficiency -alcohol abuse disorder Postoperative plan narrative: Mobilize with physical therapy, partial weight- bearing on right lower extremity for transfers Elevate right ankle on multiple pillows Multimodal pain management aspirin 81mg bid x6 weeks for DVT prophylaxis -discussed with the hospitalist there was concern for possible low-grade cellulitis and the operative leg versus chronic venous insufficiency. We will start him on a course of IV antibiotics for possible low-grade cellulitis. Disposition to be determined due to multiple medical problems and prior history of severe left lower extremity injury Quality VTE Deep Vein Thrombosis/Pulmonary Embolism Present on Admission: No
[2022-03-04] MEDS: HYDROMORPHONE 2 MG INJ IV ×3 (10:45→22:10)
--- NOTE | 2022-03-04 11:00 | PT-IP ANOTE ---
Pt refused PT this AM stating I'm sorry, but I just can't do it. I am in too much pain. Will check back in PM.
[2022-03-04] MEDS: BISACODYL 10 MG SUPP PR (12:32)
[2022-03-04 13:04] LABS: Add Manual Diff / Slide Review NO; Basophils Absolute Auto 0 /uL (0-100); Basophils Percent Auto 0.2 % (0-2); Eosinophils Absolute Auto 100 /uL (0-450); Hemoglobin 13.4 g/dL (13.5-17.5); Lymphocytes Absolute Auto 600 /uL (1100-4500); Mean Corpuscular HGB Conc 35.2 % (30-36); Mean Corpuscular Hemoglobin 35.9 PG (26-34); Mean Corpuscular Volume 102.1 fL (80-100); Monocytes Absolute Auto 1100 /uL (0-900); Monocytes Percent Auto 14.8 % (3-14); Neutrophils Absolute Auto 5400 /uL (1500-7000); Platelet Count 210 X10^3/uL (150-400); Red Blood Cell Count 3.73 X10^6/uL (4.5-5.9); Red Cell Distribution Width 14.2 % (11.6-14.8); White Blood Cell Count 7.1 X10^3/uL (4.5-11.0)
[2022-03-04 13:17] LABS: BUN Creatinine Ratio 21.3 (6-22); Blood Urea Nitrogen 16 mg/dL (9-20); Calcium 8.8 mg/dL (8.4-10.2); Carbon Dioxide 30 mmol/L (22-32); Chloride 97 mmol/L (98-107); Estimated Glomerular Filt Rate > 60 mL/min (>60); Glucose 168 mg/dL (80-110); HEMOLYSIS < 15 (0-50); Magnesium 2.1 mg/dL (1.6-2.3); Potassium 4.3 mmol/L (3.4-5.1); Sodium 131 mmol/L (137-145)
--- NOTE | 2022-03-04 13:48 | PT.IPTN ---
Current Diagnoses Unspecified viral hepatitis C without hepatic coma (02/27/22) Alcohol abuse, uncomplicated (02/27/22) Opioid dependence, uncomplicated (02/27/22) Other chronic pain (02/27/22) Essential (primary) hypertension (02/27/22) Ataxia, unspecified (02/27/22) Other fracture of unspecified lower leg, initial encounter for closed fracture (02/27/22) Surgery Performed Operation Date: 02/28/22 14:45 Actual Procedures p ORIF Ankle Fracture(Right) - Jimena Freitas MD Physical Therapy Treatment Note M2 PT-IP Current Condition Start: 03/01/22 12:39 Freq: NEEDED Status: Active Protocol: Document 03/01/22 10:09 AB (Rec: 03/01/22 13:18 AB [id number]) Physical Therapy Current Condition Current Condition Evaluation Date 03/01/22 Treatment Diagnosis L ankle fx; difficulty in walking Onset Date 02/27/22 M3 PT-IP Subjective Start: 03/01/22 12:39 Freq: NEEDED Status: Active Protocol: Document 03/04/22 13:32 KS (Rec: 03/04/22 14:20 KS [id number]) Subjective Physical Therapy Visit Type Type Treatment Note Visit Start Time 13:32 Visit Stop Time 13:48 Total Visit Minutes 16 Notes NECK BAND OPERATOR present for second person assist. Number of UMBRELLA FRAME MAKER Visits 6 Physical Therapy Visit Comments Patient Comments Pt requesting to get back in bed. M4 PT-IP Mobility and Gait Start: 03/01/22 12:39 Freq: NEEDED Status: Active Protocol: Document 03/04/22 13:32 KS (Rec: 03/04/22 14:20 KS [id number]) PT-Bed Mobility Assessment Sit to Supine Sit to Supine Moderate Assistance,1 Person Assistance PT-Transfer Assessment Sit to and From Stand Sit to and from Stand Moderate Assistance,Maximum Assistance,2 Person Assistance ,Use of Upper Extremities Equipment Transfer Assistive Device Gait Belt,Front Wheeled Walker Orthotic/Prosthetic Devices or Brace: Yes Transfers Transfer Destination Bed Transfer Technique Stand Step Pivot Transfer Ability Level of Assist Moderate Assistance,2 Person Assistance,Use of Upper Extremities Comments Mobility Comments Pt on BSC upon arrival. Agreeable to perform stand stp pivot raher than tristan. Pt Max A x2 for sit<>stand w/ FWW . Pt continues to have difficulty w/ standing balance while maintaining TTWB on RLE . Able to perform stand step pivot from BSC to bed w/ FWW Mod A x2 but still w/ max verbal cues and FWW mgmt. Pt fatigued quickly during transfer, but after seated rest break performed 3 additional sit<>stands w/ FWW and Mod A x2. Pt reported fatigue and requested to lay back down. Mod A for LE elevation into bed. Pt left in bed w/ alarm on and all needs in reach. Gait Assessment Comments Gait Comments Still unable to progress gait d/t pts high level of weakness , quick approach to fatigue, fear, and WB status. PT-Balance Assessment Sitting Balance and Reactions Static Sitting Balance Ability Good Dynamic Sitting Balance Ability Fair Standing Balance and Reactions Static Standing Balance Ability Poor Dynamic Standing Balance Ability Poor Device Used FWW M5 PT-IP Objective Assessments Start: 03/01/22 12:39 Freq: NEEDED Status: Active Protocol: Document 03/01/22 10:09 AB (Rec: 03/01/22 13:18 AB [id number]) Orientation Orientation/Cognition Level of Alertness Alert Orientation Name,Place,Situation Language Function Ability No Deficits Noted Safety Awareness Decreased Safety Awareness Memory Description Short Term Impaired Gross Range of Motion Lower Extremity ROM Impairments R ankle on soft cast: NT Strength Lower Extremity Strength Assessment Bilaterally Impaired Comments Strength Comments LLE: 3+/5 RLE: 3+/5 Coordination Assessment Gross Coordination Gross Coordination WNL Sensation Assessment Sensation Gross Sensation Right LE Impaired Sensation Description Numbness Comments Sensation Comments R foot numbness Muscle Tone Muscle Tone WNL Yes M6 PT-IP Treatment Start: 03/01/22 12:39 Freq: NEEDED Status: Active Protocol: Document 03/04/22 13:32 KS (Rec: 03/04/22 14:20 KS [id number]) Physical Therapy Treatment Education Education Provided Weight Bearing Status,Safety Other Treatments Other Treatment Performed 3x STS M7 PT-IP Assessment and Plan Start: 03/01/22 12:39 Freq: NEEDED Status: Active Protocol: Document 03/04/22 13:32 KS (Rec: 03/04/22 14:20 KS [id number]) PT Summary Assessment and Plan Potential Rehabilitation Potential Fair Summary Impairments Pain,ROM,Strength,Balance, Coordination,Sensation,Tone, Cognition,Bed Mobility, Transfers,Gait,Activity Tolerance Progress Towards Goals Slow Progress due to Pain,Slow Progress due to Medical Issues,Slow Progress due to Activity Tolerance Assessment Summary Pt still slow to progress, but needing slightly less assist w/ STS from bed and stand step pivot transfer today - Mod A x2 w/ step by step cues and FWW mgmt. He becomes very weak and tremulous when standing and transferring, but did tolerate 3 STS w/ ~15 sec standing balance for each. Pt limited by weakness, low activity tolerance, pain, poor balance, difficulty following instructions, and fear. He is far from his baseline and will require SNF to improve functional mobility independence. Goals Bed Mobility Goal Standby Assistance Transfer Goal Standby Assistance Gait Goal Minimal Assistance Gait Distance 25 Days to Meet Goals 10 Frequency of Treatment Frequency Of Treatment Twice a Day Treatment Plan Physical Therapy Treatment Plan Bed Mobility Training,Transfer Training,Gait Training, Therapeutic Exercise,Balance Retraining,Post Op Education, Discharge Planning,Hot or Cold Pack,Neuromuscular Re-ed, Coordination Retraining,Manual Therapy Weight Bearing Status Weight Bearing Status Touch Down Weight Bearing Allowed Weight Bearing Amount (enter % RLE: per Dr. Freitas: 10# PWB or #) (%) RLE Recommendations To Nursing Amount of Assist Needed Mechanical Lift Discharge Recommendations PT Discharge Recommendations SNF Rehab Transportation Needs at Discharge Wheelchair/Cabulance
--- NOTE | 2022-03-04 15:20 | CM.DPC ---
DCP Cont: Estelita has declined this pt. DCP spoke with [facility]. Per Tereza, they wanted to know what pt current mental health resources were. DCP unsure and will need to ask pt. Tereza states that if he has mental health resource or is willing to see one at their facility, then she would be able to submit authorization. DCP to contact Tereza to update. ADARSH spoke with the pt and he states that he sees a psychiatrist and therapist regularly. Pt open to other mental resources if needed. DCP attempted to contact Tereza back following the conversation with the patient, however, unable to reach her. DCP left message to call back. Awaiting response. Karla Kerns RN/MEJIAP
[2022-03-04] MEDS: CEFAZOLIN 2 GM/100 ML PREMIX 100 ML IV (16:55)
[2022-03-04] MEDS: ATORVASTATIN 20 MG TABLET 80 MG PO (21:14)
[2022-03-04] MEDS: TRAZODONE 50 MG TABLET 300 MG PO (21:15)
[2022-03-04] MEDS: NORTRIPTYLINE 10 MG CAPSULE PO (21:17)
[2022-03-05] VITALS (8 sets, daily range): BP systolic 115–147; BP diastolic 50–77; PULSE 74–84; RESP 16–18; TEMP 36.4–37.4; O2SAT 94–99
[2022-03-05] MEDS: CEFAZOLIN 2 GM/100 ML PREMIX 100 ML IV ×4 (00:34→23:24)
[2022-03-05] MEDS: HYDROMORPHONE 4 MG TABLET PO ×4 (05:22→21:47)
--- NOTE | 2022-03-05 07:09 | P.PN_ITS ---
Subjective Subjective Date Patient Seen: 03/05/22 Interval history: 71-year-old gentleman with chronic opiate dependence on Suboxone, hypertension, remote cerebral aneurysm status post coiling, and alcohol dependence was admitted with a distal tib-fib/bimalleolar fracture status post repair 5 days ago. Patient reports he had a large bowel movement after receiving a suppository yesterday. He is feeling better. His appetite is fair. He does continue to have some pain to his right lower extremity. He notes no appreciable difference between the pain he was having yesterday and today. Expresses concern over rehab placement due to having heard negative opinions of intermediate facilities. Exam Vital Signs (past 8 hours): - 03/05/22 00:00 03/05/22 05:25 Temperature 98.7 F 98.7 F Pulse Rate 84 74 Respiratory Rate 16 18 Blood Pressure 133/69 142/62 H Pulse Oximetry 94 97 Oxygen Flow Rate 0 0 Oxygen Delivery Method Room Air Oxygen Flow Rate 0 Narrative Exam Narrative: GEN:? Pleasant middle-aged male, Alert and oriented x 3, NAD HEENT:NC, Face symmetric CHEST: Respiratory excursions symmetric, CTAB CV: RRR, no M/R/G ABD: Soft, NT/ND, BT present in all 4 quadrants, no organomegaly or masses EXTR: warm, well perfused, unable to assess his right lower extremity skin due to splint and Rich wrap in place SKIN: warm and dry, no rash NEURO: Alert and oriented x 3, nonfocal Objective Labs Result Diagrams: 03/04/22 12:18 03/04/22 12:18 Labs: Laboratory Results - last 24 hr 03/04/22 03/04/22 12:18 12:18 WBC 7.1 RBC 3.73 L Hgb 13.4 L Hct 38.0 L MCV 102.1 H MCH 35.9 H MCHC 35.2 RDW 14.2 Plt Count 210 Neut % (Auto) 75.0 Lymph % (Auto) 9.0 L [place] % (Auto) 14.8 H Eos % (Auto) 1.0 L Baso % (Auto) 0.2 Neut # (Auto) 5400 Lymph # (Auto) 600 L [place] # (Auto) 1100 H Eos # (Auto) 100 Baso # (Auto) 0 Sodium 131 L Potassium 4.3 Chloride 97 L Carbon Dioxide 30 BUN 16 Creatinine 0.75 Estimated GFR > 60 BUN/Creatinine Ratio 21.3 Glucose 168 H Calcium 8.8 Magnesium 2.1 PFSH Medical History Alcohol abuse Alcohol use disorder Cerebral aneurysm Chronic pain Depression Essential tremor Hepatitis C Hyperlipidemia Hypertension Opioid dependence Osteomyelitis Suicide attempt by drug overdose Surgical History History of surgery for cerebral aneurysm History of surgery on extremity Family History Father Alcoholism Mother Alcoholism Social History household members: significant other Smoking Status: Former smoker alcohol intake: current Assessment & Plan Assessment & Plan narrative: 1. Right distal tib-fib by malleolar fracture, status post ORIF Yesterday, patient had increased pain, redness, warmth to the lower extremity.? Due to concerns about early cellulitis, he was initially given Rocephin and transitioned to Ancef. Plan to resume Suboxone when he is off oral opiates. He continues to require oral hydromorphone. 2. Constipation Resolved with Dulcolax suppository. Continue Colace, senna, and MiraLax. 3. Chronic opiate dependence Resume Suboxone once off opiate therapy. 4. Alcohol dependence He did have alcohol withdrawal on February 28, treated with benzodiazepines.? That has since resolved. 5. Hypertension Continue carvedilol, hydrochlorothiazide. 6. Hyperlipidemia Continue atorvastatin 7. Insomnia Continue amitriptyline and trazodone Code status Full Prophylaxis Receiving b.i.d. aspirin per Orthopedic surgery Disposition Awaiting rehab transfer. Time Spent With Patient Critical Care time: I spent a total of [] minutes of critical care time on this patient's care today; this time is exclusive of procedural time. Quality VTE Deep Vein Thrombosis/Pulmonary Embolism Present on Admission: No
[2022-03-05] MEDS: polyethylene glycoL 3350 17 GM POWD.PACK PO (08:21)
[2022-03-05] MEDS: HYDROMORPHONE 2 MG INJ IV ×2 (08:22→15:51)
[2022-03-05] MEDS: hydroCHLOROthiazide 25 MG TABLET 12.5 MG PO (08:26)
[2022-03-05] MEDS: CHOLECALCIFEROL (VITAMIN D3) 1,000 UNIT TABLET 2000 UNIT PO (08:26)
[2022-03-05] MEDS: SERTRALINE 50 MG TABLET 100 MG PO (08:29)
[2022-03-05] MEDS: MULTIVITAMIN 1 TABLET 1 TAB PO (08:29)
[2022-03-05] MEDS: BUSPIRONE 5 MG TABLET 15 MG PO ×2 (08:29→21:03)
[2022-03-05] MEDS: DOCUSATE 100 MG CAPSULE PO ×2 (08:29→21:03)
[2022-03-05] MEDS: SENNOSIDES 8.6 MG TABLET PO ×2 (08:29→21:03)
[2022-03-05] MEDS: carvediloL 3.125 MG TABLET 6.25 MG PO ×2 (08:29→21:03)
[2022-03-05] MEDS: ASPIRIN EC 81 MG TABLET PO ×2 (08:29→21:02)
[2022-03-05] MEDS: lisinopriL 10 MG TABLET PO (08:30)
[2022-03-05] MEDS: SODIUM CHLORIDE 0.9% FLUSH 10 ML IV ×4 (08:40→21:55)
--- NOTE | 2022-03-05 10:24 | CM.DPC ---
Addendum entered by Karla Kerns R.N. 03/05/22 14:35: [facility] ADJ Addendum entered by Karla Kerns R.N. 03/05/22 14:16: Spoke with the pt this morning to provide them with an update. Pt stating that he would prefer [place] as [place] better drive for his spouse and he also has other support system there. Pt and pt spouse states that they are looking for a place to move down there because they are getting rid of their motor home. DCP to continue to work on this case and follow up with any SNF's that might be willing to accept. Referral faxed to Katherine @ [facility] ADJ Original Note: DCP Cont: DCP received VM from [facility] and it stated that they are wanting to know about pt follow up care and if he would have transport to those facilities during his stay. DCP called back but left message. DCP faxed referral to [facility] to [facility]. [facility] is reviewing. Awaiting response. DCP to start contacting facilities in the [facility]. DCP to continue to follow. Karla Kerns RN/ADARSH
--- NOTE | 2022-03-05 11:10 | PT.IPTN ---
Current Diagnoses Unspecified viral hepatitis C without hepatic coma (02/27/22) Alcohol abuse, uncomplicated (02/27/22) Opioid dependence, uncomplicated (02/27/22) Other chronic pain (02/27/22) Essential (primary) hypertension (02/27/22) Ataxia, unspecified (02/27/22) Other fracture of unspecified lower leg, initial encounter for closed fracture (02/27/22) Surgery Performed Operation Date: 02/28/22 14:45 Actual Procedures p ORIF Ankle Fracture(Right) - Jimena Freitas MD Physical Therapy Treatment Note M2 PT-IP Current Condition Start: 03/01/22 12:39 Freq: NEEDED Status: Active Protocol: Document 03/01/22 10:09 AB (Rec: 03/01/22 13:18 AB [id number]) Physical Therapy Current Condition Current Condition Evaluation Date 03/01/22 Treatment Diagnosis L ankle fx; difficulty in walking Onset Date 02/27/22 M3 PT-IP Subjective Start: 03/01/22 12:39 Freq: NEEDED Status: Active Protocol: Document 03/05/22 10:47 KS (Rec: 03/05/22 11:54 KS [id number]) Subjective Physical Therapy Visit Type Type Treatment Note Visit Start Time 10:47 Visit Stop Time 11:10 Total Visit Minutes 23 Notes RN present for second person assist. Number of FLEET MECHANIC Visits 7 Physical Therapy Visit Comments Patient Comments Pt agreeable to mobilizing w/ PT. M4 PT-IP Mobility and Gait Start: 03/01/22 12:39 Freq: NEEDED Status: Active Protocol: Document 03/05/22 10:47 KS (Rec: 03/05/22 11:54 KS [id number]) PT-Bed Mobility Assessment Supine to Sit Supine to Sit Contact Guard Assistance,1 Person Assistance,Head of Bed Elevated,Bedrails Scooting Scooting to Edge of Bed Contact Guard Assistance PT-Transfer Assessment Sit to and From Stand Sit to and from Stand Moderate Assistance,2 Person Assistance,Use of Upper Extremities Equipment Transfer Assistive Device Gait Belt,Front Wheeled Walker Orthotic/Prosthetic Devices or Brace: Yes Transfers Transfer Destination Chair Transfer Technique Stand Step Pivot Transfer Ability Level of Assist Moderate Assistance,2 Person Assistance,Use of Upper Extremities Comments Mobility Comments Pt in bed upon arrival and needing encouragement to participate d/t high level of reported pain. Pt CGA for sup< >Sit and scooting EOB w/ HOB elevated. RN arrived for assistance. PT sit<>Stand w/ Mod A x2 and cues for hand placement and sequencing. He then performed stand step pivot from bed to chair w/ FWW Mod A x2 but still requiring max step by step commands to complete transfer. Remains anxious about mobility despitemany successful transfers. Pt completed 3 additional sit<>stands w/ FWW Mod A x2 and was able to maintain standing balance ~30 seconds w/ each. Pt has difficulty maintaining TTWB and needs frequent reminders. Left in chair w/ all needs in reach. Gait Assessment Comments Gait Comments Still unable to progress gait d/t pts high level of weakness , quick approach to fatigue, fear, and WB status. PT-Balance Assessment Sitting Balance and Reactions Static Sitting Balance Ability Good Dynamic Sitting Balance Ability Fair Standing Balance and Reactions Static Standing Balance Ability Poor Dynamic Standing Balance Ability Poor Device Used FWW M5 PT-IP Objective Assessments Start: 03/01/22 12:39 Freq: NEEDED Status: Active Protocol: Document 03/01/22 10:09 AB (Rec: 03/01/22 13:18 AB [id number]) Orientation Orientation/Cognition Level of Alertness Alert Orientation Name,Place,Situation Language Function Ability No Deficits Noted Safety Awareness Decreased Safety Awareness Memory Description Short Term Impaired Gross Range of Motion Lower Extremity ROM Impairments R ankle on soft cast: NT Strength Lower Extremity Strength Assessment Bilaterally Impaired Comments Strength Comments LLE: 3+/5 RLE: 3+/5 Coordination Assessment Gross Coordination Gross Coordination WNL Sensation Assessment Sensation Gross Sensation Right LE Impaired Sensation Description Numbness Comments Sensation Comments R foot numbness Muscle Tone Muscle Tone WNL Yes M6 PT-IP Treatment Start: 03/01/22 12:39 Freq: NEEDED Status: Active Protocol: Document 03/05/22 10:47 KS (Rec: 03/05/22 11:54 KS [id number]) Physical Therapy Treatment Education Education Provided Weight Bearing Status,Safety Other Treatments Other Treatment Performed 3x STS 30 sec each. M7 PT-IP Assessment and Plan Start: 03/01/22 12:39 Freq: NEEDED Status: Active Protocol: Document 03/05/22 10:47 KS (Rec: 03/05/22 11:54 KS [id number]) PT Summary Assessment and Plan Potential Rehabilitation Potential Fair Summary Impairments Pain,ROM,Strength,Balance, Coordination,Sensation,Tone, Cognition,Bed Mobility, Transfers,Gait,Activity Tolerance Progress Towards Goals Slow Progress due to Pain,Slow Progress due to Medical Issues,Slow Progress due to Activity Tolerance Assessment Summary Pt continues to make slow progress. CGA for bed mobility , but still requires 2 person Mod A for transfers and step by step commands. Pt very anxious/fearful of falling during transfers and has some difficulty maintaining TTWB of RLE. Unsafe to progress to 2 person assist for nursing staff d/t patients need for max verbal commands and FWW mgmt and poor balance and adherence to TTWB. He is far from his baseline and will require SNF to improve functional mobility independence. Goals Bed Mobility Goal Standby Assistance Transfer Goal Standby Assistance Gait Goal Minimal Assistance Gait Distance 25 Days to Meet Goals 10 Frequency of Treatment Frequency Of Treatment Twice a Day Treatment Plan Physical Therapy Treatment Plan Bed Mobility Training,Transfer Training,Gait Training, Therapeutic Exercise,Balance Retraining,Post Op Education, Discharge Planning,Hot or Cold Pack,Neuromuscular Re-ed, Coordination Retraining,Manual Therapy Weight Bearing Status Weight Bearing Status Touch Down Weight Bearing Allowed Weight Bearing Amount (enter % RLE: per Dr. Freitas: 10# PWB or #) (%) RLE Recommendations To Nursing Amount of Assist Needed Mechanical Lift Discharge Recommendations PT Discharge Recommendations SNF Rehab Transportation Needs at Discharge Wheelchair/Cabulance
--- NOTE | 2022-03-05 11:27 | P.PN_ITS ---
Subjective Subjective Date Patient Seen: 03/05/22 Time Patient Seen: 11:27 Interval history: Patient is complaining of moderate to severe right lower leg pain. He notes he is feeling somewhat improved since we started the IV antibiotics yesterday for possible low-grade cellulitis. He is having difficulty with pain control due to his opioid dependence. Exam Vital Signs (past 8 hours): - 03/05/22 05:25 03/05/22 08:29 Temperature 98.7 F Pulse Rate 74 81 Respiratory Rate 18 Blood Pressure 142/62 H 115/65 Pulse Oximetry 97 Oxygen Flow Rate 0 Oxygen Delivery Method Room Air Oxygen Flow Rate 0 Narrative Exam Narrative: 71-year-old male, resting comfortably in his chair, no acute distress. Splint is clean, dry, intact. The anterior portion of his mid jesus demonstrates petechiae and mild erythema, and [id number] warmth. He is able to wiggle his toes bilaterally, sensation is grossly intact to light touch distally. Objective Labs Result Diagrams: 03/04/22 12:18 03/04/22 12:18 Labs: Laboratory Results - last 24 hr 03/04/22 03/04/22 12:18 12:18 WBC 7.1 RBC 3.73 L Hgb 13.4 L Hct 38.0 L MCV 102.1 H MCH 35.9 H MCHC 35.2 RDW 14.2 Plt Count 210 Neut % (Auto) 75.0 Lymph % (Auto) 9.0 L [place] % (Auto) 14.8 H Eos % (Auto) 1.0 L Baso % (Auto) 0.2 Neut # (Auto) 5400 Lymph # (Auto) 600 L [place] # (Auto) 1100 H Eos # (Auto) 100 Baso # (Auto) 0 Sodium 131 L Potassium 4.3 Chloride 97 L Carbon Dioxide 30 BUN 16 Creatinine 0.75 Estimated GFR > 60 BUN/Creatinine Ratio 21.3 Glucose 168 H Calcium 8.8 Magnesium 2.1 PFSH Medical History Alcohol abuse Alcohol use disorder Cerebral aneurysm Chronic pain Depression Essential tremor Hepatitis C Hyperlipidemia Hypertension Opioid dependence Osteomyelitis Suicide attempt by drug overdose Surgical History History of surgery for cerebral aneurysm History of surgery on extremity Family History Father Alcoholism Mother Alcoholism Social History household members: significant other Smoking Status: Former smoker alcohol intake: current Assessment & Plan Post-op Postoperative Procedures: Procedures Operation Date: 02/28/22 14:45 Actual Procedure Side Surgeon p ORIF Ankle Fracture Right Jimena Freitas MD Postoperative day: 5 Postoperative status narrative: Status post open reduction internal fixation right ankle bimalleolar fracture -right lower leg possible early cellulitis versus venous insufficiency -alcohol abuse disorder, opioid dependence Postoperative plan narrative: -Mobilize with physical therapy, partial weight- bearing on right lower extremity for transfers -Elevate right ankle on multiple pillows -Multimodal pain management -aspirin 81mg bid x6 weeks for DVT prophylaxis -continue IV antibiotics for low-grade cellulitis Disposition to SNF, as determined by primary team due to multiple medical problems and prior history of severe left lower extremity injury Quality VTE Deep Vein Thrombosis/Pulmonary Embolism Present on Admission: No
--- NOTE | 2022-03-05 13:46 | PT.IPTN ---
Current Diagnoses Unspecified viral hepatitis C without hepatic coma (02/27/22) Alcohol abuse, uncomplicated (02/27/22) Opioid dependence, uncomplicated (02/27/22) Other chronic pain (02/27/22) Essential (primary) hypertension (02/27/22) Ataxia, unspecified (02/27/22) Other fracture of unspecified lower leg, initial encounter for closed fracture (02/27/22) Surgery Performed Operation Date: 02/28/22 14:45 Actual Procedures p ORIF Ankle Fracture(Right) - Jimena Freitas MD Physical Therapy Treatment Note M2 PT-IP Current Condition Start: 03/01/22 12:39 Freq: NEEDED Status: Active Protocol: Document 03/01/22 10:09 AB (Rec: 03/01/22 13:18 AB [id number]) Physical Therapy Current Condition Current Condition Evaluation Date 03/01/22 Treatment Diagnosis L ankle fx; difficulty in walking Onset Date 02/27/22 M3 PT-IP Subjective Start: 03/01/22 12:39 Freq: NEEDED Status: Active Protocol: Document 03/05/22 13:22 KS (Rec: 03/05/22 14:07 KS [id number]) Subjective Physical Therapy Visit Type Type Treatment Note Visit Start Time 13:22 Visit Stop Time 13:46 Total Visit Minutes 24 Notes LOAN FUNDER present for second person assist. Number of COORDINATE MEASURING MACHINE OPERATOR Visits 8 Physical Therapy Visit Comments Patient Comments Pt agreeable to mobilizing w/ PT. Would like to return to bed. M4 PT-IP Mobility and Gait Start: 03/01/22 12:39 Freq: NEEDED Status: Active Protocol: Document 03/05/22 13:22 KS (Rec: 03/05/22 14:07 KS [id number]) PT-Bed Mobility Assessment Sit to Supine Sit to Supine Minimal Assistance,1 Person Assistance Scooting Scooting to Edge of Bed Contact Guard Assistance PT-Transfer Assessment Sit to and From Stand Sit to and from Stand Moderate Assistance,Maximum Assistance,2 Person Assistance ,Use of Upper Extremities Equipment Transfer Assistive Device Gait Belt,Front Wheeled Walker Orthotic/Prosthetic Devices or Brace: Yes Transfers Transfer Destination Bed Transfer Technique Stand Step Pivot Transfer Ability Level of Assist Moderate Assistance,2 Person Assistance,Use of Upper Extremities Comments Mobility Comments Pt in chair and requesting to go back to bed. He required Mod/Max A x2 for sit<>stand from chair this PM and had posterior LOB requiring Max A to recover. He was then able to perform stand step pivot from bed to chair, Mod A x2 but had additional minor LOBand let go of FWW handle on R side again requiring Max A to regain balance. Pt attempted forward ambulation but was unable to maintain TTWB 10# and returned to bed w / Min A for LE elevation. He completed 2x10 SLR and glute sets. Pt left in bed w/ alarm on and all needs in reach. Gait Assessment Comments Gait Comments Attempted gait, but pt unable to maintain 10# WB due to weakness. PT-Balance Assessment Sitting Balance and Reactions Static Sitting Balance Ability Good Dynamic Sitting Balance Ability Fair Standing Balance and Reactions Static Standing Balance Ability Poor Dynamic Standing Balance Ability Poor Device Used FWW M5 PT-IP Objective Assessments Start: 03/01/22 12:39 Freq: NEEDED Status: Active Protocol: Document 03/01/22 10:09 AB (Rec: 03/01/22 13:18 AB [id number]) Orientation Orientation/Cognition Level of Alertness Alert Orientation Name,Place,Situation Language Function Ability No Deficits Noted Safety Awareness Decreased Safety Awareness Memory Description Short Term Impaired Gross Range of Motion Lower Extremity ROM Impairments R ankle on soft cast: NT Strength Lower Extremity Strength Assessment Bilaterally Impaired Comments Strength Comments LLE: 3+/5 RLE: 3+/5 Coordination Assessment Gross Coordination Gross Coordination WNL Sensation Assessment Sensation Gross Sensation Right LE Impaired Sensation Description Numbness Comments Sensation Comments R foot numbness Muscle Tone Muscle Tone WNL Yes M6 PT-IP Treatment Start: 03/01/22 12:39 Freq: NEEDED Status: Active Protocol: Document 03/05/22 13:22 OK (Rec: 03/05/22 14:07 OK [id number]) Physical Therapy Treatment Exercises Exercises Gluteal Sets,Straight Leg Raises Education Education Provided Weight Bearing Status,Safety M7 PT-IP Assessment and Plan Start: 03/01/22 12:39 Freq: NEEDED Status: Active Protocol: Document 03/05/22 13:22 OK (Rec: 03/05/22 14:07 OK [id number]) PT Summary Assessment and Plan Potential Rehabilitation Potential Fair Summary Impairments Pain,ROM,Strength,Balance, Coordination,Sensation,Tone, Cognition,Bed Mobility, Transfers,Gait,Activity Tolerance Progress Towards Goals Slow Progress due to Pain,Slow Progress due to Medical Issues,Slow Progress due to Activity Tolerance Assessment Summary Attempted to progress gait this PM, however pt unable to do so while maintaining 10# WB on RLE and does not have UE strength. He also had 2 LOB during stand step pivot requiring Max A to recover. He continues to require 2 person assist for transfers and step by step commands for stand step pivot. He is far from his baseline and will require SNF to improve functional mobility independence. Goals Bed Mobility Goal Standby Assistance Transfer Goal Standby Assistance Gait Goal Minimal Assistance Gait Distance 25 Days to Meet Goals 10 Frequency of Treatment Frequency Of Treatment Twice a Day Treatment Plan Physical Therapy Treatment Plan Bed Mobility Training,Transfer Training,Gait Training, Therapeutic Exercise,Balance Retraining,Post Op Education, Discharge Planning,Hot or Cold Pack,Neuromuscular Re-ed, Coordination Retraining,Manual Therapy Weight Bearing Status Weight Bearing Status Touch Down Weight Bearing Allowed Weight Bearing Amount (enter % RLE: per Dr. Freitas: 10# PWB or #) (%) RLE Recommendations To Nursing Amount of Assist Needed Mechanical Lift Discharge Recommendations PT Discharge Recommendations SNF Rehab Transportation Needs at Discharge Wheelchair/Cabulance
--- NOTE | 2022-03-05 17:52 | PC.NURSE ---
notified provider patient ciwa 6, he had some sudden nausea, slight trembling, sweating. patient reports he doesn't have hx alcohol withdrawal. last drink was over a week ago. pt does take suboxone at home. okay to administer 4mg PO dilaudid now. provider aware pt had 2mg IV dilaudid at 1550
[2022-03-05] MEDS: TRAZODONE 50 MG TABLET 300 MG PO (21:02)
[2022-03-05] MEDS: ATORVASTATIN 20 MG TABLET 80 MG PO (21:02)
[2022-03-05] MEDS: NORTRIPTYLINE 10 MG CAPSULE PO (21:03)
[2022-03-05] MEDS: ONDANSETRON 4 MG ODT PO (23:24)
--- NOTE | 2022-03-06 05:24 | P.PN_ITS ---
Subjective Subjective Date Patient Seen: 03/06/22 Interval history: 71-year-old gentleman with chronic opiate dependence on Suboxone, hypertension, remote cerebral aneurysm status post coiling, and alcohol dependence was admitted with a distal tib-fib/bimalleolar fracture status post repair 6 days ago. He was having constipation which resolved w/suppository. Currently being treated for suspected early cellulitis, now on D3 of Ancef. RN called last pm and noted a CIWA score of 6 (anxiety, mild tremors). He has not had any sxs of w/d before now. She did note he was receiving IV and po dilaudid as po was ordered q6 prn and was wearing off around 4 hours. Suspect he may have had some component of opiate w/d and hydromorphone was switched to q4 PRN. IV dose was d/c'd. On chronic suboxone which is being held. He reports no further anxiety/tremors/SLATER after increasing dilaudid frequency. He notes his last alcoholic beverage was 3 days prior to admission. He reports his leg is feeling about the same today. He and SO are living in an RV. There are 5 steps to get into the RV. He is unable to ambulate w/NWB status as he has chronic disability to his left leg from prior trauma. No friends/family locally. Exam Vital Signs (past 8 hours): - 03/05/22 21:35 Temperature 98.7 F Pulse Rate 75 Respiratory Rate 17 Blood Pressure 146/75 H Pulse Oximetry 99 Oxygen Delivery Method Room Air Oxygen Flow Rate 0 Narrative Exam Narrative: GEN:? Pleasant middle-aged male, Alert and oriented x 3, NAD HEENT:NC, Face symmetric CHEST: Respiratory excursions symmetric, CTAB CV: RRR, no M/R/G ABD: Soft, NT/ND, BT present in all 4 quadrants, no organomegaly or masses EXTR: warm, well perfused, unable to fully assess his right lower extremity skin due to splint and Rich wrap in place, but skin above the splint is hot to touch c/w the LLE SKIN: warm and dry, no rash NEURO: Alert and oriented x 3, nonfocal Objective Labs Result Diagrams: 03/06/22 06:38 03/06/22 06:38 [facility] Medical History Alcohol abuse Alcohol use disorder Cerebral aneurysm Chronic pain Depression Essential tremor Hepatitis C Hyperlipidemia Hypertension Opioid dependence Osteomyelitis Suicide attempt by drug overdose Surgical History History of surgery for cerebral aneurysm History of surgery on extremity Family History Father Alcoholism Mother Alcoholism Social History household members: significant other Smoking Status: Former smoker alcohol intake: current Assessment & Plan Assessment & Plan narrative: 1. Right distal tib-fib by malleolar fracture, status post ORIF On 03/04, patient had increased pain, redness, warmth to the lower extremity.? Due to concerns about early cellulitis, he was initially given Rocephin and transitioned to Ancef.? Plan to resume Suboxone when he is off oral opiates.? He continues to require oral hydromorphone. 2. Early cellulitis, RLE Continues ancef, presently day 3 of tx. Can transition to po abx at d/c. 3. Chronic opiate dependence Resume Suboxone once off opiate therapy. 4. Alcohol dependence He did have alcohol withdrawal on February 28, treated with benzodiazepines.? That has since resolved. 5. Hypertension Continue carvedilol, hydrochlorothiazide. 6. Hyperlipidemia Continue atorvastatin 7. Insomnia Continue amitriptyline and trazodone Resolved issues: Constipation Code status Full Prophylaxis Receiving b.i.d. aspirin per Orthopedic surgery Disposition Awaiting rehab transfer. Pt does not believe he will be able to get up the stairs into his RV and continue NWB on the right foot as the left leg is weak/has chronic debility as well. Time Spent With Patient Critical Care time: I spent a total of [] minutes of critical care time on this patient's care today; this time is exclusive of procedural time. Quality VTE Deep Vein Thrombosis/Pulmonary Embolism Present on Admission: No
[2022-03-06 06:00] VITALS: BP 127/57; PULSE 79; RESP 17; TEMP 36.9
[2022-03-06 07:07] LABS: Add Manual Diff / Slide Review NO; Basophils Absolute Auto 0 /uL (0-100); Basophils Percent Auto 0.3 % (0-2); Eosinophils Absolute Auto 100 /uL (0-450); Eosinophils Percent Auto 1.3 % (2-4); Hematocrit 37.1 % (41-53); Hemoglobin 13.3 g/dL (13.5-17.5); Lymphocytes Absolute Auto 900 /uL (1100-4500); Lymphocytes Percent Auto 13.7 % (25-40); Mean Corpuscular HGB Conc 35.7 % (30-36); Mean Corpuscular Hemoglobin 36.3 PG (26-34); Mean Corpuscular Volume 101.6 fL (80-100); Monocytes Absolute Auto 1000 /uL (0-900); Monocytes Percent Auto 16.3 % (3-14); Neutrophils Absolute Auto 4300 /uL (1500-7000); Neutrophils Percent Auto 68.4 % (50-75); Platelet Count 222 X10^3/uL (150-400); Red Blood Cell Count 3.65 X10^6/uL (4.5-5.9); Red Cell Distribution Width 13.7 % (11.6-14.8); White Blood Cell Count 6.3 X10^3/uL (4.5-11.0)
[2022-03-06 07:26] LABS: Blood Urea Nitrogen 21 mg/dL (9-20); Calcium 8.4 mg/dL (8.4-10.2); Carbon Dioxide 30 mmol/L (22-32); Chloride 98 mmol/L (98-107); Estimated Glomerular Filt Rate > 60 mL/min (>60); Glucose 128 mg/dL (80-110); HEMOLYSIS 18 (0-50); Sodium 133 mmol/L (137-145)
[2022-03-06 07:40] VITALS: BP 153/68; PULSE 71; RESP 16; TEMP 36.7; O2SAT 96
[2022-03-06 09:12] VITALS: BP 187/84; PULSE 90
[2022-03-06] MEDS: carvediloL 3.125 MG TABLET 6.25 MG PO ×2 (09:12→20:14)
[2022-03-06] MEDS: ASPIRIN EC 81 MG TABLET PO ×2 (09:13→20:14)
[2022-03-06] MEDS: CHOLECALCIFEROL (VITAMIN D3) 1,000 UNIT TABLET 2000 UNIT PO (09:14)
[2022-03-06] MEDS: BUSPIRONE 5 MG TABLET 15 MG PO ×2 (09:14→20:14)
[2022-03-06] MEDS: lisinopriL 10 MG TABLET PO (09:14)
[2022-03-06] MEDS: MULTIVITAMIN 1 TABLET 1 TAB PO (09:14)
[2022-03-06] MEDS: CEFAZOLIN 2 GM/100 ML PREMIX 100 ML IV ×2 (09:15→16:29)
[2022-03-06] MEDS: hydroCHLOROthiazide 25 MG TABLET 12.5 MG PO (09:16)
[2022-03-06] MEDS: DOCUSATE 100 MG CAPSULE PO ×2 (09:16→20:14)
[2022-03-06] MEDS: SERTRALINE 50 MG TABLET 100 MG PO (09:16)
[2022-03-06] MEDS: SENNOSIDES 8.6 MG TABLET PO ×2 (09:17→20:15)
[2022-03-06] MEDS: SODIUM CHLORIDE 0.9% FLUSH 10 ML IV ×2 (09:18→20:21)
[2022-03-06] MEDS: polyethylene glycoL 3350 17 GM POWD.PACK PO (09:18)
[2022-03-06 11:57] VITALS: BP 150/62; PULSE 79; RESP 17; TEMP 36.2; O2SAT 96
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
[2022-03-06] MEDS: HYDROMORPHONE 4 MG TABLET PO ×3 (12:53→21:21)
--- NOTE | 2022-03-06 12:56 | PC.NURSE ---
pt in chair then bsc 2 person with walker pt paul well, c/o pain right leg cms intack medicated with dilaudid 4mg po
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
[2022-03-06 17:48] VITALS: BP 148/59; PULSE 73; RESP 18; TEMP 36.8; O2SAT 98
[2022-03-06] MEDS: NORTRIPTYLINE 10 MG CAPSULE PO (20:14)
[2022-03-06] MEDS: ATORVASTATIN 20 MG TABLET 80 MG PO (20:14)
[2022-03-06 21:11] VITALS: BP 134/50; PULSE 76; RESP 17; TEMP 36.8; O2SAT 97
[2022-03-06] MEDS: TRAZODONE 50 MG TABLET 300 MG PO (23:08)
[2022-03-07] MEDS: CEFAZOLIN 2 GM/100 ML PREMIX 100 ML IV ×2 (00:50→08:31)
[2022-03-07] MEDS: HYDROMORPHONE 4 MG TABLET PO ×5 (04:26→21:50)
[2022-03-07 06:15] VITALS: BP 141/59; PULSE 71; RESP 19; TEMP 36.7; O2SAT 99
[2022-03-07] MEDS: BUSPIRONE 5 MG TABLET 15 MG PO ×2 (08:32→20:51)
[2022-03-07] MEDS: polyethylene glycoL 3350 17 GM POWD.PACK PO (08:32)
[2022-03-07] MEDS: hydroCHLOROthiazide 25 MG TABLET 12.5 MG PO (08:33)
[2022-03-07] MEDS: ASPIRIN EC 81 MG TABLET PO ×2 (08:34→20:51)
[2022-03-07] MEDS: lisinopriL 10 MG TABLET PO (08:34)
[2022-03-07] MEDS: MULTIVITAMIN 1 TABLET 1 TAB PO (08:34)
[2022-03-07] MEDS: SERTRALINE 50 MG TABLET 100 MG PO (08:35)
[2022-03-07] MEDS: DOCUSATE 100 MG CAPSULE PO ×2 (08:35→20:52)
[2022-03-07] MEDS: SENNOSIDES 8.6 MG TABLET PO ×2 (08:35→20:52)
[2022-03-07 08:36] VITALS: BP 155/70; PULSE 82; RESP 16; TEMP 36.7; O2SAT 98
[2022-03-07] MEDS: CHOLECALCIFEROL (VITAMIN D3) 1,000 UNIT TABLET 2000 UNIT PO (08:36)
[2022-03-07] MEDS: carvediloL 3.125 MG TABLET 6.25 MG PO ×2 (08:39→20:52)
--- NOTE | 2022-03-07 10:51 | PT.IPTN ---
Current Diagnoses Unspecified viral hepatitis C without hepatic coma (03/07/22) Alcohol abuse, uncomplicated (03/07/22) Opioid dependence, uncomplicated (03/07/22) Other chronic pain (03/07/22) Essential (primary) hypertension (03/07/22) Ataxia, unspecified (03/07/22) Other fracture of unspecified lower leg, initial encounter for closed fracture (03/07/22) Surgery Performed Operation Date: 02/28/22 14:45 Actual Procedures p ORIF Ankle Fracture(Right) - Jimena Freitas MD Physical Therapy Treatment Note M2 PT-IP Current Condition Start: 03/01/22 12:39 Freq: NEEDED Status: Active Protocol: Document 03/06/22 15:52 SP (Rec: 03/06/22 19:11 SP [id number]) Physical Therapy Current Condition Current Condition Evaluation Date 03/01/22 Treatment Diagnosis L ankle fx; difficulty in walking Onset Date 02/27/22 M3 PT-IP Subjective Start: 03/01/22 12:39 Freq: NEEDED Status: Active Protocol: Document 03/07/22 10:28 KS (Rec: 03/07/22 12:12 KS [id number]) Subjective Physical Therapy Visit Type Type Treatment Note Visit Start Time 10:28 Visit Stop Time 10:51 Total Visit Minutes 23 Number of [employer] OPERATOR Visits 2 Physical Therapy Visit Comments Patient Comments Pt agreeable to work w/ therapy. Patient Goals SNF due to unable to maintain <10# WB RLE and has stairs at home unableto complete. can't assist him. M4 PT-IP Mobility and Gait Start: 03/01/22 12:39 Freq: NEEDED Status: Active Protocol: Document 03/07/22 10:28 KS (Rec: 03/07/22 12:12 KS [id number]) PT-Bed Mobility Assessment Supine to Sit Supine to Sit Standby Assistance,Bedrails Sit to Supine Sit to Supine Standby Assistance,Bedrails Scooting Scooting to Edge of Bed Standby Assistance PT-Transfer Assessment Sit to and From Stand Sit to and from Stand Minimal Assistance,1 Person Assistance,Use of Upper Extremities Equipment Transfer Assistive Device Gait Belt,Front Wheeled Walker Orthotic/Prosthetic Devices or Brace: Yes Transfers Transfer Destination Bed Transfer Technique side steps Transfer Ability Level of Assist Minimal Assistance,1 Person Assistance,Use of Upper Extremities Comments Mobility Comments Pt sitting upright in bed upon arrival from therapy and not wanting to transfer to chair ut agreeable to practice standing balance. Pt SBA for bed mobility and scooting EOB. Able to sit<>stand w/ FWW Min A w/ cues today while maintaining TTWB. Pt able to maintain standing balance ~5 min w/ FWW and took small steps laterally towards HOB w/ FWW Min A but continues to have difficulty maintaining 10 # WB status of RLE. SBA for sit<>sup. Pt completed SLR and glute sets in bed. Left in bed w/ all needs in reach. Gait Assessment Gait Gait Assistance Required: Minimum Assistance,1 Person Assist Distance (Feet) 3 Able to Maintain Weight Bearing Status No During Gait Assistive Devices Assistive Device Gait Belt,Front Wheeled Walker Orthotic/Prosthetic Devices or Brace: Yes Gait Deviations General Gait Pattern Antalgic,Decreased Stride Length,Decreased Feet Clearance,Step-to Gait Factors Limiting Gait Function Factors Limiting Gait Function Decreased Activity Tolerance, Decreased Strength,Difficulty Following Directions,Limited Range of Motion,Pain,Poor Balance,Poor Safety Awareness Comments Gait Comments Pt only able to tolerate a few small steps laterally towards HOB but w/ difficulty maintaining weightbearing status and fatigues quickly. Stair Climbing Assessment Comments Stair Climbing Comments Unable to assess due to challenged by maintaining TTWB 10# allowed on RLE and use of FWW. . PT-Balance Assessment Sitting Balance and Reactions Static Sitting Balance Ability Normal Dynamic Sitting Balance Ability Fair Standing Balance and Reactions Static Standing Balance Ability Fair Dynamic Standing Balance Ability Fair Device Used FWW M5 PT-IP Objective Assessments Start: 03/01/22 12:39 Freq: NEEDED Status: Active Protocol: Document 03/01/22 10:09 AB (Rec: 03/01/22 13:18 AB [id number]) Orientation Orientation/Cognition Level of Alertness Alert Orientation Name,Place,Situation Language Function Ability No Deficits Noted Safety Awareness Decreased Safety Awareness Memory Description Short Term Impaired Gross Range of Motion Lower Extremity ROM Impairments R ankle on soft cast: NT Strength Lower Extremity Strength Assessment Bilaterally Impaired Comments Strength Comments LLE: 3+/5 RLE: 3+/5 Coordination Assessment Gross Coordination Gross Coordination WNL Sensation Assessment Sensation Gross Sensation Right LE Impaired Sensation Description Numbness Comments Sensation Comments R foot numbness Muscle Tone Muscle Tone WNL Yes M6 PT-IP Treatment Start: 03/01/22 12:39 Freq: NEEDED Status: Active Protocol: Document 03/07/22 10:28 KS (Rec: 03/07/22 12:12 KS [id number]) Physical Therapy Treatment Exercises Exercises Gluteal Sets,Straight Leg Raises Education Education Provided Weight Bearing Status,Safety Other Treatments Other Treatment Performed Discussed at home safety - pt will not be safe to d/c home because he lives in an RV and cannot fit a w/c and also cannot fit FWW into bathroom and has no rails. Also does not have space to place BSC next to bed for transfers. Due to W/B status, weakness, and home environment pt will not be able to safely return home. M7 PT-IP Assessment and Plan Start: 03/01/22 12:39 Freq: NEEDED Status: Active Protocol: Document 03/07/22 10:28 KS (Rec: 03/07/22 12:12 [place] [id number]) PT Summary Assessment and Plan Potential Rehabilitation Potential Good Status of Condition at Evaluation Stable Summary Impairments Pain,Strength,Balance, Coordination,Bed Mobility, Transfers,Gait,Activity Tolerance Progress Towards Goals Slow Progress due to Pain,Slow Progress due to Activity Tolerance Assessment Summary Pt has made some improvements w/ mobility and activity tolerance, but continues to demonstrate some difficulty maintaining WB status during transfers and standing. Discussed at home safety - pt will not be safe to d/c home because he lives in an RV and cannot fit a w/c and also cannot fit FWW into bathroom and has no rails. Also does not have space to place BSC next to bed for transfers. Due to W/B status, weakness, and home environment pt will not be able to safely return home. Goals Bed Mobility Goal Standby Assistance Transfer Goal Standby Assistance Gait Goal Minimal Assistance Gait Distance 25 Days to Meet Goals 10 Frequency of Treatment Frequency Of Treatment Twice a Day Treatment Plan Physical Therapy Treatment Plan Bed Mobility Training,Transfer Training,Gait Training, Therapeutic Exercise,Balance Retraining,Post Op Education, Discharge Planning,Hot or Cold Pack,Neuromuscular Re-ed, Coordination Retraining,Manual Therapy Other Recommendations and Next Treatment LE ex, TTWB ed with transfers Focus using FWW. Forward gait if ableto maintain 10# WB allowed on RLE. Weight Bearing Status Weight Bearing Status Touch Down Weight Bearing Allowed Weight Bearing Amount (enter % RLE: per Dr. Freitas: 10# PWB or #) (%) RLE Recommendations To Nursing Amount of Assist Needed 1 Person Assist Discharge Recommendations PT Discharge Recommendations SNF Rehab Transportation Needs at Discharge Wheelchair/Cabulance
[2022-03-07 13:42] VITALS: BP 150/54; PULSE 67; RESP 16; TEMP 36.9; O2SAT 99
--- NOTE | 2022-03-07 14:24 | PT-IP ANOTE ---
Attempted to see pt at 14:20, pt sleeping and requests to be seen tomorrow morning due to increased fatigue today. Offers that he sat up for lunch for ~45 minutes.
--- NOTE | 2022-03-07 15:03 | CM.DPNOTE ---
Discharge Planning Note: Met with patient today and explained we are still working on SNF placement. Contacted his [employer] insurance and spoke with [facility] Keith and he is only 10% service connected and is not primary for SNF--that would be his A[employer] Medicare #[id number]. Jazmine has contacted SNFs and resent referral with Medicare AARP as prime. Plan: SNF placement, follow up with facilities and let them know AARP Medicare prime, not VA. Sonia Jacome RN/DCP
[2022-03-07] MEDS: cephALEXin 250 MG CAPSULE 500 MG PO ×2 (17:38→20:51)
--- NOTE | 2022-03-07 17:57 | PM.PN.1 ---
Subjective Subjective Date Patient Seen: 03/07/22 Time Patient Seen: 08:00 Interval history: Patient has been and remains medically stable for discharge Exam Vital Signs (past 8 hours): - 03/07/22 13:42 Temperature 98.4 F Pulse Rate 67 Respiratory Rate 16 Blood Pressure 150/54 H Pulse Oximetry 99 Oxygen Delivery Method Room Air Oxygen Flow Rate 0 Narrative Exam Narrative: General:? no acute distress Lungs:? clear bilaterally Cardio:?regular rate and rhythm EXT: right lower leg bandaged Objective Labs Result Diagrams: 03/06/22 06:38 03/06/22 06:38 [facility] Medical History Alcohol abuse Alcohol use disorder Cerebral aneurysm Chronic pain Depression Essential tremor Hepatitis C Hyperlipidemia Hypertension Opioid dependence Osteomyelitis Suicide attempt by drug overdose Surgical History History of surgery for cerebral aneurysm History of surgery on extremity Family History Father Alcoholism Mother Alcoholism Social History household members: significant other Smoking Status: Former smoker alcohol intake: current Assessment & Plan Assessment & Plan narrative: 1. Right distal tib-fib by malleolar fracture, status post ORIF with complication of cellulitis -stop ancef and switch to keflex -continue pain medications, minimize iv opiates -start suboxone when off opiates 2. Chronic opiate dependence Resume Suboxone once off opiate therapy. 3. Alcohol dependence He did have alcohol withdrawal on February 28, treated with benzodiazepines.? That has since resolved. 4. Hypertension Continue carvedilol, hydrochlorothiazide. 5. Hyperlipidemia Continue atorvastatin 6. history of suicide attempt -no SI now Patient has been medically stable, and continues to be. Placement pending Time Spent With Patient Critical Care time: I spent a total of [] minutes of critical care time on this patient's care today; this time is exclusive of procedural time. Quality VTE Deep Vein Thrombosis/Pulmonary Embolism Present on Admission: No
[2022-03-07 18:45] VITALS: BP 134/60; PULSE 73; RESP 16; TEMP 36.8; O2SAT 96
[2022-03-07 20:30] VITALS: BP 171/67; PULSE 76; RESP 18; TEMP 36.7; O2SAT 98
[2022-03-07] MEDS: ATORVASTATIN 20 MG TABLET 80 MG PO (20:51)
[2022-03-07 20:52] VITALS: BP 171/67; PULSE 76
[2022-03-07] MEDS: NORTRIPTYLINE 10 MG CAPSULE PO (20:52)
[2022-03-07] MEDS: SODIUM CHLORIDE 0.9% FLUSH 10 ML IV (20:53)
[2022-03-07] MEDS: TRAZODONE 50 MG TABLET 300 MG PO (22:59)
[2022-03-08 03:03] VITALS: BP 125/48; PULSE 70; RESP 18; TEMP 36.8; O2SAT 95
[2022-03-08] MEDS: carvediloL 3.125 MG TABLET 6.25 MG PO ×2 (08:21→20:26)
[2022-03-08] MEDS: CHOLECALCIFEROL (VITAMIN D3) 1,000 UNIT TABLET 2000 UNIT PO (08:21)
[2022-03-08] MEDS: DOCUSATE 100 MG CAPSULE PO (08:21)
[2022-03-08] MEDS: hydroCHLOROthiazide 25 MG TABLET 12.5 MG PO (08:21)
[2022-03-08] MEDS: ASPIRIN EC 81 MG TABLET PO ×2 (08:21→20:27)
[2022-03-08] MEDS: cephALEXin 250 MG CAPSULE 500 MG PO ×4 (08:21→20:27)
[2022-03-08] MEDS: BUSPIRONE 5 MG TABLET 15 MG PO ×2 (08:21→20:27)
[2022-03-08] MEDS: MULTIVITAMIN 1 TABLET 1 TAB PO (08:22)
[2022-03-08] MEDS: polyethylene glycoL 3350 17 GM POWD.PACK PO (08:22)
[2022-03-08] MEDS: SENNOSIDES 8.6 MG TABLET PO (08:22)
[2022-03-08] MEDS: SERTRALINE 50 MG TABLET 100 MG PO (08:22)
[2022-03-08] MEDS: lisinopriL 10 MG TABLET PO (08:22)
[2022-03-08] MEDS: SODIUM CHLORIDE 0.9% FLUSH 10 ML IV ×2 (08:23→20:29)
[2022-03-08] MEDS: HYDROMORPHONE 4 MG TABLET PO ×4 (08:31→20:47)
--- NOTE | 2022-03-08 08:47 | CM.DPC ---
Addendum entered by Heidi Adorno R.N. 03/08/22 14:25: Updated patient and spouse about going to [facility] tomorrow, and possible merchandise pickup/receiving associate at 10:30. Let patient know that [facility] was working on insurance auth with his Medicare/AARP. Patient stated, why isn't VA covering this?. Let him know that co-worker, Tameka, had already contacted the [place] and has no jail coverage. He understands. He is anxious to go home. Let him know that the goal is to get him stronger to go back home. Let patient know that DC planning will continue to update. Updated nurse, Blossom, that COVID swab order is in for possible discharge tomorrow. Addendum entered by Heidi Adorno R.N. 03/08/22 13:24: Estrellita at [facility] most likely can take tomorrow, she is still working on insurance auth. She will go ahead and set up merchandise pickup/receiving associate time for approximately 10:30. She stated, she will leave a message this pm if she has any additional problems with patient's insurance, and wants to ensure that PASSR reflects depression. Placed COVID swab order, have not yet been able to update nurse that this was placed. Addendum entered by Heidi Adorno R.N. 03/08/22 12:30: Estrellita at [facility] called back, and stated, they can't take patient on Suboxone, but can go on p.o. pain meds. She also wanted to emphasize, patient can't smoke or drink at facility. She asked about CIWA, and he is currently not having any withdrawals. Asked hospitalist if patient would be going back on Suboxone, and he indicated, it's his home med, and he will eventually need to go back on it if he goes off pain meds, because he will start having withdrawals. Estrellita confirmed that they can take patient on p.o. pain meds, such as Dilaudid. Left her a message to call back regarding CIWA, and suboxone. She is currently working on insurance auth as well. Addendum entered by Heidi Adorno R.N. 03/08/22 11:00: Estrellita from [facility] had called back and asked what kind of patient is he, behavioral sherman. She had spoken to Rebeca, photographer assistant, and she let Estrellita know that this DC Asbestos Removal Worker would call her back. Met with patient in his room, he was sitting on his bed getting ready to use bedside commode. Patient alert and oriented. His spouse was sitting in the room as well. Updated patient and spouse that [facility] is reviewing patient. He did not note any agitated behaviors, was pleasant with this DC Asbestos Removal Worker. He stated, I had seen you walking in the chow earlier. Oscar ROLLE, mentioned, he does get depressed at times, just being her in the hospital. She had mentioned that patient was on the phone with his [facility] Manager Of Manufacturing, discussing using cream for his buttock region. Left Estrellita a message regarding patient's behaviors as being compliant with care, no noted withdrawals at this time. Addendum entered by Heidi Adorno R.N. 03/08/22 09:11: Spoke to Estrellita at [facility], she will review patient today and will update this DC Asbestos Removal Worker. She does not feel that it will be a problem getting insurance auth. Original Note: DCP Cont: Called Estrellita at [facility] and left a message, asking her if she can consider patient. Confirmed that patient would be going under his AARP Medicare. Several other facilities have been faxed. P: [facility] to continue to work on discharge planning for patient with follow up today. Heidi Adorno RN/Manager Of Manufacturing
[2022-03-08 09:00] VITALS: BP 155/66; PULSE 62; RESP 18; TEMP 36.7; O2SAT 98
--- NOTE | 2022-03-08 10:29 | PT.IPTN ---
Current Diagnoses Unspecified viral hepatitis C without hepatic coma (03/07/22) Alcohol abuse, uncomplicated (03/07/22) Opioid dependence, uncomplicated (03/07/22) Other chronic pain (03/07/22) Essential (primary) hypertension (03/07/22) Ataxia, unspecified (03/07/22) Other fracture of unspecified lower leg, initial encounter for closed fracture (03/07/22) Surgery Performed Operation Date: 02/28/22 14:45 Actual Procedures p ORIF Ankle Fracture(Right) - Jimena Freitas MD Physical Therapy Treatment Note M2 PT-IP Current Condition Start: 03/01/22 12:39 Freq: NEEDED Status: Active Protocol: Document 03/06/22 15:52 SP (Rec: 03/06/22 19:11 SP [id number]) Physical Therapy Current Condition Current Condition Evaluation Date 03/01/22 Treatment Diagnosis L ankle fx; difficulty in walking Onset Date 02/27/22 M3 PT-IP Subjective Start: 03/01/22 12:39 Freq: NEEDED Status: Active Protocol: Document 03/08/22 10:06 KS (Rec: 03/08/22 10:48 KS [id number]) Subjective Physical Therapy Visit Type Type Treatment Note Visit Start Time 10:06 Visit Stop Time 10:29 Total Visit Minutes 23 Number of [employer] ASSESSOR Visits 3 Physical Therapy Visit Comments Patient Comments Pt agreeable to work w/ therapy. Patient Goals SNF due to unable to maintain <10# WB RLE and has stairs at home and unable to complete. can't assist him. M4 PT-IP Mobility and Gait Start: 03/01/22 12:39 Freq: NEEDED Status: Active Protocol: Document 03/08/22 10:06 KS (Rec: 03/08/22 10:48 KS [id number]) PT-Bed Mobility Assessment Supine to Sit Supine to Sit Standby Assistance,Bedrails Sit to Supine Sit to Supine Standby Assistance,Bedrails Scooting Scooting to Edge of Bed Standby Assistance PT-Transfer Assessment Sit to and From Stand Sit to and from Stand Minimal Assistance,1 Person Assistance,Use of Upper Extremities Equipment Transfer Assistive Device Gait Belt,Front Wheeled Walker Orthotic/Prosthetic Devices or Brace: Yes Transfers Transfer Destination Bed Transfer Technique ambulated w/ FWW Transfer Ability Level of Assist Minimal Assistance,1 Person Assistance,Use of Upper Extremities Comments Mobility Comments Pt in bed upon arrival and agreeable to try ambulation today. SBA for bed mobility and scooting EOB. Pt still needing Min A for sit<>Stand due to weakness. He needs some additional time to become balanced upon standing and does have difficulty maintaining 10# WB status of RLE. He took 3 forward and backward steps w/ FWW w/ Min A and cues and rapidly fatigued and was unable to maintain 10 # WB. After ~2 min seated rest break, he completed ~6 ft ambulation w/ FWW Min A w/ NWB RLE, but again became very fatigued and could not tolerate further distance. Pt left in bed w/ alarm on and all needs in reach. Gait Assessment Gait Gait Assistance Required: Minimum Assistance,1 Person Assist Distance (Feet) 6 Able to Maintain Weight Bearing Status No During Gait Assistive Devices Assistive Device Gait Belt,Front Wheeled Walker Orthotic/Prosthetic Devices or Brace: Yes Gait Deviations General Gait Pattern Antalgic,Decreased Stride Length,Decreased Feet Clearance,Step-to Gait Factors Limiting Gait Function Factors Limiting Gait Function Decreased Activity Tolerance, Decreased Strength,Difficulty Following Directions,Limited Range of Motion,Pain,Poor Balance,Poor Safety Awareness Comments Gait Comments Pt made small improvements w/ ambulation w/ FWW today, but only able to tolerate ~6 ft Min A and had difficulty maintaining 10# WB on RLE so therefore was NWB. Stair Climbing Assessment Comments Stair Climbing Comments Unable to assess due to challenged by maintaining TTWB 10# allowed on RLE and use of FWW. . PT-Balance Assessment Sitting Balance and Reactions Static Sitting Balance Ability Normal Dynamic Sitting Balance Ability Fair Standing Balance and Reactions Static Standing Balance Ability Fair Dynamic Standing Balance Ability Fair Device Used FWW M5 PT-IP Objective Assessments Start: 03/01/22 12:39 Freq: NEEDED Status: Active Protocol: Document 03/01/22 10:09 AB (Rec: 03/01/22 13:18 AB [id number]) Orientation Orientation/Cognition Level of Alertness Alert Orientation Name,Place,Situation Language Function Ability No Deficits Noted Safety Awareness Decreased Safety Awareness Memory Description Short Term Impaired Gross Range of Motion Lower Extremity ROM Impairments R ankle on soft cast: NT Strength Lower Extremity Strength Assessment Bilaterally Impaired Comments Strength Comments LLE: 3+/5 RLE: 3+/5 Coordination Assessment Gross Coordination Gross Coordination WNL Sensation Assessment Sensation Gross Sensation Right LE Impaired Sensation Description Numbness Comments Sensation Comments R foot numbness Muscle Tone Muscle Tone WNL Yes M6 PT-IP Treatment Start: 03/01/22 12:39 Freq: NEEDED Status: Active Protocol: Document 03/08/22 10:06 KS (Rec: 03/08/22 10:48 [place] [id number]) Physical Therapy Treatment Education Education Provided Weight Bearing Status,Safety Other Treatments Other Treatment Performed Discussed at home safety - pt will not be safe to d/c home because he lives in an and cannot fit a w/c and also cannot fit FWW into bathroom and has no rails. Also does not have space to place BSC next to bed for transfers. Due to W/B status, weakness, and home environment pt will not be able to safely return home. M7 PT-IP Assessment and Plan Start: 03/01/22 12:39 Freq: NEEDED Status: Active Protocol: Document 03/08/22 10:06 KS (Rec: 03/08/22 10:48 [place] [id number]) PT Summary Assessment and Plan Potential Rehabilitation Potential Good Summary Impairments Pain,Strength,Balance, Coordination,Bed Mobility, Transfers,Gait,Activity Tolerance Progress Towards Goals Slow Progress due to Pain,Slow Progress due to Activity Tolerance Assessment Summary Pt making progress w/ PT but still has difficulty maintaining WB status and is very limited by weakness and low actvity tolerance as well as poor balance. He ambulated ~6 ft w/ FWW NWB RLE and Min A today, but fatigued quickly and needed to sit down. He is not safe to d/c home due to WB status, weakness, poor balance, and home environment. He will require SNF to improve functional mobility independence. Goals Bed Mobility Goal Standby Assistance Transfer Goal Standby Assistance Gait Goal Minimal Assistance Gait Distance 25 Days to Meet Goals 10 Frequency of Treatment Frequency Of Treatment Twice a Day Treatment Plan Physical Therapy Treatment Plan Bed Mobility Training,Transfer Training,Gait Training, Therapeutic Exercise,Balance Retraining,Post Op Education, Discharge Planning,Hot or Cold Pack,Neuromuscular Re-ed, Coordination Retraining,Manual Therapy Other Recommendations and Next Treatment LE ex, TTWB ed with transfers Focus using FWW. Forward gait if ableto maintain 10# WB allowed on RLE. Weight Bearing Status Weight Bearing Status Touch Down Weight Bearing Allowed Weight Bearing Amount (enter % RLE: per Dr. Freitas: 10# PWB or #) (%) RLE Recommendations To Nursing Amount of Assist Needed 1 Person Assist Discharge Recommendations PT Discharge Recommendations SNF Rehab Transportation Needs at Discharge Wheelchair/Cabulance
--- NOTE | 2022-03-08 12:14 | PT.IPTN ---
Current Diagnoses Unspecified viral hepatitis C without hepatic coma (03/07/22) Alcohol abuse, uncomplicated (03/07/22) Opioid dependence, uncomplicated (03/07/22) Other chronic pain (03/07/22) Essential (primary) hypertension (03/07/22) Ataxia, unspecified (03/07/22) Other fracture of unspecified lower leg, initial encounter for closed fracture (03/07/22) Surgery Performed Operation Date: 02/28/22 14:45 Actual Procedures p ORIF Ankle Fracture(Right) - Jimena Freitas MD Physical Therapy Treatment Note M2 PT-IP Current Condition Start: 03/01/22 12:39 Freq: NEEDED Status: Active Protocol: Document 03/06/22 15:52 SP (Rec: 03/06/22 19:11 SP [id number]) Physical Therapy Current Condition Current Condition Evaluation Date 03/01/22 Treatment Diagnosis L ankle fx; difficulty in walking Onset Date 02/27/22 M3 PT-IP Subjective Start: 03/01/22 12:39 Freq: NEEDED Status: Active Protocol: Document 03/08/22 12:02 KS (Rec: 03/08/22 12:41 KS [id number]) Subjective Physical Therapy Visit Type Type Treatment Note Visit Start Time 12:02 Visit Stop Time 12:14 Total Visit Minutes 12 Number of MECHANICAL SERVICE SPECIALIST Visits 4 Physical Therapy Visit Comments Patient Comments Pt agreeable to work w/ therapy. Patient Goals SNF due to unable to maintain <10# WB RLE and has stairs at home and unable to complete. can't assist him. M4 PT-IP Mobility and Gait Start: 03/01/22 12:39 Freq: NEEDED Status: Active Protocol: Document 03/08/22 12:02 KS (Rec: 03/08/22 12:41 KS [id number]) PT-Bed Mobility Assessment Supine to Sit Supine to Sit Standby Assistance,Bedrails Sit to Supine Sit to Supine Standby Assistance,Bedrails Scooting Scooting to Edge of Bed Standby Assistance PT-Transfer Assessment Sit to and From Stand Sit to and from Stand Minimal Assistance,1 Person Assistance,Use of Upper Extremities Equipment Transfer Assistive Device Gait Belt,Front Wheeled Walker Orthotic/Prosthetic Devices or Brace: Yes Transfers Transfer Destination Chair Transfer Technique ambulated w/ FWW Transfer Ability Level of Assist Minimal Assistance,1 Person Assistance,Use of Upper Extremities Comments Mobility Comments Pt in bed and agreeable to go to chair for lunch. SBA for bed mobility, Min A for sit<> stand w/ FWW. Pt was able to ambulate ~15 ft this PM w/ FWW Min A to maintain balance. Still demonstrating difficulty adhering to 10# WB of RLE, but improves temporarily w/ frequent cues and does better NWB but requires increased assist for balance. Pt reported high level fo fatigue and requested to go to chair to eat lunch. Pt left in chair w/ all needs in reach. Gait Assessment Gait Gait Assistance Required: Minimum Assistance,1 Person Assist Distance (Feet) 15 Able to Maintain Weight Bearing Status No During Gait Assistive Devices Assistive Device Gait Belt,Front Wheeled Walker Orthotic/Prosthetic Devices or Brace: Yes Gait Deviations General Gait Pattern Antalgic,Decreased Stride Length,Decreased Feet Clearance,Step-to Gait Factors Limiting Gait Function Factors Limiting Gait Function Decreased Activity Tolerance, Decreased Strength,Difficulty Following Directions,Limited Range of Motion,Pain,Poor Balance,Poor Safety Awareness Comments Gait Comments Please refer to mobility section for details. Stair Climbing Assessment Comments Stair Climbing Comments Unable to assess due to challenged by maintaining TTWB 10# allowed on RLE and use of FWW. . PT-Balance Assessment Sitting Balance and Reactions Static Sitting Balance Ability Normal Dynamic Sitting Balance Ability Fair Standing Balance and Reactions Static Standing Balance Ability Fair Dynamic Standing Balance Ability Fair Device Used FWW M5 PT-IP Objective Assessments Start: 03/01/22 12:39 Freq: NEEDED Status: Active Protocol: Document 03/01/22 10:09 AB (Rec: 03/01/22 13:18 AB [id number]) Orientation Orientation/Cognition Level of Alertness Alert Orientation Name,Place,Situation Language Function Ability No Deficits Noted Safety Awareness Decreased Safety Awareness Memory Description Short Term Impaired Gross Range of Motion Lower Extremity ROM Impairments R ankle on soft cast: NT Strength Lower Extremity Strength Assessment Bilaterally Impaired Comments Strength Comments LLE: 3+/5 RLE: 3+/5 Coordination Assessment Gross Coordination Gross Coordination WNL Sensation Assessment Sensation Gross Sensation Right LE Impaired Sensation Description Numbness Comments Sensation Comments R foot numbness Muscle Tone Muscle Tone WNL Yes M6 PT-IP Treatment Start: 03/01/22 12:39 Freq: NEEDED Status: Active Protocol: Document 03/08/22 12:02 KS (Rec: 03/08/22 12:41 KS [id number]) Physical Therapy Treatment Education Education Provided Weight Bearing Status,Safety Other Treatments Other Treatment Performed Discussed at home safety - pt will not be safe to d/c home because he lives in an RV and cannot fit a w/c and also cannot fit FWW into bathroom and has no rails. Also does not have space to place BSC next to bed for transfers. Due to W/B status, weakness, and home environment pt will not be able to safely return home. M7 PT-IP Assessment and Plan Start: 03/01/22 12:39 Freq: NEEDED Status: Active Protocol: Document 03/08/22 12:02 KS (Rec: 03/08/22 12:41 KS [id number]) PT Summary Assessment and Plan Potential Rehabilitation Potential Good Summary Impairments Pain,Strength,Balance, Coordination,Bed Mobility, Transfers,Gait,Activity Tolerance Progress Towards Goals Slow Progress due to Pain,Slow Progress due to Activity Tolerance Assessment Summary Pt continues to make slow progress w/ mobility and is limited by WB status, weakness , and low activity tolerance. He continues to show good effort and is a great candidate for SNF due to needs and is currently unsafe to go home. He increased ambulation distance to 15 ft w/ FWW but needs assist for balance and WB adherence. Goals Bed Mobility Goal Standby Assistance Transfer Goal Standby Assistance Gait Goal Minimal Assistance Gait Distance 25 Days to Meet Goals 10 Frequency of Treatment Frequency Of Treatment Twice a Day Treatment Plan Physical Therapy Treatment Plan Bed Mobility Training,Transfer Training,Gait Training, Therapeutic Exercise,Balance Retraining,Post Op Education, Discharge Planning,Hot or Cold Pack,Neuromuscular Re-ed, Coordination Retraining,Manual Therapy Other Recommendations and Next Treatment LE ex, TTWB ed with transfers Focus using FWW. Forward gait if ableto maintain 10# WB allowed on RLE. Weight Bearing Status Weight Bearing Status Touch Down Weight Bearing Allowed Weight Bearing Amount (enter % RLE: per Dr. Freitas: 10# PWB or #) (%) RLE Recommendations To Nursing Amount of Assist Needed 1 Person Assist Discharge Recommendations PT Discharge Recommendations SNF Rehab Transportation Needs at Discharge Wheelchair/Cabulance
[2022-03-08 14:10] VITALS: BP 125/59; PULSE 71; RESP 16; TEMP 36; O2SAT 100
--- NOTE | 2022-03-08 14:42 | P.PN_ITS ---
Subjective Subjective Date Patient Seen: 03/08/22 Time Patient Seen: 08:00 Interval history: His pain is controlled. He developed an itchy rash on his back and was ordered for hydrocortisone Exam Vital Signs (past 8 hours): - 03/08/22 09:00 03/08/22 14:10 Temperature 98.1 F 96.8 F L Pulse Rate 62 71 Respiratory Rate 18 16 Blood Pressure 155/66 H 125/59 L Pulse Oximetry 98 100 Oxygen Delivery Method Room Air Oxygen Flow Rate 0 Narrative Exam Narrative: General:? no acute distress Lungs:? clear bilaterally Cardio:?regular rate and rhythm EXT: right lower leg bandaged Objective Labs Result Diagrams: 03/06/22 06:38 03/06/22 06:38 [facility] Medical History Alcohol abuse Alcohol use disorder Cerebral aneurysm Chronic pain Depression Essential tremor Hepatitis C Hyperlipidemia Hypertension Opioid dependence Osteomyelitis Suicide attempt by drug overdose Surgical History History of surgery for cerebral aneurysm History of surgery on extremity Family History Father Alcoholism Mother Alcoholism Social History household members: significant other Smoking Status: Former smoker alcohol intake: current Assessment & Plan Assessment & Plan narrative: 1. Right distal tib-fib by malleolar fracture, status post ORIF with complication of cellulitis -stop ancef and switch to keflex -continue pain medications, minimize iv opiates -start suboxone when off opiates 2. Chronic opiate dependence Resume Suboxone once off opiate therapy. 3. Alcohol dependence He did have alcohol withdrawal on February 28, treated with benzodiazepines.? That has since resolved. 4. Hypertension Continue carvedilol, hydrochlorothiazide. 5. Hyperlipidemia Continue atorvastatin 6. history of suicide attempt -no SI now 7. Rash, back -ordered hydrocortisone Patient has been medically stable, and continues to be. Placement pending Time Spent With Patient Critical Care time: I spent a total of [] minutes of critical care time on this patient's care today; this time is exclusive of procedural time. Quality VTE Deep Vein Thrombosis/Pulmonary Embolism Present on Admission: No
[2022-03-08 18:39] LABS: COVID19 -Nasal RAPID Negative (Negative)
[2022-03-08 19:10] VITALS: BP 132/78; PULSE 72; RESP 16; TEMP 36.7; O2SAT 100
[2022-03-08 20:26] VITALS: BP 132/78; PULSE 72
[2022-03-08] MEDS: HYDROCORTISONE 1% CREAM 28 GM 1 APPLIC TOP (20:26)
[2022-03-08] MEDS: ATORVASTATIN 20 MG TABLET 80 MG PO (20:27)
[2022-03-08] MEDS: NORTRIPTYLINE 10 MG CAPSULE PO (20:27)
[2022-03-08] MEDS: TRAZODONE 50 MG TABLET 300 MG PO (23:04)
[2022-03-09 05:10] VITALS: BP 137/61; PULSE 79; RESP 18; TEMP 37.1; O2SAT 97
--- NOTE | 2022-03-09 07:39 | CM.DPC ---
Addendum entered by Heidi Adorno R.N. 03/09/22 08:52: Dr. Selby completed medications and script. Having Rebeca fax this over to [facility] as well as PASSR and DC Summary, still pending discharge order information, will follow up with hospitalist. Original Note: DCP Cont: Spoke to Estrellita at [facility] and confirmed that she has obtained patient's insurance auth. Transportation potato picker is confirmed for 10:30, had spoken to patient yesterday about potato picker time, as well as spouse. Updated nurse, [place], and board at main nurse's station. Updated Dr. Selby, and he will complete orders. COVID swab is already back. Rebeca, asset protection assistant, will look for orders. Once orders are completed, they will be faxed, along with PASSR and DC Summary. P: DCP to continue to follow. Plan is for patient to go to [facility] today with potato picker time of 10:30. Heidi Adorno RN/Job Molder
[2022-03-09] MEDS: HYDROMORPHONE 4 MG TABLET PO ×2 (07:50→12:32)
--- NOTE | 2022-03-09 08:04 | P.DS_ITS ---
History of Present Illness History of Present Illness Date Patient Seen: 03/09/22 Time Patient Seen: 08:04 Chief complaint: Ankle PX Narrative: Per Dr. Bowden, PT fell and rolled R ankle and broke it per imaging. Doesn't think he hit his head but he is generally a mediocre historian consistent with previous presentations. Living in - where he fell - has hx of multiple surgeries on L arm and leg 2/2 bad crush injury. His mobility is impaired at baseline - Dr. Win Freitas plans to address the ankle surgically in the morning. Takes 1.5 suboxone strips SL tid at baseline but did not have any today. Reports pain in R ankle is currently at 7.9 out of 10 he is shaky and sweaty. Endorses drinking 1-2 shots of liquor but no beer. Discharge Providers Provider Date of admission: 03/07/22 11:29 Discharge Date: 03/09/22 Primary care physician: Doctor Cale MD Consults: 02/27/22 23:18 Consult to Orthopedic Surgery Routine Comment: Consulting Provider: Jimena Freitas Reason for consultation: R ankle fx Has provider been notified: Yes 02/28/22 18:41 Consult to Discharge Planning Routine Comment: Consult to Physical Therapy Evaluate & Treat Comment: Physician Instructions: Evaluate and Treat Consult to Respiratory Therapy Evaluate & Treat Comment: Physician Instructions: Evaluate and treat Discharge provider: Alexi Selby DO Summary Hospital Course Discharge Diagnosis: 1. Right distal tib-fib by malleolar fracture, status post ORIF with complication of cellulitis 2. Chronic opiate dependence 3. Alcohol dependence and withdrawal 4. Hypertension 5. Hyperlipidemia Hospital Course: This is a 71-year-old male with a past medical history of hypertension, hyperlip idemia, chronic opiate dependence on Suboxone, and alcohol dependence who was admitted after a distal tib-fib fracture on the right. He underwent operative interventions with Orthopedic surgery. Shortly prior to surgery the patient had symptoms of alcohol withdrawal which improved with as needed benzodiazepines. He had minimal symptoms after surgery and required no further treatments with benzodiazepines. His course was prolonged due to difficulties with placement, as he continues to require significant assistance. He also developed cellulitis at the surgical site which has improved with Ancef initially, now changed to or a flex. He is on opiate therapy for pain control currently. When no longer taking opiates, recommend resuming home suboxone. Time Spent with Patient Time spent: Greater than 30 minutes Exam Vital Signs (past 8 hours): - 03/09/22 05:10 Temperature 98.8 F Pulse Rate 79 Respiratory Rate 18 Blood Pressure 137/61 Pulse Oximetry 97 Oxygen Flow Rate 0 Oxygen Delivery Method Room Air Oxygen Flow Rate 0 Narrative Exam Narrative: General:? no acute distress, well appearing Lungs:? clear bilaterally Cardio:?regular rate and rhythm ext: no obvious erythema, though leg was bandaged. Objective Labs Result Diagrams: 03/06/22 06:38 03/06/22 06:38 Labs: Laboratory Results - last 24 hr 03/08/22 18:00 SARS-CoV-2 (PCR) Negative [facility] Medical History Alcohol abuse Alcohol use disorder Cerebral aneurysm Chronic pain Depression Essential tremor Hepatitis C Hyperlipidemia Hypertension Opioid dependence Osteomyelitis Suicide attempt by drug overdose Surgical History History of surgery for cerebral aneurysm History of surgery on extremity Family History Father Alcoholism Mother Alcoholism Social History household members: significant other Smoking Status: Former smoker alcohol intake: current Discharge Plan Discharge Plan Patient Disposition: SNF Discharge orders & Medications Prescriptions: New aspirin 81 mg Tablet,Delayed Release (Dr/Ec) 81 mg PO BID 30 Days Qty: 60 0RF cephalexin 500 mg tablet 500 mg PO QID 7 Days Qty: 28 0RF sennosides [senna] 8.6 mg Tablet 8.6 mg PO BID 14 Days Qty: 28 0RF polyethylene glycol 3350 17 gram Powder In Packet 17 gm PO DAILY 14 Days Qty: 14 0RF hydromorphone 4 mg tablet 4 mg PO Q4H PRN (Reason: pain) 7 Days Qty: 40 0RF Continued atorvastatin 80 mg Tablet 80 mg PO BEDTIME sertraline 100 mg Tablet 100 mg PO QAM nortriptyline 10 mg Capsule 10 mg PO BEDTIME trazodone 150 mg Tablet 300 mg PO BEDTIME lisinopril 10 mg Tablet 10 mg PO DAILY Label Comments: pt unsure of frequency hydrochlorothiazide 12.5 mg Capsule 12.5 mg PO QAM cholecalciferol (vitamin D3) 50 mcg (2,000 unit) Capsule 50 mcg PO DAILY Adult One Daily Multivitamin 1 tab PO BID carvedilol 6.25 mg Tablet 6.25 mg PO BID Rx Instructions: must administer with a meal/food buspirone 15 mg Tablet 15 mg PO BID Discontinued multivitamin with folic acid [Tab-A-Essie] 400 mcg Tablet 1 tab PO DAILY Qty: 100 0RF Follow up/Referrals: Doctor Madsen MD [Primary Care Provider] - Jimena Freitas MD [Physician] - (10-14 days for postoperative visit) Discharge Health Status Multidrug resistant organism: No MDRO Precautions: [place] Diet/Activity/Treatments Diet: Diet as Tolerated Liquid consistency: Normal/Thin Food texture: Regular Other treatments: -partial weight-bearing on right lower extremity for transfers -Elevate right ankle on multiple pillows -aspirin 81mg bid x6 weeks for to prevent blood clots -continue and finish all antibiotics -follow-up with [facility] orthopedics 10-14 days after your surgery for postoperative wound check and x-rays Skin/Wound/Dressing Care Report to your healthcare provider any signs of infection, such as:: chills, fever, night sweats, unusual drainage and unusual redness [facility] Reason for rehabilitation: Recovery r/t decondition Rehab type: Physical therapy and Occupational therapy Visit Report/Discharge Packet Instructions: DI for Open Reduction Internal Fixation Surgery, DI for Prescription Opioid Use Stand Alone Forms: Surgery Discharge Discharge Data Primary Care Provider: Doctor Cale Quality VTE Deep Vein Thrombosis/Pulmonary Embolism Present on Admission: No
[2022-03-09] MEDS: hydroCHLOROthiazide 25 MG TABLET 12.5 MG PO (08:07)
[2022-03-09] MEDS: BUSPIRONE 5 MG TABLET 15 MG PO (08:07)
[2022-03-09] MEDS: ASPIRIN EC 81 MG TABLET PO (08:07)
[2022-03-09] MEDS: carvediloL 3.125 MG TABLET 6.25 MG PO (08:07)
[2022-03-09] MEDS: SERTRALINE 50 MG TABLET 100 MG PO (08:13)
[2022-03-09] MEDS: CHOLECALCIFEROL (VITAMIN D3) 1,000 UNIT TABLET 2000 UNIT PO (08:13)
[2022-03-09] MEDS: DOCUSATE 100 MG CAPSULE PO (08:18)
[2022-03-09] MEDS: MULTIVITAMIN 1 TABLET 1 TAB PO (08:18)
[2022-03-09] MEDS: lisinopriL 10 MG TABLET PO (08:18)
[2022-03-09] MEDS: cephALEXin 250 MG CAPSULE 500 MG PO (08:18)
[2022-03-09] MEDS: SENNOSIDES 8.6 MG TABLET PO (08:19)
[2022-03-09] MEDS: SODIUM CHLORIDE 0.9% FLUSH 10 ML IV (08:20)
[2022-03-09] MEDS: HYDROCORTISONE 1% CREAM 28 GM 1 APPLIC TOP (08:20)
[2022-03-09 08:56] VITALS: BP 146/74; PULSE 80; RESP 18; TEMP 36.7; O2SAT 98
--- NOTE | 2022-03-09 10:46 | PT-IP ANOTE ---
Attempted to see pt at 10:26, pt would like to rest, reporting increased fatigue d/t lack of sleep last night and states he is pending p/u for SNF around 10:30.
== END 2022-03-09 12:37 | DRG 563 ==
LOC: ED 21:57 → AC 21:58
PROVIDERS: Family Medicine; Internal Medicine; Admitting Provider Family Medicine; Emergency Provider Emergency Medicine; Referring Provider Orthopaedic Surgery; Visit Provider Internal Medicine
PROC: 0SSF04Z Reposition Right Ankle Joint with Internal Fixation Device, Open Approach (ICD-10-PCS; principal; 2022-02-28 14:45)
DX: S82.841A Displaced bimalleolar fracture of right lower leg, initial encounter for closed fracture (principal); F10.239 Alcohol dependence with withdrawal, unspecified; F11.20 Opioid dependence, uncomplicated; L03.115 Cellulitis of right lower limb; T81.41XA Infection following a procedure, superficial incisional surgical site, initial encounter; I10 Essential (primary) hypertension; E78.5 Hyperlipidemia, unspecified; G47.00 Insomnia, unspecified; K59.00 Constipation, unspecified; R21 Rash and other nonspecific skin eruption; F32.A Depression, unspecified; F41.9 Anxiety disorder, unspecified; X50.1XXA Overexertion from prolonged static or awkward postures, initial encounter; Z20.822 Contact with and (suspected) exposure to COVID-19; Z66 Do not resuscitate; Z87.891 Personal history of nicotine dependence
CPT/HCPCS: 36415; 64450; 73560; 73590; 73610; 73630; 80048; 80076; 83735; 85025; 85610; 85730; 87635; 94760; 96374; 96375; 96376; 97110; 97116; 97162; 97530; 99284; C9803; G0378; C1713; J0690; J0696; J1100; J1170; J1200; J2250; J2270; J2405; J2560; J2704; J3010; J3360

== ENCOUNTER 2022-02-27 18:52 | Observation (INO) | payer OTHER, SELFPAY ==
[2022-02-27 23:18] VITALS: BMI 30.1
== END 2022-03-03 12:37 | disposition home or self-care (01) ==
LOC: ED 05-02 11:45 → AC 05-02 11:47
PROVIDERS: Admitting Provider Family Medicine; Emergency Provider Emergency Medicine; Visit Provider Family Medicine
DX: S82.841A Displaced bimalleolar fracture of right lower leg, initial encounter for closed fracture (principal); X50.1XXA Overexertion from prolonged static or awkward postures, initial encounter; S80.01XA Contusion of right knee, initial encounter; M25.461 Effusion, right knee; I10 Essential (primary) hypertension; B19.20 Unspecified viral hepatitis C without hepatic coma; G89.29 Other chronic pain; F11.20 Opioid dependence, uncomplicated; F10.10 Alcohol abuse, uncomplicated; Z20.822 Contact with and (suspected) exposure to COVID-19
CPT/HCPCS: 27814; 36415; 64450; 73560; 73590; 73610; 73630; 80048; 80076; 85025; 85610; 85730; 87635; 94760; 96374; 96375; 96376; 97162; 97530; 99284; C9803; G0378; C1713; J0690; J1100; J1170; J1200; J2250; J2270; J2405; J2560; J2704; J3010; J3360

== ENCOUNTER 2022-04-17 19:57 | Emergency (ER) | payer OTHER, MEDICARE, SELFPAY ==
[2022-04-17] VITALS (13 sets, daily range): BP systolic 150–202; BP diastolic 61–84; PULSE 63–81; RESP 16–33; TEMP 36.2–37.8; O2SAT 95–98; BMI 27.9
--- NOTE | 2022-04-17 20:14 | DI.RAD.S_ITS ---
PROCEDURE: XR CHEST 1V INDICATIONS: shortness of breath TECHNIQUE: One view of the chest was acquired. COMPARISON: [facility], CR, XR CHEST 1V, 04/04/2021, 18:54. FINDINGS: Surgical changes and devices: None. Lungs and pleura: Lungs are clear. No pleural effusions or pneumothorax. Mediastinum: Mediastinal contours appear normal. Heart size is normal. Bones and chest wall: No suspicious bony lesions. Overlying soft tissues appear unremarkable. IMPRESSION: 1. No acute cardiopulmonary disease. Dictated by: Tulio Thompson M.D. on 04/17/2022 at 20:42 Approved by: Tulio Thompson M.D. on 04/17/2022 at 20:43
[2022-04-17 20:39] LABS: Add Manual Diff / Slide Review NO; Basophils Absolute Auto 100 /uL (0-100); Basophils Percent Auto 1.5 % (0-2); Eosinophils Absolute Auto 100 /uL (0-450); Eosinophils Percent Auto 0.9 % (2-4); Hematocrit 39.4 % (41-53); Hemoglobin 14.1 g/dL (13.5-17.5); Lymphocytes Absolute Auto 1500 /uL (1100-4500); Lymphocytes Percent Auto 24.3 % (25-40); Mean Corpuscular HGB Conc 35.8 % (30-36); Mean Corpuscular Hemoglobin 34.2 PG (26-34); Mean Corpuscular Volume 95.5 fL (80-100); Monocytes Absolute Auto 700 /uL (0-900); Monocytes Percent Auto 11.6 % (3-14); Neutrophils Absolute Auto 3800 /uL (1500-7000); Neutrophils Percent Auto 61.7 % (50-75); Platelet Count 175 X10^3/uL (150-400); Red Blood Cell Count 4.13 X10^6/uL (4.5-5.9); White Blood Cell Count 6.2 X10^3/uL (4.5-11.0)
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
--- NOTE | 2022-04-17 20:47 | DI.CT.S_ITS ---
PROCEDURE: CT ANGIO CHEST PE PROTOCOL INDICATIONS: vomiting, shortness of breath, recent surgery TECHNIQUE: After the administration of intravenous contrast, 2 mm thick sections acquired from the pulmonary apices to the posterior costophrenic angles. 3-dimensional maximum intensity projection (MIP) coronal and sagittal reformats were then acquired through the thorax. For radiation dose reduction, the following was used: automated exposure control, adjustment of mA and/or kV according to patient size. COMPARISON: [facility], CT, CT ABDOMEN PELVIS W CON, 04/17/2022, 21:26. FINDINGS: Image quality: Excellent. Pulmonary arteries: Pulmonary arteries are normal in size, and demonstrate no intraluminal filling defects to suggest central pulmonary embolism. Lower Neck: No lymphadenopathy by size criteria. Thyroid: Visualized thyroid demonstrates no discrete nodules. Axillae: No lymphadenopathy by size criteria. Chest Wall: Unremarkable. Bones: There are mild superior endplate compression deformities of the T3 and L1 vertebral bodies of indeterminate acuity. No retropulsed fragments in the spinal canal. Visualized osseous structures demonstrate no suspicious lesions. Lungs and Airways: No acute consolidation. There is mild dependent atelectasis and scattered areas of mild scarring. The trachea and central airways are patent. Pleura: No pneumothorax or pleural effusions. Heart: Heart size is normal. There is extensive coronary arterial vascular calcification. No pericardial effusion. Thoracic Vessels: The thoracic aorta is normal in size. Mediastinum and Patti: No lymphadenopathy by size criteria. Esophagus: No wall thickening. There is a small hiatal hernia. Abdomen: Visualized upper abdominal solid organs appear normal in the early arterial phase of enhancement. IMPRESSION: 1. No evidence of pulmonary embolism. 2. No acute airspace consolidation. 3. Mild superior endplate compression deformities of the T3 and L1 vertebral bodies of indeterminate acuity. Dictated by: Tulio Thompson M.D. on 04/17/2022 at 21:45 Approved by: Tulio Thompson M.D. on 04/17/2022 at 21:50
[2022-04-17 20:49] LABS: Creatine Kinase 117 U/L (55-170)
[2022-04-17 21:01] LABS: Troponin I 0.016 ng/mL (0.01-0.034)
[2022-04-17 21:04] LABS: CKMB % Relative Index 1.7 % (1.5-5.0); Creatine Kinase MB 1.95 ng/mL (<2.37)
[2022-04-17 21:12] LABS: COVID19 -Nasal RAPID Negative (Negative)
[2022-04-17 21:12] LABS: Alanine Aminotransferase 45 IU/L (<50); Albumin 4.4 g/dL (3.5-5.0); Albumin Globulin Ratio 1.3 (1.0-2.8); Alkaline Phosphatase 87 U/L (38-126); Aspartate Aminotransferase 45 IU/L (17-59); BUN Creatinine Ratio 15.2 (6-22); Bilirubin Total 1.1 mg/dL (0.2-1.3); Blood Urea Nitrogen 14 mg/dL (9-20); Calcium 9.4 mg/dL (8.4-10.2); Carbon Dioxide 31 mmol/L (22-32); Chloride 94 mmol/L (98-107); Estimated Glomerular Filt Rate > 60 mL/min (>60); Globulin 3.4 g/dL (1.7-4.1); Glucose 106 mg/dL (80-110); HEMOLYSIS < 15 (0-50); Potassium 3.8 mmol/L (3.4-5.1); Sodium 135 mmol/L (137-145); Total Protein 7.8 g/dL (6.3-8.2)
[2022-04-17 21:13] LABS: Lactate (Lactic Acid) 2.2 mmol/L (0.7-2.1)
[2022-04-17] MEDS: ONDANSETRON 4 MG/2 ML INJ IV (21:16)
[2022-04-17 21:21] LABS: NT-proBNP (BNP-Adult 18+) 1180 pg/mL (<125)
[2022-04-17 22:53] LABS: Reflexed Lactate in 2 Hours Y
[2022-04-17] MEDS: FUROSEMIDE 40 MG/4 ML VIAL IV (22:54)
[2022-04-17 23:21] LABS: Troponin I 0.017 ng/mL (0.01-0.034)
[2022-04-18] VITALS: BP 162/72; PULSE 66; O2SAT 94
[2022-04-18 00:30] VITALS: PULSE 66; RESP 25; O2SAT 95
== END 2022-04-18 01:10 | disposition home or self-care (01) ==
PROVIDERS: Emergency Provider Emergency Medicine
DX: R06.00 Dyspnea, unspecified (principal); I10 Essential (primary) hypertension; R50.9 Fever, unspecified; Z20.822 Contact with and (suspected) exposure to COVID-19
CPT/HCPCS: 36415; 51798; 71045; 71275; 74177; 80053; 82550; 82553; 83605; 83880; 84484; 85025; 87635; 93005; 96374; 96375; 99284; C9803; J1940; J2405; Q9967

== ENCOUNTER 2022-04-18 14:14 | Emergency (ER) | payer OTHER, SELFPAY ==
[2022-04-18 14:53] VITALS: BP 188/74; PULSE 62; RESP 18; TEMP 36.9; O2SAT 98; BMI 27.9
--- NOTE | 2022-04-18 14:59 | DI.RAD.S_ITS ---
PROCEDURE: XR CHEST 2V INDICATIONS: shortness of breath TECHNIQUE: 2 views of the chest were acquired. COMPARISON: [facility], CT, CT ANGIO CHEST PE PROTOCOL, 04/17/2022, 21:26. [facility], CR, XR CHEST 1V, 04/17/2022, 20:17. [facility], CR, XR CHEST 1V, 04/04/2021, 18:54. FINDINGS: Surgical changes and devices: Left shoulder anchors. Lungs and pleura: Lungs are clear. No pleural effusions or pneumothorax. Mediastinum: Mediastinal contours are normal. Heart size is normal. Bones and chest wall: No suspicious bony abnormalities. Soft tissues appear unremarkable. IMPRESSION: No acute cardiopulmonary abnormality. Dictated by: Lorenzo Nuñez M.D. on 04/18/2022 at 15:35 Approved by: Lorenzo Nuñez M.D. on 04/18/2022 at 15:36
[2022-04-18 15:20] LABS: Add Manual Diff / Slide Review NO; Basophils Absolute Auto 0 /uL (0-100); Basophils Percent Auto 0.5 % (0-2); Eosinophils Absolute Auto 100 /uL (0-450); Eosinophils Percent Auto 0.9 % (2-4); Hematocrit 40.1 % (41-53); Hemoglobin 14.4 g/dL (13.5-17.5); Lymphocytes Absolute Auto 800 /uL (1100-4500); Lymphocytes Percent Auto 14.6 % (25-40); Mean Corpuscular HGB Conc 35.9 % (30-36); Mean Corpuscular Hemoglobin 34.3 PG (26-34); Mean Corpuscular Volume 95.6 fL (80-100); Monocytes Absolute Auto 600 /uL (0-900); Monocytes Percent Auto 10.5 % (3-14); Neutrophils Absolute Auto 4000 /uL (1500-7000); Neutrophils Percent Auto 73.5 % (50-75); Platelet Count 152 X10^3/uL (150-400); Red Cell Distribution Width 13.2 % (11.6-14.8); White Blood Cell Count 5.5 X10^3/uL (4.5-11.0)
[2022-04-18 15:31] LABS: Alanine Aminotransferase 41 IU/L (<50); Albumin 4.4 g/dL (3.5-5.0); Albumin Globulin Ratio 1.2 (1.0-2.8); Alkaline Phosphatase 83 U/L (38-126); Aspartate Aminotransferase 43 IU/L (17-59); BUN Creatinine Ratio 14.5 (6-22); Bilirubin Total 1.2 mg/dL (0.2-1.3); Blood Urea Nitrogen 16 mg/dL (9-20); Calcium 9.6 mg/dL (8.4-10.2); Carbon Dioxide 32 mmol/L (22-32); Chloride 95 mmol/L (98-107); Creatine Kinase 67 U/L (55-170); Estimated Glomerular Filt Rate > 60 mL/min (>60); Globulin 3.6 g/dL (1.7-4.1); Glucose 104 mg/dL (80-110); HEMOLYSIS 27 (0-50); Potassium 3.8 mmol/L (3.4-5.1); Sodium 136 mmol/L (137-145)
[2022-04-18 15:32] LABS: Lactate (Lactic Acid) 1.5 mmol/L (0.7-2.1)
[2022-04-18 15:40] LABS: NT-proBNP (BNP-Adult 18+) 690 pg/mL (<125)
[2022-04-18 15:43] LABS: Troponin I < 0.012 ng/mL (0.01-0.034)
--- NOTE | 2022-04-18 18:19 | ED_ITS ---
HPI - SOB/Dyspnea General Chief Complaint: Shortness of Breath/Dyspnea Stated Complaint: sweating ,dizzy,here at ED last nite Time Seen by Provider: 04/18/22 18:16 Source: patient Mode of arrival: Ambulatory Limitations: no limitations History of Present Illness HPI Narrative: 71-year-old male with history of hypertension, hyperlipidemia, prior cerebral aneurysm, cardiac disease prior stent as well as alcohol abuse returns for the 2nd time and is many days complaining of shortness of breath and sweating. He states he is had around 4 days of these symptoms that seem to come and go without obvious provocation or palliation. He denies any chest pain, pressure or heaviness. He denies any worsening with exertion, any recent exercise intolerance, any association with lying flat and denies any weight gain. He denies any recent medication change, only stating that he stopped taking nortriptyline about a month and a half ago. Otherwise, he denies any medication change, new [id number] medications or dietary change. He states that was feeling quite good over the course of the day and then when his stated that she was coming to [employer] to get groceries he felt all of these symptoms come on. He states he is had no alcohol in many months. He denies any headache or blurred vision. He is had no trouble with speech or recent injury. Denies any trouble swallowing nor numbness, tingling or weakness of extremities. He had been having some nausea and vomiting for a few days but has not vomited since yesterday. He denies any abdominal pain or change in bowel habits. He is had no change in urinary patterns. He is adamant that he is taken no pain medications or other recreational drugs. Related Data Home Medications Medication Instructions Recorded Confirmed atorvastatin 80 mg tablet 80 mg PO BEDTIME 06/17/21 02/28/22 hydrochlorothiazide 12.5 mg capsule 12.5 mg PO QAM 06/17/21 02/28/22 lisinopril 10 mg tablet 10 mg PO DAILY 06/17/21 02/28/22 nortriptyline 10 mg capsule 10 mg PO BEDTIME 06/17/21 02/28/22 sertraline 100 mg tablet 100 mg PO QAM 06/17/21 02/28/22 trazodone 150 mg tablet 300 mg PO BEDTIME 06/17/21 02/28/22 Adult One Daily Multivitamin 1 tab PO BID 09/15/21 02/28/22 buspirone 15 mg tablet 15 mg PO BID 09/15/21 02/28/22 carvedilol 6.25 mg tablet 6.25 mg PO BID 09/15/21 02/28/22 cholecalciferol (vitamin D3) 50 50 mcg PO DAILY 09/15/21 02/28/22 mcg (2,000 unit) capsule Previous Rx's Medication Instructions Recorded furosemide 40 mg tablet (Lasix) 40 mg PO DAILY #5 tabs 04/18/22 Allergies Allergy/AdvReac Type Severity Reaction Status Date / Time No Known Drug Allergies Allergy Verified 03/02/22 14:57 Review of Systems Review of Systems Narrative: GENERAL: See HPI HEENT: Denies sinus pain, ear pain, sore throat, difficulty swallowing, dizziness. RESPIRATORY: See HPI CARDIOVASCULAR: See HPI GASTROINTESTINAL: See HPI : Denies dysuria, frequency, incontinence, hematuria, urinary retention. MUSCULOSKELETAL: denies weakness, joint pain, or bony pain SKIN: Denies rash, skin lesions, or other NEUROLOGIC: Denies weakness, headache, numbness, change in speech, confusion, seizures, incoordination. PSYCHIATRIC: No concerning psychosocial issues. 12 point review of systems is negative except for those stated above Patient History Medical History Alcohol abuse Alcohol use disorder Cerebral aneurysm Chronic pain Depression Essential tremor Hepatitis C Hyperlipidemia Hypertension Opioid dependence Osteomyelitis Suicide attempt by drug overdose Surgical History History of surgery for cerebral aneurysm History of surgery on extremity Family History Father Alcoholism Mother Alcoholism Social History household members: significant other Smoking Status: Former smoker alcohol intake: current Smoking Status: Former smoker alcohol intake frequency: 0-2 drinks per day Alcohol type: hard liquor Substance Use Type: does not use Exam Narrative Exam Narrative: GENERAL: [71] year old patient appears stated age. Well-developed patient, in mild distress. HEAD: Atraumatic. Normocephalic. EYES: Pupils equal round and reactive. Extraocular motions intact. No scleral icterus. No injection or drainage. ENT: Nose without bleeding, purulent drainage. Throat without erythema, tonsillar hypertrophy or exudate. Airway patent. NECK: Trachea midline. Non tender CARDIOVASCULAR: Regular rate and rhythm without murmurs, gallops, or rubs. RESPIRATORY: Decreased breath sounds bilaterally with prolonged expiratory phase, no obvious rales or rhonchi, no increased respiratory effort or use of accessory muscles, no tachypnea GASTROINTESTINAL: Abdomen soft, non-tender, nondistended. EXTREMITIES: No edema or joint tenderness. BACK: Nontender without deformity or crepitance. No flank tenderness. NEURO: AOx3. Cranial nerves 2-12 grossly intact SKIN: No rash or erythema of visible areas Initial Vital Signs Initial Vital Signs: Vital Signs Temperature 98.5 F 04/18/22 14:53 Pulse Rate 62 04/18/22 14:53 Respiratory Rate 18 04/18/22 14:53 Blood Pressure 188/74 H 04/18/22 14:53 Pulse Oximetry 98 04/18/22 14:53 Oxygen Delivery Method 04/18/22 14:53 Scores HEART Score Heart Score history: Slightly Suspicious Heart Score EKG: Normal Heart Score Age: > or = 65 years old Heart Score risk factors: 1-2 risk factors Heart Score troponin: < or = to normal limit Heart Score Total: 3 Course Orders Ordered: ED Orders 04/18/22 14:59 XR chest 2V Stat EKG-12 Lead Stat Measure peak expiratory flow ONCE RT Consult Eval and Treat Now 04/18/22 15:10 Complete Blood Count AUTO DIFF Stat Comprehensive Metabolic Panel Stat Lactate (Lactic Acid) Stat NT-proBNP (BNP-Adult 18+) Stat Troponin & CK Cardiac Panel Stat Vital Signs Vital signs: Vital Signs - 8 hr 04/18/22 14:53 Temperature 98.5 F Pulse Rate 62 Respiratory Rate 18 Blood Pressure 188/74 H Pulse Oximetry 98 Oxygen Delivery Method Room Air MDM - SOB/Dyspnea Lab Data Result diagrams: 04/18/22 15:10 04/18/22 15:10 Labs: Lab Results 04/18/22 04/18/22 04/18/22 Range/Units 15:10 15:10 15:10 WBC 5.5 (4.5-11.0) X10^3/uL RBC 4.20 L (4.5-5.9) X10^6/uL Hgb 14.4 (13.5-17.5) g/dL Hct 40.1 L (41-53) % MCV 95.6 (80-100) fL MCH 34.3 H (26-34) PG MCHC 35.9 (30-36) % RDW 13.2 (11.6-14.8) % Plt Count 152 (150-400) X10^3/uL Neut % (Auto) 73.5 (50-75) % Lymph % (Auto) 14.6 L (25-40) % Trimble % (Auto) 10.5 (3-14) % Eos % (Auto) 0.9 L (2-4) % Baso % (Auto) 0.5 (0-2) % Neut # (Auto) 4000 (1714-4513) /uL Lymph # (Auto) 800 L (3803-2954) /uL Trimble # (Auto) 600 (0-900) /uL Eos # (Auto) 100 (0-450) /uL Baso # (Auto) 0 (0-100) /uL Sodium 136 L (137-145) mmol/L Potassium 3.8 (3.4-5.1) mmol/L Chloride 95 L (98-107) mmol/L Carbon Dioxide 32 (22-32) mmol/L BUN 16 (9-20) mg/dL Creatinine 1.10 (0.66-1.25) mg/dL Estimated GFR > 60 (>60) mL/min BUN/Creatinine Ratio 14.5 (6-22) Glucose 104 (80-110) mg/dL Lactate 1.5 (0.7-2.1) mmol/L Calcium 9.6 (8.4-10.2) mg/dL Total Bilirubin 1.2 (0.2-1.3) mg/dL AST 43 (17-59) IU/L ALT 41 (<50) IU/L Alkaline Phosphatase 83 (38-126) U/L Total Creatine Kinase (55-170) U/L CK-MB (CK-2) CK-MB (CK-2) Rel Index Troponin I (0.01-0.034) ng/mL NT-Pro-B Natriuret Pep 690 H (<125) pg/mL Total Protein 8.0 (6.3-8.2) g/dL Albumin 4.4 (3.5-5.0) g/dL Globulin 3.6 (1.7-4.1) g/dL Albumin/Globulin Ratio 1.2 (1.0-2.8) 04/18/22 Range/Units 15:10 WBC (4.5-11.0) X10^3/uL RBC (4.5-5.9) X10^6/uL Hgb (13.5-17.5) g/dL Hct (41-53) % MCV (80-100) fL MCH (26-34) PG MCHC (30-36) % RDW (11.6-14.8) % Plt Count (150-400) X10^3/uL Neut % (Auto) (50-75) % Lymph % (Auto) (25-40) % Trimble % (Auto) (3-14) % Eos % (Auto) (2-4) % Baso % (Auto) (0-2) % Neut # (Auto) (6726-7030) /uL Lymph # (Auto) (3342-9944) /uL Trimble # (Auto) (0-900) /uL Eos # (Auto) (0-450) /uL Baso # (Auto) (0-100) /uL Sodium (137-145) mmol/L Potassium (3.4-5.1) mmol/L Chloride (98-107) mmol/L Carbon Dioxide (22-32) mmol/L BUN (9-20) mg/dL Creatinine (0.66-1.25) mg/dL Estimated GFR (>60) mL/min BUN/Creatinine Ratio (6-22) Glucose (80-110) mg/dL Lactate (0.7-2.1) mmol/L Calcium (8.4-10.2) mg/dL Total Bilirubin (0.2-1.3) mg/dL AST (17-59) IU/L ALT (<50) IU/L Alkaline Phosphatase (38-126) U/L Total Creatine Kinase 67 (55-170) U/L CK-MB (CK-2) TNP CK-MB (CK-2) Rel Index TNP Troponin I < 0.012 (0.01-0.034) ng/mL NT-Pro-B Natriuret Pep (<125) pg/mL Total Protein (6.3-8.2) g/dL Albumin (3.5-5.0) g/dL Globulin (1.7-4.1) g/dL Albumin/Globulin Ratio (1.0-2.8) Imaging Data Chest x-ray: Radiologist's Impression: [address] [address] XRay Report Signed Patient: Luis Ball MR#: [id number] : 1950 Acct:[id number] Age/Sex: 71 / M Date of Service: 04/18/22 Loc: ED Accession Number: [id number] ?? Procedure: XR chest 2V Ordering Provider: Lillian Carlisle D.O. PROCEDURE:? XR CHEST 2V ? INDICATIONS:? shortness of breath ? TECHNIQUE:? 2 views of the chest were acquired.? ? COMPARISON:? [facility], CT, CT ANGIO CHEST PE PROTOCOL, 04/17/2022, 21:26.? [facility], CR, XR CHEST 1V, 04/17/2022, 20:17.? [facility], CR, XR CHEST 1V, 04/04/2021, 18:54. ? FINDINGS:? ? Surgical changes and devices:? Left shoulder anchors.? ? Lungs and pleura:? Lungs are clear.? No pleural effusions or pneumothorax.? ? Mediastinum:? Mediastinal contours are normal.? Heart size is normal.? ? Bones and chest wall:? No suspicious bony abnormalities.? Soft tissues appear unremarkable.? ? IMPRESSION:? No acute cardiopulmonary abnormality. ? ? ? Dictated by: Lorenzo Nuñez M.D. on 04/18/2022 at 15:35 ? ? Approved by: Lorenzo Nuñez M.D. on 04/18/2022 at 15:36 ? ECG Data Interpretation: [1459] EKG is normal sinus rhythm rate [ 61] and free of any signs of ischemia or ectopy. No ST segmental elevation or depression. No T wave inversions MDM Narrative Medical decision making narrative: Patient returns for the 2nd time and is many days and a chief complaint shortness of breath, occasional sweating with to thorough evaluations including multiple unremarkable EKGs, troponins and even CT angiogram. Patient is currently asymptomatic and has had no chest pain. There is no evidence of pneumonia, pleural effusion or pulmonary embolism. He did have a slightly elevated BNP yesterday and was prescribed Lasix which was just picked up tonight. His combination of nausea, vomiting, shortness of breath and sweating to raise the question of the possibility of a withdrawal type scenario but he states he is not had alcohol in many months. He is taking buprenorphine but d enies the use of any opioids. He denies other medication change. Patient's history and physical are reassuring, particularly in the setting of to significant workups. At this point time there is no indication for hospitalization, transfer or need for other specific intervention. Extensive discussion regarding return precautions discussed with patient and family. They are in agreement with an understand the diagnosis and plan. Questions answered to their apparent satisfaction Discharge Plan Departure Patient Disposition: Home Clinical Impression: Dyspnea Activity Restrictions/Additional Instructions: *You have been diagnosed with [shortness of breath. As we discussed I have no obvious cause such as heart attack, pneumonia, blood clot, kidney failure or other diagnosis that would have a specific or immediate need for intervention] *What to do: *Please continue to take your regular medications as directed. [ ] New medication prescriptions sent to your pharmacy: [ ] [ ] New medication written as a paper prescription [ ] No new medications given *Please follow up with your primary care provider in 2-3 days, call for an appointment. Let them know you were seen in the Emergency Department and that we ask that you be seen in follow up. We will electronically transmit a record of today's note if your PCP is in our system *If you do not have a primary care provider please contact the [facility] Resource line at [phone]. They will ask some questions about your medical history and help get you set up with a doctor in the community. *Return to Emergency Department if you should have any new, worsening or concerning symptoms Prescriptions: No Action atorvastatin 80 mg Tablet 80 mg PO BEDTIME sertraline 100 mg Tablet 100 mg PO QAM nortriptyline 10 mg Capsule 10 mg PO BEDTIME trazodone 150 mg Tablet 300 mg PO BEDTIME lisinopril 10 mg Tablet 10 mg PO DAILY Label Comments: pt unsure of frequency hydrochlorothiazide 12.5 mg Capsule 12.5 mg PO QAM cholecalciferol (vitamin D3) 50 mcg (2,000 unit) Capsule 50 mcg PO DAILY Adult One Daily Multivitamin 1 tab PO BID carvedilol 6.25 mg Tablet 6.25 mg PO BID Rx Instructions: must administer with a meal/food buspirone 15 mg Tablet 15 mg PO BID furosemide [Lasix] 40 mg tablet 40 mg PO DAILY Qty: 5 0RF Referrals: Miscellaneous,Doctor, MD [Primary Care Provider] - Visit Report Forms: Patient Portal/API
[2022-04-18 18:30] VITALS: BP 187/83; PULSE 82; RESP 24; O2SAT 97
[2022-04-18 18:35] VITALS: PULSE 81; RESP 22; O2SAT 97
[2022-04-18 18:40] VITALS: PULSE 79; RESP 24; O2SAT 96
== END 2022-04-18 19:00 | disposition home or self-care (01) ==
PROVIDERS: Emergency Medicine; Emergency Provider Emergency Medicine
DX: R06.00 Dyspnea, unspecified (principal); R79.89 Other specified abnormal findings of blood chemistry
CPT/HCPCS: 71046; 80053; 82550; 83605; 83880; 84484; 85025; 93005; 99283; 99284

== ENCOUNTER 2022-08-23 12:31 | Emergency (ER) | payer OTHER, SELFPAY ==
[2022-08-23] VITALS (10 sets, daily range): BP systolic 129–183; BP diastolic 66–93; PULSE 72–104; RESP 22–24; TEMP 36.4; O2SAT 95–100; BMI 25.4
--- NOTE | 2022-08-23 12:43 | DI.CT.S_ITS ---
PROCEDURE: CT CERVICAL SPINE WO CON INDICATIONS: Fall on blood thinners TECHNIQUE: Noncontrast 3 mm thick sections acquired from the skull base to the T4 level. Sagittal and coronal reformats were then constructed. For radiation dose reduction, the following was used: automated exposure control, adjustment of mA and/or kV according to patient size. COMPARISON: [facility], CT, CT ANGIO HEAD AND NECK, 09/15/2021, 2:16. FINDINGS: Image quality: Good Bones: Moderate to severe degenerative changes is no displaced fracture. No dislocation. Is age-indeterminate height loss is of the T3 vertebral body without definite acute component. Embolization coil in the region of the right vertebral artery. Soft tissues: No pathologic prevertebral soft tissue swelling. Carotid bulb calcifications. IMPRESSION: No acute fracture or traumatic subluxation of the cervical spine. Moderate to severe degenerative changes. Other suspected chronic findings as above. Approved by: Qamar Aguilera M.D. on 08/23/2022 at 13:49
--- NOTE | 2022-08-23 12:43 | DI.CT.S_ITS ---
PROCEDURE: CT HEAD/BRAIN WO CON INDICATIONS: Fall on blood thinners TECHNIQUE: Noncontrast 4.5 mm thick angled axial sections acquired from the foramen magnum to the vertex, with coronal and sagittal reformats. For radiation dose reduction, the following was used: automated exposure control, adjustment of mA and/or kV according to patient size. COMPARISON: [facility], CT, CT HEAD/BRAIN WO CON, 09/15/2021, 2:16. FINDINGS: Image quality: Good CSF spaces: Basal cisterns are patent. Lateral ventricles are symmetric. Volume: Vascular calcifications. Periventricular white matter disease is commonly seen with chronic microangiopathy. Volume loss is present. These findings are moderate Ventriculomegaly, slightly out of proportion to degree of volume loss. Brain: No intracranial hemorrhage. Mortensen-white differentiation is grossly maintained. Craniofacial structures: No displaced fracture. Sinuses are clear. Orbits are intact. IMPRESSION: No acute intracranial abnormality. Dictated by: Qamar Aguilera M.D. on 08/23/2022 at 13:41 Approved by: Qamar Aguilera M.D. on 08/23/2022 at 13:43
--- NOTE | 2022-08-23 12:48 | ED_ITS ---
HPI - General Adult General Chief complaint: Trauma Stated complaint: Bleeding Head Time Seen by Provider: 08/23/22 12:42 Source: patient and EMS Mode of arrival: EMS Limitations: no limitations History of Present Illness HPI narrative: Patient is a 72-year-old male. Is on anticoagulation who is here for evaluation of injuries that he sustained when he tripped and fell last evening. He did not lose consciousness. He did hit the left side of his head. He could not get the bleeding to stop last night this morning so he contacted EMS and they put a bandage over the area. He states that he ?hurts all over ?but this is not new for him. He is no neck pain. Related Data Home Medications Medication Instructions Recorded Confirmed atorvastatin 80 mg tablet 80 mg PO BEDTIME 06/17/21 02/28/22 hydrochlorothiazide 12.5 mg capsule 12.5 mg PO QAM 06/17/21 02/28/22 lisinopril 10 mg tablet 10 mg PO DAILY 06/17/21 02/28/22 nortriptyline 10 mg capsule 10 mg PO BEDTIME 06/17/21 02/28/22 sertraline 100 mg tablet 100 mg PO QAM 06/17/21 02/28/22 trazodone 150 mg tablet 300 mg PO BEDTIME 06/17/21 02/28/22 Adult One Daily Multivitamin 1 tab PO BID 09/15/21 02/28/22 buspirone 15 mg tablet 15 mg PO BID 09/15/21 02/28/22 carvedilol 6.25 mg tablet 6.25 mg PO BID 09/15/21 02/28/22 cholecalciferol (vitamin D3) 50 50 mcg PO DAILY 09/15/21 02/28/22 mcg (2,000 unit) capsule Previous Rx's Medication Instructions Recorded furosemide 40 mg tablet (Lasix) 40 mg PO DAILY #5 tabs 04/18/22 Allergies Allergy/AdvReac Type Severity Reaction Status Date / Time No Known Drug Allergies Allergy Verified 08/23/22 12:33 Review of Systems Constitutional Constitutional: Reports system reviewed and no additional complaints, except as documented ENT Ears, Nose, Mouth, and Throat: Reports system reviewed and no additional complaints, except as documented Respiratory Respiratory: Reports system reviewed and no additional complaints, except as documented Musculoskeletal Musculoskeletal: Reports system reviewed and no additional complaints, except as documented Integumentary/Breasts Skin/Breast: Reports system reviewed and no additional complaints, except as documented Neurologic Neurologic: Reports system reviewed and no additional complaints, except as documented Hematologic/Lymphatic On Anticoagulants: Yes Patient History Medical History Alcohol abuse Alcohol use disorder Cerebral aneurysm Chronic pain Depression Essential tremor Hepatitis C Hyperlipidemia Hypertension Opioid dependence Osteomyelitis Suicide attempt by drug overdose Surgical History History of surgery for cerebral aneurysm History of surgery on extremity Family History Father Alcoholism Mother Alcoholism Social History household members: significant other Smoking Status: Former smoker alcohol intake: current Smoking Status: Former smoker alcohol intake frequency: 0-2 drinks per day Alcohol type: hard liquor Substance Use Type: does not use Exam Initial Vital Signs Initial Vital Signs: Vital Signs Pulse Rate 94 H 08/23/22 12:33 Blood Pressure 183/93 H 08/23/22 12:33 Pulse Oximetry 100 08/23/22 12:33 Const General: cooperative and comfortable HENMT Head: normal to inspection and laceration (Left temporal region) Chest Chest: No crepitus and No tenderness Resp Effort & Inspection: normal respiratory effort Cardio Rate: regular rate Skin Other: 1 cm laceration left temporal region. Is actively bleeding. Neuro General: patient alert, patient awake, patient oriented x3 and moves all extremities Extrem Other: Moves all 4 extremities equally Procedures Laceration Repair Laceration 1: Site: face Side (If applicable): left Size (cm): 1 Description: linear Depth: simple, single layer Local Anesthetic: lidocaine 1% and with epi Amount of anesthesia used (mL): 2 Pre-repair: wound explored Skin layer closed with: nylon Skin layer suture size: 3-0 Number of sutures: 2 Technique: simple, interrupted Scores GCS [place] coma scale eye opening: Spontaneous [place] coma scale verbal response: Orientated [place] coma scale motor response: Obey commands Farnham coma scale total score: 15 Course Orders Ordered: ED Orders 08/23/22 12:43 CT cervical spine wo con Stat CT head/brain wo con Stat Discontinued Medications Lidocaine/Epinephrine (Lidocaine 1% W/Epi) 4 ml INJ INTRA-OP ONE Stop: 08/23/22 12:48 Last Admin: 08/23/22 14:21 Dose: Not Given Documented By: RLS Vital Signs Vital signs: Vital Signs - 8 hr 08/23/22 12:34 08/23/22 13:44 08/23/22 12:33 Temperature 97.5 F L Pulse Rate 72 100 H Respiratory Rate 22 22 Blood Pressure 183/93 H 152/78 H 183/93 H Pulse Oximetry 99 99 Oxygen Delivery Method Room Air Room Air 08/23/22 12:33 08/23/22 13:09 08/23/22 13:09 Temperature Pulse Rate 94 H 89 Respiratory Rate Blood Pressure 154/68 H Pulse Oximetry 100 99 Oxygen Delivery Method 08/23/22 13:30 08/23/22 13:30 08/23/22 13:40 Temperature Pulse Rate 91 H 92 H Respiratory Rate 23 24 Blood Pressure 148/66 H Pulse Oximetry 99 99 Oxygen Delivery Method 08/23/22 13:40 08/23/22 14:00 08/23/22 14:00 Temperature Pulse Rate 90 Respiratory Rate Blood Pressure 140/66 130/70 Pulse Oximetry 100 Oxygen Delivery Method 08/23/22 14:30 08/23/22 14:31 08/23/22 14:31 Temperature Pulse Rate 103 H 102 H Respiratory Rate Blood Pressure 129/72 Pulse Oximetry 96 97 Oxygen Delivery Method 08/23/22 15:00 Temperature Pulse Rate 104 H Respiratory Rate Blood Pressure Pulse Oximetry 95 Oxygen Delivery Method Medical Decision Making Differential Diagnosis Differential Diagnosis: Intracranial hemorrhage, skull fracture, concussion, and others Condition is:: Improved Lab Data Lab results reviewed: Yes I reviewed the patient's lab results. Imaging Data CT - cervical spine: Radiologist's Impression: [place] [address] CT Scan Report Signed Patient: Luis Ball MR#: [id number] : 1950 Acct:[id number] Age/Sex: 72 / M Date of Service: 08/23/22 Loc: ED Accession Number: [id number] ?? Procedure: CT cervical spine wo con Ordering Provider: Amarjit Bucio D.O. PROCEDURE:? CT CERVICAL SPINE WO CON ? INDICATIONS:? Fall on blood thinners ? TECHNIQUE:? Noncontrast 3 mm thick sections acquired from the skull base to the T4 level.? Sagittal and coronal reformats were then constructed.? For radiation dose reduction, the following was used:? automated exposure control, adjustment of mA and/or kV according to patient size.? ? COMPARISON:? [facility], CT, CT ANGIO HEAD AND NECK, 09/15/2021, 2:16. ? FINDINGS:? Image quality:? Good ? Bones:? Moderate to severe degenerative changes is no displaced fracture.? No dislocation.? Is age-indeterminate height loss is of the T3 vertebral body without definite acute component.? Embolization coil in the region of the right vertebral artery. ? Soft tissues:? No pathologic prevertebral soft tissue swelling.? Carotid bulb calcifications. ? IMPRESSION:? No acute fracture or traumatic subluxation of the cervical spine.? Moderate to severe degenerative changes.? Other suspected chronic findings as above. ? Approved by: Qamar Aguilera M.D. on 08/23/2022 at 13:49 CT scan - head: Radiologist's Impression: [address] [address] [address] Scan Report Signed Patient: Luis Ball MR#: [id number] : 1950 Acct:[id number] Age/Sex: 72 / M Date of Service: 08/23/22 Loc: ED Accession Number: [id number] ?? Procedure: CT head/brain wo con Ordering Provider: Amarjit Bucio D.O. PROCEDURE:? CT HEAD/BRAIN WO CON ? INDICATIONS:? Fall on blood thinners ? TECHNIQUE:? Noncontrast 4.5 mm thick angled axial sections acquired from the foramen magnum to the vertex, with coronal and sagittal reformats.? For radiation dose reduction, the following was used:? automated exposure control, adjustment of mA and/or kV according to patient size.? ? COMPARISON:? [facility], CT, CT HEAD/BRAIN WO CON, 09/15/2021, 2:16. ? FINDINGS:? Image quality:? Good ? CSF spaces: Basal cisterns are patent. Lateral ventricles are symmetric. Volume:? Vascular calcifications. Periventricular white matter disease is commonly seen with chronic microangiopathy. Volume loss is present. These findings are moderate Ventriculomegaly, slightly out of proportion to degree of volume loss. ? Brain: No intracranial hemorrhage. Mortensen-white differentiation is grossly maintained. ? Craniofacial structures: No displaced fracture. Sinuses are clear. Orbits are intact. ? IMPRESSION:? No acute intracranial abnormality. ? ? Dictated by: Qamar Aguilera M.D. on 08/23/2022 at 13:41 ? ? Approved by: Qamar Aguilera M.D. on 08/23/2022 at 13:43?? MDM Narrative Medical decision making narrative: The cut to the left side of his head was closed as described above. CT scan of his head and neck were unremarkable. He reports no other injuries from the event. He is on blood thinners. Will hold on further workup for now. He was given care instructions and return precautions with regard to the stitches. Informed him that he could expect a black eye for the next couple days. He was given return precautions. He expressed understanding and agreement. Discharge Plan Departure Patient Disposition: Home Clinical Impression: Laceration of head, Fall Instructions: DI for Laceration Repair Activity Restrictions/Additional Instructions: Continue to take all of your medications as directed. Return to the emergency department for any new or worsening symptoms Prescriptions: No Action atorvastatin 80 mg Tablet 80 mg PO BEDTIME sertraline 100 mg Tablet 100 mg PO QAM nortriptyline 10 mg Capsule 10 mg PO BEDTIME trazodone 150 mg Tablet 300 mg PO BEDTIME lisinopril 10 mg Tablet 10 mg PO DAILY Label Comments: pt unsure of frequency hydrochlorothiazide 12.5 mg Capsule 12.5 mg PO QAM cholecalciferol (vitamin D3) 50 mcg (2,000 unit) Capsule 50 mcg PO DAILY Adult One Daily Multivitamin 1 tab PO BID carvedilol 6.25 mg Tablet 6.25 mg PO BID Rx Instructions: must administer with a meal/food buspirone 15 mg Tablet 15 mg PO BID furosemide [Lasix] 40 mg tablet 40 mg PO DAILY Qty: 5 0RF Stand Alone Forms: Patient Portal/API
--- NOTE | 2022-08-23 13:01 | PC.NURSE ---
removed dressing with Dr. Bucio. pt has an arterial bleed. pressure being held. soaking through a few 4x4's. Dr. Bucio able to suture to bring pt to Ct scan . bleeding is controlled.
[2022-08-23] MEDS: LIDOCAINE 2% W/EPI INJ 20 ML (14:20)
== END 2022-08-23 15:06 | disposition home or self-care (01) ==
PROVIDERS: Emergency Provider Emergency Medicine
DX: S01.81XA Laceration without foreign body of other part of head, initial encounter (principal); W01.0XXA Fall on same level from slipping, tripping and stumbling without subsequent striking against object, initial encounter; Z79.899 Other long term (current) drug therapy
CPT/HCPCS: 12011; 70450; 72125; 99284